=== PATIENT | male | born 1985 | race Caucasian/White ===

== ENCOUNTER 2024-03-30 12:46 | Outpatient (REF) | payer BC, SELFPAY ==
--- OUTSIDE RECORDS SUMMARY | 2024-03-30 12:54 | XMS_ITS | Encounter Summary ---
Author Organization [facility] Address [facility] [place] [address] Care Team Providers Care Home Health Travel Ot Name Role Phone Elizabeth Mistry APRN Primary Care Provider + Reason for Visit * Reason Comments Medication Management Encounter Details Date Type Department Care Team (Late st Contact Info) Description 04/30/2020 Specialty [place] [address] [facility] Social History Tobacco Use Types Packs/Day Years Used Date Smoking Tobacco: Former Cigarettes Q uit: 12/15/2017 Smokeless Tobacco: Never Alcohol Use Standard Drinks/Week Comments Yes 6 (1 standard drink = 0.6 oz pur e alcohol) Sex and Gender Information Value Date Recorded Sex Assigned at Not on file Gender Identity Not on file Sexual Orientation Not on file documented as of this encounter Progress Notes * Marcus Reese RPH - 04/30/2020 11:16 AM EST Clinical Management Plan: Refill Specialty Pharmacy Consultation; Marcus Reese Viridiana Comprehensive Medication Management (CMM) Marco A Georgette Xavier Mr. Marco A Park is a 34 y.o. (1985) male who was contacted in regard to a specialty medication refill reminder. Spoke with patient regarding Praluent. A review of the medication therapy was performed. The medication was Refilled as scheduled, and all medication related questions and concerns were addressed. The specialty pharmacy staff will follow up with the patient 5-7 days prior to next refill. Was a change made to the Care Plan: no If yes, should the medication be held: No Assessment and Recommendations: Title Type of Medication Management: chronic disease management, targeted medication review Referred By: provider Recipient: beneficiary Provider: plan sponsor pharmacist Visit Type: [facility] [place] Method of Contact: by telephone Cognitive Ability: good Cognitive Impairment Status Verified this Year: yes Allergies and Drug intolerance: Allergies Allergen Reactions ??? Lipitor [Atorvastatin] Other (See Comments) Elevated CK Medication Reconciliation Discrepancies (compared to [facility] med list) -none New medications: no New medical conditions: no New allergies: no Adherence: Medication Adherence Patient reported X missed doses in the last month: 0 Any gaps in refill history greater than 2 weeks in the last 3 months: no Demonstrates understanding of importance of adherence: yes Informant: patient Reliability of informant: reliable Provider-estimated medication adherence level: 90-100% Reasons for non-adherence: no problems identified Adherence tools used: directed education Support network for adherence: family member Confirmed plan for next specialty medication refill: delivery by pharmacy Refills needed for supportive medications: not needed Are you experiencing any side effects from your medications? no Pt understands no changes to current drug regimen were made at the appointment and that [facility] is providing recommendations (summary located at top of note) for provider review and follow up. Marcus Reese RPH 04/30/20 11:17 AM documented in this encounter Plan of Treatment Upcoming Encounters Date Type Department Care Team (Late st Contact Info) Description 04/01/2025 3:40 PM EST Office Visit Cardiology at [address] [address] Star Flores MD [facility] [place] [address] documented as of this encounter Goals Goal Patient Goal Type Associated Problems Recent Progress Patient-Stated? Author DH Home Medication Compliance and Understanding Patient Facing Action Plan No Salvatore Potts RP Note: Reduce LDL, measured by lipid panel, revisit every 6 months documented as of this encounter Visit Diagnoses Not on filedocumented in this encounter Care Teams Home Health Travel Ot Relationship Specialty Start Date End Date Elizabeth Mistry APRN [facility] [place] [address] PCP - General General Internal Medicine 08/19/1605/23 documented as of this encounter
--- OUTSIDE RECORDS SUMMARY | 2024-03-30 12:54 | XMS_ITS | Encounter Summary ---
Author Organization [facility] Address [facility] [place] [address] Care Team Providers Care Hydrodynamics Professor Name Role Phone Elizabeth Mistry APRN Primary Care Provider + Reason for Visit * Reason Comments Medication Management Patient Education Encounter Details Date Type Department Care Team (Late st Contact Info) Description 03/26/2020 Specialty Pharmacy Pharmacy at [facility] [place] [id number] Salvatore Potts RPH Social History Tobacco Use Types Packs/Day Years [...] as of this encounter Progress Notes * Salvatore Potts RPH - 03/26/2020 8:38 AM EST Specialty Pharmacy Consultation; Salvatore Potts RPH Comprehensive Medication Management (CMM) Marco A Blantonters Diagnosis: Hyperlipidemia Therapy Start Date: 08/2018 Contact in person or via telephone: telephone Mr. Marco A Park is a 34 y.o. (1985) male who was contacted in regard to specialty medication. Spoke with patient regarding praluent. A review of the medication therapy was performed. The medication was Refilled as scheduled, and all medication related questions and concerns were addressed.The specialty pharmacy staff will follow up with the patient 5-7 days prior to next refill. Is the patient willing to proceed with the Clinical Assessment? Yes Summary and Recommendations: I reviewed the labeling of praluent including the proper storage, handling, and administration. We reviewed the labeled warnings, side effects and discussed general monitoring parameters. I discussed the importance of adherence, and how to proceed with missed doses. I reviewed the summary of our specialty services, operating hours, transmission specialist procedure and when/how to contact the pharmacy. We reconciled Marco A's medication list, allergies and discussed goals of treatment. Marco A is having no issues with his injections and his LDL is at goal. He had no further questions or concerns today. Clinic follow-up needed: yes - routine Allergies and Drug intolerance: Allergies Allergen Reactions ??? Lipitor [Atorvastatin] Other (See Comments) Elevated CK Problem List: Patient Active Problem List Diagnosis Code ??? Unspecified symptoms and signs involving cognitive functions and awareness R41.9 ??? Depression F32.9 ??? 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 History of head injury Z87.828 ??? Familial hypercholesterolemia E78.01 Special Dietary or Hydration Requirements: no There is no height or weight on file to calculate BMI. Medication Reconciliation Discrepancies (compared to [facility] med list) no Medication Adherence Patient reported X missed doses [...] Refills needed for supportive medications: not needed Medication List: Current Outpatient Medications Medication Sig Dispense Refill ??? gabapentin (Neurontin) 300 mg Capsule Take 1 capsule by mouth nightly. 30 capsule 3 ??? clonazePAM (KlonoPIN) 0.5 mg Tablet Take 1 tablet by mouth 2 times daily as needed for Anxiety.30 tablet 0 ??? ezetimibe (Zetia) 10 mg Tablet Take 1 tablet by mouth daily. 90 tablet 3 ??? alirocumab 75 mg/mL Pen Injector Inject 75 mg subcutaneously every 14 days. 6 mL 3 ??? FLUoxetine (PROzac) 20 mg Tablet Take 2 tablets by mouth daily. 60 tablet 3 ??? pantoprazole (PROTONIX) 40 mg Tablet, Delayed Release (E.C.) Take 1 tablet by mouth daily. 30 tablet 11 No current facility-administered medications for this visit. Most Recent Vitals: Ht Readings from Last 1 Encounters: 12/07/19 175.3 cm (5' 9) Wt Readings from Last 3 Encounters: 12/07/19 76.7 kg (169 lb) 09/13/19 72.6 kg (160 lb) 06/08/19 77.2 kg (170 lb 3.2 oz) Temp Readings from Last 3 Encounters: 02/15/19 36.6 ??C (97.8 ??F) (Oral) 08/28/18 36.6 ??C (97.9 ??F) (Oral) 02/21/18 36.7 ??C (98.1 ??F) BP Readings from Last 3 Encounters: 12/07/19 131/81 06/08/19 127/73 02/15/19 135/90 Pulse Readings from Last 3 Encounters: 12/07/19 87 06/08/19 82 02/15/19 97 Pertinent Lab values: Lab Results Component Value Date NA 140 12/07/2019 K 4.2 12/07/2019 CL 101 12/07/2019 CO2 27 12/07/2019 BUN 13 12/07/2019 CREATININE 1.07 12/07/2019 GLUCOSE 98 08/24/2018 GLUCFASTING 91 12/07/2019 CALCIUM 9.5 12/07/2019 Lab Results Component Value Date ALT 19 12/07/2019 AST 19 12/07/2019 ALKPHOS 48 12/07/2019 BILITOT 0.3 12/07/2019 BILIDIR 0.1 09/01/2016 ALBUMIN 4.8 12/07/2019 PROT 7.2 12/07/2019 Lab Results Component Value Date WBC 6.8 08/18/2016 HGB 16.3 08/18/2016 HCT 46.0 08/18/2016 MCV 82.6 (L) 08/18/2016 PLATELET 257 08/18/2016 No results found for: HA1C Immunization History Administered Date(s) Administered ??? Influenza Vaccine PF, Quadrivalent 03/17/2017, 02/14/2018, 02/15/2019 ??? Influenza Vaccine, Whole 03/24/2008 ??? Tdap Vaccine 08/23/2016 Assessment and Recommendations: Title Type of Medication Management: chronic disease management, targeted medication review Referred By: provider Recipient: beneficiary Provider: plan sponsor pharmacist [place] [facility] [place] Method of Contact: by telephone Cognitive Ability: good Cognitive Impairment Status Verified this Year: yes Drug Interactions Provided the patient with educational material regarding drug interactions: yes Patient Counseling Counseled the patient on the following: medication safety precautions education provided, drug interaction education provided to patient, doses and administration discussed, safe handling, storage, and disposal discussed, possible adverse effects and management discussed, possible drug and prescription drug interactions discussed, possible drug and OTC drug and food interactions discussed, lab monitoring and follow-up discussed, therapeutic rationale discussed, cost of medications and cost implications discussed, adherence and missed doses discussed, pharmacy contact information discussed, health goals discussed, monitoring medication discussed, self-monitoring discussed Drug Medication Management Summary Topics discussed: medication safety precautions education provided, drug interaction education provided to patient, doses and administration discussed, safe handling, storage, and disposal discussed, possible adverse effects and management discussed, possible drug and prescription drug interactions discussed, possible drug and OTC drug and food interactions discussed, lab monitoring and follow-up discussed, therapeutic rationale discussed, cost of medications and cost implications discussed, adherence and missed doses discussed, pharmacy contact information discussed, health goals discussed, monitoring medication discussed, self-monitoring discussed Time spent: 16-30 min Treatment Outcomes No data found in the last 10 encounters. Reviewed in detail with patient: Dose appropriateness based on recommended standard dosing Current medication list including OTC medications Medication and disease problems Allergies Comorbid conditions/ Problem List Past adverse events if any Special needs of the patient including physical and cognitive limitations Goals of therapy and management strategies Warnings, precautions, and contraindications Side effects Drug-drug and drug-food interactions Administration instructions including dose, frequency and method Handling, storage, and disposal Verifying expiration dates on products before use Rotating medication inventory to use oldest product first Relevant lab data Patient verbalizes understanding and is able to read-back instructions on self-administration/injection, proper storage, drug stability, importance of adherence and management strategies, side effectavoidance and mitigation strategies, and interruptions in therapy: Yes Physical and Cognitive Assessment: Functional limitations identified: no Cognitive limitations identified: no Concern regarding orientation/memory: no Concern with reasoning/judgement: no Is patient a fall risk: no Other needed information: no Social Assessment: Does the patient have a primary school child care attendant? no Does the patient have an emergency contact on file: Yes Does patient need referral to neonatal social worker: No Does patient need referral to advocacy group: No Home Health Assessment: Is the patient in a safe home environment? Yes Is the patient able to store their medication as directed? Yes Does the patient have a support network at home? Yes Reviewed potential home safety hazards with patient: Yes Economic Assessment: Patient is agreeable to medication copay: yes Copay Amount: $3 Day Supply: 28 Date Needed: 04/05/2020 Copay assistance required: no Therapy Assessment: Current Medication Dosing/Route/Frequency: praluent 75mg inject 75mg subcutaneously every 14 days Appropriate Therapy: Yes Effective: yes - LDL reduced Baseline LDL-C Level: 222 Most Recent LDL-C Level: 49 Patient-Reported Side Effects: no Patient Goals: Patient's specific desired goal: LDL < 70 Measured by: LDL Time-frame to meet goal: ongoing/ currently met Is the patient on track to achieve goals of therapy? yes If no, what are the barriers and action plan to reach the goal: n/a Care Plan and Interventions: Care Plan Reviewed and Approved by both Pharmacist and Patient: Yes Did Care Plan Change? No Interventions (if applicable): No none Patient experienced change in condition that affects treatment: no Additional care/services needed: no Educational information or adherence tools provided: No Additional equipment/supplies required: no Patient Counseling: Issues with Injection: no Rotation of Injection Sites: Yes Room Temperature Medication at Time of Injection: Yes Recent Infections: no Pharmacist follow-up needed: Yes Patient Satisfaction with Care/Services Provided: Yes Informed patient of specialty pharmacy services: Yes -Patient received welcome packet: yes Date Received: 08/2018 Delivery Method: mail -Patient returned signed Rights & Responsibilities: yes - . Date Received: 08/2018 Delivery Method: mail- confirmed 09/2019 -Patient is aware a licensed pharmacist is available 24 hours a day, 7 days a week to discuss medication-related questions or concerns: Yes -Patient verbalizes understanding of education on the common side effect profile of the medication:Yes -The patient is able to call 911 or seek urgent care if signs/symptoms of allergy or harmful adverse reactions occur: Yes Patient understands no changes to current drug regimen were made at the appointment and that [facility] (summary located at top of note) for provider review and follow up. Salvatore Potts RPH 03/26/20 8:41 AM documented in this encounter Plan of Treatment Upcoming Encounters Date Type Department Care Team (Late st Contact Info) Description 04/01/2025 3:40 PM EST Office Visit Cardiology at [address] [facility] [place] [address] Star Flores MD [facility] [place] [address] documented as of this encounter Goals Goal Patient Goal Type Associated Problems Recent Progress Patient-Stated? Author DH Home Medication Compliance and Understanding Patient Facing Action Plan No Salvatore Potts RPH Note: Reduce LDL, measured by lipid panel, revisit every 6 months documented as of this encounter Visit Diagnoses Not on filedocumented in this encounter Care Teams Hydrodynamics Professor Relationship Specialty Start Date End Date Elizabeth Mistry APRN [facility] [place] [place] [address] PCP - General General Internal Medicine 08/19/1605/23 documented as of this encounter
--- OUTSIDE RECORDS SUMMARY | 2024-03-30 12:54 | XMS_ITS | Encounter Summary ---
Author Organization [facility] Address [facility] [place] [address] Care Team Providers Care Associate Creative Director Name Role Phone Elizabeth Mistry APRN Primary Care Provider + Reason for Visit * Reason Comments Medication Refill Encounter Details Date Type Department Care Team (Late st Contact Info) Description 07/04/2020 Specialty Pharmacy Pharmacy at [facility] [place] [phone] Kyleigh Leal RPH Social History Tobacco Use Types Packs/Day [...] as of this encounter Progress Notes * Kyleigh Leal RPH - 07/04/2020 12:33 PM EST Clinical Management Plan: Refill Specialty Pharmacy Consultation; Kyleigh Leal RPH Comprehensive Medication Management (CMM) Marco A Park Mr. Marco A Park is a 34 y.o. (1985) male who was contacted in regard to a specialty medication refill reminder. Contact made with patient regarding Praluent. A review of the medication therapy was performed. The medication was refilled as scheduled, and all medication related questions andconcerns were addressed. The specialty pharmacy staff will follow up with the patient 5-7 days prior to next refill. Was a change made to the Care Plan: No Allergies and Drug intolerance: Allergies Allergen Reactions ??? Lipitor [Atorvastatin] Other (See Comments) Elevated CK Medication Reconciliation Discrepancies (compared to [facility] med list) No Specialty Pharmacy Refill Questionnaire Refill Questionnaire 07/04/2020 Are you taking any new medications? No Any new medical condition? No Any new allergies? No Any new side effects that are bothersome? No Adherence: Any missed doses? No Patient understands no changes to current drug regimen were made.. Kyleigh Leal RPH 07/04/20 12:35 PM documented in this encounter Plan of Treatment Upcoming Encounters Date Type Department Care Team (Late st Contact Info) Description 04/01/2025 3:40 PM EST Office Visit Cardiology at [address] [address] Star Flores MD [facility] [place] [address] documented as of this encounter Goals Goal Patient Goal Type Associated Problems Recent Progress Patient-Stated? Author DH Home Medication Compliance and Understanding Patient Facing Action Plan No Salvatore Potts Viridiana Note: Reduce LDL, measured by lipid panel, revisit every 6 months documented as of this encounter Visit Diagnoses Not on filedocumented in this encounter Care Teams Associate Creative Director Relationship Specialty Start Date End Date Elizabeth Mistry APRN [facility] [place] [address] PCP - General General Internal Medicine 08/19/1605/23 documented as of this encounter
--- OUTSIDE RECORDS SUMMARY | 2024-03-30 12:54 | XMS_ITS | Encounter Summary ---
Author Organization [facility] Address [facility] [place] [address] Care Team Providers Care Pasting Inspector Name Role Phone Unavailable Primary Care Provider Unavailabl e Encounter Details Date Type Department Care Team (Latest Contact Info) Description 03/28/2024 Travel Social History Tobacco Use Types Packs/Day Years Used Date Smoking Tobacco: Former Cigarettes Q uit: 12/15/2017 Smokeless Tobacco: Never Alcohol Use Standard Drinks/Week Comments Yes 6 (1 standard drink = 0.6 oz pur e alcohol) Sex and Gender Information Value Date Recorded Sex Assigned at Not on file Gender Identity Not on file Sexual Orientation Not on file documented as of this encounter Plan of Treatment Upcoming Encounters Date Type Department Care Team (Late st Contact Info) Description 04/01/2025 3:40 PM EST Office Visit Cardiology at [address] [address] Star Flores MD [facility] [address] documented as of this encounter Goals Goal Patient Goal Type Associated Problems Recent Progress Patient-Stated? Author Home Medication Compliance and Understanding Patient Facing Action Plan No Salvatore Potts [facility] Note: Reduce LDL, measured by lipid panel, revisit every 6 months documented as of this encounter Visit Diagnoses Not on filedocumented in this encounter
--- OUTSIDE RECORDS SUMMARY | 2024-03-30 12:54 | XMS_ITS | Encounter Summary ---
Author Organization [facility] Address [facility] [place] [address] Care Team Providers Care Camera Tuning Engineer Name Role Phone Gregor Fenton Primary Care Provider [phone] Encounter Details Date Type Department Care Team (Late st Contact Info) Description 07/02/2021 Telephone Internal Medicine at [address] [address] Luz Maria Burkett Social History Tobacco Use Types Packs/Day Years Used Date Smoking Tobacco: Former Cigarettes Q uit: 12/15/2017 Smokeless Tobacco: Never Alcohol Use Standard Drinks/Week Comments Yes 6 (1 standard drink = 0.6 oz pur e alcohol) Sex and Gender Information Value Date Recorded Sex Assigned at Not on file Gender Identity Not on file Sexual Orientation Not on file documented as of this encounter Miscellaneous Notes * Telephone Encounter - Luz Maria Burkett - 07/02/2021 10:46 AM ESTSummary: Annual appointment Called Marco A, discussed scheduling with new pcp RIYA Poole. At this time he would like [facility] as he has been trying to find a pcp in the [place] area. documented in this encounter Plan of Treatment Upcoming Encounters Date Type Department Care Team (Late st Contact Info) Description 04/01/2025 3:40 PM EST Office Visit Cardiology at [address] [place] [address] Star Flores MD [facility] [place] [address] documented as of this encounter Goals Goal Patient Goal Type Associated Problems Recent Progress Patient-Stated? Author Home Medication Compliance and Understanding Patient Facing Action Plan Salvatore Palma, [facility] Note: Reduce LDL, measured by lipid panel, revisit every 6 months documented as of this encounter Visit Diagnoses Not on filedocumented in this encounter Care Teams Camera Tuning Engineer Relationship Specialty Start Date End Date Gregor Fenton PA [facility] [place] [address] PCP - General 06/03/21 03/30/22 documented as of this encounter
--- OUTSIDE RECORDS SUMMARY | 2024-03-30 12:54 | XMS_ITS | Encounter Summary ---
Author Organization [facility] Address [facility] [place] [address] Care Team Providers Care Senior Sales Administrator Name Role Phone Elizabeth Mistry APRN Primary Care Provider + Reason for Visit * Reason Comments Medication Refill Encounter Details Date Type Department Care Team (Late st Contact Info) Description 01/19/2021 Specialty Pharmacy Pharmacy at [facility] [place] [phone] Kyleigh Leal RPH Social History Tobacco Use [...] Progress Notes * Kyleigh Leal RPH - 01/19/2021 1:31 PM EDT Clinical Management Plan: Refill Specialty Pharmacy Consultation; Kyleigh Leal RPH Comprehensive Medication Management (CMM) Marco A Georgette Xavier Mr. Marco A Park is a 35 y.o. (1985) male who was contacted in regard to a specialty medication refill reminder. Contact made with patient regarding Praluent. A review of the medication therapy was performed. The medication was refilled as scheduled, and all medication related questions andconcerns were addressed. The specialty pharmacy staff will follow up with the patient 5-7 days prior to next refill. His Praluent is requiring prior authorization which we are in the process of completing. Patient aware we will update him if unable to ship by . Was a change made to the Care Plan: No Allergies and Drug intolerance: Allergies Allergen Reactions ??? Lipitor [Atorvastatin] Other (See Comments) Elevated CK Medication Reconciliation Discrepancies (compared to [facility] med list) No Specialty Pharmacy Refill Questionnaire Refill Questionnaire 01/19/2021 What is the name of the specialty medication you are refilling? Praluent Are you taking any new medications? No Any new medical condition? No Please explain - Any new allergies? No Any new side effects that are bothersome? No What date will you need this fill by? 01/26/2021 Adherence: Any missed doses? No Patient understands no changes to current drug regimen were made.. Kyleigh Leal RPH 01/19/21 1:32 PM documented in this encounter Plan of Treatment Upcoming Encounters Date Type Department Care Team (Late st Contact Info) Description 04/01/2025 3:40 PM EST Office Visit Cardiology at [address] [phone] Star Flores MD [facility] [place] [address] documented as of this encounter Goals Goal Patient Goal Type Associated Problems Recent Progress Patient-Stated? Author DH Home Medication Compliance and Understanding Patient Facing Action Plan Salvatore Palma RPH Note: Reduce LDL, measured by lipid panel, revisit every 6 months documented as of this encounter Visit Diagnoses Not on filedocumented in this encounter Care Teams Senior Sales Administrator Relationship Specialty Start Date End Date Elizabeth Mistry APRN [facility] [place] [address] PCP - General General Internal Medicine 08/19/1605/23 documented as of this encounter
--- OUTSIDE RECORDS SUMMARY | 2024-03-30 12:54 | XMS_ITS | Encounter Summary ---
Author Organization [facility] Address [facility] [place] [address] Care Team Providers Care Regrinder Operator Name Role Phone Elizabeth Mistry APRN Primary Care Provider + Encounter Details Date Type Department Care Team (Late st Contact Info) Description 04/08/2020 1:30 PM EST TH Visit (TeleHealth) Internal Medicine at [place] [phone] Porsche Rainey MD [facility] [place] [address] Anxiety Social History Tobacco Use Types Packs/Day Years Used Date Smoking Tobacco: Former Cigarettes Q uit: 12/15/2017 Smokeless Tobacco: Never Alcohol Use Standard Drinks/Week Comments Yes 6 (1 standard drink = 0.6 oz pur e alcohol) Sex and Gender Information Value Date Recorded Sex Assigned at Not on file Gender Identity Not on file Sexual Orientation Not on file documented as of this encounter Patient Instructions * Patient Instructions* Porsche Rainey - 04/08/2020 1:30 PM EST Images from the original note were not included. Tej Strickland, It was good to talk with you today over the phone for a telephone visit. I have written our plan below for helping you with the situational anxiety that you described: Plan: - Begin hydroxyzine 25 mg once per day as needed w/severe anxiety - Provided info on counselors through Psychology Today - please go to [email or web address].com/us/therapists and search by [facility], then click on insurance, and click on Medicaid - this will give you an option for counselors that take Medicaid - [place] Crisis Text Line 24 hour mental health crisis support: text [phone] - [employer] Online Therapy: Online counseling by text, audio or video messaging at an affordable cost: [employer] - I've also attached a handout on anxiety which has some helpful relaxation exercises - I will schedule a 1 week telephone visit with you to see how the anxiety is. If you are not noticing any improvement, please let us know. Thank you, Porsche Rainey MD Patient Education Anxiety Disorder: Care Instructions Your Care Instructions Anxiety is a normal reaction to stress. Difficult situations can cause you to have symptoms such assweaty palms and a nervous feeling. In an anxiety disorder, the symptoms are far more severe. Constant worry, muscle tension, trouble sleeping, nausea and diarrhea, and other symptoms can make normal daily activities difficult or impossible. These symptoms may occur for no reason, and they can affect your work, school, or social life. Medicines, counseling, and self-care can all help. Follow-up care is a trotter part of your treatment and safety. Be sure to make and go to all appointments, and call your doctor if you are having problems. It's also a good idea to know your test resultsand keep a list of the medicines you take. How can you care for yourself at home? ?? Take medicines exactly as directed. Call your doctor if you think you are having a problem with your medicine. ?? Go to your counseling sessions and follow-up appointments. ?? Recognize and accept your anxiety. Then, when you are in a situation that makes you anxious, sayto yourself, This is not an emergency. I feel uncomfortable, but I am not in danger. I can keep going even if I feel anxious. ?? Be kind to your body: ? Relieve tension with exercise or a massage. ? Get enough rest. ? Avoid alcohol, caffeine, nicotine, and illegal drugs. They can increase your anxiety level and cause sleep problems. ? Learn and do relaxation techniques. See below for more about these techniques. ?? Engage your mind. Get out and do something you enjoy. Go to a funny movie, or take a walk or hike. Plan your day. Having too much or too little to do can make you anxious. ?? Keep a record of your symptoms. Discuss your fears with a good friend or family member, or join a support group for people with similar problems. Talking to others sometimes relieves stress. ?? Get involved in social groups, or volunteer to help others. Being alone sometimes makes things seem worse than they are. ?? Get at least 30 minutes of exercise on most days of the week to relieve stress. Walking is a good choice. You also may want to do other activities, such as running, swimming, cycling, or playing tennis or team sports. Relaxation techniques Do relaxation exercises 10 to 20 minutes a day. You can play soothing, relaxing music while you do them, if you wish. ?? Tell others in your house that you are going to do your relaxation exercises. Ask them not to disturb you. ?? Find a comfortable place, away from all distractions and noise. ?? Lie down on your back, or sit with your back straight. ?? Focus on your breathing. Make it slow and steady. ?? Breathe in through your nose. Breathe out through either your nose or mouth. ?? Breathe deeply, filling up the area between your navel and your rib cage. Breathe so that your belly goes up and down. ?? Do not hold your breath. ?? Breathe like this for 5 to 10 minutes. Notice the feeling of calmness throughout your whole body. As you continue to breathe slowly and deeply, relax by doing the following for another 5 to 10 minutes: ?? Tighten and relax each muscle group in your body. You can begin at your toes and work your way up to your head. ?? Imagine your muscle groups relaxing and becoming heavy. ?? Empty your mind of all thoughts. ?? Let yourself relax more and more deeply. ?? Become aware of the state of calmness that surrounds you. ?? When your relaxation time is over, you can bring yourself back to alertness by moving your fingers and toes and then your hands and feet and then stretching and moving your entire body. Sometimes people fall asleep during relaxation, but they usually wake up shortly afterward. ?? Always give yourself time to return to full alertness before you drive a car or do anything thatmight cause an accident if you are not fully alert. Never play a relaxation tape while you drive a car. When should you call for help? Call 911 anytime you think you may need emergency care. For example, call if: ? You feel you cannot stop from hurting yourself or someone else. Keep the numbers for these national suicide hotlines: 9-654-936-TALK ( ) and 0-260-YFFZVPI ( ). If you or someone you know talks about suicide or feeling hopeless, get help right away. Watch closely for changes in your health, and be sure to contact your doctor if: ? You have anxiety or fear that affects your life. ? You have symptoms of anxiety that are new or different from those you had before. Where can you learn more? Visit our [employer] information library at https://[employer] You can also view health information on [employer], your personal patient account. Log in or sign uptoday. Enter P754 in the search box to learn more about Anxiety Disorder: Care Instructions. Current as of: June 22, 2019?Content Version: 12.6 ?? [id number] [employer]. Care instructions adapted under license by [facility]. If you have questions about a medical condition or this instruction, always ask your healthcare professional. [employer] disclaims any warranty or liability for your use of this information. documented in this encounter Progress Notes * Porsche Rainey - 04/08/2020 1:30 PM EST Established Patient Visit Internal Medicine - [facility] TELEPHONE VISIT TELEPHONE VISIT- Given the??ongoing COVID-19 public health emergency, this visit was done as a Telephone visit. The patient gave verbal consent for the visit. The exam findings were based on the telephone conversation with the patient during the visit. Subjective: Marco A Park is a pleasant 34 y.o. male with dyslipidemia and depression (diagnosed 2015 per chart review) who presents for a one-week history of worsening anxiety. He reports that one week ago, his dog became ill and the patient had to make a decision about whether he would proceed with surgery (about $7,000). He decided on surgery and the dog is going through surgery today. He is concerned about the financial burdens especially because he just found out thathe and his partner are having a child due in October. He is thrilled about that but worried about the decisions he is making right now. He says he made this appointment before making the decision about the dog. He describes his mood as not super great, not suicidal or anything like that. He feels worried about his job, endorses decreased concentration because he is worried about finances, endorses worsening sleep due to issues with numbness, and decreased energy as a result. He denies any suicidality or homicidality. He has been taking the Prozac 40 mg daily as well as Clonazepam once per day PRN. Gabapentin has been helpful with sleep. He doesn't want to start any new medications as he wants eventually to taper off of Prozac in the future. PHQ-9 score today, performed over the phone, was 4, indicating minimal depression. Scored for decreased sleep, energy, concentration, and poor appetite. In review of his mental health history: was last evaluated via Telehealth for depression on 09/20/2019 with a moderate episode of MDD that resulted in an ED visit. He took 5 tablets of Ativan at one time because he just wanted to go to sleep. He then vomited them up instantly and his friend called the ED at [facility]. He was seen by his PCP in close follow-up after discharge, and at thattime, his Prozac was increased to 40 mg and Ativan was changed to Clonazepam 0.5 mg BID PRN. Prior to that, he had a history of [facility]ations [facility] In July 2019, he had a panic attack at the beginning of the pandemic, with feelings of increased fear. Medication Trials: - Wellbutrin (2017): Didn't like how it made him feel - Ativan (2019): switched to clonazepam after patient attempted to take multiple tablets for sleep Questionnaires/Data: PHQ-9: 4 Health Risk Assessment (HRA): (all responses reviewed including blank responses) Annual Wellness Visit Responses: myD-H Annual Wellness Visit Responses 02/15/2019 Health in general Good Quality of life Good Physical health Good Mental health Good Satisfaction with social activities Good Ability to carry out social activities Very Good Ability to carry out physical activities Completely Bothered by emotional problems Rarely Rate of fatigue None Rate of pain 2 PROMIS-10 Physical Health Score 54.1 PROMIS-10 Mental Health Score 45.8 Little interest or pleasure Not at all Down, depressed, hopeless Not at all Trouble sleeping Not at all Tired or no energy Not at all Poor appetite or overeating Not at all Feeling like a failure Not at all Trouble concentrating (newspaper) Not at all Moving or speaking slowly Not at all Would be better off Not at all Total PHQ-9 0 (No Depression) Confident filling medical forms Extremely Medication finances No PHQ-9 QUESTIONNAIRE SCORE ONLY (AMB) 02/15/2019 PHQ - 9 Score (Clinic) - PHQ - 9 Score (Patient) 0 (No Depression) Some recent data might be hidden Review of Systems: (Pertinent positives indicated with a +) Psych ROS as above. Past Medical History: No past medical history on file. Medications Reviewed and Updated: Current Outpatient Medications: ??? clonazePAM (KlonoPIN) 0.5 mg Tablet, Take 1 tablet by mouth 2 times daily as needed for Anxiety., Disp: 30 tablet, Rfl: 0 ??? gabapentin (Neurontin) 300 mg Capsule, Take 1 capsule by mouth nightly., Disp: 30 capsule, Rfl:3 ??? ezetimibe (Zetia) 10 mg Tablet, Take 1 tablet by mouth daily., Disp: 90 tablet, Rfl: 3 ??? alirocumab 75 mg/mL Pen Injector, Inject 75 mg subcutaneously every 14 days., Disp: 6 mL, Rfl: 3 ??? FLUoxetine (PROzac) 20 mg Tablet, Take 2 tablets by mouth daily., Disp: 60 tablet, Rfl: 3 ??? pantoprazole (PROTONIX) 40 mg Tablet, Delayed Release (E.C.), Take 1 tablet by mouth daily., Disp: 30 tablet, Rfl: 11 Allergies: Allergies Allergen Reactions ??? Lipitor [Atorvastatin] Other (See Comments) Elevated CK Family History: Family History Problem Relation Age of Onset ??? Myocardial Infarction Father 49 [address] / stents and on PCSK9 inhibitor ??? Hyperlipidemia Father ??? Hyperlipidemia Sister 39 on a statin ??? Myocardial Infarction Maternal Grandfather 81 ??? Hyperlipidemia Paternal Grandmother ??? Alzheimer Disease Paternal Grandmother ??? Hyperlipidemia Paternal Aunt ??? Hyperlipidemia Paternal Uncle Social History: Social History Tobacco Use ??? Smoking status: Former Smoker Packs/day: 0.50 Types: Cigarettes Quit date: 12/15/2017 Years since quittin.3 ??? Smokeless tobacco: Never Used Substance Use Topics ??? Alcohol use: Yes Alcohol/week: 6.0 standard drinks Types: 6 Cans of beer per week ??? Drug use: Yes Types: Marijuana Comment: smokes approx. 4 times per week Social History Social History Narrative ??? Not on file Objective: There were no vitals taken for this visit. Wt Readings from Last 3 Encounters: 12/07/19 76.7 kg (169 lb) 09/13/19 72.6 kg (160 lb) 06/08/19 77.2 kg (170 lb 3.2 oz) Physical Examination MENTAL STATUS EXAM ? Appearance: Telephone visit ? Behavior: Seemed calm and cooperative ? Speech: non-pressured; spontaneous; conversational volume and prosody ? Language: fluent; non-profane ? Mood: Not super great ? Affect: mood congruent, appropriate range, reactive, positive at times when talking about his child ? Thought Process: linear, goal-directed ? Associations: clear; intact; no SHERYL ? Thought Content: denies SI and HI ? Perception: Not assessed ? Orientation: Not assessed ? Attention/Concentration: intact to conversation ? Cognition: appropriate ? Memory: Not assessed ? Fund of Knowledge: age appropriate ? Insight: limited ? Judgment: limited Labs and Other Studies: Lab Results Component Value Date WBC 6.8 08/18/2016 HGB 16.3 08/18/2016 HCT 46.0 08/18/2016 MCV 82.6 (L) 08/18/2016 PLATELET 257 08/18/2016 Lab Results Component Value Date NA 140 12/07/2019 K 4.2 12/07/2019 CL 101 12/07/2019 CO2 27 12/07/2019 BUN 13 12/07/2019 CREATININE 1.07 12/07/2019 GLUCOSE 98 08/24/2018 GLUCFASTING 91 12/07/2019 CALCIUM 9.5 12/07/2019 ESTGFR 89 12/07/2019 No results found for: HA1C Assessment & Plan: Marco A Park is a very pleasant 34 y.o. male who returns to clinic today. We prioritized and discussed the following issues: Marco A reported a one-week history of worsening anxiety, which seems most in line with situational anxiety; differential also consists of acute stress disorder or adjustment disorder. Given that his PHQ-9 score was 4, we talked and decided not to make any changes to the Prozac or clonazepam, but to add hydroxyzine to help him get through the next two weeks or so. If his symptoms continue at the 1-2 week lexis, we will have a telephone visit scheduled and we can make other changes to the Prozac/clonazepam (could consider augmentation with buspirone potentially). I provided information about counselors and a crisis text line in [place], listed below and in the AVS. Plan: - Begin hydroxyzine 25 mg once per day PRN w/severe anxiety - Provided info on counselors through Psychology Today - [place] Crisis Text Line 24 hour mental health crisis support: text [phone] - [employer] Online Therapy: Online counseling by text, audio or video messaging at an affordable cost - Will schedule 1 wk telephone visit with patient Porsche Rainey MD Internal Medicine PGY-2 Pager #[phone] * Broderick Guzman MD - 04/08/2020 1:30 PM EST The case was discussed at the time of the visit or immediately after the visit. The assessment and plan were formulated in discussion with me and I agree with them as documented. I have reviewed the history, physical exam, assessment and plan with the resident. Major issues discussed today: Pt with telephone visit with Dr Rainey. Pt's dog has to undergo a procedure and will cost him a lot ofmoney. Having hard time worrying about dog and finances and some decreased concentration. On prozacand clonazepam currently. PHQ 9 today 4. One week on sxs currently. Has been on wellbutrin in the past but didn't like the way it made him feel. Plan: Situational anxiety -will not change at this time as this is likely due to local changes -consider counselor -given crisis line F/u 1 week documented in this encounter Plan of Treatment Upcoming Encounters Date Type Department Care Team (Late st Contact Info) Description 04/01/2025 3:40 PM EST Office Visit Cardiology at [address] [place] [address] Star Folres MD [facility] [place] [address] documented as of this encounter Goals Goal Patient Goal Type Associated Problems Recent Progress Patient-Stated? Author DH Home Medication Compliance and Understanding Patient Facing Action Plan Salvatore Palma, [facility] Note: Reduce LDL, measured by lipid panel, revisit every 6 months documented as of this encounter Visit Diagnoses Diagnosis Anxiety Anxiety state, unspecified documented in this encounter Care Teams Regrinder Operator Relationship Specialty Start Date End Date Elizabeth Mistry APRN [facility] [place] [address] PCP - General General Internal Medicine 08/19/1605/23 documented as of this encounter
--- OUTSIDE RECORDS SUMMARY | 2024-03-30 12:54 | XMS_ITS | Encounter Summary ---
[place] [address] Care Team Providers Care Wiener Packer Name Role Phone Elizabeth Mistry APRN Primary Care Provider + Reason for Referral * Surgical (Routine) - Closed Specialty Diagnoses / Procedures Referred By Samuel cisneros Referred To Contact Diagnoses Carpal tunnel syndrome, bilateral Elizabeth Mistry APRN [facility] [place] [address] [facility] [address] [place] [address] Referral ID Status Reason Start Date Expiration Date V isits Requested Visits Authorized [id number] Closed Consult, Test & Treat 06/10/2020 12/07/2020 1 1 Reason for Visit * Reason Comments Carpal Tunnel Encounter Details Date Type Department Care Team (Late st Contact Info) Description 06/10/2020 11:30 AM EST TH Visit (TeleHealth) Internal Medicine at [address] [phone] Elizabeth Mistry EMERY WHEEL WORKER [facility] [place] [address] Carpal tunnel syndrome, bilateral Social History Tobacco Use Types Packs/Day Years [...] as of this encounter Progress Notes * Elizabeth Mistry APRN - 06/10/2020 11:30 AM EST PCP: Elizabeth Mistry APRN Chief Complaint Patient presents with ??? Carpal Tunnel SUBJECTIVE: Marco A Park is a 34 y.o. male who presents for follow up on his recent EMG test. I do not have a copy of the EMG study. He reports that they told him that he has had bilateral CTS,and it is worse on the right side. There was no nerve compression from his neck. They did discuss with him having CTS. He reports that he has tried the braces in his wrists. He has also contacted his employer and they may make him get another EMG test. He reports that his symptoms started after working from home. He has had some improvement with an ergonomical desk and keyboard. Social History- He is doing well and his significant other is doing well. She is 20 weeks and they are very excited. THis will be his first child Review of Systems Constitutional: Negative for chills and fever. HENT: Positive for congestion (mild). Respiratory: Negative for cough and shortness of breath. Musculoskeletal: Positive for neck pain (last few days, getting better). Neurological: Positive for numbness (bilateral hands, right worse). Negative for dizziness, weakness, light-headedness and headaches. Allergies Allergen Reactions ??? Lipitor [Atorvastatin] Other (See Comments) Elevated CK Current Outpatient Medications Medication Sig Dispense Refill ??? hydrOXYzine (Atarax) 25 mg Tablet Take 1 tablet by mouth once as needed for Anxiety. 15 tablet 0 ??? clonazePAM (KlonoPIN) 0.5 mg Tablet Take 1 tablet by mouth 2 times daily as needed for Anxiety.30 tablet 0 ??? gabapentin (Neurontin) 300 mg Capsule Take 1 capsule by mouth nightly. 30 capsule 3 ??? ezetimibe (Zetia) 10 mg Tablet Take [...] No current facility-administered medications for this visit. Patient Active Problem List Diagnosis Code ??? Unspecified symptoms and signs involving cognitive functions and awareness R41.9 ??? Depression F32.9 ??? 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 History of head injury Z87.828 ??? Familial hypercholesterolemia E78.01 OBJECTIVE: There were no vitals filed for this visit. PHYSICAL EXAM: Physical Exam ASSESSMENT & PLAN: Marco A was seen today for carpal tunnel. Diagnoses and all orders for this visit: Carpal tunnel syndrome, bilateral - I do recommend that he have carpal tunnel surgery given the ongoing since November of 2019, and he has done conservative treatment with braces, changing his desk, mouse and keyboard. I will place referral to ortho at [facility] for discussion of carpal tunnel surgery. TELEHEALTH VISIT- Given the ongoing COVID-19 public health emergency, this visit was done as a Telehealth visit. The patient gave verbal consent for the visit. The exam findings were limited to the video images. documented in this encounter Plan of Treatment Upcoming Encounters Date Type Department Care Team (Late st Contact Info) Description 04/01/2025 3:40 PM EST Office Visit Cardiology at [address] [place] [address] Star Flores MD [facility] [place] [address] Scheduled Referrals Name Type Priority Associated Diagnoses Order Schedule Referral to Orthopaedics Outpatient Referral Routine Carpal tunnel syndrome, bilateral Ordered: 06/10/2020 documented as of this encounter Goals Goal Patient Goal Type Associated Problems Recent Progress Patient-Stated? Author Home Medication Compliance and Understanding Patient Facing Action Plan Salvatore Palma RPH Note: Reduce LDL, measured by lipid panel, revisit every 6 months documented as of this encounter Visit Diagnoses Diagnosis Carpal tunnel syndrome, bilateral Carpal tunnel syndrome documented in this encounter Care Teams Wiener Packer Relationship Specialty Start Date End Date Elizabeth Mistry, GENNY [facility] [place] [address] PCP - General General Internal Medicine 08/19/1605/23 documented as of this encounter
--- OUTSIDE RECORDS SUMMARY | 2024-03-30 12:54 | XMS_ITS ---
Author Organization Unknown Address [address] [place] [phone] Phone Care Team Providers Care Instrument And Control Service Person Name Role Phone REE OBRIEN Registered Nurse Unavailable IRVING Palomino Attending Unavailable PCP NOT SELECTED Primary Unavailable UNLISTED PROVIDER - REQUESTED Xhandoff Un available Results LIPASE* NEW - Collect Date/T norberto: 07/24/2023 22:15 ID: [id number] [address] [place] [address], [id number] LOINC: 3040-3 Test Value Unit Reference Range Code Code System Flag LIPASE. 44 U/L L=16 H=77 COMPREHENSIVE METABOLIC PANE L (CMP) - Collect Date/Time: 07/24/2023 22:15 ID: [id number] [address] [place] [address], [address] LOINC: 22627-4 Test Value Unit Reference Range Code Code System Flag GLUCOSE 116 mg/dL L=70 H=116 2345-7 LOINC BUN 18 mg/dL L=6 H=25 3094-0 LOINC CREATININE 1.31 mg/dL L=0.67 H=1.17 2160-0 LOINC H SODIUM SERUM 138 mmol/L L=136 H=145 2951-2 LOINC POTASSIUM SERUM 3.8 mmol/L L=3.4 H=5.2 2823-3 LOINC CHLORIDE SERUM 103 mmol/L L=96 H=110 2075-0 LOINC CARBON DIOXIDE (CO2) 26 mmol/L L=22 H=34 2028-9 LOINC ANION GAP 8.8 mmol/L 63394-7 LOINC CALCIUM SERUM 8.3 mg/dL L=8.2 H=10.2 36129-7 LOINC BILIRUBIN TOTAL 0.4 mg/dL L=0.0 H=1.3 1975-2 LOINC ALK. PHOS. 71 U/L L=46 H=116 6768-6 LOINC SGOT (AST) 38 U/L L=15 H=37 1920-8 LOINC H SGPT (ALT) 93 U/L L=12 H=78 1742-6 LOINC H TOTAL PROTEIN 7.4 gm/dL L=6.0 H=8.0 2885-2 LOINC ALBUMIN 4.1 gm/dL L=3.4 H=5.0 1751-7 LOINC AGE 38 years eGFR (non-Afr.Amer.) 61 mL/min 72670-7 LOINC eGFR (Afr-Singaporean) 73 mL/min 63459-8 LOINC CBC W/ DIFFERENTIAL* - Colle ct Date/Time: 07/24/2023 22:15 ID: [id number] [address] [place], [place], [address] LOINC: 19244-6 Test Value Unit Reference Range Code Code System Flag WBC 8.41 th/cmm L=5.00 H=10.00 6690-2 LOINC NEUT % 63.7 % L=40.0 H=80.0 LYMPH % 25.4 % L=10.0 H=50.0 MONO % 8.4 % L=2.0 H=12.0 66891-0 LOINC EOS % 1.9 % L=0.0 H=8.0 BASO % 0.2 % L=0.0 H=3.0 IG % 0.4 % L=0.0 H=1.1 2514-8 LOINC NRBC % 0.0 % L=0.0 H=0.0 76354-5 LOINC NEUT abs count 5.4 th/cmm L=1.6 H=8.4 751-8 LOINC LYMPH abs count 2.1 th/cmm L=1.5 H=4.0 731-0 LOINC MONO abs count 0.7 th/cmm L=0.2 H=1.0 742-7 LOINC EOS abs count 0.2 th/cmm L=0.0 H=0.5 711-2 LOINC BASO abs count 0.0 th/cmm L=0.0 H=0.2 704-7 LOINC IG abs count 0.0 th/cmm L=0.0 H=0.1 19670-8 LOINC NRBC abs count 0.0 mil/cmm L=0.0 H=0.0 88149-6 LOINC RBC 5.27 mil/cmm L=4.30 H=6.20 789-8 LOINC HEMOGLOBIN 15.5 gm/dL L=13.0 H=17.0 718-7 LOINC HEMATOCRIT 44 % L=45 H=52 4544-3 LOINC L MCV 84 fL L=82 H=92 787-2 LOINC MCH 29.4 pg L=27.0 H=31.0 785-6 LOINC MCHC 34.9 % L=32.0 H=36.0 786-4 LOINC RDW-SD 39.5 fL L=39.0 H=49.0 788-0 LOINC PLATELET COUNT 261 th/cmm L=150 H=450 777-3 LOINC URINALYSIS WITH REFLEX CULT IF POSITIVE* - Collect Date/Time: 07/24/2023 21:10 ID: [id number] [address] [place], [place], [address] LOINC: 31140-4 Test Value Unit Reference Range Code Code System Flag COLLECTION MODE: CLEAN CATCH 35319-5 LOINC Color YELLOW yellow 5778-6 LOINC Appearance CLEAR clear 5767-9 LOINC Glucose urine NEGATIVE negative mg/dl 49293-4 LOINC Bilirubin NEGATIVE negative 5770-3 LOINC Ketones NEGATIVE negative mg/dl 2514-8 LOINC Spec gravity 1.020 1.003 - 1.030 5811-5 LOINC pH urine 5.5 5.0 - 7.0 2756-5 LOINC Protein NEGATIVE negative mg/dl 56113-6 LOINC Urobilinogen 0.2 <or= 1 EU/dl 41849-4 LOINC Nitrite. NEGATIVE negative 5802-4 LOINC Blood NEGATIVE negative 5794-3 LOINC Leukocytes. NEGATIVE negative MICROSCOPIC NOT INDICAT [facility] COVID FLU RSV GENEXPE RT - Collect Date/Time: 07/24/2023 20:40 ID: [id number] [address] [place], [place], [id number] LOINC: 37309-3 Test Value Unit Reference Range Code Code System Flag COVID NEGATIVE Normal: Negative 71451-0 LOINC INFLUENZA A DNA NEGATIVE Normal: Negative 74457-0 LOINC INFLUENZA B DNA NEGATIVE Normal: Negative 35697-3 LOINC RSV DNA NEGATIVE Normal: Negative 48840-8 LOINC STREP GROUP A ANTIGEN ASSAY - Collect Date/Time: 07/24/2023 20:40 ID: [id number] [address] [place], [place], [address] LOINC: 89802-6 Test Value Unit Reference Range Code Code System Flag GRP A STREP ANTIGEN NOT DETECTED 6556-[address] ABD PELVIS W IV CONTRAST ONLY - Completed: 07/24/2023 22:56 LOINC: RADIOLOGY [place], [place] [address] [employer] REPORT Patient Name: LARY SULTANA MRN: Sex: : Age: [id number] M 1985 38 Account: Accession: Admit: StayType: [id number] 07/24/2023 E/R Ordered: Order ID: Submitted: Ordering Provider: 07/24/2023 22:02 [id number] ABDIRASHID CHRISTOPHER Completed: Technologist: Resulted: 07/24/2023 22:56 CLB 07/25/2023 09:14 Study Description: CT ABD PELVIS W IV CONTRAST ONLY Reason for Study: Abdominal Pain Technique: Imaging Protocol: Axial computed tomography images with coronal and sagittal reformatted images were created and reviewed. Contrast Material: Intravenous: Omnipaque. Contrast volume: 99 mL Comparison: None. FINDINGS: ABDOMEN: Lung Bases: Mild atelectatic changes are seen in the lung bases. Liver: Normal density. No measurable mass. Portal, Superior Mesenteric, and Splenic Veins: Unremarkable. Gallbladder and Biliary Tract: The gallbladder is contracted. No stones are seen. No biliary ductal dilatation is present. Pancreas: Normal density, no abnormal calcifications or inflammatory process. Spleen: Normal. Adrenals: No masses seen. Kidneys: Normal size, contour and axis. No radiodense stones or obstructive uropathy. No masses seen. There is a retroaortic left renal vein. Abdominal Aorta: Abdominal portion non-dilated. Bowel: No obstruction or bowel wall thickening. Appendix is unremarkable. Peritoneal Cavity: No ascites, collection or mesenteric inflammatory response. No free air. Lymph Nodes: Within normal limits. Bones: Within normal limits for the patient's age. Soft Tissues: There is a small fat-containing left inguinal hernia. PELVIS: Bladder: Symmetric distention, no gross wall thickening. Reproductive Organs: Unremarkable as visualized. Lymph Nodes: Within normal limits. Bones: Within normal limits for the patient's age. IMPRESSION: No acute abdominal or pelvic process. Radiation Optimization: All CT scans at this facility use at least one of these dose optimization techniques: automated exposure control; mA and/or kV adjustment per patient size (includes targeted exams where dose is matched to clinical indication); or iterative reconstruction. Report Digitally Signed by Jorge Padilla on 07/25/2023 09:[address] NECK W IV CONTRAST - C ompleted: 07/24/2023 22:56 LOINC: RADIOLOGY [place], [place] [address] [employer] REPORT Patient Name: LARY SULTANA MRN: Sex: : Age: [id number] M 1985 38 Account: Accession: Admit: StayType: [id number] 07/24/2023 E/R Ordered: Order ID: Submitted: Ordering Provider: 07/24/2023 22:02 [id number] ABDIRASHID CHRISTOPHER Completed: Technologist: Resulted: 07/24/2023 22:56 CLB 07/25/2023 09:05 Study Description: CT ST NECK W IV CONTRAST Reason For Study: Dysphagia Technique: Imaging Protocol: Axial computed tomography images with coronal and sagittal reformatted images were created and reviewed. Contrast Material: Intravenous: Omnipaque. Contrast volume: 100 mL Comparison: None. FINDINGS: Orbits and orbital soft tissues: Within normal limits. Visualized paranasal sinuses: There is mild mucosal thickening seen in the sphenoid sinuses. There is a large mucous retention cyst in the right maxillary sinus. The visualized mastoid air cells are clear. Nasopharynx: Within normal limits. Oropharynx: There is mild fullness on the right side of the pharynx (series 3 images 76-86). It is isodense to the surrounding tissue. No focal fluid collection is seen to suggest an abscess. The area measures approximately 2.3 x 1.2 cm on image 78 series 3. Larynx: Within normal limits. Retropharyngeal space: Within normal limits. Parotids/submandibular glands: Within normal limits. Thyroid glands: Within normal limits. Lymphadenopathy: There is a 1.3 x 1.1 cm right level 2 enlarged lymph node. Trachea: Within normal limits. Lung apices: Mild centrilobular emphysematous changes are seen in the lung apices. Bones: Within normal limits for the patient's age. Carotids/Jugulars: Within normal limits. Soft tissues: Within normal limits. IMPRESSION 1. Question of fullness in the soft tissues on the right side of the pharynx. Cannot exclude a mass in the region. No focal fluid collection is seen to suggest an abscess. ENT consult should be considered. 2. 0.3 x 1.1 cm right level 3 enlarged lymph node. Radiation Optimization: All CT scans at this facility use at least one of these dose optimization techniques: automated exposure control; mA and/or kV adjustment per patient size (includes targeted exams where dose is matched to clinical indication); or iterative reconstruction. Report Digitally Signed by Jorge Padilla on 07/25/2023 09:05 AM EST XR CHEST 2V PA AND LATERAL - Completed: 07/24/2023 22:56 LOINC: RADIOLOGY [place], [place] [address] [employer] REPORT Patient Name: LARY SULTANA MRN: Sex: : Age: [id number] M 1985 38 Account: Accession: Admit: StayType: [id number] 07/24/2023 E/R Ordered: Order ID: Submitted: Ordering Provider: 07/24/2023 22:02 [id number] ABDIRASHID CHRISTOPHER Completed: Technologist: Resulted: 07/24/2023 22:56 CLB 07/25/2023 11:14 Study Description: XR CHEST 2V PA AND LATERAL Study Reason: Dyspnea Technique: 2D digital imaging was performed of the chest. 2 images were obtained. Comparison: None. FINDINGS: MEDIASTINUM: Normal. HEART: Normal. PULMONARY VASCULATURE: Normal. LUNGS: Clear. PLEURAL SPACE: No pleural effusion or pneumothorax. BONE:Within normal limits for the patient's age. OTHER FINDINGS:Normal. IMPRESSION: No acute pulmonary findings. Report Digitally Signed by Jorge Padilla on 07/25/2023 11:14 AM EST Social History Type Status Start Date End Date Code Code Syst em Sex Male Vital Signs Vital Sign Value Unit Bayfield Value Bayfield Unit Date/Time Recent/Initial? Code Code System Body Mass Index 28.35 kg/m2 07/24/2023 20:30 Initial 34001 -5 LOINC Systolic Blood Pressure 110 mm[Hg] 07/25/2023 01:01 Most Recent 8480- 6 LOINC Diastolic Blood Pressure 82 mm[Hg] 07/25/2023 01:01 Most Recent 8462- 4 LOINC Systolic Blood Pressure 162 mm[Hg] 07/24/2023 20:30 Initial 8480- 6 LOINC Diastolic Blood Pressure 105 mm[Hg] 07/24/2023 20:30 Initial 8462- 4 LOINC Body Surface Area 2.06 m2 07/24/2023 20:30 Initial 3140- 1 LOINC Height 175.260 0 cm 69.00 in 07/24/2023 20:30 Initial 8302- 2 LOINC O2 Saturation 99 % 2023 01:01 Most Recent 91362 -5 LOINC O2 Saturation 99 % 2023 20:30 Initial 95425 -5 LOINC Pulse 77.0 /min 07/25/2023 01:01 Most Recent 8867- 4 LOINC Pulse 91.0 /min 07/24/2023 20:30 Initial 8867- 4 LOINC Respiration 16 /min 07/25/19 01:01 Most Recent 9279- 1 LOINC Respiration 20 /min 07/24/19 20:30 Initial 9279- 1 LOINC Temperature 36.2 Tanisha 97.2 F 07/24/19 20:30 Initial 8310- 5 LOINC Weight 87.09 kg 192.00 lbs 07/24/2023 20:30 Initial 45700 -7 LOINC Hospital Discharge Instructions Should you have any questions prior to discharge, please contact a member of your healthcare team. If you have left the hospital and have any questions, please contact your primary care physician. Reason For Referral No Data Found Problems Problem Start Date Resolved Date Status Code Code System HIGH CHOLESTEROL 07/24/2023 resolved 31142272 SN OMED-CT SBO 07/24/2023 resolved 713722408 SNOMED-CT Allergies and Adverse Reactions Allergy Substance Reaction Severity Start Date Concern Status Co de Code System STATINS (HMG-COA REDUCTASE INHIBITORS) Active Plan of Treatment No Data Found Encounters Encounter Diagnosis Start Date Code Code Sys tem Unspecified abdominal pain 07/24/2023 S NOMED-CT Personal Care Team Section Performer Name Performer Role Active Date Inactive Da te
--- OUTSIDE RECORDS SUMMARY | 2024-03-30 12:54 | XMS_ITS | Encounter Summary ---
Author [facility] [place] [address] Care Team Providers Care Chemic Mangler Name Role Phone Elizabeth Mistry APRN Primary Care Provider + Reason for Visit * Reason Comments Prior Authorization Praluent 75mg/mL aut o-injector Encounter Details Date Type Department Care Team (Late st Contact Info) Description 01/30/2021 Specialty [place] [phone] Kareem Anders, EMPLOYEE RELATIONS ASSISTANT Social History Tobacco Use Types Packs/Day Years [...] as of this encounter Progress Notes * Kareem Andres CPHT - 01/30/2021 12:23 PM EDT [facility], Medication Prior Authorization Patient: Marco A Palomino Xavier Patient : 1985 Patient Address: [address] [place] [phone] (home) Medication Name: PRALUENT PEN 75 MG/ML SUBCUTANEOUS PEN INJECTOR Medication ID: [id number] Patient Location: [facility] Patient Location Comment: Subscriber Insurance: [place] Medicaid Subscriber Insurance Comment: Fax: Physician: YA ABRAHAM Physician Comment: Sent Via: Fax Mae: N/A Ref/Case/PA#: Unavailable Medication Strength Frequency Requested: Praluent 75mg/mL auto-injector / 75mg every 14 days Qty/Day Supply: 07/20 New Start: Renewal Diagnosis & ICD-10 Code: Familial hypercholesterolemia, E78.01 Patient Notified: Yes Submission Notes: Sent Sigifredo akins via fax, await response. Kareem Andres 01/30/21 12:27 PM * Kareem Andres CPHT - 01/30/2021 12:23 PM EDT [facility], Prior Authorization Approval Medication Name: PRALUENT PEN 75 MG/ML SUBCUTANEOUS PEN INJECTOR Medication ID: [id number] Approval Dates: 01/30/2021 to 01/30/2022 Insurance requirements/notes: None Other Notes: None Case/Reference #: [id number] Approval notification Received via: Fax Copay: $3 Copay assistance: None Copay Notes: Insurance mandated Pharmacy: [facility] Fillable at [facility]: Yes Pharmacy staff will be reaching out to the patient to inform them of their medication's approval by[employer] health insurance. If applicable, a pharmacist will speak with the patient to offer our specialty pharmacy services and to arrange delivery of their medication. Kareem Andres 01/30/21 3:07 PM documented in this encounter Plan of Treatment Upcoming Encounters Date Type Department Care Team (Late st Contact Info) Description 04/01/2025 3:40 PM EST Office Visit Cardiology at [address] [phone] Star Flores MD [facility] [place] [address] documented as of this encounter Goals Goal Patient Goal Type Associated Problems Recent Progress Patient-Stated? Author DH Home Medication Compliance and Understanding Patient Facing Action Plan Salvatore Palma [facility] Note: Reduce LDL, measured by lipid panel, revisit every 6 months documented as of this encounter Visit Diagnoses Not on filedocumented in this encounter Care Teams Chemic Mangler Relationship Specialty Start Date End Date Elizabeth Mistry APRN [facility] [place] [address] PCP - General General Internal Medicine 08/19/1605/23 documented as of this encounter
--- OUTSIDE RECORDS SUMMARY | 2024-03-30 12:54 | XMS_ITS | Encounter Summary ---
Author Organization [facility] Address [facility] [place] [address] Care Team Providers Care Sterilizer Operator Name Role Phone Unavailable Primary Care Provider Unavailabl e Encounter Details Date Type Department Care Team (Late st Contact Info) Description 03/29/2023 Telephone [place] [address] Ana Cristina Gutierrez Social History Tobacco Use Types Packs/Day Years [...] 3:40 PM EST Office Visit Cardiology at [address] [address] Star Flores MD [facility] [place] [address] documented as of this encounter Goals Goal Patient Goal Type Associated Problems Recent Progress Patient-Stated? Author [facility] Medication Compliance and Understanding Patient Facing Action Plan Salvatore Palma [facility] Note: Reduce LDL, measured by lipid panel, revisit every 6 months documented as of this encounter Visit Diagnoses Not on filedocumented in this encounter
--- OUTSIDE RECORDS SUMMARY | 2024-03-30 12:54 | XMS_ITS | Encounter Summary ---
Author Organization [facility] Address [facility] [place] [address] Care Team Providers Care Telephone Lineman Name Role Phone Elizabeth Mistry APRN Primary Care Provider + Reason for Visit * Reason Comments Medication Refill Encounter Details Date Type Department Care Team (Late st Contact Info) Description 09/05/2020 Specialty Pharmacy Pharmacy at [facility] [place] [phone] Kyleigh Leal RPH Social History Tobacco Use [...] Progress Notes * Kyleigh Leal RPH - 09/05/2020 3:32 PM EDT Clinical Management Plan: Refill Specialty Pharmacy Consultation; Kyleigh Leal RPH Comprehensive Medication Management (CMM) Marco A Palomino Xavier Mr. Marco A Park is a [...] patient 5-7 days prior to next refill. Marco A missed one dose last month. He had carpal tunnel surgery and forgot about his injection. Reviewed 7 day late dosing window in case of missed doses. Was a change made to the Care Plan: no If yes, should the medication be held: No Assessment and Recommendations: Title Type of Medication Management: chronic disease management, targeted medication review Referred By: provider Recipient: beneficiary Provider: plan sponsor pharmacist Visit Type: [facility] Follow-up Method of Contact: by telephone Cognitive Ability: good Cognitive Impairment Status Verified this Year: no Allergies and Drug intolerance: Allergies Allergen Reactions ??? Lipitor [Atorvastatin] Other (See Comments) Elevated CK Medication Reconciliation Discrepancies (compared to [facility] med list) -none Specialty Pharmacy Refill Questionnaire Refill Questionnaire 09/05/2020 What is the name of the specialty medication you are refilling? Praluent Are you taking any new medications? No Any new medical condition? Yes Please explain carpal tunnel surgery Any new allergies? No Any new side effects that are bothersome? No Adherence: Medication Adherence Patient reported X missed doses in the last month: 1 Any gaps in refill history greater than [...] Refills needed for supportive medications: not needed Pt understands no changes to current drug regimen were made at the appointment and that [facility] is providing recommendations (summary located at top of note) for provider review and follow up. Kyleigh Leal RPH 09/05/20 3:33 PM documented in this encounter Plan of Treatment Upcoming Encounters Date Type Department Care Team (Late st Contact Info) Description 04/01/2025 3:40 PM EST Office Visit Cardiology at [address] [place] [address] Star Flores MD [facility] [place] [address] documented as of this encounter Goals Goal Patient Goal Type Associated Problems Recent Progress Patient-Stated? Author DH Home Medication Compliance and Understanding Patient Facing Action Plan No Salvatore Potts [facility] Note: Reduce LDL, measured by lipid panel, revisit every 6 months documented as of this encounter Visit Diagnoses Not on filedocumented in this encounter Care Teams Telephone Lineman Relationship Specialty Start Date End Date Elizabeth Mistry, GENNY [facility] GENERAL [place] [address] PCP - General General Internal Medicine 08/19/1605/23 documented as of this encounter
--- OUTSIDE RECORDS SUMMARY | 2024-03-30 12:54 | XMS_ITS | Encounter Summary ---
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 [...] Elevated CK Medication Reconciliation Discrepancies (compared to [facility] med list) No Specialty Pharmacy Refill Questionnaire Refill Questionnaire 11/19/2020 What is the name of the specialty medication you are refilling? Praluent 75MG.ML SOAJ Are you taking any new medications? No Any new medical condition? No Please explain - Any new allergies? No Any new side effects that are bothersome? No What date will you need this fill by? 11/20/2020 Adherence: Any missed doses? No Patient understands no changes to current drug regimen were made.. Adela Austin 11/19/20 11:49 AM documented in this encounter Plan of Treatment Upcoming Encounters Date Type Department Care Team (Late st Contact Info) Description 04/01/2025 3:40 PM EST Office Visit Cardiology at [address] [place] [phone] Star Flores MD [facility] [place] [address] documented as of this encounter Goals Goal Patient Goal Type Associated Problems Recent Progress Patient-Stated? Author DH Home Medication Compliance and Understanding Patient Facing Action Plan Salvatore Palma [facility] Note: Reduce LDL, measured by lipid panel, revisit every 6 months documented as of this encounter Visit Diagnoses Not on filedocumented in this encounter Care Teams Ventilating Engineer Relationship Specialty Start Date End Date Elizabeth Mistry APRN [facility] [place] [address] PCP - General General Internal Medicine 08/19/1605/23 documented as of this encounter
--- OUTSIDE RECORDS SUMMARY | 2024-03-30 12:54 | XMS_ITS | Encounter Summary ---
[place] [address] Care Team Providers Care Home Teaching Grades 9 Thru 12 Teacher Name Role Phone Elizabeth Mistry APRN Primary Care Provider + Reason for Visit * Reason Onset Date Comments Referral 04/02/2020 Encounter Details Date Type Department Care Team (Late st Contact Info) Description 04/02/2020 Telephone Internal Medicine at [address] [address] Janay Patton Referral Social History Tobacco Use Types Packs/Day Years [...] encounter Miscellaneous Notes * Telephone Encounter - Janay Patton - 04/02/2020 10:02 AM EST Patient is requesting a referral for what kind of services/treatment: Neurology Reason for this referral request: Consultation- Numbness in both hands Specific office or provider: [facility] Address/Phone/ Has the patient been seen for this symptom: n Who: When: Caller and Relationship (if other than patient): patient Best time to call back: any Ok to leave a message: y Ok to send my- message: n documented in this encounter Plan of Treatment Upcoming Encounters Date Type Department Care Team (Late st Contact Info) Description 04/01/2025 3:40 PM EST Office Visit Cardiology at [address] [place] [address] Star Flores MD [facility] [place] [address] documented as of this encounter Goals Goal Patient Goal Type Associated Problems Recent Progress Patient-Stated? Author DH Home Medication Compliance and Understanding Patient Facing Action Plan Salvatore Palma, [facility] Note: Reduce LDL, measured by lipid panel, revisit every 6 months documented as of this encounter Visit Diagnoses Diagnosis Numbness in both hands Disturbance of skin sensation documented in this encounter Care Teams Home Teaching Grades 9 Thru 12 Teacher Relationship Specialty Start Date End Date Elizabeth Mistry APRN [facility] [place] [address] PCP - General General Internal Medicine 08/19/1605/23 documented as of this encounter
--- OUTSIDE RECORDS SUMMARY | 2024-03-30 12:54 | XMS_ITS | Encounter Summary ---
Author Organization [facility] Address [facility] [place] [address] Care Team Providers Care Surgery Scheduler Name Role Phone Unavailable Primary Care Provider Unavailabl e Reason for Referral * Consultation (Routine) - Authorized Specialty Diagnoses / Procedures Referred By Samuel cisneros Referred To Contact Sleep Center Diagnoses Disturbance in sleep behavior Star Flores MD [facility] [place] [address] [facility] Sleep Medicine [address] [place] [address] Referral ID Status Reason Start Date Expiration Date Visits Requested Visits Authorized [id number] Authorized Consult, Test & Treat 03/28/2024 03/28/2025 1 1 Reason for Visit * Reason Comments Hyperlipidemia Encounter Details Date Type Department Care Team (Latest Contact Info) Description 03/28/2024 3:40 PM EST Office Visit Cardiology at [address] [phone] Star Flores MD [facility] [place] [address] Disturbance in sleep behavior; Familial hypercholesterolemia Social History Tobacco Use Types Packs/Day Years Used Date Smoking Tobacco: Former Cigarettes Q uit: 12/15/2017 Smokeless Tobacco: Never Alcohol Use Standard Drinks/Week Comments Yes 6 (1 standard drink = 0.6 oz pur e alcohol) Sex and Gender Information Value Date Recorded Sex Assigned at Not on file Gender Identity Not on file Sexual Orientation Not on file documented as of this encounter Last Filed Vital Signs Vital Sign Reading Time Taken Comments Blood Pressure 130/80 03/28/2024 4:20 PM EST Pulse 78 03/28/2024 4:20 PM EST Temperature - - Respiratory Rate - - Oxygen Saturation - - Inhaled Oxygen Concentration - - Weight 85.3 kg (188 lb) 03/28/2024 4:20 PM EST Height 175.3 cm (5' 9) 03/28/2024 4:20 PM EST Body Mass Index 27.76 03/28/2024 4:20 PM EST documented in this encounter Progress Notes * Star Flores MD - 03/28/2024 3:40 PM EST Images from the original note were not included. Subjective: Patient ID: Marco A Park is a 38 y.o. male who presents on follow-up for: Chief Complaint Patient presents with Hyperlipidemia HPI Last seen by the good Dr. Purdy 11/2019, at which time no changes were made. Since then, he has been doing well; he remains rather active and is without exertional encumbrance. He has a history of familial hypercholesterolemia, and has been on pcsk9i for it with good effect. However, he has not had it in a couple weeks due to supply issues. + snores frequently +increased daytime somnolence, even though he feels he gets a good sleep Current Outpatient Medications Medication Instructions ezetimibe (ZETIA) 10 mg, Oral, DAILY gabapentin (NEURONTIN) 300 mg, Oral, NIGHTLY Repatha Syringe 140 mg, Subcutaneous, EVERY 14 DAYS Patient Active Problem List Diagnosis Familial hypercholesterolemia Depression Disturbance in sleep behavior History of head injury Objective: BP 130/80 (BP Location (NBP): Right arm, Patient Position: Sitting) Pulse 78 Ht 175.3 cm (5' 9) Wt 85.3 kg (188 lb) BMI 27.76 kg/m?? Gen: pleasant male in NAD Cor: rrr, s1/s2 of nl character and amplitude, no pathologic m/r/g. Estimated RAP not elevated. Carotids with normal upstroke without bruit. Pulm: CTAB. Normal diaphragmatic movement without use of accessory muscles EKG: nsr, nl ekg Assessment and Plan: Familial hypercholesterolemia Has been well tolerating the PCSK9I; will re prescribe. Since he has been off of it for several weeks, will defer rechecking lipids until ~ 3 months from now, unless needed for the renewal. I think addition of zetia would be reasonable; however, if LDL << 70, would be reasonable to stop zetia - Repatha 140 mg q 2 weeks - Zetia 10 For concern of sleep apnea, will refer to sleep medicine at [facility] 12 months Star Flores MD documented in this encounter Miscellaneous Notes * Assessment & Plan Note - Star Flores MD - 03/29/2024 4:11 PM EST Associated Problem(s): Familial hypercholesterolemia Has been well tolerating the PCSK9I; will re prescribe. Since he has been off of it for several weeks, will defer rechecking lipids until ~ 3 months from now, unless needed for the renewal. I think addition of zetia would be reasonable; however, if LDL << 70, would be reasonable to stop zetia - Repatha 140 mg q 2 weeks - Zetia 10 documented in this encounter Plan of Treatment Upcoming Encounters Date Type Department Care Team (Late st Contact Info) Description 04/01/2025 3:40 PM EST Office Visit Cardiology at [address] [place] [address] Star Flores MD [facility] [place] [address] Scheduled Referrals Name Type Priority Associated Diagnoses Orde r Schedule Referral to Sleep Disorders Center Outpatient Referral Routine Disturbance in sleep behavior Ordered: 03/28/2024 documented as of this encounter Goals Goal Patient Goal Type Associated Problems Recent Progress Patient-Stated? Author [facility] Medication Compliance and Understanding Patient Facing Action Plan Salvatore Palma [facility] Note: Reduce LDL, measured by lipid panel, revisit every 6 months documented as of this encounter Visit Diagnoses Diagnosis Disturbance in sleep behavior Sleep disturbance, unspecified Familial hypercholesterolemia Pure hypercholesterolemia documented in this encounter
--- OUTSIDE RECORDS SUMMARY | 2024-03-30 12:54 | XMS_ITS | Encounter Summary ---
Author Organization [facility] Address [facility] [place] [address] Care Team Providers Care Propellant Assembler Name Role Phone Elizabeth Mistry APRN Primary Care Provider + Reason for Visit * Reason Comments Medication Management Medication Refill Encounter Details Date Type Department Care Team (Late st Contact Info) Description 10/14/2020 Specialty Pharmacy [place] [phone] Kyleigh Leal RPH Social History Tobacco Use [...] Progress Notes * Kyleigh Leal RPH - 10/14/2020 3:23 PM EDT Specialty Pharmacy Consultation; Kyleigh Leal RPH Comprehensive Medication Management (CMM): Specialty Consult, Opt Out Marco A Park Diagnosis: hyperlipidemia Therapy Start Date: 08/2018 Contact in person or via telephone:telephone Mr. Marco A Park is a 35 y.o. (1985) male who was contacted in regard to specialty medication. Spoke with patient regarding Praluent. A review of the medication therapy was performed. The medication was refilled as scheduled, and all medication related questions and concerns were addressed.The specialty pharmacy staff will follow up with the patient 5-7 days prior to next refill. Is the patient willing to proceed with the Clinical Assessment? No Summary and Recommendations: Marco A says he has been doing great on Praluent. He is happy with his LDL numbers and denies experiencing any side effects. He had no questions about Praluent today. Reminded of Specialty Pharmacy contact information should he have any questions or concerns. Economic Assessment: Patient is agreeable to medication copay: Yes Copay Amount: $3.00 Day Supply: 28 Date Needed: 10/21 Therapy Assessment: Appropriate Therapy: Yes Current Medication Dosing/Route/Frequency: Praluent 75 mg/ml autoinjector - Inject the contents of 1 pen subcutaneously once every 14 days Additional equipment/supplies required: no Care Plan Reviewed and Approved by Pharmacist : Yes Problem List: Patient Active Problem List Diagnosis Code ??? Unspecified symptoms and signs involving cognitive functions and awareness R41.9 ??? Depression F32.9 ??? 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 History of head injury Z87.828 ??? Familial hypercholesterolemia E78.01 Medications Reviewed: Yes Medications reconciled: No Allergies Reviewed:Yes Allergies reconciled: No Pharmacist follow-up needed: Yes Informed patient of specialty pharmacy services: Yes -Patient received welcome packet: yes Date Received: 08/2018 Delivery Method: mail ?? -Patient returned signed Rights & Responsibilities: yes - . Date Received: 08/2018 Delivery Method: mail- confirmed 09/2019 -Patient is aware a licensed pharmacist is available 24 hours a day, 7 days a week to discuss medication-related questions or concerns: Yes -Patient verbalizes understanding of the common side effect profile of their medication. The patient is able to call 911 or seek urgent care if signs/symptoms of allergy or harmful adverse reactions occur: Yes Patient understands no changes to current drug regimen were made at the appointment and that the pharmacist is providing recommendations (summary located at top of note) for provider review and follow up. Kyleigh Leal RPH 10/14/20 3:25 PM documented in this encounter Plan of Treatment Upcoming Encounters Date Type Department Care Team (Late st Contact Info) Description 04/01/2025 3:40 PM EST Office Visit Cardiology at [address] [address] Star Flores MD [facility] [place] [address] documented as of this encounter Goals Goal Patient Goal Type Associated Problems Recent Progress Patient-Stated? Author DH Home Medication Compliance and Understanding Patient Facing Action Plan Salvatore Palma [facility] Note: Reduce LDL, measured by lipid panel, revisit every 6 months documented as of this encounter Visit Diagnoses Not on filedocumented in this encounter Care Teams Propellant Assembler Relationship Specialty Start Date End Date Elizabeth Mistry, PEDIATRIC DERMATOLOGIST [facility] [place] [address] PCP - General General Internal Medicine 08/19/1605/23 documented as of this encounter
--- OUTSIDE RECORDS SUMMARY | 2024-03-30 12:54 | XMS_ITS | Encounter Summary ---
Author Organization [facility] Address [facility] [place] [address] Care Team Providers Care Card Writer Hand Name Role Phone Elizabeth Mistry APRN Primary Care Provider + Encounter Details Date Type Department Care Team (Late st Contact Info) Description 05/29/2020 Telephone Pharmacy at [facility] [place] [address] Adela Austin, DATABASE ARCHITECT Social History Tobacco Use Types Packs/Day Years [...] encounter Miscellaneous Notes * Telephone Encounter - Adela Austin - 05/29/2020 10:46 AM EST Clinical Management Plan: Refill Specialty Pharmacy Consultation; Adela Austin Comprehensive Medication Management (CMM) Marco A Georgette [...] Elevated CK Medication Reconciliation Discrepancies (compared to [facility] med list) No New medications: No New medical conditions: No New allergies: No Adherence: Any missed doses? No Are you experiencing any side effects from your medications? No Patient understands no changes to current drug regimen were made.. Adela Austin 05/29/20 10:46 AM documented in this encounter Plan of Treatment Upcoming Encounters Date Type Department Care Team (Late st Contact Info) Description 04/01/2025 3:40 PM EST Office Visit Cardiology at [address] [address] Star Flores MD [facility] [place] [address] documented as of this encounter Goals Goal Patient Goal Type Associated Problems Recent Progress Patient-Stated? Author DH Home Medication Compliance and Understanding Patient Facing Action Plan No Salvatore Potts, [facility] Note: Reduce LDL, measured by lipid panel, revisit every 6 months documented as of this encounter Visit Diagnoses Not on filedocumented in this encounter Care Teams Card Writer Hand Relationship Specialty Start Date End Date Elizabeth Mistry APRN [facility] [place] [address] PCP - General General Internal Medicine 08/19/1605/23 documented as of this encounter
--- OUTSIDE RECORDS SUMMARY | 2024-03-30 12:54 | XMS_ITS | Encounter Summary ---
Author Organization [facility] Address [facility] [place] [address] Care Team Providers Care Headwaiter/Headwaitress Name Role Phone Elizabeth Mistry APRN Primary Care Provider + Reason for Visit * Reason Comments Medication Refill Encounter Details Date Type Department Care Team (Late st Contact Info) Description 08/05/2020 Specialty Pharmacy Pharmacy at [facility] [place] [phone] Kyleigh Leal RPH Social History Tobacco Use [...] Progress Notes * Kyleigh Leal RPH - 08/05/2020 4:10 PM EDT Clinical Management Plan: Refill Specialty [...] days prior to next refill. Marco A was due to inject on 08/03 and will be a few days late for this injection. Plans to inject when he receives on 08/07. Was a change made to the Care Plan: No Allergies and Drug intolerance: Allergies Allergen Reactions ??? Lipitor [Atorvastatin] Other (See Comments) Elevated CK Medication Reconciliation Discrepancies (compared to [facility] med list) No Specialty Pharmacy Refill Questionnaire Refill Questionnaire 08/05/2020 What is the name of the specialty medication you are refilling? Praluent Are you taking any new medications? No Any new medical condition? No Any new allergies? No Any new side effects that are bothersome? No Adherence: Any missed doses? No Patient understands no changes to current drug regimen were made.. Kyleigh Leal RPH 08/05/20 4:11 PM documented in this encounter Plan of Treatment Upcoming Encounters Date Type Department Care Team (Late st Contact Info) Description 04/01/2025 3:40 PM EST Office Visit Cardiology at [address] [address] Star Flores MD [facility] [address] documented as of this encounter Goals Goal Patient Goal Type Associated Problems Recent Progress Patient-Stated? Author DH Home Medication Compliance and Understanding Patient Facing Action Plan Salvatore Palma [facility] Note: Reduce LDL, measured by lipid panel, revisit every 6 months documented as of this encounter Visit Diagnoses Not on filedocumented in this encounter Care Teams Headwaiter/Headwaitress Relationship Specialty Start Date End Date Elizabeth Mistry, GENNY [facility] [place] [address] PCP - General General Internal Medicine 08/19/1605/23 documented as of this encounter
--- OUTSIDE RECORDS SUMMARY | 2024-03-30 12:54 | XMS_ITS | Encounter Summary ---
Author Organization [facility] Address [facility] [place] [address] Care Team Providers Care Salesperson Burial Needs Name Role Phone Elizabeth Mistry APRN Primary Care Provider + Encounter Details Date Type Department Care Team (Late st Contact Info) Description 03/25/2021 Refill Cardiology at [address] [address] Kimberley Purdy MD Social History Tobacco Use Types Packs/Day Years [...] 3:40 PM EST Office Visit Cardiology at [address] [place] [address] Star Flores MD [facility] [place] [address] documented as of this encounter Goals Goal Patient Goal Type Associated Problems Recent Progress Patient-Stated? Author [facility] Medication Compliance and Understanding Patient Facing Action Plan Salvatore Palma [facility] Note: Reduce LDL, measured by lipid panel, revisit every 6 months documented as of this encounter Visit Diagnoses Diagnosis Familial hypercholesterolemia Pure hypercholesterolemia documented in this encounter Care Teams Salesperson Burial Needs Relationship Specialty Start Date End Date Elizabeth Mistry APRN [facility] [place] [address] PCP - General General Internal Medicine 08/19/1605/23 documented as of this encounter
--- OUTSIDE RECORDS SUMMARY | 2024-03-30 12:54 | XMS_ITS | Encounter Summary ---
Author Organization [facility] Address [facility] [place] [address] Care Team Providers Care Medical Superintendent Name Role Phone Elizabeth Mistry APRN Primary Care Provider + Reason for Visit * Reason Onset Date Comments Medication Refill 12/10/2020 Praluent Encounter Details Date Type Department Care Team (Late st Contact Info) Description 12/10/2020 Refill Cardiology at [address] [phone] Kimberley Purdy MD Medication Refill (Praluent) Social History Tobacco Use Types Packs/Day Years [...] 3:40 PM EST Office Visit Cardiology at [address] [place] [address] Star Flores MD [facility] [place] [address] documented as of this encounter Goals Goal Patient Goal Type Associated Problems Recent Progress Patient-Stated? Author [facility] Medication Compliance and Understanding Patient Facing Action Plan No Salvatore Potts, [facility] Note: Reduce LDL, measured by lipid panel, revisit every 6 months documented as of this encounter Visit Diagnoses Diagnosis Familial hypercholesterolemia Pure hypercholesterolemia documented in this encounter Care Teams Medical Superintendent Relationship Specialty Start Date End Date Elizabeth Mistry, CLARK DRIVER [facility] [place] [address] PCP - General General Internal Medicine 08/19/1605/23 documented as of this encounter
--- OUTSIDE RECORDS SUMMARY | 2024-03-30 12:54 | XMS_ITS | Encounter Summary ---
Author Organization [facility] Address [facility] [place] [address] Care Team Providers Care Digital Sales Planner Name Role Phone Elizabeth Mistry APRN Primary Care Provider + Encounter Details Date Type Department Care Team (Late st Contact Info) Description 02/28/2020 [place] [address] Gerald Wright CPHT Social History Tobacco Use Types Packs/Day Years [...] encounter Miscellaneous Notes * Telephone Encounter - Gerald Wright - 02/28/2020 12:50 PM EDT Clinical Management Plan: Refill Specialty Pharmacy Consultation; Gerald Wright Comprehensive Medication Management (CMM) Marco A Georgette Park is a 34 y.o. (1985) male [...] Elevated CK Medication Reconciliation Discrepancies (compared to [facility] med list) No New medications: No New medical conditions: No New allergies: No Adherence: Any missed doses? No Are you experiencing any side effects from your medications? No Patient understands no changes to current drug regimen were made.. Gerald Wright 02/28/20 12:50 PM documented in this encounter Plan of Treatment Upcoming Encounters Date Type Department Care Team (Late st Contact Info) Description 04/01/2025 3:40 PM EST Office Visit Cardiology at [address] [facility] [place] [address] Star Flores MD [facility] [place] [address] documented as of this encounter Goals Goal Patient Goal Type Associated Problems Recent Progress Patient-Stated? Author DH Home Medication Compliance and Understanding Patient Facing Action Plan No Salvatore Potts, [facility] Note: Reduce LDL, measured by lipid panel, revisit every 6 months documented as of this encounter Visit Diagnoses Not on filedocumented in this encounter Care Teams Digital Sales Planner Relationship Specialty Start Date End Date Elizabeth Mistry APRN [facility] [place] [address] PCP - General General Internal Medicine 08/19/1605/23 documented as of this encounter
--- OUTSIDE RECORDS SUMMARY | 2024-03-30 12:54 | XMS_ITS | Encounter Summary ---
Author Organization [facility] [place] [address] Care Team Providers Care Expanded Duty Dental Assistant Name Role Phone Elizabeth Mistry APRN Primary Care Provider + Reason for Visit * Reason Onset Date Comments Referral 02/13/2020 Encounter Details Date Type Department Care Team (Late st Contact Info) Description 02/13/2020 Telephone Internal Medicine at [address] [address] Stacy Terrazas Referral Social History Tobacco Use Types Packs/Day [...] encounter Miscellaneous Notes * Telephone Encounter - Stacy Terrazas - 02/13/2020 4:10 PM EDT Message: pt is calling he has called [facility] to see about getting scheduled for his referral to neurology and they state that they do not have a referral for him. I do see one in the system from 02/05 butthe status is closed. Please look into and resend a referral to neurology at [facility] so that pt can getscheduled Ask caller their first and last name and relationship to the patient: Marco A Best time to call back: any Ok to leave a message: yes Ok to send my- message: Offered Appointment: no MA/Nurse/[place] contacted via: Message: yes Call: no Pager: no documented in this encounter Plan of Treatment Upcoming Encounters Date Type Department Care Team (Late st Contact Info) Description 04/01/2025 3:40 PM EST Office Visit Cardiology at [address] [place] [address] Star Flores MD [facility] [place] [address] documented as of this encounter Goals Goal Patient Goal Type Associated Problems Recent Progress Patient-Stated? Author DH Home Medication Compliance and Understanding Patient Facing Action Plan No Salvatore Potts, [facility] Note: Reduce LDL, measured by lipid panel, revisit every 6 months documented as of this encounter Visit Diagnoses Not on filedocumented in this encounter Care Teams Expanded Duty Dental Assistant Relationship Specialty Start Date End Date Elizabeth Mistry, [facility] [place] [address] PCP - General General Internal Medicine 08/19/1605/23 documented as of this encounter
--- OUTSIDE RECORDS SUMMARY | 2024-03-30 12:54 | XMS_ITS | Encounter Summary ---
Author Organization [facility] [place] [address] Care Team Providers Care Metal Punch Press Operator Name Role Phone Elizabeth Mistry APRN Primary Care Provider + Reason for Visit * Reason Onset Date Comments Medication Refill 06/11/2020 Encounter Details Date Type Department Care Team (Late st Contact Info) Description 06/11/2020 Refill Internal Medicine at [address] [facility] [place] [address] Current moderate episode of major depressive disorder without prior episode Social History Tobacco Use Types Packs/Day Years [...] 3:40 PM EST Office Visit Cardiology at [address] [phone] Star Flores MD [facility] [place] [address] documented as of this encounter Goals Goal Patient Goal Type Associated Problems Recent Progress Patient-Stated? Author Home Medication Compliance and Understanding Patient Facing Action Plan No Delroy, Salvatore, [facility] Note: Reduce LDL, measured by lipid panel, revisit every 6 months documented as of this encounter Visit Diagnoses Diagnosis Current moderate episode of major depressive disorder without prior episode documented in this encounter Care Teams Metal Punch Press Operator Relationship Specialty Start Date End Date Elizabeth Mistry, GENNY [facility] [place] [address] PCP - General General Internal Medicine 08/19/1605/23 documented as of this encounter
--- OUTSIDE RECORDS SUMMARY | 2024-03-30 12:54 | XMS_ITS | Encounter Summary ---
Author Organization [facility] [place] [address] Care Team Providers Care Bioinformatics Assistant Name Role Phone Elizabeth Mistry APRN Primary Care Provider + Reason for Visit * Reason Onset Date Comments Prior Authorization 01/19/2021 Praluent Encounter Details Date Type Department Care Team (Late st Contact Info) Description 01/19/2021 Telephone Cardiology at [address] [phone] Stefany Eckert superintendent pier (Praluent) Social History Tobacco Use Types Packs/Day [...] encounter Miscellaneous Notes * Telephone Encounter - Stefany Eckert RN - 01/19/2021 4:31 PM EDT Call placed to pt to ask if he can get FLP done MARGE so the pharmacy can process a PA for his Praluent. He would like to get the testing done at [facility] in [place], [place]. It is closer to his home than [facility]. Pt to get this done tomorrow. Will have senior power scheduler contact pt to arrange F/U with Dr Purdy * Telephone Encounter - Stefany Eckert RN - 01/19/2021 4:30 PM EDT ----- Message from Serena Adair sent at 01/19/2021 3:27 PM EDT ----- Regarding: Urgent Praluent PA Good Afternoon, This patient's Praluent PA on 12/25/20 and we have to do a PA re-auth. However, it looks likethere is no new lipid panel on file, which we will need for required documentation. The last lipid panel was from 11/2019 and used to submit the previous PA. Insurance will want to see an updated lipid panel. If appropriate, could you please reach out to patient and schedule these labs to be done assoon as possible? Patient is due for their next injection on 01/26. Thank you, Serena documented in this encounter Plan of Treatment Upcoming Encounters Date Type Department Care Team (Late st Contact Info) Description 04/01/2025 3:40 PM EST Office Visit Cardiology at [address] [phone] Star Flores MD [facility] [place] [address] documented as of this encounter Goals Goal Patient Goal Type Associated Problems Recent Progress Patient-Stated? Author DH Home Medication Compliance and Understanding Patient Facing Action Plan No Salvatore Potts [facility] Note: Reduce LDL, measured by lipid panel, revisit every 6 months documented as of this encounter Visit Diagnoses Not on filedocumented in this encounter Care Teams Bioinformatics Assistant Relationship Specialty Start Date End Date Elizabeth Mistry APRN [facility] [place] [address] PCP - General General Internal Medicine 08/19/1605/23 documented as of this encounter
--- OUTSIDE RECORDS SUMMARY | 2024-03-30 12:54 | XMS_ITS | Encounter Summary ---
Author Organization [facility] Address [facility] [place] [address] Care Team Providers Care Sustainable Design Consultant Name Role Phone Elizabeth Mistry APRN Primary Care Provider + Reason for Visit * Reason Comments Medication Management Medication Refill Encounter Details Date Type Department Care Team (Late st Contact Info) Description 04/13/2021 Specialty Pharmacy Pharmacy at [facility] [place] [phone] Kyleigh Leal RPH Social History Tobacco Use [...] Progress Notes * Kyleigh Leal RPH - 04/13/2021 3:16 PM EST Specialty Pharmacy Consultation; Kyleigh Leal RPH Comprehensive Medication Management (CMM): Specialty Consult, Opt Out Marco A Park Diagnosis: hyperlipidemia Therapy Start Date: 08/2018 Contact in person or via telephone: telephone Mr. Marco A Park is a 35 [...] Assessment? No Summary and Recommendations: Marco A had no questions about his Praluent today. He was informed that this is the last refill that Dr Purdy will provide without a scheduled follow up visit since he has not been seen since November 2019. Confirms no changes to other medications, allergies, or medical conditions. Aware of Specialty Pharmacy contact information should he have any questions. Economic Assessment: Patient is agreeable to medication copay: Yes Copay Amount: $3.00 Day Supply: 28 Date Needed: 04/17 Therapy Assessment: Appropriate Therapy: Yes Current Medication Dosing/Route/Frequency: Praluent 75 mg/ml autoinjector - Inject the contents of 1 pen subctaneously once every 14 days Additional equipment/supplies required: no Care Plan Reviewed and Approved by Pharmacist : Yes Problem List: Patient Active Problem List Diagnosis Code ??? Unspecified symptoms and signs involving cognitive functions and awareness R41.9 ??? Depression F32.A ??? 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 History of head injury Z87.828 ??? Familial hypercholesterolemia E78.01 Medications Reviewed: Yes Medications reconciled: No Allergies Reviewed:Yes Allergies reconciled: No Pharmacist follow-up needed: No Informed patient of specialty pharmacy services: Yes Welcome Packet and Rights and Responsibilities: Patient provided welcome packet/rights and responsibilities: Yes Date Confirmed: 10/01/19 Confirmation: Verbal -Patient is aware a licensed pharmacist is [...] review and follow up. Kyleigh Leal RPH 04/13/21 3:18 PM documented in this encounter Plan of Treatment Upcoming Encounters Date Type Department Care Team (Late st Contact Info) Description 04/01/2025 3:40 PM EST Office Visit Cardiology at [address] [phone] Star Flores MD [facility] [place] [place] [address] documented as of this encounter Goals Goal Patient Goal Type Associated Problems Recent Progress Patient-Stated? Author DH Home Medication Compliance and Understanding Patient Facing Action Plan Salvatore Palma, [facility] Note: Reduce LDL, measured by lipid panel, revisit every 6 months documented as of this encounter Visit Diagnoses Not on filedocumented in this encounter Care Teams Sustainable Design Consultant Relationship Specialty Start Date End Date Elizabeth Mistry, [facility] [address] PCP - General General Internal Medicine 08/19/1605/23 documented as of this encounter
--- OUTSIDE RECORDS SUMMARY | 2024-03-30 12:54 | XMS_ITS | Clinical Summary ---
Author Organization Formerly [facility] Address [facility] [place] [address] Care Team Providers Care Retinal Surgeon Name Role Phone Unavailable Primary Care Provider Unavailabl e Allergies Active Allergy Reactions Criticality Noted Date Comments Atorvastatin Other (See Comments) 02/16/2018 Elevated CK Leisjsf-Nkx-Uhd Reductase Inhibitors Other (See Comments) 12/10/2019 Other Reaction(s): GI upset, fatigue N/V, fatigue Medications Medication Sig Dispensed Refills Start Date End Date Status ezetimibe (Zetia) 10 mg TabletIndications:Famili al hypercholesterolemia Take 1 tablet by mouth daily. 90 tablet 3 12/07/19 20 Active Additional Information Patient not taking.Reported on 03/28/2024 gabapentin (Neurontin) 300 mg Capsule Take 1 capsule by mouth nightly. 90 capsule 3 07/17/19 21 Active Repatha Syringe 140 mg/mL Syringe Inject 1 mL subcutaneously every 14 days. 6 mL 3 03/28/20 24 Active Active Problems Problem Noted Date Diagnosed Date Familial hypercholesterolemia 08/29/2018 Assessment & Plan (03/29/2024 4:11 PM EST): Has been well tolerating the PCSK9I; will re prescribe. Since he has been off of it for several weeks, will defer rechecking lipids until ~ 3 months from now, unless needed for the renewal. I think addition of zetia would be reasonable; however, if LDL << 70, would be reasonable to stop zetia - Repatha 140 mg q 2 weeks - Zetia 10 Depression 02/14/2013 Disturbance in sleep behavior 02/14/2013 History of head injury 02/14/2013 Resolved Problems Problem Noted Date Diagnosed Date Resolved Date Unspecified symptoms and sig ns involving cognitive functions and awareness 02/14/20132023 Encounters Date Type Department Care Team Description 03/28/2024 3:40 PM EST Office Visit Cardiology at [address] [place] [phone] Star Flores MD Disturbance in sleep behavior; Familial hypercholesterolemia 03/28/2024 Travel from Last 3 Months Immunizations Name Administration Dates Next Due Influenza Quadrivalent, Preservative Free 2018,02/14/2018,03/17/2017 Influenza Vaccine, Whole 03/24/2008 Tdap (Adacel, Boostrix) 08/23/2016 Family History Medical History Relation Comments Hyperlipidemia Father Myocardial Infarction Father had a seco nd [place] / stents and on PCSK9 inhibitor Myocardial Infarction Maternal Grandfather Hyperlipidemia Paternal Aunt Alzheimer Disease Paternal Grandmother Hyperlipidemia Paternal Grandmother Hyperlipidemia Paternal Uncle Hyperlipidemia Sister on a statin Relation Status Comments Father Alive Maternal Grandfather Paternal Aunt Alive Paternal Grandmother Paternal Uncle Alive Sister Alive Social History Tobacco Use Types Packs/Day Years Used Date Smoking Tobacco: Former Cigarettes Q uit: 12/15/2017 Smokeless Tobacco: Never Tobacco Cessation:Counseling Given: Yes Alcohol Use Standard Drinks/Week Comments Yes 6 (1 standard drink = 0.6 oz pur e alcohol) Sex and Gender Information Value Date Recorded Sex Assigned at Not on file Gender Identity Not on file Sexual Orientation Not on file Last Filed Vital Signs Vital Sign Reading Time Taken Comments Blood Pressure 130/80 03/28/2024 4:20 PM EST Pulse 78 03/28/2024 4:20 PM EST Temperature 36.6 ??C (97.8 ??F) 02/15/2019 3:12 PM ED T Respiratory Rate 16 08/28/2018 3:04 PM EDT Oxygen Saturation 100% 06/08/2019 2:24 PM EST Inhaled Oxygen Concentration - - Weight 85.3 kg (188 lb) 03/28/2024 4:20 PM EST Height 175.3 cm (5' 9) 03/28/2024 4:20 PM EST Body Mass Index 27.76 03/28/2024 4:20 PM EST Plan of Treatment Upcoming Encounters Date Type Department Care Team (Late st Contact Info) Description 04/01/2025 3:40 PM EST Office Visit Cardiology at [address] [place] [phone] Star Flores MD [facility] CARDIOLOG[facility] [place], [facility] Health Maintenance Due Date Last Done Comments Pneumococcal Vaccine: At-Ris k 5-64yrs (1 of 2 - PCV) 1989 Hepatitis C Screening 2001 Hepatitis B vaccine (0-59 yrs) (1) 2002 Diabetes Screening (HgbA1C o r Glucose) 2023 12/07/2019, 06/08/2019, 12/01/2018, Additional history exists Covid-19 Vaccine ( - 2023-2 5 season) 2024 Influenza (Flu) vaccine (1 o f 1 - Influenza standard series) 01/22/2024 02/15/2019, 02/14/2018, 03/17/2017, Additional history exists Lipid Screening 12/06/2024 12/07/2019, 05/23, 12/01/2018, Additional history exists Tetanus/Diphtheria/Pertussis Vaccines (2 - Td or Tdap) 08/23/2026 08/23/2016 HIV screen Completed 06/28/2018, 07/2015 (Outside per patient (enter details in comments)) Goals Goal Patient Goal Type Associated Problems Recent Progress Patient-Stated? Author [facility] Medication Compliance and Understanding Patient Facing Action Plan Salvatore Palma, [facility] Note: Reduce LDL, measured by lipid panel, revisit every 6 months Procedures Procedure Name Priority Date/Time Associated Diagnosis Comments LIPID PANEL (REFLEX DIRECT LDL) Routine 12/07/2019 2:13 PM EDT Familial hypercholesterolemia HC VENIPUNCTURE Routine 12/07/2019 2:13 PM EDT Familial hypercholesterolemia HIV SCREEN, 4TH GENERATION ([facility]/AP[place]/[facility]) Routine 06/28/2018 11:20 AM EST Routine screening for STI (sexually transmitted infection) from Last 3 Months or Most Recently Relevant to Health Maintenance Results * CMP w/fasting Glucose (12/07/2019 2:13 PM EDT) Glucose Fasting 91 65 - 99 mg/dL [facility] Comment: ?Fasting* Glucose Interpretive Criteria Normal ?65-99 mg/dL Impaired Fasting glucose ?100-125 mg/dL Consistent with Diabetes Mellitus ? >or= 126 mg/dL *Fasting is defined as no caloric intake for at least 8 hours In the absence of unequivocal hyperglycemia a plasma glucose value of >or= 126 mg/dL should be repeated on a subsequent day. Diagnosis and Classification of Diabetes Mellitus, Position Statement from the [place] [employer]. ??Diabetes Care, Volume 33, Supplement 1, May 2009 Blood Urea Nitrogen 13 10 - 20 mg/dL [facility] Creatinine 1.07 0.80 - 1.50 mg/dL [facility] Sodium 140 135 - 145 mmol/L [facility] Potassium 4.2 3.5 - 5.0 mmol/L [facility] Comment: Please note: ??Patients with WBC >100,000 may have falsely elevated Potassium levels. ??For accurate Potassium quantification in these patients send serum separator tube (gold top) for subsequent determinations. ??Contact the Clinical Chemistry Laboratory if there are any questions. Chloride 101 98 - 107 mmol/L [facility] Carbon Dioxide 27 22 - 31 mmol/L [facility] Anion Gap 12 5 - 15 mmol/L [facility] Calcium 9.5 8.5 - 10.5 mg/dL [facility] Protein, Total 7.2 6.1 - 8.0 gm/dL [facility] Albumin 4.8 3.2 - 5.2 gm/dL [facility] Aspartate Aminotransferase 19 0 - 39 unit/L [facility] Alanine Aminotransferase 19 0 - 55 unit/L [facility] Alkaline Phosphatase 48 40 - 130 unit/L [facility] Bilirubin, Total 0.3 0.2 - 1.3 mg/dL [facility] Est Glomerular Filtration Rate 89 >=60 mL/min/1. 73 m?? [facility] Comment: The eGFR was calculated using the CKD-EPI equation. As with all creatinine based estimates of kidney function, eGFR values calculated with the CKD-EPI equation are not accurate in patients with acute kidney failure, extremes of body mass or the acutely ill. http://[employer]/[facility] eGFR 103 >=60 mL/min/1. 73 m?? [facility] Comment: The eGFR was calculated using the CKD-EPI equation. As with all creatinine based estimates of kidney function, eGFR values calculated with the CKD-EPI equation are not accurate in patients with acute kidney failure, extremes of body mass or the acutely ill. http://[employer]/[facility] Blood specimen (specimen) 12/07/2019 2:13 PM EDT 12/07/2019 2:27 PM EDT Narrative Resulting Agency Comment Spec In Lab Elizabeth Mistry APRN CHEMISTRY ORDERA [facility] [place] [address] * Lipid Panel (Reflex Direct LDL) (12/07/2019 2:13 PM EDT) Cholesterol, Total 115 mg/dL [facility] Comment: Lower Risk: <200 mg/dL Average Risk: 200-239 mg/dL Higher Risk: >xw=559 mg/dL Triglyceride 100 mg/dL [facility] Comment: Average Risk/Lower Risk: <150 mg/dL Borderline High Risk: 150-199 mg/dL High Risk: 200-499 mg/dL Very High Risk: >jf=521 mg/dL HDL Cholesterol 46 mg/dL [facility] Comment: Males: ?? Higher Risk: <40 mg/dL Females: ?? HIgher Risk: <50 mg/dL LDL Cholesterol 49 mg/dL [facility] Comment: Lowest Risk: <100 mg/dL Lower Risk: 100-129 mg/dL Borderline High Risk: 130-159 mg/dL High Risk: 160-189 mg/dL Very High Risk: >hk=333 mg/dL Cholesterol/HDL Ratio 2.5 ratio [facility] Lipid Interpretation See Note [facility] Comment: Lipid management should be guided by a patient? s ASCVD risk, goals and preferences. ACC/AHA Guidelines recommend high intensity statin if clinical ASCVD or LDL greater than or equal to 190 mg/dL. http://[employer].com/MER-AKZ-Qwrxeaufc Adults aged 40-75 with LDL 70-189 mg/dL should have their 10 year ASCVD risk estimated with the ACC/AHA ASCVD risk air pollution analyst http://tools.acc.org/RKONL-Iics-Jiunsduiy/ Statin should be discussed if risk greater than or equal to 7.5% in non-diabetics. With diabetes, moderate intensity statin is recommended if risk less than 7.5%, high intensity if risk greater than or equal to 7.5%. Annual lipid monitoring on statins is not necessary. Evaluate secondary causes of Triglycerides greater than 500 mg/dL or LDL greater than 190 mg/dL: See table 6 of ACC/AHA Guideline. Lifestyle modification is a critical component of ASCVD risk reduction. Blood specimen (specimen) 12/07/2019 2:13 PM EDT 12/07/2019 2:27 PM EDT Narrative Resulting Agency Comment Spec In Lab Kimberley Purdy MD CHEMISTRY ORDERABLES [facility] [place] [place] [address] * HIV Screen, 4th Generation (06/28/2018 11:20 AM EST) HIV Ab/Ag Screen Negative Negative [facility] Comment: This 4th Generation HIV test screens for the presence of the HIV-1 p24 antigen as well as antibodies reactive against HIV-1 and HIV-2. A negative screen does not rule out an acute HIV infection. If acute HIV infection is suspected, testing should be repeated in 2 - 3 weeks or HIV nucleic acid testing performed. Blood specimen (specimen) 06/28/2018 11:20 AM EST 06/28/2018 7:27 PM EST Narrative Resulting Agency Comment Spec In Lab Elizabeth Holland Fidelia INTERLOCKING TOWER OPERATOR CHEMISTRY ORDERA SUSYS [facility] [place] [address] from Last 3 Months or Most Recently Relevant to Health Maintenance
--- OUTSIDE RECORDS SUMMARY | 2024-03-30 12:54 | XMS_ITS | Encounter Summary ---
Author Organization [facility] Address [facility] [place] [address] Care Team Providers Care History Professor Name Role Phone Elizabeth Mistry APRN Primary Care Provider + Reason for Visit * Reason Comments Medication Refill Encounter Details Date Type Department Care Team (Late st Contact Info) Description 12/19/2020 Specialty [place] [phone] Kyleigh Leal RPH Social History Tobacco Use [...] Progress Notes * Kyleigh Leal RPH - 12/19/2020 2:39 PM EDT Clinical Management Plan: Refill Specialty Pharmacy Consultation; Kyleigh Leal RPH Comprehensive Medication Management (CMM) Marco A Park Mr. Marco A Park is a 35 [...] Elevated CK Medication Reconciliation Discrepancies (compared to [facility] med list) No Specialty Pharmacy Refill Questionnaire Refill Questionnaire 12/19/2020 What is the name of the specialty medication you are refilling? Praluent Are you taking any new medications? No Any new medical condition? No Please explain - Any new allergies? No Any new side effects that are bothersome? No What date will you need this fill by? 12/23/2020 Adherence: Any missed doses? No Patient understands no changes to current drug regimen were made.. Kyleigh Leal RPH 12/19/20 2:40 PM documented in this encounter Plan of Treatment Upcoming Encounters Date Type Department Care Team (Late st Contact Info) Description 04/01/2025 3:40 PM EST Office Visit Cardiology at [address] [phone] Star Flores MD [facility] [place] [address] documented as of this encounter Goals Goal Patient Goal Type Associated Problems Recent Progress Patient-Stated? Author [facility] Home Medication Compliance and Understanding Patient Facing Action Plan No Salvatore Potts RPH Note: Reduce LDL, measured by lipid panel, revisit every 6 months documented as of this encounter Visit Diagnoses Not on filedocumented in this encounter Care Teams History Professor Relationship Specialty Start Date End Date Elizabeth Mistry APRN [facility] [address] PCP - General General Internal Medicine 08/19/1605/23 documented as of this encounter
--- OUTSIDE RECORDS SUMMARY | 2024-03-30 12:54 | XMS_ITS | Encounter Summary ---
Author Organization [facility] Address [facility] [place] [address] Care Team Providers Care Operations Supervisor 2Nd Shift Name Role Phone Elizabeth Mistry APRN Primary Care Provider + Reason for Visit * Reason Onset Date Comments Medication Refill 07/17/2020 Encounter Details Date Type Department Care Team (Late st Contact Info) Description 07/17/2020 Refill Internal Medicine at [address] [phone] Janay Patton Social History Tobacco Use Types Packs/Day Years [...] * Telephone Encounter - Janay Patton - 07/17/2020 9:07 AM EST Patient is asking for this to be expedited due to being completely out of this medication. Patient states that he has been out for about a week now and is starting to have more pain in his wrist. documented in this encounter Plan of Treatment Upcoming Encounters Date Type Department Care Team (Late st Contact Info) Description 04/01/2025 3:40 PM EST Office Visit Cardiology at [address] [phone] Star Flores MD [facility] [place] [id number] documented as of this encounter Goals Goal Patient Goal Type Associated Problems Recent Progress Patient-Stated? Author Home Medication Compliance and Understanding Patient Facing Action Plan Salvatore Palma, [facility] Note: Reduce LDL, measured by lipid panel, revisit every 6 months documented as of this encounter Visit Diagnoses Not on filedocumented in this encounter Care Teams Operations Supervisor 2Nd Shift Relationship Specialty Start Date End Date Elizabeth Mistry, INDUSTRIAL TRAINER [facility] [place] [address] PCP - General General Internal Medicine 08/19/1605/23 documented as of this encounter
--- OUTSIDE RECORDS SUMMARY | 2024-03-30 12:54 | XMS_ITS | Encounter Summary ---
Author Organization [facility] Address [facility] [place] [address] Care Team Providers Care Engineering Officer Name Role Phone Elizabeth Mistry APRN Primary Care Provider + Reason for Visit * Reason Comments Medication Refill Encounter Details Date Type Department Care Team (Late st Contact Info) Description 03/06/2021 Specialty Pharmacy Pharmacy at [facility] [place] [phone] Kyleigh Leal RPH Social History Tobacco Use [...] Progress Notes * Kyleigh Leal RPH - 03/06/2021 3:34 PM EDT Clinical Management Plan: Refill Specialty [...] Elevated CK Medication Reconciliation Discrepancies (compared to [facility] med list) No Specialty Pharmacy Refill Questionnaire Refill Questionnaire 03/06/2021 What is the name of the specialty medication you are refilling? Praluent Are you taking any new medications? No Any new medical condition? No Please explain - Any new allergies? No Any new side effects that are bothersome? No What date will you need this fill by? 03/10/2021 Adherence: Any missed doses? No Patient understands no changes to current drug regimen were made. Kyleigh Leal RPH 03/06/21 3:36 PM documented in this encounter Plan of Treatment Upcoming Encounters Date Type Department Care Team (Late st Contact Info) Description 04/01/2025 3:40 PM EST Office Visit Cardiology at [address] [place] [phone] Star Flores MD [facility] [place] [address] documented as of this encounter Goals Goal Patient Goal Type Associated Problems Recent Progress Patient-Stated? Author DH Home Medication Compliance and Understanding Patient Facing Action Plan No Salvatore Potts RPH Note: Reduce LDL, measured by lipid panel, revisit every 6 months documented as of this encounter Visit Diagnoses Not on filedocumented in this encounter Care Teams Engineering Officer Relationship Specialty Start Date End Date Elizabeth Mistry APRN [facility] [place] [address] PCP - General General Internal Medicine 08/19/1605/23 documented as of this encounter
--- OUTSIDE RECORDS SUMMARY | 2024-03-30 12:54 | XMS_ITS | Encounter Summary ---
Author Organization [facility] Address [facility] [place] [address] Care Team Providers Care Admin Assistant Name Role Phone Elizabeth Mistry APRN Primary Care Provider + Reason for Visit * Reason Comments Medication Management Encounter Details Date Type Department Care Team (Late st Contact Info) Description 05/08/2021 Specialty [place] [phone] Kyleigh Leal RPH Social History Tobacco Use [...] Progress Notes * Kyleigh Leal RPH - 05/08/2021 12:51 PM EST Clinical Management Plan: Transfer of Care/Discharge Specialty Services Specialty Pharmacy Consultation; Kyleigh Leal RPH Comprehensive Medication Management (CMM) Marco A Park [address] [facility] [address] Telephone Information: Work Phone Not on file. Is the patient transferring services to a different Specialty Pharmacy or discontinuing the medication? Discontinuing Services Medication: Praluent Reason for discontinuation or transfer: Patient never scheduled follow up visit with provider. Aware of need to schedule follow up since November. No further refills to be provided. Patient can either schedule appointment or arrange to get medication through PCP. Approximate date of discontinuation or transfer: 05/08/21 Patient's response to therapy: effective Summary of services provided by [facility] Special[facility]: benefits investigation, prior authorization processing, new start/1month/6month consult, refill reminders, 13/12 access to pharmacist support Summary of on-going needs: hyperlipidemia management Referral for additional services (if applicable): no Is patient aware of referral? no Instructions provided to patient about discharge/transfer: yes - left voicemail informing patient of no further refills and instructions to either schedule follow up or get refills through PCP Provider aware of discontinuation or transfer: yes Patient understands no changes to current drug regimen were made at the appointment and that [facility] is[facility] (summary located at top of note) for provider review and follow up. Kyleigh Leal RPH 05/08/21 12:52 PM documented in this encounter Plan of Treatment Upcoming Encounters Date Type Department Care Team (Late st Contact Info) Description 04/01/2025 3:40 PM EST Office Visit Cardiology at [address] [place] [phone] Star Flores MD [facility] [place] [address] documented as of this encounter Goals Goal Patient Goal Type Associated Problems Recent Progress Patient-Stated? Author DH Home Medication Compliance and Understanding Patient Facing Action Plan No Salvatore Potts RPH Note: Reduce LDL, measured by lipid panel, revisit every 6 months documented as of this encounter Visit Diagnoses Not on filedocumented in this encounter Care Teams Admin Assistant Relationship Specialty Start Date End Date Elizabeth Mistry APRN [facility] [place] [address] PCP - General General Internal Medicine 08/19/1605/23 documented as of this encounter
--- OUTSIDE RECORDS SUMMARY | 2024-03-30 12:54 | XMS_ITS | Encounter Summary ---
Author Organization [facility] Address [facility] [place] [address] Care Team Providers Care Gasoline Plant Operator Name Role Phone Elizabeth Mistry APRN Primary Care Provider + Reason for Visit * Reason Onset Date Comments Medication Refill 04/02/2020 Encounter Details Date Type Department Care Team (Late st Contact Info) Description 04/02/2020 Refill Internal Medicine at [address] [address] Janay Patton Social History Tobacco Use Types [...] 3:40 PM EST Office Visit Cardiology at [address] [phone] Star Flores MD [facility] [address] [place] [address] documented as of this encounter Goals Goal Patient Goal Type Associated Problems Recent Progress Patient-Stated? Author Home Medication Compliance and Understanding Patient Facing Action Plan Salvatore Palma RPH Note: Reduce LDL, measured by lipid panel, revisit every 6 months documented as of this encounter Visit Diagnoses Not on filedocumented in this encounter Care Teams Gasoline Plant Operator Relationship Specialty Start Date End Date Elizabeth Mistry, [facility] [place] [address] PCP - General General Internal Medicine 08/19/1605/23 documented as of this encounter
--- OUTSIDE RECORDS SUMMARY | 2024-03-30 12:55 | XMS_ITS | Encounter Summary ---
Author Organization [facility] [place] [address] Care Team Providers Care Piano Tuner Name Role Phone Elizabeth Mistry APRN Primary Care Provider + Reason for Visit * Reason Comments Annual Exam Other taking nexium, ?? if correct, thinks he is supposed to be on protonix?? Encounter Details Date Type Department Care Team (Latest Contact Info) Description 02/15/2019 3:30 PM EDT Office Visit Internal Medicine at [address] [address] Elizabeth Mistry, [facility] [place] [address] Health care maintenance; Cigarette nicotine dependence without complication; Familial hypercholesterolemia Social History Tobacco Use Types Packs/Day Years Used Date Smoking Tobacco: Former Cigarettes 0.5 6 0 12/16/2011 - 12/15/2017 Smokeless Tobacco: Never Alcohol Use Standard Drinks/Week Comments Yes 6 (1 standard drink = 0.6 oz pur e alcohol) Sex and Gender Information Value Date Recorded Sex Assigned at Not on file Gender Identity Not on file Sexual Orientation Not on file documented as of this encounter Last Filed Vital Signs Vital Sign Reading Time Taken Comments Blood Pressure 135/90 02/15/2019 3:18 PM EDT Pulse 97 02/15/2019 3:18 PM EDT Temperature 36.6 ??C (97.8 ??F) 02/15/2019 3:12 PM ED T Respiratory Rate - - Oxygen Saturation 100% 02/15/2019 3:12 PM EDT Inhaled Oxygen Concentration - - Weight 76 kg (167 lb 9.6 oz) 02/15/2019 3:12 PM EDT Height 172.7 cm (5' 7.99) 02/15/2019 3:12 PM ED T Body Mass Index 25.49 02/15/2019 3:12 PM EDT documented in this encounter Progress Notes * Elizabeth Mistry APRN - 02/15/2019 3:30 PM EDT PCP: Elizabeth Mistry APRN SUBJECTIVE: 33 y.o. male presents for annual exam. Anxiety- he is using the lorazepam 4-5 times per week in the evening to help with sleep. He is wondering about decreasing or stopping the prozac. Rash- seen after had catipillar on him, it is slowly resolving. Patient Active Problem List Diagnosis Code ??? Unspecified symptoms and signs involving cognitive functions and awareness R41.9 ??? Depression F32.9 ??? 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 History of head injury Z87.828 ??? Familial hypercholesterolemia E78.01 DIET- eating well over the summer. EXERCISE- Regular exercise. LIPID SCREENING- Lipid Panel Lab Results Component Value Date CHLPL 110 12/01/2018 HDL 46 12/01/2018 CHOLHDL 2.4 12/01/2018 TRIG 130 12/01/2018 LDLCHOL 38 12/01/2018 LDLDIRECT 222 02/14/2018 COLONOSCOPY- discuss in 2020 for polyp. TDAP-is up to date FLU- recommended SHINGLES- due at age 48 PNEUMOCOCCAL- due at age 63 Allergies Allergen Reactions ??? Lipitor [Atorvastatin] Other (See Comments) Elevated CK Current Outpatient Medications Medication Sig Dispense Refill ??? FLUoxetine (PROZAC) 10 mg Tablet Take 1 tablet by mouth daily. 60 tablet 3 ??? LORazepam (ATIVAN) 0.5 mg Tablet Take 1 tablet by mouth 2 times daily as needed for Anxiety. 60tablet 0 ??? esomeprazole (NEXIUM) 40 mg Capsule, Delayed Release(E.C.) Take 1 capsule by mouth every morning. 30 capsule 11 ??? ezetimibe (ZETIA) 10 mg Tablet Take 1 tablet by mouth daily. 90 tablet 3 ??? alirocumab 75 mg/mL Pen Injector Inject 75 mg subcutaneously every 14 days. 6 mL 3 ??? pantoprazole (PROTONIX) 40 mg Tablet, Delayed Release (E.C.) Take 1 tablet by mouth daily. (Patient not taking: Reported on 02/15/2019) 30 tablet 0 No current facility-administered medications for this visit. Social History Tobacco Use Smoking Status Former Smoker ??? Packs/day: 0.50 ??? Years: 6.00 ??? Pack years: 3.00 ??? Types: Cigarettes ??? Last attempt to quit: 12/15/2017 ??? Years since quittin.1 Smokeless Tobacco Never Used myD-H Primary Care 02/15/2019 PROMIS 10-Health in general Good PROMIS 10-Quality of life Good PROMIS 10-Physical health Good PROMIS 10-Mental health Good PROMIS 10-Satisfaction with social activities Good PROMIS 10-Ability to carry out social activities Very Good PROMIS 10-Ability to carry out physical activities Completely PROMIS 10-Bothered by emotional problems Rarely PROMIS 10-Rate of fatigue None PROMIS 10-Rate of pain 2 PROMIS 10- Physical Health Score 54.1 PROMIS 10- Mental Health Score 45.8 REVIEW OF SYSTEMS 02/15/2019 Constitutional None of the above Ear / nose / throat / mouth None of the above Eyes None of the above Respiratory None of the above Cardiovascular None of the above Gastrointestinal Heartburn, indigestion Skin, hair None of the above Musculoskeletal None of the above Neurological None of the above Hematologic / Lymphatic None of the above Genitourinary None of the above PHQ-9 QUESTIONNAIRE (AMB) 02/15/2019 PHQ - 9 Score (Clinic) - PHQ - 9 Score (Patient) 0 (No Depression) Little interest or pleasure (Clinic) - Little interest or pleasure (Patient) Not at all Down, depressed, hopeless (Clinic) - Down, depressed, hopeless (Patient) Not at all Trouble sleeping (Clinic) - Trouble sleeping (Patient) Not at all Tired or no energy (Clinic) - Tired or no energy (Patient) Not at all Poor appetite or overeating (Clinic) - Poor appetite or overeating (Patient) Not at all Feeling like a failure (Clinic) - Feeling like a failure (Patient) Not at all Trouble concentrating (Clinic) - Trouble concentrating (Patient) Not at all Moving or speaking slowly (Clinic) - Moving or speaking slowly (Patient) Not at all Would be better off (Clinic) - Would be better off (Patient) Not at all How difficult are the problems (Clinic) - Physical Exam: Vitals: 02/15/19 1512 02/15/19 1518 BP: (!) 139/96 135/90 BP Location (NBP): Left arm Left arm Patient Position: Sitting Sitting BP Cuff Sizes: Adult (25-34 cm) Adult (25-34 cm) Pulse: 99 97 Temp: 36.6 ??C (97.8 ??F) TempSrc: Oral SpO2: 100% Weight: 76 kg (167 lb 9.6 oz) Height: 172.7 cm (5' 7.99) Physical Exam Constitutional: He is oriented to person, place, and time. He appears well- developed and well-nourished. HENT: Head: Normocephalic and atraumatic. Right Ear: Tympanic membrane, external ear and ear canal normal. Left Ear: External ear and ear canal normal. Mouth/Throat: Oropharynx is clear and moist. No oropharyngeal exudate. Eyes: Pupils are equal, round, and reactive to light. Conjunctivae are normal. Right eye exhibits no discharge. Left eye exhibits no discharge. Neck: No thyromegaly present. Cardiovascular: Normal rate, regular rhythm and normal heart sounds. No murmur heard. Pulmonary/Chest: Effort normal and breath sounds normal. No respiratory distress. He has no wheezes. He has no rales. He exhibits no tenderness. Abdominal: Soft. Bowel sounds are normal. He exhibits no distension and no mass. There is no tenderness. There is no rebound and no guarding. Neurological: He is alert and oriented to person, place, and time. He has normal reflexes. Skin: Skin is warm and dry. No rash noted. Psychiatric: He has a normal mood and affect. His behavior is normal. Judgment and thought content normal. Vitals reviewed. Body mass index is 25.49 kg/m??. Assessment/Plan: Marco A was seen today for annual exam and other. Diagnoses and all orders for this visit: Health care maintenance - flu vaccine today Cigarette nicotine dependence without complication - is cutting down on his own, not interested in patches, medications Familial hypercholesterolemia - follow up cardiology Other orders - FluLaval Quadrivalent vaccine, Preservative Free 3YRS+ - pantoprazole (PROTONIX) 40 mg Tablet, Delayed Release (E.C.); Take 1 tablet by mouth daily. Health Maintenance Due Topic Date Due ??? Influenza (Flu) vaccine (1 of - Influenza standard series) 01/21/2019 * Annemarie Stevens - 02/15/2019 3:30 PM EDT PCP: Elizabeth Mistry APRN SUBJECTIVE: 33 y.o. male presents for annual exam. Concerns for this visit: Medications: He is wondering if he should be taking Nexium or Protonix. Currently taking Nexium, and he is feeling indigestion and reflux, and occasional burping. He had no symptoms when on the Protonix and wouldlike to be back on that. He is also wondering about going off the Prozac, because his mood has been good. Anxiety has been well controlled. He would like to be on fewer medications. He has needed Lorazepam to help with sleeping because he gets anxious and restless at night and needs to use it 3-4 times a week. Rash: He had a caterpillar crawl on him and had a large raised red maculopapular rash for two weeks afterward. It was very itchy. He put anti-itch cream on it and it eventually went away. The rash is gone,but he does seems to get occasional itching in that same area. Nothing like this has happened before. Wart: He has had a wart on his left middle finger for the past several weeks. He has tried over the counter wart pads without effect and would like it removed. Patient Active Problem List Diagnosis Code ??? Unspecified symptoms and signs involving cognitive functions and awareness R41.9 ??? Depression F32.9 ??? 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 History of head injury Z87.828 ??? Familial hypercholesterolemia E78.01 DIET- His diet has worsened since being back home (was away over the summer), he is working on eating more vegetables and fruits. He has plans to eat healthier when he moves out of his parents house in the next few weeks. 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 EXERCISE- Hiking and disc golf regularly. LIPID SCREENING- Up to date. Lipid Panel Lab Results Component Value Date CHLPL 110 12/01/2018 HDL 46 12/01/2018 CHOLHDL 2.4 12/01/2018 TRIG 130 12/01/2018 LDLCHOL 38 12/01/2018 LDLDIRECT 222 02/14/2018 COLONOSCOPY- 01/04/18 for symptoms, will be due for surveillance in 12/2020. TETANUS: Due in 2026. FLU: Will receive today. Allergies Allergen Reactions ??? Lipitor [Atorvastatin] Other (See Comments) Elevated CK Current Outpatient Medications Medication Sig Dispense Refill ??? FLUoxetine (PROZAC) 10 mg Tablet Take 1 tablet by mouth daily. 60 tablet 3 ??? LORazepam (ATIVAN) 0.5 mg Tablet Take 1 tablet by mouth 2 times daily as needed for Anxiety. 60tablet 0 ??? ezetimibe (ZETIA) 10 mg Tablet Take 1 tablet by mouth daily. 90 tablet 3 ??? alirocumab 75 mg/mL Pen Injector Inject 75 mg subcutaneously every 14 days. 6 mL 3 ??? pantoprazole (PROTONIX) 40 mg Tablet, Delayed Release (E.C.) Take 1 tablet by mouth daily. 30 tablet 11 No current facility-administered medications for this visit. Social History Tobacco Use Smoking Status Former Smoker ??? Packs/day: 0.50 ??? Years: 6.00 ??? Pack years: 3.00 ??? Types: Cigarettes ??? Last attempt to quit: 12/15/2017 ??? Years since quittin.1 Smokeless Tobacco Never Used Occasional Cigar or single cigarette use, 3-4 times a week. He had tried Vaping, but had stopped about a year ago and not interested given the recent news about it. He is working on getting rid of those last few cigarettes. Alcohol: 3-4 beers a week Sexual Activity: Currently sexually active and uses condoms consistently. Has no concerns about StI's at this time and is not interested in testing. myD-H Primary Care 02/15/2019 PROMIS 10-Health in general Good PROMIS 10-Quality of life Good PROMIS 10-Physical health Good PROMIS 10-Mental health Good PROMIS 10-Satisfaction with social activities Good PROMIS 10-Ability to carry out social activities Very Good PROMIS 10-Ability to carry out physical activities Completely PROMIS 10-Bothered by emotional problems Rarely PROMIS 10-Rate of fatigue None PROMIS 10-Rate of pain 2 PROMIS 10- Physical Health Score 54.1 PROMIS 10- Mental Health Score 45.8 REVIEW OF SYSTEMS 02/15/2019 Constitutional None of the above Ear / nose / throat / mouth None of the above Eyes None of the above Respiratory None of the above Cardiovascular None of the above Gastrointestinal Heartburn, indigestion Skin, hair None of the above Musculoskeletal None of the above Neurological None of the above Hematologic / Lymphatic None of the above Genitourinary None of the above No flowsheet data found. No flowsheet data found. PHQ-9 QUESTIONNAIRE (AMB) 02/15/2019 PHQ - 9 Score (Clinic) - PHQ - 9 Score (Patient) 0 (No Depression) Little interest or pleasure (Clinic) - Little interest or pleasure (Patient) Not at all Down, depressed, hopeless (Clinic) - Down, depressed, hopeless (Patient) Not at all Trouble sleeping (Clinic) - Trouble sleeping (Patient) Not at all Tired or no energy (Clinic) - Tired or no energy (Patient) Not at all Poor appetite or overeating (Clinic) - Poor appetite or overeating (Patient) Not at all Feeling like a failure (Clinic) - Feeling like a failure (Patient) Not at all Trouble concentrating (Clinic) - Trouble concentrating (Patient) Not at all Moving or speaking slowly (Clinic) - Moving or speaking slowly (Patient) Not at all Would be better off (Clinic) - Would be better off (Patient) Not at all How difficult are the problems (Clinic) - Physical Exam: Vitals: 02/15/19 1512 02/15/19 1518 BP: (!) 139/96 135/90 BP Location (NBP): Left arm Left arm Patient Position: Sitting Sitting BP Cuff Sizes: Adult (25-34 cm) Adult (25-34 cm) Pulse: 99 97 Temp: 36.6 ??C (97.8 ??F) TempSrc: Oral SpO2: 100% Weight: 76 kg (167 lb 9.6 oz) Height: 172.7 cm (5' 7.99) Blood Pressure on Re-check: 100/70 Physical Exam Body mass index is 25.49 kg/m??. Gen: Appropriate and cooperative in no acute distress HEENT: PERRLA, Anicteric sclera, MMM, OP clear Neck: Supple with normal ROM, No cervical LAD appreciated, JVP flat CV: RRR, S1 and S2 noted, no m/g/r appreciated Resp: CTAB with good air movement throughout, normal effort Abd: +normoactive BS, soft NTND, no HSM or masses appreciated EXT: No cyanosis or edema, DP pulses 2+ and symmetric bilaterally. Small verrucous growth in lateral side of right middle finger. Skin: No rashes, sores or ulcers noted Neuro: CN: II-XII intact, Motor: 5/5 BUE and BLE, Sensation intact to light touch, Cerebellar function intact, Gait: normal Assessment/Plan: Marco A was seen today for annual exam and other. Overall he is doing well. Health care maintenance: Marco A is up to date on routine maintenance, and received his annual flu shot at this visit. Cigarette nicotine dependence without complication: Discussed the benefits of continuing to decreased his nicotine use. Resources were offered, but he is confident that he can continue to decrease his use and quit on his own at this time. If unable todo so, he will reach out. Familial hypercholesterolemia Followed by cardiology. Will continue on Ezetimibe and alirocumab. GERD: Will send in a prescription for Protonix, as this has worked better for him in the past, and he candiscontinue the Nexium at this time. Will continue to monitor as needed. Anxiety: Discussed that with all the upcoming changes in his life (moving and new jobs) as well as with his continued need for lorazepam 3-4 nights a week, that stopping the Prozac at this time is not recommended. Marco A agreed with this plan and will re-visit this topic in 6 months after he has had a chanceto settle in with his new job and hopefully no longer needing the lorazepam. Wart: The lesion on Anthonys finger appears consistent with a benign wart. A treatment with liquid nitrogen was performed today, and he was advised that over the next week to expect redness and irritation to the area before it then gets better. He will contact the office as needed if the problem persists. Rash: Marco A's symptoms have resolved, suggesting that this was likely a transient allergic reaction related to the exposure to the caterpillar. If this happens again, can consider trying an anti-histamine. Other orders - FluLaval Quadrivalent vaccine, Preservative Free 3YRS+ - Discontinue: pantoprazole (PROTONIX) 40 mg Tablet, Delayed Release (E.C.); Take 1 tablet by mouthdaily. - pantoprazole (PROTONIX) 40 mg Tablet, Delayed Release (E.C.); Take 1 tablet by mouth daily. Health Maintenance Due Topic Date Due ??? Influenza (Flu) vaccine (1 of - Influenza standard series) 01/21/2019 documented in this encounter Plan of Treatment Upcoming Encounters Date Type Department Care Team (Late st Contact Info) Description 04/01/2025 3:40 PM EST Office Visit Cardiology at [address] [phone] Star Flores MD [facility] [place] [address] documented as of this encounter Goals Goal Patient Goal Type Associated Problems Recent Progress Patient-Stated? Author DH Home Medication Compliance and Understanding Patient Facing Action Plan Salvatore Palma [facility] Note: Reduce LDL, measured by lipid panel, revisit every 6 months documented as of this encounter Visit Diagnoses Diagnosis Health care maintenance Unspecified general medical examination Cigarette nicotine dependence without complication Tobacco use disorder Familial hypercholesterolemia Pure hypercholesterolemia documented in this encounter Care Teams Piano Tuner Relationship Specialty Start Date End Date Elizabeth Mistry APRN [facility] [place] [address] PCP - General General Internal Medicine 08/19/1605/23 documented as of this encounter
--- OUTSIDE RECORDS SUMMARY | 2024-03-30 12:55 | XMS_ITS | Encounter Summary ---
Author Organization [place] [address] Care Team Providers Care Mannequin Molder Name Role Phone Elizabeth Mistry APRN Primary Care Provider + Encounter Details Date Type Department Care Team (Latest Contact Info) Description 12/07/2019 4:40 PM EDT Office Visit Cardiology at [address] [phone] Ya Abraham MD Familial hypercholesterolemia Social History Tobacco Use Types [...] Sign Reading Time Taken Comments Blood Pressure 131/81 12/07/2019 4:22 PM EDT Pulse 87 12/07/2019 4:22 PM EDT Temperature - - Respiratory Rate - - Oxygen Saturation - - Inhaled Oxygen Concentration - - Weight 76.7 kg (169 lb) 12/07/2019 4:22 PM EDT Height 175.3 cm (5' 9) 12/07/2019 4:22 PM EDT p atient stated Body Mass Index 24.96 12/07/2019 4:22 PM EDT documented in this encounter Progress Notes * Ya Abraham MD - 12/07/2019 4:40 PM EDT [facility]-Follow Up Visit ID/PMH Marco A is a 34 y.o. followed by Elizabeth Mistry APRN with the following problems: Patient Active Problem List Diagnosis Code ??? Unspecified symptoms and signs involving cognitive functions and awareness R41.9 ??? Depression F32.9 ??? 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 History of head injury Z87.828 ??? Familial hypercholesterolemia E78.01 Social history:??Marco A??is a 34-year-old man who lives??home with his girlfriend. ??He has no??children. ??He??is working in [employer]. 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 Present Illness Marco A Park??is seen at the request of Elizabeth Mistry APRN??for evaluation and management of dyslipidemia, specifically??markedly elevated LDL in the setting of statin intolerance and a strong family history of cardiovascular disease in his father??and??familial hypercholesterolemia in his father, sister, paternal aunt, paternal uncle, and paternal grandmother.? Marco A first learned of his hyperlipidemia when he was in his 20s.?? Off all lipid-lowering medication Marco A's LDL was 222 mg/dL. Marco A has been completely intolerant of all statins which caused not only severe proximal muscle pain and weakness, but CPK levels 3 times the upper limit of normal.?He is currently on ezetimibe in conjunction with alirocumab.??At his last visit in May of 2019 his LDL-C was 122 mg/dL (he had previously had an LDL on this same combination of 38 mg/dL).?? At his last visit he acknowledged occasionally missing ezetimibe and his diet was quite poor. ??He returns now for follow-up evaluation of his lipids. ?? No smoking!!!? Diet: B: chex and 2% milk tea L: salad with nuts and veggies olive oil and vinegar D: chicken, beyond burgers veggies, Snacks occ chips watermelon ?? Exercise Walks the dog - 1/4 mile twice a day yard work swimming and kayaking Medications Current Outpatient Medications Medication Sig Dispense Refill ??? ezetimibe (Zetia) 10 mg Tablet Take 1 tablet by mouth daily. 90 tablet 3 ??? alirocumab 75 mg/mL Pen Injector Inject 75 mg subcutaneously every 14 days. 6 mL 3 ??? clonazePAM (KlonoPIN) 0.5 mg Tablet Take 1 tablet by mouth 2 times daily as needed for Anxiety.30 tablet 0 ??? FLUoxetine (PROzac) 20 mg Tablet Take 2 tablets by mouth daily. 60 tablet 3 ??? pantoprazole (PROTONIX) 40 mg Tablet, Delayed Release (E.C.) Take 1 tablet by mouth daily. 30 tablet 11 ??? nicotine polacrilex (COMMIT) [address] 1 lozenge inside cheek every 2 hours as needed for Smoking cessation. Max 20 Lozenges per day (Patient not taking: Reported on 12/07/2019) 108 tablet 2 No current facility-administered medications for this visit. Allergies Lipitor [atorvastatin] Physical Exam General: Well appearing 34 year old man with a sunburn on his arms VS: BP 131/81 (BP Location (NBP): Left arm, Patient Position: Sitting) Pulse 87 Ht 175.3 cm (5'9) Comment: patient stated Wt 76.7 kg (169 lb) BMI 24.96 kg/m?? Lungs: Clear Heart: S1S2, No MGR, RRR Psych: Appropriate affect. Labs Lab Results Component Value Date CHLPL 115 12/07/2019 HDL 46 12/07/2019 LDLCHOL 49 12/07/2019 TRIG 100 12/07/2019 Assessment Marco A is a 34 year old man with familial hypercholesterolemia. His lipids have improved substantially since his last visit. He has quit smoking and has been taking his lipid medications fairly religiously. He notes that his new girlfriend is a cardiac nurse and a vegan. As a result he is eating better and exercising more. I have strongly encouraged him to continue his current lipid lowering meds and lifestyle. I did mention that [employer]ers despite being vegetarian, have a fair amount of saturated fat. He was encouraged to try the celina brand of vegetarian burgers. Of note, Marco A's blood sugar has improved. Plan ?? Medication changes: none ?? Investigations: labs and a visit in one year ?? Counseling: I explained my impression and answered all Marco A's questions. Follow up 12 months YA ABRAHAM MD 12/08/2019 This visit was 25 minutes with 20 minutes spent in counseling CC: Elizabeth Mistry APRN documented in this encounter Plan of Treatment Upcoming Encounters Date Type Department Care Team (Late st Contact Info) Description 04/01/2025 3:40 PM EST Office Visit Cardiology at [address] [place] [address] Star Flores MD [facility] [place] [address] documented as of this encounter Goals Goal Patient Goal Type Associated Problems Recent Progress Patient-Stated? Author DH Home Medication Compliance and Understanding Patient Facing Action Plan Salvatore Palma, [facility] Note: Reduce LDL, measured by lipid panel, revisit every 6 months documented as of this encounter Visit Diagnoses Diagnosis Familial hypercholesterolemia Pure hypercholesterolemia documented in this encounter Care Teams Mannequin Molder Relationship Specialty Start Date End Date Elizabeth Mistry APRN [facility] [place] [address] PCP - General General Internal Medicine 08/19/1605/23 documented as of this encounter
--- OUTSIDE RECORDS SUMMARY | 2024-03-30 12:55 | XMS_ITS | Encounter Summary ---
[place] [address] Care Team Providers Care Profiling Machine Set Up Operator Tool Name Role Phone Elizabeth Mistry APRN Primary Care Provider + Encounter Details Date Type Department Care Team (Late st Contact Info) Description 08/09/2019 10:00 AM EDT TH Visit (TeleHealth) Internal Medicine at [address] [address] Elizabeth Mistry APRN [facility] [place] [address] Anxiety (Primary Dx); Current moderate episode of major depressive disorder without prior episode; Tobacco use; Nicotine dependence, cigarettes, uncomplicated Social History Tobacco Use Types Packs/Day Years [...] this encounter Patient Instructions * Patient Instructions* Elizabeth Mistry APRN - 08/09/2019 10:00 AM EDT Tobacco Treatment: Nicotine Replacement Instructions Nicotine patch instructions: Place the patch on your skin in an area that has a minimal amount of hair, typically between the neck and waist or upper arms. Avoid placing it over scars or tattoos. Change the place where you put it on your skin daily. Remove the patch each morning and replace with a new patch. Fold the patch in half, with the sticky sides in and dispose of it safely, keeping it out of reach of children or pets. Some patients experience nightmares or bad dreams on the patch. If this happens you should remove the patch at bedtime and just replace it each morning. The nicotine patch releases a constant amount of nicotine in the body. The nicotine dissolves rightthrough the skin and enters the body. Less nicotine is obtained through the patch than in cigarettes. The patch does NOT contain all the tars and poisonous gases that are found in cigarettes. Side effects from wearing the patch can include: headaches, dizziness, upset stomach, weakness, blurred vision, vivid dreams, mild itching and burning on the skin, and diarrhea. Wearing the nicotine patch decreases the chances of suffering from several of the major smoking withdrawal symptoms such as tenseness, irritability, drowsiness and lack of concentration. The nicotine patch can be combined with other Nicotine Replacement Therapy products such as Nicotine gum or lozenges. Ask your healthcare provider about combination therapy to increase your chances of successfully quitting tobacco for good! The US Food and Drug Administration has recently released a statement that there are no significantrisks associated with the use of Nicotine Replacement Therapy products for longer than the labeled number of weeks of use. If you are still having strong cravings to smoke or are struggling to quit completely while using the Nicotine patch talk with your healthcare provider for additional help. Nicotine gum instructions: Nicotine gum must be used properly in order to be effective. Nicotine from Nicotine gum is absorbedthrough the mucous membranes in your mouth at a certain acidity or pH level. Therefore do not eat or drink anything but water for 15 minutes prior to or during use. It should be chewed until a peppery sensation is felt in the mouth and then parked between the cheek and gum until that sensation is gone, then begin chewing again until the peppery feeling comes back again, parking and chewing as described until all of the peppery sensation has gone from the gum. This may take 20-30 minutes. Try tonot swallow the saliva or it may cause an upset stomach. The gum is to be disposed of carefully in the trash where no pets or young children could get ahold of it, as there is always a small amount of nicotine left in the remains of the gum and could sicken a child or pet. The nicotine gum comes in two strengths, 2 mg and 4 mg. You should use the 2 mg gum if you smoke your first cigarette more than 30 minutes after waking. You should use the 4 mg gum if you smoke your first cigarette less than 30 minutes after waking. Chew enough Nicotine gum to reduce withdrawal symptoms, usually starting by chewing a piece of gum every 1-2 hours for the first few days after quitting. Common side effects from Nicotine gum include mouth soreness, hiccups, upset stomach, jaw ache. These usually do not last long and can be reduced or eliminated by correct use of the gum. Nicotine gum can be combined with Nicotine patches for increased chances of successfully quitting tobacco for good! The US Food and Drug Administration has recently released a statement that there are no significantrisks associated with the use of Nicotine Replacement Therapy products for longer than the labeled number of weeks of use. Maximum dosage is 24 pieces of Nicotine gum/24 hours. Nicotine lozenge instructions: Nicotine lozenges must be used properly in order to be effective. Nicotine from the lozenge is absorbed through the mucous membranes in your mouth at a certain acidity or pH level. Therefore do not eat or drink anything but water for 15 minutes prior to or during use. Place the nicotine lozenge on the tongue or between the cheek and the jaw. Allow the lozenge to dissolve. Do not bite, chew or swallow whole or in pieces. Do not work the lozenge like a hard candy or you may create too much saliva and swallow this extra liquid which may upset your stomach. The most common side effects from Nicotine lozenges are nausea, hiccups and heartburn. This can be reduced by following the instructions for proper use. Nicotine lozenges come in two strengths, 2 mg and 4 mg. You should use the 2 mg lozenge if you smoke your first cigarette more than 30 minutes after waking. You should use the 4 mg lozenge if you smoke your first cigarette less than 30 minutes after waking. Nicotine lozenges can be combined with Nicotine patches for increased chances of successfully quitting tobacco for good! The US Food and Drug Administration has recently released a statement that there are no significantrisks associated with the use of Nicotine Replacement Therapy products for longer than the labeled number of weeks of use. Maximum dose is 20 lozenges/24 hours. Nicotine inhaler instructions: One dose of nicotine from the inhaler consists of a puff or inhalation. Each cartridge delivers a total of 4 mg of nicotine over 80 inhalations. The recommended dosage is 6-16 cartridges a day. The nicotine is delivered in the form of an inhaler. Nicotine from the inhaler is absorbed through the mucous membranes in your mouth at a certain acidity or pH level. Therefore do not eat or drink anything but water for 15 minutes prior to or during use. Delivery of nicotine from the inhaler declines significantly at temperatures below 40 degrees F. Incold weather, the inhaler and cartridges should be kept in an inside pocket or other warm area. Common side effects include local irritation in the mouth and throat. Coughing and runny nose can also occur. These are generally mild and decline with continued use. The US Food and Drug Administration has recently released a statement that there are no significantrisks associated with the use of Nicotine Replacement Therapy products for longer than the labeled number of weeks of use. References: Treating Tobacco Use and Dependence, Clinical Practice Guideline 2008 Update, U.S. Department of Health and Human Services, September 2007 U.S. Food and Drug Administration Recommendations, revised directions for use of Nicotine Replacement Therapy , August 22, 2012: https://www.federalregister.gov/articles//2013-64176/modifications-to- jnjdxtsr-en-ckhzhoqh-nunuohwxlah-ssudrpj-cvvwzmna-ykj-xwca-rkq-spsrrmq-qlbim-ewd documented in this encounter Progress Notes * Elizabeth Mistry APRN - 08/09/2019 10:00 AM EDT TELEPHONE VISIT- he gave verbal permission for visit. - Start time: 10:09 End time: 10:21 PCP: Elizabeth Mistry APRN No chief complaint on file. SUBJECTIVE: Marco A Park is a 34 y.o. male who presents for follow up on his anxiety. He reports that his company has closed down until early August. He will be working from home and is worried about his focus with the COVID-19. He is having anxiety about exposure and has been staying in his home. He is out of his ativan. He uses the ativan at times to help him to fall asleep. He hada script in September for 60 pills and just ran out. Social History He is living in [place] in a one bedroom apartment. - he has started smoking recently and is interested in restarting the patch Review of Systems Constitutional: Negative for chills and fever. HENT: Negative for congestion and sinus pain. Respiratory: Positive for cough (thinks from smoking). Cardiovascular: Negative for chest pain and palpitations. Gastrointestinal: Negative for nausea. Psychiatric/Behavioral: Positive for decreased concentration and sleep disturbance. The patient is nervous/anxious. Allergies Allergen Reactions ??? Lipitor [Atorvastatin] Other (See Comments) Elevated CK Current Outpatient Medications Medication Sig Dispense Refill ??? ezetimibe (ZETIA) 10 mg Tablet Take 1 tablet by mouth daily. 90 tablet 3 ??? alirocumab 75 mg/mL Pen Injector Inject 75 mg subcutaneously every 14 days. 6 mL 3 ??? pantoprazole (PROTONIX) 40 mg Tablet, Delayed Release (E.C.) Take 1 tablet by mouth daily. 30 tablet 11 ??? FLUoxetine (PROZAC) 10 mg Tablet Take 1 tablet by mouth daily. 60 tablet 3 ??? LORazepam (ATIVAN) 0.5 mg Tablet Take 1 tablet by mouth 2 times daily as needed for Anxiety. 60tablet 0 No current facility-administered medications for this visit. Patient Active Problem List Diagnosis Code ??? Unspecified symptoms and signs involving cognitive functions and awareness R41.9 ??? Depression F32.9 ??? 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 History of head injury Z87.828 ??? Familial hypercholesterolemia E78.01 OBJECTIVE: There were no vitals filed for this visit. PHYSICAL EXAM: Physical Exam Neurological: Mental Status: He is alert. Psychiatric: Mood and Affect: Mood is anxious. Thought Content: Thought content normal. Judgment: Judgment normal. - exam based on phone conversation ASSESSMENT & PLAN: Diagnoses and all orders for this visit: Anxiety - worse with recent COVID-19 crisis and he is very concerned about the social distancing since he lives alone. He is worried about feeling isolated in his apartment. - will do refill of ativan for anixety and sleep - Recommended - that he has a specific area of his apartment for doing work. We discussed scheduling breaks during the day and taking a lunch break. Turning off reminders from texts. - he feels that the hardest part is that he is doing well at home. I recommended taking walks or a long drive. We discussed that he could skype or video chat with friends to help with the sensation of feeling isolated. Nicotine dependence, cigarettes, uncomplicated - nicotine (NICODERM CQ) 14 mg/24 hr Patch 24 hr; Change 1 patch on the skin daily. See Package instructions - nicotine polacrilex (COMMIT) 2 mg Lozenge; Place 1 lozenge inside cheek every 2 hours as needed for Smoking cessation. Max 20 Lozenges per day documented in this encounter Plan of Treatment Upcoming Encounters Date Type Department Care Team (Late st Contact Info) Description 04/01/2025 3:40 PM EST Office Visit Cardiology at [address] [phone] Star Flores MD [facility] [place] [address] documented as of this encounter Goals Goal Patient Goal Type Associated Problems Recent Progress Patient-Stated? Author DH Home Medication Compliance and Understanding Patient Facing Action Plan No Salvatore Potts RPH Note: Reduce LDL, measured by lipid panel, revisit every 6 months documented as of this encounter Visit Diagnoses Diagnosis Anxiety- Primary Anxiety state, unspecified Current moderate episode of major depressive disorder without prior episode Tobacco use Tobacco use disorder Nicotine dependence, cigarettes, uncomplicated documented in this encounter Care Teams Profiling Machine Set Up Operator Tool Relationship Specialty Start Date End Date Elizabeth Mistry APRN [facility] [place] [address] PCP - General General Internal Medicine 08/19/1605/23 documented as of this encounter
--- OUTSIDE RECORDS SUMMARY | 2024-03-30 12:55 | XMS_ITS | Encounter Summary ---
Author Organization [facility] Address [facility] [place] [address] Care Team Providers Care Storehouse Clerk Name Role Phone Elizabeth Mistry APRN Primary Care Provider + Reason for Visit * Reason Onset Date Comments Medication Refill 01/30/2020 Encounter Details Date Type Department Care Team (Late st Contact Info) Description 01/30/2020 Refill Internal Medicine at [address] [address] Murtaza Mccarty Social History Tobacco Use Types Packs/Day Years [...] encounter Miscellaneous Notes * Telephone Encounter - Murtaza Mccarty - 01/30/2020 11:13 AM EDT Pt states that he is out of this medication and would like it rushed if possible documented in this encounter Plan of Treatment Upcoming Encounters Date Type Department Care Team (Late st Contact Info) Description 04/01/2025 3:40 PM EST Office Visit Cardiology at [address] [phone] Star Flores MD [facility] [place] [address] documented as of this encounter Goals Goal Patient Goal Type Associated Problems Recent Progress Patient-Stated? Author DH Home Medication Compliance and Understanding Patient Facing Action Plan No Salvatore Potts, [facility] Note: Reduce LDL, measured by lipid panel, revisit every 6 months documented as of this encounter Visit Diagnoses Not on filedocumented in this encounter Care Teams Storehouse Clerk Relationship Specialty Start Date End Date Eliazbeth Mistry, MEDICAID BILLING CLERK [facility] [place] [address] PCP - General General Internal Medicine 08/19/1605/23 documented as of this encounter
--- OUTSIDE RECORDS SUMMARY | 2024-03-30 12:55 | XMS_ITS | Encounter Summary ---
Author Organization [facility] Address [facility] [place] [address] Care Team Providers Care Ophthalmic Technician Apprentice Name Role Phone Elizabeth Mistry APRN Primary Care Provider + Reason for Visit * Reason Onset Date Comments Prior Authorization 10/01/2019 Praluent 75m g/mL SOAJ Encounter Details Date Type Department Care Team (Late st Contact Info) Description 10/01/2019 [place] [id number] Noelle Hartley Prior Authorization (Praluent 75mg/mL SOAJ) Social History Tobacco Use Types Packs/Day Years [...] encounter Miscellaneous Notes * Telephone Encounter - Kareem Andres CPHT - 10/01/2019 4:03 PM EDT This PA was sent in error, as there is already one on file through 12/30/2019. * Telephone Encounter - Noelle Hartley - 10/01/2019 1:02 PM EDT [facility], Medication Prior Authorization Patient: Marco A Park Patient : 1985 Patient Address: [address] [place] [address] [address] [facility] [address] (home) Medication: Praluent Subscriber Insurance: [place] Medicaid Fax: N/A Physician: Kimberley Purdy Sent Via: [facility] Mae: [id number] Ref/Case/PA#: N/A Medication Strength Frequency Requested: Praluent 75mg/mL SOAJ Inject 75mg subcutaneously every 14 days. Qty/Day Supply: New Start: No Diagnosis & ICD-10 Code: Familial Hypercholesterolemia E78.01 documented in this encounter Plan of Treatment Upcoming Encounters Date Type Department Care Team (Late st Contact Info) Description 04/01/2025 3:40 PM EST Office Visit Cardiology at [address] [phone] Star Flores MD [facility] [place] [address] documented as of this encounter Goals Goal Patient Goal Type Associated Problems Recent Progress Patient-Stated? Author Home Medication Compliance and Understanding Patient Facing Action Plan Salvatore Palma [facility] Note: Reduce LDL, measured by lipid panel, revisit every 6 months documented as of this encounter Visit Diagnoses Not on filedocumented in this encounter Care Teams Ophthalmic Technician Apprentice Relationship Specialty Start Date End Date Elizabeth Mistry APRN [facility] [address] PCP - General General Internal Medicine 08/19/1605/23 documented as of this encounter
--- OUTSIDE RECORDS SUMMARY | 2024-03-30 12:55 | XMS_ITS | Encounter Summary ---
Author Organization [facility] Address [facility] [place] [address] Care Team Providers Care Corner Cutter Name Role Phone Elizabeth Mistry APRN Primary Care Provider + Reason for Visit * Reason Comments Medication Management Encounter Details Date Type Department Care Team (Late st Contact Info) Description 06/28/2019 Specialty [place] [address] Agnes Chavez RPH Social History Tobacco Use Types Packs/Day [...] as of this encounter Progress Notes * Agnes Chavez RPH - 06/28/2019 1:59 PM EST Clinical Management Plan: Refill Specialty Pharmacy Consultation; Agnes Chavez Viridiana Comprehensive Medication Management (CMM) Marco A Palomino Xavier Mr. Marco A Park is a 33 y.o. (1985) male who was contacted in [...] change made to the Care Plan: no Assessment and Recommendations: Title Type of Medication Management: chronic disease management, targeted medication review Referred By: provider Recipient: beneficiary Provider: plan sponsor pharmacist Visit Type: [facility] [place] Method of Contact: by telephone Cognitive Ability: good Cognitive Impairment Status Verified this Year: no Allergies and Drug intolerance: Allergies Allergen Reactions ??? Lipitor [Atorvastatin] Other (See Comments) Elevated CK Medication Reconciliation Discrepancies (compared to [facility] med list) -no New medications: no New medical conditions: no [...] experiencing any side effects from your medications? Yes-patient experiencing bruising at the injection site Pt understands no changes to current drug regimen were made at the appointment and that [facility] is providing recommendations (summary located at top of note) for provider review and follow up. Agnes Chavez RPH 06/28/19 1:59 PM documented in this encounter Plan of Treatment Upcoming Encounters Date Type Department Care Team (Late st Contact Info) Description 04/01/2025 3:40 PM EST Office Visit Cardiology at [address] [address] Star Flores MD [facility] [place] [address] documented as of this encounter Goals Goal Patient Goal Type Associated Problems Recent Progress Patient-Stated? Author DH Home Medication Compliance and Understanding Patient Facing Action Plan Salvatore Palma [facility] Note: Reduce LDL, measured by lipid panel, revisit every 6 months documented as of this encounter Visit Diagnoses Not on filedocumented in this encounter Care Teams Corner Cutter Relationship Specialty Start Date End Date Elizabeth Mistry APRN [facility] [place] [address] PCP - General General Internal Medicine 08/19/1605/23 documented as of this encounter
--- OUTSIDE RECORDS SUMMARY | 2024-03-30 12:55 | XMS_ITS | Encounter Summary ---
Author Organization [facility] Address [facility] [place] [address] Care Team Providers Care Central Office Frame Wirer Name Role Phone Elizabeth Mistry APRN Primary Care Provider + Reason for Visit * Reason Comments Medication Management Encounter Details Date Type Department Care Team (Late st Contact Info) Description 01/02/2020 Specialty [place] [address] Dany Arroyo RPH Social History Tobacco Use Types Packs/Day [...] as of this encounter Progress Notes * Dany Joyner RPH - 01/02/2020 1:26 PM EDT Clinical Management Plan: Refill Specialty Pharmacy Consultation; Dany Joyner RPH Comprehensive Medication Management (CMM) Marco A [...] beneficiary Provider: plan sponsor pharmacist Visit Type: [facility] Follow-up Method of Contact: by telephone Cognitive Ability: good Cognitive Impairment Status Verified this Year: yes Allergies and Drug intolerance: Allergies Allergen Reactions ??? Lipitor [Atorvastatin] Other (See Comments) Elevated CK Medication Reconciliation Discrepancies (compared to [facility] med list) -None New medications: no New medical conditions: no [...] were made at the appointment and that [facility] is providing recommendations (summary located at top of note) for provider review and follow up. Dany Joyner RPH 01/02/20 1:26 PM documented in this encounter Plan of Treatment Upcoming Encounters Date Type Department Care Team (Late st Contact Info) Description 04/01/2025 3:40 PM EST Office Visit Cardiology at [address] [phone] Star Flores MD [facility] [place] [address] documented as of this encounter Goals Goal Patient Goal Type Associated Problems Recent Progress Patient-Stated? Author DH Home Medication Compliance and Understanding Patient Facing Action Plan Salvatore Palma [facility] Note: Reduce LDL, measured by lipid panel, revisit every 6 months documented as of this encounter Visit Diagnoses Not on filedocumented in this encounter Care Teams Central Office Frame Wirer Relationship Specialty Start Date End Date Elizabeth Mistry, EMPLOYMENT EVALUATOR/CASE MANAGER [facility] [place] [place] [address] PCP - General General Internal Medicine 08/19/1605/23 documented as of this encounter
--- OUTSIDE RECORDS SUMMARY | 2024-03-30 12:55 | XMS_ITS | Encounter Summary ---
Author Organization [facility] [place] [address] Care Team Providers Care Poultry Field Service Technician Name Role Phone Elizabeth Mistry APRN Primary Care Provider + Encounter Details Date Type Department Care Team (Latest Contact Info) Description 06/08/2019 3:00 PM EST Office Visit Cardiology at [address] [phone] Ya Abraham MD Familial hypercholesterolemia Social History [...] Sign Reading Time Taken Comments Blood Pressure 127/73 06/08/2019 2:24 PM EST Pulse 82 06/08/2019 2:24 PM EST Temperature - - Respiratory Rate - - Oxygen Saturation 100% 06/08/2019 2:24 PM EST Inhaled Oxygen Concentration - - Weight 77.2 kg (170 lb 3.2 oz) 06/08/2019 2:24 P M EST Height 174.6 cm (5' 8.75) 06/08/2019 2:24 PM ES T Body Mass Index 25.32 06/08/2019 2:24 PM EST documented in this encounter Progress Notes * Ya Abraham MD - 06/08/2019 3:00 PM EST [facility] [place] [facility]id [facility]-Follow Up Visit ID/PM Marco A is a 33 y.o. followed by Elizabeth Mistry APRN with the following problems: Patient Active Problem List Diagnosis Code ??? Unspecified symptoms and signs involving cognitive functions and awareness R41.9 ??? Depression F32.9 ??? 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 History of head injury Z87.828 ??? Familial hypercholesterolemia E78.01 Social history:??Marco A??is a 33-year-old man who lives home with his parents. ??He has no??children. 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 ?? Present Illness Marco A Park??is seen at the request of Elizabeth Mistry APRN??for evaluation and management of dyslipidemia, specifically??markedly elevated LDL in the setting of statin intolerance and a strong family history of cardiovascular disease in his father??and??familial hypercholesterolemia in his father, sister, paternal aunt, paternal uncle, and paternal grandmother.? Marco A first learned of his hyperlipidemia when he was in his 20s. Off all lipid- lowering medicationSjoe's LDL was 222 mg/dL. Marco A has been completely intolerant of all statins which caused not only severe proximal muscle pain and weakness but CPK levels 3 times the upper limit of normal. He is currently ezetimibe in conjunction with alirocumab. At his last visit in November of 2018 his LDL-C was 38 mg/dL. He returns now for follow-up evaluation of his lipids. ?? No smoking!!! He has not smoked since his the new year - he is motivated to stick with this.?? Diet: B: Kannan Jacky Breakfast [place] tea small amt of sugar D: chicken, frozen pizza occ beer, milk 2%, Snacks Exercise Walks the dog - 1/4 mile twice a day ROS General: Cardiac: MSK: Medications Current Outpatient Medications Medication Sig Dispense Refill ??? alirocumab 75 mg/mL Pen Injector Inject 75 mg subcutaneously every 14 days. 6 mL 1 ??? pantoprazole (PROTONIX) 40 mg Tablet, Delayed [...] tablet by mouth daily. 90 tablet 3 No current facility-administered medications for this visit. Allergies Lipitor [atorvastatin] Physical Exam General: 33-year-old man with a BMI of 25.32 VS: BP 127/73 Pulse 82 Ht 174.6 cm (5' 8.75) Wt 77.2 kg (170 lb 3.2 oz) SpO2 100% BMI 25.32 kg/m?? Lungs: Clear Heart: S1-S2 no murmurs gallops rubs, regular rate and rhythm Abd: Soft and nontender. Psych: Appropriate affect. Labs Lab Results Component Value Date CHLPL 187 06/08/2019 HDL 39 06/08/2019 LDLCHOL 123 06/08/2019 TRIG 125 06/08/2019 Assessment While Marco A's lipids are certainly better controlled than his baseline when his LDL was 222 mg/dL, his current lipid profile is not nearly as well controlled as it was in November of this past year. In November Marco A had just returned from an 8- week hiking adventure in the [place]. He was hiking several hoursa day and eating quite well. At that point on the combination of alirocumab and ezetimibe his LDL was 38 mg/dL. His current LDL is obviously much higher than this. Marco A states that he is taking bothhis alirocumab by injection every 2 weeks and his ezetimibe on a daily basis (although he does admit that he occasionally misses the ezetimibe). I have explained to Marco A that the combination of ezetimibe and alirocumab works far better than either alone. We also talked about the importance of diet, his current diet is quite poor and rich in saturated fat. I discussed alternatives to his current breakfast and dinner. I also emphasized the importance of getting regular exercise. 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 He is working long hours and getting very little exercise other than walking his dog. I asked him to aim to get at least 30 to 60 minutes of exercise per day. I have applauded his efforts at smoking cessation. I will plan to see Marco A in follow-up in 6 months hopefully his lipids will be better at that time. Plan ?? Medication changes: Continue the alirocumab and ezetimibe ?? investigations: Labs and a visit in 6 months ?? Counseling: I explained my impression and answered all Marco A's questions. Follow up 12-07-19 YA ABRAHAM MD 06/08/2019 This visit was 60 minutes in length of which 40 minutes were spent in counseling CC: Elizabeth Mistry APRN documented in this encounter Plan of Treatment Upcoming Encounters Date Type Department Care Team (Late st Contact Info) Description 04/01/2025 3:40 PM EST Office Visit Cardiology at [address] [phone] Star Flores MD [facility] [place] [address] documented as of this encounter Goals Goal Patient Goal Type Associated Problems Recent Progress Patient-Stated? Author DH Home Medication Compliance and Understanding Patient Facing Action Plan Salvatore Palma [facility] Note: Reduce LDL, measured by lipid panel, revisit every 6 months documented as of this encounter Results * Lipid Panel (Reflex Direct LDL) (12/07/2019 2:13 PM EDT) [facility] Cholesterol, Total 115 mg/dL [facility] Comment: Lower Risk: <200 mg/dL Average Risk: 200-239 mg/dL Higher Risk: >wy=122 mg/dL Triglyceride 100 mg/dL [facility] Comment: Average Risk/Lower Risk: <150 mg/dL Borderline High Risk: 150-199 mg/dL High Risk: 200-499 mg/dL Very High Risk: >rv=979 mg/dL HDL Cholesterol 46 mg/dL [facility] Comment: Males: ?? Higher Risk: <40 mg/dL Females: ?? HIgher Risk: <50 mg/dL LDL Cholesterol 49 mg/dL [facility] Comment: Lowest Risk: <100 mg/dL Lower Risk: 100-129 mg/dL Borderline High Risk: 130-159 mg/dL High Risk: 160-189 mg/dL Very High Risk: >xw=764 mg/dL Cholesterol/HDL Ratio 2.5 ratio [facility] Lipid Interpretation See Note [facility] Comment: Lipid management should be guided by a patient? s ASCVD risk, goals and preferences. ACC/AHA Guidelines recommend high intensity statin if clinical ASCVD or LDL greater than or equal to 190 mg/dL. http://[employer]com/CGD-ITH-Ziglsabvj Adults aged 40-75 with LDL 70-189 mg/dL should have their 10 year ASCVD risk estimated with the ACC/AHA ASCVD risk auto body repair estimator http://tools.acc.org/RHIKA-Nsnb-Zyjrmldyk/ Statin should be discussed if risk greater [...] Narrative Resulting Agency Comment Spec In Lab Ya Abraham MD CHEMISTRY ORDERABLES [facility] [place] [address] documented in this encounter Visit Diagnoses Diagnosis Familial hypercholesterolemia Pure hypercholesterolemia documented in this encounter Care Teams Poultry Field Service Technician Relationship Specialty Start Date End Date Elizabeth Mistry APRN [facility] [place] [address] PCP - General General Internal Medicine 08/19/1605/23 documented as of this encounter
--- OUTSIDE RECORDS SUMMARY | 2024-03-30 12:55 | XMS_ITS | Encounter Summary ---
Author Organization [facility] Address [facility] [place] [address] Care Team Providers Care Pickling Solution Maker Name Role Phone Elizabeth Mistry APRN Primary Care Provider + Reason for Visit * Reason Onset Date Comments Medication Refill 09/07/2018 Encounter Details Date Type Department Care Team (Late st Contact Info) Description 09/07/2018 Refill Internal Medicine at [address] [phone] Evelyn Stewart Social History Tobacco Use Types Packs/Day Years Used Date Smoking Tobacco: Former Cigarettes 0.5 6 0 12/16/2011 - 12/15/2017 Smokeless Tobacco: Never Comments:doing e-cigs Alcohol Use Standard Drinks/Week Comments Yes 6 (1 standard drink = 0.6 oz pur e alcohol) Sex and Gender Information Value Date Recorded Sex Assigned at Not on file Gender Identity Not on file Sexual Orientation Not on file documented as of this encounter Miscellaneous Notes * Telephone Encounter - Evelyn Stewart - 09/07/2018 1:00 PM EDT Pt would like to get a call from pcp to discuss his Lorazepam prescription. Please call pt to discuss. documented in this encounter Plan of Treatment Upcoming Encounters Date Type Department Care Team (Late st Contact Info) Description 04/01/2025 3:40 PM EST Office Visit Cardiology at [address] [phone] Star Flores MD [facility] [place] [address] documented as of this encounter Goals Goal Patient Goal Type Associated Problems Recent Progress Patient-Stated? Author DH Home Medication Compliance and Understanding Patient Facing Action Plan Salvatore Palma, [facility] Note: Reduce LDL, measured by lipid panel, revisit every 6 months documented as of this encounter Visit Diagnoses Not on filedocumented in this encounter Care Teams Pickling Solution Maker Relationship Specialty Start Date End Date Elizabeth Mistry, [facility] [place] [address] PCP - General General Internal Medicine 08/19/1605/23 documented as of this encounter
--- OUTSIDE RECORDS SUMMARY | 2024-03-30 12:55 | XMS_ITS | Encounter Summary ---
Author Organization [facility] Address [facility] [place] [address] Care Team Providers Care Gas Flow Regulator Name Role Phone Elizabeth Mistry APRN Primary Care Provider + Reason for Referral * Consultation (Routine) - Closed Specialty Diagnoses / Procedures Referred By Samuel cisneros Referred To Contact Diagnoses Numbness in both hands Elizabeth Mistry APRN [facility] [place] [address] Neurology, [facility] [address] [place] [id number] Referral ID Status Reason Start Date Expiration Date V isits Requested Visits Authorized [id number] Closed Consult, Test & Treat 02/06/2020 08/04/2020 1 1 Reason for Visit * Reason Comments Neuropathy Encounter Details Date Type Department Care Team (Late st Contact Info) Description 02/05/2020 1:30 PM EDT TH Visit (TeleHealth) Internal Medicine at [address] [phone] Elizabeth Mistry APRN [facility] [place] [address] Numbness in both hands Social History Tobacco Use Types Packs/Day Years [...] encounter Patient Instructions * Patient Instructions* Elizabeth Mistry, SURVEILLANCE CAMERA TECHNICIAN - 02/05/2020 1:30 PM EDT Images from the original note were not included. Patient Education Neck: Exercises Introduction Here are some examples of exercises for you to try. The exercises may be suggested for a condition or for rehabilitation. Start each exercise slowly. Ease off the exercises if you start to have pain. You will be told when to start these exercises and which ones will work best for you. How to do the exercises Neck stretch 1. This stretch works best if you keep your shoulder down as you lean away from it. To help you remember to do this, start by relaxing your shoulders and lightly holding on to your thighs or your chair. 2. Tilt your head toward your shoulder and hold for 15 to 30 seconds. Let the weight of your head stretch your muscles. 3. If you would like a little added stretch, use your hand to gently and steadily pull your head toward your shoulder. For example, keeping your right shoulder down, lean your head to the left. 4. Repeat 2 to 4 times toward each shoulder. Diagonal neck stretch 1. Turn your head slightly toward the direction you will be stretching, and tilt your head diagonally toward your chest and hold for 15 to 30 seconds. 2. If you would like a little added stretch, use your hand to gently and steadily pull your head forward on the diagonal. 3. Repeat 2 to 4 times toward each side. Dorsal glide stretch The dorsal glide stretches the back of the neck. If you feel pain, do not glide so far back. Some people find this exercise easier to do while lying on their backs with an ice pack on the neck. 1. Sit or stand tall and look straight ahead. 2. Slowly tuck your chin as you glide your head backward over your body 3. Hold for a count of 6, and then relax for up to 10 seconds. 4. Repeat 8 to 12 times. Chest and shoulder stretch 1. Sit or stand tall and glide your head backward as in the dorsal glide stretch. 2. Raise both arms so that your hands are next to your ears. 3. Take a deep breath, and as you breathe out, lower your elbows down and behind your back. You will feel your shoulder blades slide down and together, and at the same time you will feel a stretch across your chest and the front of your shoulders. 4. Hold for about 6 seconds, and then relax for up to 10 seconds. 5. Repeat 8 to 12 times. Strengthening: Hands on head 1. Move your head backward, forward, and side to side against gentle pressure from your hands, holding each position for about 6 seconds. 2. Repeat 8 to 12 times. Follow-up care is a trotter part of your treatment and safety. Be sure to make and go to all appointments, and call your doctor if you are having problems. It's also a good idea to know your test resultsand keep a list of the medicines you take. Where can you learn more? Visit our OnApp information library at https://[employer]/3 Four 5 Groupo You can also view health information on [employer], your personal patient account. Log in or sign uptoday. Enter P975 in the search box to learn more about Neck: Exercises. Current as of: July 23, 2019?Content Version: 12.6 ?? [employer]. Care instructions adapted under license by [facility]. If you have questions about a medical condition or this instruction, always ask your healthcare professional. [employer] disclaims any warranty or liability for your use of this information. Patient Education Pinched Nerve in the Neck: Care Instructions Your Care Instructions A pinched nerve in the neck happens when a vertebra or disc in the upper part of your spine is damaged. This damage can happen because of an injury. Or it can just happen with age. The changes caused by the damage may put pressure on a nearby nerve root, pinching it. This causes symptoms such as sharp pain in your neck, shoulder, arm, hand, or back. You may also have tingling or numbness. Sometimes it makes your arm weaker. The symptoms are usually worse when you turn your head or strain your neck. For many people, the symptoms get better over time and finally go away. Early treatment usually includes medicines for pain and swelling. Sometimes physical therapy and special exercises may help. Follow-up care is a trotter part of your treatment and safety. Be sure to make and go to all appointments, and call your doctor if you are having problems. It's also a good idea to know your test resultsand keep a list of the medicines you take. How can you care for yourself at home? ?? Be safe with medicines. Read and follow all instructions on the label. ? If the doctor gave you a prescription medicine for pain, take it as prescribed. ? If you are not taking a prescription pain medicine, ask your doctor if you can take an gwih-kak-ubultpg medicine. ?? Try using a heating pad on a low or medium setting for 15 to 20 minutes every 2 or 3 hours. Try a warm shower in place of one session with the heating pad. You can also buy single-use heat wraps that last up to 8 hours. ?? You can also try an ice pack for 10 to 15 minutes every 2 to 3 hours. There isn't strong evidence that either heat or ice will help. But you can try them to see if they help you. ?? Don't spend too long in one position. Take short breaks to move around and change positions. ?? Wear a seat belt and shoulder harness when you are in a car. ?? Sleep with a pillow under your head and neck that keeps your neck straight. ?? If you were given a neck brace (cervical collar) to limit neck motion, wear it as instructed foras many days as your doctor tells you to. Do not wear it longer than you were told to. Wearing a brace for too long can lead to neck stiffness and can weaken the neck muscles. ?? Follow your doctor's instructions for gentle neck-stretching exercises. ?? Do not smoke. Smoking can slow healing of your discs. If you need help quitting, talk to your doctor about stop-smoking programs and medicines. These can increase your chances of quitting for good. ?? Avoid strenuous work or exercise until your doctor says it is okay. When should you call for help? Call 911 anytime you think you may need emergency care. For example, call if: ? You are unable to move an arm or a leg at all. Call your doctor now or seek immediate medical care if: ? You have new or worse symptoms in your arms, legs, chest, belly, or buttocks. Symptoms may include: ? Numbness or tingling. ? Weakness. ? Pain. ? You lose bladder or bowel control. Watch closely for changes in your health, and be sure to contact your doctor if: ? You are not getting better as expected. Where can you learn more? Visit our health information library at https://[employer]/3 Four 5 [employer]o You can also view health information on [employer], your personal patient account. Log in or sign uptoday. Enter K983 in the search box to learn more about Pinched Nerve in the Neck: Care Instructions. Current as of: July 23, 2019?Content Version: 12.6 ?? [id number] [employer]. Care instructions adapted under license by [facility]. If you have questions about a medical condition or this instruction, always ask your healthcare professional. [employer] disclaims any warranty or liability for your use of this information. documented in this encounter Progress Notes * Elizabeth Mistry APRN - 02/05/2020 1:30 PM EDT TELEPHONE VISIT- Given the ongoing COVID-19 public [facility] emergency, this visit was done as a Telephone visit. The patient gave verbal consent for the visit. The exam findings were based on the telephone conversation with the patient during the visit. PCP: Elizabeth Mistry APRN Chief Complaint Patient presents with ??? Neuropathy SUBJECTIVE: Marco A Park is a 34 y.o. male who presents for follow up on his hand pain. He has had pain and numbness and tingling. He reports that it is waking him up at night. He has been wearing the splints. He has an ergonomic keyboard and a standing desk. He did noticed that it got better for a couple of days. He was treated with gabapentin. He did find that it helped the symptoms. He reports that it was better for about a week after that. He reports that it started to notice the pain coming back. He cannot type with the braces. He reports that Review of Systems Constitutional: Negative for chills and fever. Musculoskeletal: Positive for neck pain. Neurological: Positive for weakness and numbness. Allergies Allergen Reactions ??? Lipitor [Atorvastatin] Other [...] for this visit. PHYSICAL EXAM: Physical Exam Vitals signs reviewed. Constitutional: Appearance: He is well-developed. HENT: Head: Normocephalic and atraumatic. Eyes: General: No scleral icterus. Conjunctiva/sclera: Conjunctivae normal. Skin: General: Skin is warm and dry. Neurological: Mental Status: He is alert and oriented to person, place, and time. Psychiatric: Behavior: Behavior normal. Thought Content: Thought content normal. Judgment: Judgment normal. ASSESSMENT & PLAN: Marco A was seen today for neuropathy. Diagnoses and all orders for this visit: Numbness in both hands - Referral to Neurology - given that he has numbness in both hands, and some neck pain this may be cervical radiculopathy, but cannot r/o CTS. We will treat the discomfort with gabapentin, and have him do neck exercises. EMG ordered for further evaluation to help determine where the nerve is being affected. - gabapentin (Neurontin) 300 mg Capsule; Take 1 capsule by mouth nightly. documented in this encounter Plan of Treatment Upcoming Encounters Date Type Department Care Team (Late st Contact Info) Description 04/01/2025 3:40 PM EST Office Visit Cardiology at [address] [place] [phone] Star Flores MD [facility] [place] [address] Scheduled Referrals Name Type Priority Associated Diagnoses Orde r Schedule Referral to Neurology Outpatient Referral Routine Numbness in both hands Ordered: 02/06/2020 documented as of this encounter Goals Goal Patient Goal Type Associated Problems Recent Progress Patient-Stated? Author DH Home Medication Compliance and Understanding Patient Facing Action Plan No Salvatore Potts, [facility] Note: Reduce LDL, measured by lipid panel, revisit every 6 months documented as of this encounter Visit Diagnoses Diagnosis Numbness in both hands Disturbance of skin sensation documented in this encounter Care Teams Gas Flow Regulator Relationship Specialty Start Date End Date Elizabeth Mistry APRN [facility] [place] [place] [address] PCP - General General Internal Medicine 08/19/1605/23 documented as of this encounter
--- OUTSIDE RECORDS SUMMARY | 2024-03-30 12:55 | XMS_ITS | Encounter Summary ---
[place] [address] Care Team Providers Care Production Counter Name Role Phone Elizabeth Mistry APRN Primary Care Provider + Encounter Details Date Type Department Care Team (Late st Contact Info) Description 09/13/2019 3:30 PM EDT TH Visit (TeleHealth) Internal Medicine at [address] [address] Elizabeth Mistry APRN [facility] [place] [address] Anxiety; Depression, unspecified depression type Social History Tobacco Use Types Packs/Day Years [...] Sign Reading Time Taken Comments Blood Pressure - - Pulse - - Temperature - - Respiratory Rate - - Oxygen Saturation - - Inhaled Oxygen Concentration - - Weight 72.6 kg (160 lb) 09/13/2019 3:24 PM EDT approx - patient reported Height 175.3 cm (5' 9) 09/13/2019 3:24 PM EDT approx - patient reported Body Mass Index 23.63 09/13/2019 3:24 PM EDT documented in this encounter Progress Notes * Elizabeth Mistry APRN - 09/13/2019 3:30 PM EDT - started telehealth visit with patient, but he was at hospital at [facility] after his friend called police because they were concerned about him. He was going to be evaluated in the ED by the crisis center at [facility]. I will follow up with him after his ER and/or hospital stay. documented in this encounter Plan of Treatment Upcoming Encounters Date Type Department Care Team (Late st Contact Info) Description 04/01/2025 3:40 PM EST Office Visit Cardiology at [address] [address] Star Flores MD [facility] [place] [address] documented as of this encounter Goals Goal Patient Goal Type Associated Problems Recent Progress Patient-Stated? Author DH Home Medication Compliance and Understanding Patient Facing Action Plan Salvatore Palma [facility] Note: Reduce LDL, measured by lipid panel, revisit every 6 months documented as of this encounter Visit Diagnoses Diagnosis Anxiety Anxiety state, unspecified Depression, unspecified depression type documented in this encounter Care Teams Production Counter Relationship Specialty Start Date End Date Elizabeth Mistry APRN [facility] [place] [address] PCP - General General Internal Medicine 08/19/1605/23 documented as of this encounter
--- OUTSIDE RECORDS SUMMARY | 2024-03-30 12:55 | XMS_ITS | Encounter Summary ---
Author Organization [facility] Address [facility] [place] [address] Care Team Providers Care Docket Clerk Name Role Phone Elizabeth Mistry APRN Primary Care Provider + Reason for Visit * Reason Onset Date Comments Medication Refill 09/19/2018 Encounter Details Date Type Department Care Team (Late st Contact Info) Description 09/19/2018 Refill Internal Medicine at [address] [address] Cami Shaw Social History Tobacco Use Types Packs/Day Years [...] encounter Miscellaneous Notes * Telephone Encounter - Cami Shaw - 09/19/2018 12:32 PM EDT Pt is traveling starting September 27 thru around November 23. He would like to have enough medication withhim for trip. documented in this encounter Plan of Treatment Upcoming Encounters Date Type Department Care Team (Late st Contact Info) Description 04/01/2025 3:40 PM EST Office Visit Cardiology at [address] [phone] Star Flores MD [facility] [place] [address] documented as of this encounter Goals Goal Patient Goal Type Associated Problems Recent Progress Patient-Stated? Author DH Home Medication Compliance and Understanding Patient Facing Action Plan Salvatore Palma [facility] Note: Reduce LDL, measured by lipid panel, revisit every 6 months documented as of this encounter Visit Diagnoses Not on filedocumented in this encounter Care Teams Docket Clerk Relationship Specialty Start Date End Date Elizabeth Mistry, ST[employer] GLA[employer] [facility] [place] [address] PCP - General General Internal Medicine 08/19/1605/23 documented as of this encounter
--- OUTSIDE RECORDS SUMMARY | 2024-03-30 12:55 | XMS_ITS | Encounter Summary ---
Author Organization [facility] [place] [address] Care Team Providers Care Music Theory Teacher Name Role Phone Elizabeth Mistry APRN Primary Care Provider + Reason for Visit * Reason Onset Date Comments Prior Authorization 09/25/2018 Praluent, re newal with new insurance Encounter Details Date Type Department Care Team (Late st Contact Info) Description 09/25/2018 Telephone Cardiology at [address] [phone] Stefany Eckert trust vault custodian (Praluent, renewal with new insurance) Social History Tobacco Use Types Packs/Day Years [...] Telephone Encounter - Stefany Eckert RN - 09/25/2018 4:32 PM EDT Call placed to Sharmaine at the [facility], [place] medicaid, in response to the written denial for coverage of Praluent. Supporting documentation faxed to [phone], 07/21/18 clinic note with the following documentation: Pt's LLD-c was 222 in Jan 2018 at his PCP's office. He has thickening of his achilles tendons, bilaterally. His father had an [place] in his 40's. Awaiting decision, may take 24 - 48 hours. documented in this encounter Plan of Treatment Upcoming Encounters Date Type Department Care Team (Late st Contact Info) Description 04/01/2025 3:40 PM EST Office Visit Cardiology at [address] [facility] [address] Star Flores MD [facility] [place] [address] documented as of this encounter Goals Goal Patient Goal Type Associated Problems Recent Progress Patient-Stated? Author DH Home Medication Compliance and Understanding Patient Facing Action Plan No Salvatore Potts [facility] Note: Reduce LDL, measured by lipid panel, revisit every 6 months documented as of this encounter Visit Diagnoses Not on filedocumented in this encounter Care Teams Music Theory Teacher Relationship Specialty Start Date End Date Elizabeth Mistry APRN [facility] [place] [address] PCP - General General Internal Medicine 08/19/1605/23 documented as of this encounter
--- OUTSIDE RECORDS SUMMARY | 2024-03-30 12:55 | XMS_ITS | Encounter Summary ---
Author Organization [facility] [place] [address] Care Team Providers Care Prescription Clerk Name Role Phone Elizabeth Mistry APRN Primary Care Provider + Reason for Visit * Reason Onset Date Comments Prior Authorization 09/21/2018 Kim, new i nsurance Encounter Details Date Type Department Care Team (Late st Contact Info) Description 09/21/2018 Telephone Cardiology at [address] [phone] Stefany Eckert, nuclear weapons specialist (Zetia, new insurance) Social History Tobacco Use Types [...] Miscellaneous Notes * Telephone Encounter - Stefany Eckert, RN - 09/22/2018 9:32 AM EDT Notification received from [place] medicaid stating that the pt does not require a PA for the Zetia. Call placed to Jonah Ureña. Pharmacist notified of the decision. She thinks it may be too soon or that [place] Medicaid is still seeing that he has an alternate insurance (pt reported yesterday that he only has the [place] Medicaid). She will see if she can get a vacation over ride, with the pt leaving next week for 2 months. Message left for the pt on his mobile phone voice mail. * Telephone Encounter - Stefany Eckert RN - 09/21/2018 5:20 PM EDT PA request for Zetia sent to [facility] via cover my meds. Request sent. Awaiting decision. documented in this encounter Plan of Treatment Upcoming Encounters Date Type Department Care Team (Late st Contact Info) Description 04/01/2025 3:40 PM EST Office Visit Cardiology at [address] [phone] Star Flores MD [facility] [place] [address] documented as of this encounter Goals Goal Patient Goal Type Associated Problems Recent Progress Patient-Stated? Author DH Home Medication Compliance and Understanding Patient Facing Action Plan Salvatore Palma [facility] Note: Reduce LDL, measured by lipid panel, revisit every 6 months documented as of this encounter Visit Diagnoses Not on filedocumented in this encounter Care Teams Prescription Clerk Relationship Specialty Start Date End Date Elizabeth Mistry APRN [facility] [place] [place] [address] PCP - General General Internal Medicine 08/19/1605/23 documented as of this encounter
--- OUTSIDE RECORDS SUMMARY | 2024-03-30 12:55 | XMS_ITS | Encounter Summary ---
Author Organization [facility] Address [facility] [place] [address] Care Team Providers Care Director Pharmacology Name Role Phone Elizabeth Mistry APRN Primary Care Provider + Reason for Visit * Reason Comments Medication Management Encounter Details Date Type Department Care Team (Late st Contact Info) Description 12/04/2019 Specialty [place] [address] Marcus Reese [facility] Social History Tobacco Use Types Packs/Day Years [...] Progress Notes * Marcus Reese RPH - 12/04/2019 1:03 PM EDT Clinical Management Plan: Refill Specialty [...] beneficiary Provider: plan sponsor pharmacist Visit Type: [facility] [place] Method of Contact: by telephone Cognitive Ability: good Cognitive Impairment Status Verified this Year: yes Allergies and Drug intolerance: Allergies Allergen Reactions ??? Lipitor [Atorvastatin] Other (See Comments) Elevated CK Medication Reconciliation Discrepancies (compared to [facility] med list) -none New medications: no New [...] were made at the appointment and that [facility] is providing recommendations (summary located at top of note) for provider review and follow up. Marcus Reese RPH 12/04/19 1:04 PM documented in this encounter Plan of Treatment Upcoming Encounters Date Type Department Care Team (Late st Contact Info) Description 04/01/2025 3:40 PM EST Office Visit Cardiology at [address] [phone] Star Flores MD [facility] [place] [address] documented as of this encounter Goals Goal Patient Goal Type Associated Problems Recent Progress Patient-Stated? Author DH Home Medication Compliance and Understanding Patient Facing Action Plan Salvatore Palma [facility] Note: Reduce LDL, measured by lipid panel, revisit every 6 months documented as of this encounter Visit Diagnoses Not on filedocumented in this encounter Care Teams Director Pharmacology Relationship Specialty Start Date End Date Elizabeth Mistry APRN [facility] [place] [address] PCP - General General Internal Medicine 08/19/1605/23 documented as of this encounter
--- OUTSIDE RECORDS SUMMARY | 2024-03-30 12:55 | XMS_ITS | Encounter Summary ---
Author Organization [facility] Address [facility] [place] [address] Care Team Providers Care Plush Weaver Name Role Phone Elizabeth Mistry APRN Primary Care Provider + Reason for Visit * Reason Comments Medication Management Encounter Details Date Type Department Care Team (Late st Contact Info) Description 11/27/2018 Specialty [place] [address] Cornelio Wong [place] Social History Tobacco Use Types Packs/Day Years [...] as of this encounter Progress Notes * Cornelio Wong RPH - 11/27/2018 10:06 AM EDT Clinical Management Plan: Refill Specialty Pharmacy Consultation; Cornelio Wong RPH Comprehensive Medication Management (CMM) Marco A Blantonters Mr. Marco A Park is a 33 [...] patient 5-7 days prior to next refill. This patient noted severe pain at the injection site the morning following his most recent dose. Hewas hiking in the [place], [place] at the time of the ADR and was unable to ambulate up the stairs to an observation deck during the worst of his pain. After three days he was back to normal, with the severe pain (8-9 on pain scale) persisting for 12-24 hours. He noted no bruising, swelling, or erythema at the injection site during this time. His pain is completely resolved at this point and patient has no concern taking future doses as he has never had an issue prior to this. We will check on progress he has made with our next refill call regarding this matter. Was a change made to the Care Plan: no Assessment and Recommendations: Title Cognitive Ability: good Allergies and Drug intolerance: Allergies Allergen Reactions ??? Lipitor [Atorvastatin] Other (See Comments) Elevated CK Medication Reconciliation Discrepancies (compared to [facility] med list) - none New medications: no New medical conditions: no [...] experiencing any side effects from your medications? Potentially - had severe pain at injection site for three days following most recent injection Pt understands no changes to current drug regimen were made at the appointment and that [facility] is providing recommendations (summary located at top of note) for provider review and follow up. Conrelio Wong RPH 11/27/18 10:07 AM documented in this encounter Plan of Treatment Upcoming Encounters Date Type Department Care Team (Late st Contact Info) Description 04/01/2025 3:40 PM EST Office Visit Cardiology at [address] [place] [address] Star Flores MD [facility] [place] [address] documented as of this encounter Goals Goal Patient Goal Type Associated Problems Recent Progress Patient-Stated? Author DH Home Medication Compliance and Understanding Patient Facing Action Plan No Salvatore Potts [facility] Note: Reduce LDL, measured by lipid panel, revisit every 6 months documented as of this encounter Visit Diagnoses Not on filedocumented in this encounter Care Teams Plush Weaver Relationship Specialty Start Date End Date Elizabeth Mistry, DISTILLERY LABORER [facility] [place] [address] PCP - General General Internal Medicine 08/19/1605/23 documented as of this encounter
--- OUTSIDE RECORDS SUMMARY | 2024-03-30 12:55 | XMS_ITS | Encounter Summary ---
Author Organization [facility] Address [facility] [address] Care Team Providers Care Adolescent Counselor Name Role Phone Elizabeth Mistry APRN Primary Care Provider + Reason for Visit * Reason Onset Date Comments Other 09/13/2019 Encounter Details Date Type Department Care Team (Late st Contact Info) Description 09/13/2019 Telephone Internal Medicine at [address] [address] Stacy Terrazas Other Social History Tobacco Use Types Packs/Day Years [...] encounter Miscellaneous Notes * Telephone Encounter - Karie Richter RN - 09/14/2019 10:23 AM EDT Phoned patient back, he is currently home States it started with an argument with a friend over text, told her he was sick if this BS with her Took ativan, but then made himself vomit it up, was laying in bed when police arrived- friend had called out of concern- patient was then brought to hospital Pt has no current thoughts of SI/HI, contracted verbally for safety, plans to spend the day cuddling with dog States he has been having difficulty sleeping for past 2.5 weeks, only getting 3-4 hours of sleep and it is broken up, feels this has been a major contributor to his depression and anxiety * Telephone Encounter - Rebecca Chisholm - 09/14/2019 10:03 AM EDT Pt calling for f/u after [facility] ED visit yesterday. Please see notes. Please call pt back as soon as you can. * Telephone Encounter - Stacy Terrazas - 09/13/2019 4:36 PM EDT Message: Andressa is calling this pt is at the E/D at [facility] for an overdose of atavan in an attempt at suicide or just to feel better. Pt states that he has spoken with Elizabeth Mistry today about this. There plan is to discharge and recommend therapy, and provide number of first call. Andressa would like to have a call back from Elizabeth Mistry if she feels it is neccessary Ask caller their first and last name and relationship to the patient: Andressa if Today or : [phone] if after today Best time to call back: any Ok to leave a message: yes Ok to send [facility] message: Offered Appointment: no MA/Nurse/Lottery Office Manager contacted via: Message: yes Call: no Pager: no documented in this encounter Plan of Treatment Upcoming Encounters Date Type Department Care Team (Late st Contact Info) Description 04/01/2025 3:40 PM EST Office Visit Cardiology at [address] [place] [address] Star Flores MD [facility] [place] [address] documented as of this encounter Goals Goal Patient Goal Type Associated Problems Recent Progress Patient-Stated? Author Home Medication Compliance and Understanding Patient Facing Action Plan Salvatore Palma, [facility] Note: Reduce LDL, measured by lipid panel, revisit every 6 months documented as of this encounter Visit Diagnoses Not on filedocumented in this encounter Care Teams Adolescent Counselor Relationship Specialty Start Date End Date Elizabeth Mistry APRN [facility] [place] [address] PCP - General General Internal Medicine 08/19/1605/23 documented as of this encounter
--- OUTSIDE RECORDS SUMMARY | 2024-03-30 12:55 | XMS_ITS | Encounter Summary ---
[place] [address] Care Team Providers Care Forest Scientist Name Role Phone Elizabeth Mistry APRN Primary Care Provider + Reason for Visit * Reason Comments Arm Pain Numbness Encounter Details Date Type Department Care Team (Latest Contact Info) Description 12/06/2019 2:00 PM EDT TH Visit (TeleHealth) Internal Medicine at [address] [address] Elizabeth Mistry APRN [facility] [place] [address] Right arm pain; Familial hypercholesterolemia Social History Tobacco Use Types [...] Progress Notes * Elizabeth Mistry APRN - 12/06/2019 2:00 PM EDT TELEHEALTH VISIT- Given the ongoing COVID-19 public health emergency, this visit was done as a Telehealth visit. The patient gave verbal consent for the visit. The exam findings were limited to the video images. PCP: Elizabeth Mistry APRN Chief Complaint Patient presents with ??? Arm Pain ??? Numbness SUBJECTIVE: Marco A Park is a 34 y.o. male who presents for right hand pain and numbness. He reports that the symptoms started about 5 days ago. She is getting pain that is radiating from bicep and tricep area. It hurts to spread apart the fingers. She is doing well. No neck pain or stiffness. He did some work with his Dad on decking things this weekend. He has pain with sleeping on that shoulder he has pain. He has been taking acetaminophen 1000 mg this morning. Review of Systems Constitutional: Negative for chills, fatigue and fever. Respiratory: Negative for cough and shortness of breath. Cardiovascular: Negative for chest pain and palpitations. Neurological: Positive for numbness. Negative for dizziness, weakness, light- headedness and headaches. Allergies Allergen Reactions ??? Lipitor [Atorvastatin] Other (See Comments) Elevated CK Current Outpatient Medications Medication Sig Dispense Refill ??? clonazePAM (KlonoPIN) 0.5 mg Tablet Take 1 tablet by mouth 2 times daily as needed for Anxiety.30 tablet 0 ??? FLUoxetine (PROzac) 20 mg Tablet Take 2 tablets by mouth daily. 60 tablet 3 ??? nicotine (NICODERM CQ) 14 mg/24 hr Patch 24 hr Change 1 patch on the skin daily. See Package instructions 28 patch 1 ??? nicotine polacrilex (COMMIT) [address] 1 lozenge inside cheek every 2 hours as needed for Smoking cessation. Max 20 Lozenges per day 108 tablet 2 ??? ezetimibe (ZETIA) 10 mg Tablet Take [...] General: No scleral icterus. Conjunctiva/sclera: Conjunctivae normal. Musculoskeletal: Right elbow: He exhibits normal range of motion and no swelling. No tenderness found. No radial head, no medial epicondyle, no lateral epicondyle and no olecranon process tenderness noted. Right wrist: He exhibits normal range of motion. Comments: Negative suni test Skin: General: Skin is warm and dry. Neurological: Mental Status: He is alert and oriented to person, place, and time. Psychiatric: Behavior: Behavior normal. Thought Content: Thought content normal. Judgment: Judgment normal. ASSESSMENT & PLAN: Marco A was seen today for arm pain and numbness. Diagnoses and all orders for this visit: Right arm pain - suspect cervical radiculopathy as he had negative provacative tests for CTS and he feels that thenumbness involves his entire hand. I recommend that he try to use ibuprofen 600 mg every 6 hours for pain and inflammation for up to the next 7 days to see if it helps and the symptoms improve on their own. He will call for f/u appt via telehealth in about a week. Familial hypercholesterolemia - CMP w/fasting Glucose; Future - patient to have labs done for cardiology, will add cmp documented in this encounter Plan of Treatment Upcoming Encounters Date Type Department Care Team (Late st Contact Info) Description 04/01/2025 3:40 PM EST Office Visit Cardiology at [address] [phone] Star Flores MD [facility] [place] [address] documented as of this encounter Goals Goal Patient Goal Type Associated Problems Recent Progress Patient-Stated? Author DH Home Medication Compliance and Understanding Patient Facing Action Plan Salvatore Palma [facility] Note: Reduce LDL, measured by lipid panel, revisit every 6 months documented as of this encounter Results * CMP w/fasting Glucose (12/07/2019 2:13 PM EDT) Glucose Fasting 91 65 - 99 mg/dL [facility] Comment: ?Fasting* Glucose Interpretive Criteria Normal [...] of Diabetes Mellitus, Position Statement from the [place] Diabetes Association. ??Diabetes Care, Volume 33, Supplement 1, May 2009 Blood Urea Nitrogen 13 10 - 20 mg/dL [facility] Creatinine 1.07 0.80 - 1.50 mg/dL [facility] Sodium 140 135 - 145 mmol/L [facility] Potassium 4.2 3.5 - 5.0 mmol/L [facility] Comment: Please note: ??Patients with WBC >100,000 may have falsely elevated Potassium levels. ??For accurate Potassium quantification in these patients send serum separator tube (gold top) for subsequent determinations. ??Contact the Clinical Chemistry Laboratory if there are any questions. Chloride 101 98 - 107 mmol/L [facility] Carbon Dioxide 27 22 - 31 mmol/L [facility] Anion Gap 12 5 - 15 mmol/L [facility] Calcium 9.5 8.5 - 10.5 mg/dL [facility] Protein, Total 7.2 6.1 - 8.0 gm/dL [facility] Albumin 4.8 3.2 - 5.2 gm/dL [facility] Aspartate Aminotransferase 19 0 - 39 unit/L [facility] Alanine Aminotransferase 19 0 - 55 unit/L [facility] Alkaline Phosphatase 48 40 - 130 unit/L [facility] Bilirubin, Total 0.3 0.2 - 1.3 mg/dL [facility] Est Glomerular Filtration Rate 89 >=60 mL/min/1. 73 m?? [facility] Comment: The eGFR was calculated using the CKD-EPI equation. As with all creatinine based estimates of kidney function, eGFR values calculated with the CKD-EPI equation are not accurate in patients with acute kidney failure, extremes of body mass or the acutely ill. [email or web address] eGFR 103 >=60 mL/min/1. 73 m?? [facility] Comment: The eGFR was calculated using the CKD-EPI equation. As with all creatinine based estimates of kidney function, eGFR values calculated with the CKD-EPI equation are not accurate in patients with acute kidney failure, extremes of body mass or the acutely ill. [email or web address] Blood specimen (specimen) 12/07/2019 2:13 PM EDT 12/07/2019 2:27 PM EDT Narrative Resulting Agency Comment Spec In Lab Elizabeth Mistry APRN CHEMISTRY ORDERA BLES [facility] [place] [address] documented in this encounter Visit Diagnoses Diagnosis Right arm pain Pain in limb Familial hypercholesterolemia Pure hypercholesterolemia documented in this encounter Care Teams Forest Scientist Relationship Specialty Start Date End Date Elizabeth Mistry APRN [facility] [address] [place] [address] PCP - General General Internal Medicine 08/19/1605/23 documented as of this encounter
--- OUTSIDE RECORDS SUMMARY | 2024-03-30 12:55 | XMS_ITS | Encounter Summary ---
Author Organization [facility] Address [facility] [place] [address] Care Team Providers Care Computerized Machine Fabric Cutter Name Role Phone Elizabeth Mistry APRN Primary Care Provider + Encounter Details Date Type Department Care Team (Latest Contact Info) Description 12/07/2019 2:05 PM EDT Laboratory Appointment Lab [address] [place] [phone] Familial hypercholesterolemia Social History Tobacco Use Types [...] 3:40 PM EST Office Visit Cardiology at [address] [phone] Star Flores MD [facility] [place] [address] documented as of this encounter Goals Goal Patient Goal Type Associated Problems Recent Progress Patient-Stated? Author Home Medication Compliance and Understanding Patient Facing Action Plan Salvatore Palma [facility] Note: Reduce LDL, measured by lipid panel, revisit every 6 months documented as of this encounter Procedures Procedure Name Priority Date/Time Associated Diagnosis Comments HC VENIPUNCTURE Routine 12/07/2019 2:13 PM EDT Familial hypercholesterolemia LIPID PANEL (REFLEX DIRECT LDL) Routine 12/07/2019 2:13 PM EDT Familial hypercholesterolemia documented in this encounter Results * Lipid Panel (Reflex Direct LDL) (12/07/2019 2:13 PM EDT) Cholesterol, Total 115 mg/dL [facility] Comment: Lower Risk: <200 mg/dL Average Risk: 200-239 mg/dL Higher Risk: >hn=768 mg/dL Triglyceride 100 mg/dL [facility] Comment: Average Risk/Lower Risk: <150 mg/dL Borderline High Risk: 150-199 mg/dL High Risk: 200-499 mg/dL Very High Risk: >qd=040 mg/dL HDL Cholesterol 46 mg/dL [facility] Comment: Males: ?? Higher Risk: <40 mg/dL Females: ?? HIgher Risk: <50 mg/dL LDL Cholesterol 49 mg/dL [facility] Comment: Lowest Risk: <100 mg/dL Lower Risk: 100-129 mg/dL Borderline High Risk: 130-159 mg/dL High Risk: 160-189 mg/dL Very High Risk: >ny=566 mg/dL Cholesterol/HDL Ratio 2.[address] [facility] Lipid Interpretation See Note [facility] Comment: Lipid management should be guided by a patient? s ASCVD risk, goals and preferences. ACC/AHA Guidelines recommend high intensity statin if clinical ASCVD or LDL greater than or equal to 190 mg/dL. [email or web address]-CAI-Xzpihbrvp Adults aged 40-75 with LDL 70-189 mg/dL should have their 10 year ASCVD risk estimated with the ACC/AHA ASCVD risk jewel cupping machine operator http://tools.acc.org/VTMUV-Sngo-Wfpptuzrx/ Statin should be discussed if risk greater [...] In Lab Kimberley Purdy MD CHEMISTRY ORDERABLES Performing Organization Address City/State/[facility] Co de Phone Number [facility] [place] [address] * CMP w/fasting Glucose (12/07/2019 2:13 PM EDT) Glucose Fasting 91 65 - 99 mg/dL [facility] Comment: ?Fasting* Glucose Interpretive Criteria [...] of Diabetes Mellitus, Position Statement from the [place] Diabetes Association. ??Diabetes Care, Volume 33, Supplement 1, May 2009 Blood Urea Nitrogen 13 10 - 20 mg/dL [facility] Creatinine 1.07 0.80 - 1.50 mg/dL [facility] Sodium 140 135 - 145 mmol/L [facility] Potassium 4.2 3.5 - 5.0 mmol/L [facility] Comment: Please note: ??Patients with WBC >100,000 may have falsely elevated Potassium levels. ??For accurate Potassium quantification in these patients send serum separator tube (gold top) for subsequent determinations. ??Contact the Clinical Chemistry Laboratory if there are any questions. Chloride 101 98 - 107 mmol/L [facility] Carbon Dioxide 27 22 - 31 mmol/L [facility] Anion Gap 12 5 - 15 mmol/L [facility] Calcium 9.5 8.5 - 10.5 mg/dL [facility] Protein, Total 7.2 6.1 - 8.0 gm/dL [facility] Albumin 4.8 3.2 - 5.2 gm/dL [facility] Aspartate Aminotransferase 19 0 - 39 unit/L [facility] Alanine Aminotransferase 19 0 - 55 unit/L [facility] Alkaline Phosphatase 48 40 - 130 unit/L [facility] Bilirubin, Total 0.3 0.2 - 1.3 mg/dL [facility] Est Glomerular Filtration Rate 89 >=60 mL/min/1. 73 m?? [facility] Comment: The eGFR was calculated using the CKD-EPI equation. As with all creatinine based estimates of kidney function, eGFR values calculated with the CKD-EPI equation are not accurate in patients with acute kidney failure, extremes of body mass or the acutely ill. [email or web address]nkf eGFR 103 >=60 mL/min/1. 73 m?? [facility] Comment: The eGFR was calculated using the CKD-EPI equation. As with all creatinine based estimates of kidney function, eGFR values calculated with the CKD-EPI equation are not accurate in patients with acute kidney failure, extremes of body mass or the acutely ill. [email or web address]f Blood specimen (specimen) 12/07/2019 2:13 PM EDT 12/07/2019 2:27 PM EDT Narrative Resulting Agency Comment Spec In Lab Elizabeth Mistry APRN CHEMISTRY ORDERA BLES [facility] [place] [address] documented in this encounter Visit Diagnoses Diagnosis Familial hypercholesterolemia Pure hypercholesterolemia documented in this encounter Care Teams Computerized Machine Fabric Cutter Relationship Specialty Start Date End Date Elizabeth Mistry APRN [facility] [place] [address] PCP - General General Internal Medicine 08/19/1605/23 documented as of this encounter
--- OUTSIDE RECORDS SUMMARY | 2024-03-30 12:55 | XMS_ITS | Encounter Summary ---
Author Organization Replaced By [facility] Address [facility] [place] [address] Care Team Providers Care Instrument Checker Name Role Phone Elizabeth Mistry APRN Primary Care Provider + Reason for Visit * Reason Comments Medication Management Encounter Details Date Type Department Care Team (Late st Contact Info) Description 09/04/2018 Specialty [place] [address] Salvatore Potts RPH Social History Tobacco Use [...] Progress Notes * Salvatore Potts RPH - 09/04/2018 3:23 PM EDT Specialty Pharmacy Consultation; Salvatore Potts RPH Comprehensive Medication Management (CMM) Marco A Park Diagnosis: Familial hypercholesterolemia Therapy Start Date: TBD- expected 09/08 Contact in person or via telephone: telephone Mr. Marco A Park is a 33 y.o. (1985) male who was contacted in regard to specialty medication. Spoke with patient regarding Praluent. A review of the medication therapy was performed. The medication was Filled as scheduled, and all medication related questions and concerns were addressed. The specialty pharmacy staff will follow up with the patient 5-7 days prior to next refill. Is the patient willing to proceed with the Clinical Assessment? Yes Summary and Recommendations: Reviewed the labeling of praluent in depth with Marco A. He states that his father uses praluent and he is comfortable with the drug and injection. I reviewed the injection technique, proper storage, handling, administration, and disposal. We reviewed the side effect profile and the efficacy data. I reviewed Marco A's medication list and allergies. He had some questions about travelling with the medication. I let him know that praluent is stable at room temperature for 30 days, we are planning to try for a vacation override to fill 2 months at a time for his next fill to avoid any interruption in therapy. He had no substantive questions or concerns at this time. We will follow up with him in 3 weeks. Clinic follow-up needed: no Allergies and Drug intolerance: Allergies Allergen Reactions ??? Lipitor [Atorvastatin] Other (See Comments) Elevated CK Special Dietary or Hydration Requirements: no There is no height or weight on file to calculate BMI. Medication Reconciliation Discrepancies (compared to [facility] med list) - added esomeprazole Medication Adherence Patient reported X missed doses in the last month: 0 Any gaps in refill history greater than 2 weeks in the last 3 months: no Demonstrates understanding of importance of adherence: yes Informant: patient Reliability of informant: reliable Provider-estimated medication adherence level: good Reasons for non-adherence: no problems identified Adherence tools used: directed education Support network for adherence: family member Confirmed plan for next specialty medication refill: delivery by pharmacy Refills needed for supportive medications: not needed Medication List: Current Outpatient Medications Medication Sig Dispense Refill ??? esomeprazole (NEXIUM) 40 mg Capsule, Delayed Release(E.C.) Take 40 mg by mouth every morning (before breakfast). ??? ezetimibe (ZETIA) 10 mg Tablet Take 1 tablet by mouth daily. 90 tablet 3 ??? alirocumab 75 mg/mL Pen Injector Inject 75 mg subcutaneously every 14 days. 6 mL 3 ??? LORazepam (ATIVAN) 0.5 mg Tablet Take 1 tablet by mouth 2 times daily as needed for Anxiety. 30tablet 0 ??? FLUoxetine (PROZAC) 10 mg Tablet Take 1 tablet by mouth daily. 30 tablet 3 No current facility-administered medications for this visit. Most Recent Vitals: Ht Readings from Last 1 Encounters: 09/01/18 175.3 cm (5' 9) Wt Readings from Last 3 Encounters: 09/01/18 73 kg (161 lb) 08/28/18 73.1 kg (161 lb 3.2 oz) 08/24/18 71.5 kg (157 lb 9.6 oz) Temp Readings from Last 3 Encounters: 08/28/18 36.6 ??C (97.9 ??F) (Oral) 02/21/18 36.7 ??C (98.1 ??F) 02/14/18 36.7 ??C (98.1 ??F) (Oral) BP Readings from Last 3 Encounters: 09/01/18 120/57 08/28/18 122/69 08/24/18 138/86 Pulse Readings from Last 3 Encounters: 09/01/18 81 08/28/18 73 08/24/18 95 Pertinent Lab values: Lab Results Component Value Date NA 142 08/24/2018 K 4.7 08/24/2018 CL 97 (L) 08/24/2018 CO2 25 08/24/2018 BUN 18 08/24/2018 CREATININE 1.14 08/24/2018 GLUCOSE 98 08/24/2018 GLUCFASTING 104 (H) 09/01/2018 CALCIUM 10.1 08/24/2018 Lab Results Component Value Date ALT 25 08/24/2018 AST 29 08/24/2018 ALKPHOS 60 08/24/2018 BILITOT 0.8 08/24/2018 BILIDIR 0.1 09/01/2016 ALBUMIN 5.1 08/24/2018 PROT 8.3 (H) 08/24/2018 Lab Results Component Value Date WBC 6.8 08/18/2016 HGB 16.3 08/18/2016 HCT 46.0 08/18/2016 MCV 82.6 (L) 08/18/2016 PLATELET 257 08/18/2016 No results found for: HA1C Immunization History Administered Date(s) Administered ??? Influenza Vaccine PF, Quadrivalent 03/17/2017, 02/14/2018 ??? Influenza Vaccine, Whole 03/24/2008 ??? Tdap Vaccine 08/23/2016 Assessment and Recommendations: Title Type of Medication Management: chronic disease management Referred By: provider Recipient: beneficiary Provider: plan sponsor pharmacist [place] [facility] [place] Method of Contact: by telephone Cognitive Ability: good Drug Interactions Provided the patient with educational material regarding drug interactions: yes Patient Counseling Counseled the patient on the following: drug interaction education provided to patient, doses [...] pharmacy contact information discussed, health goals discussed, self-monitoring discussed Drug Medication Management Summary Topics discussed: drug interaction education provided to patient, doses [...] pharmacy contact information discussed, health goals discussed, self-monitoring discussed Time spent: 16-30 min Treatment Outcomes No data found. Reviewed in detail with patient: Dose appropriateness based on recommended standard dosing Current medication list including OTC medications Medication and disease problems Allergies Comorbid conditions Past adverse events if any Special needs of the patient including physical and cognitive limitations Goals of therapy and management strategies Warnings, precautions, and contraindications Side effects Drug-drug and drug-food interactions Administration instructions Handling, storage, and disposal of the medication Relevant lab data Patient verbalizes understanding and is able to read-back instructions on self-administration/injection, proper storage, drug stability, importance of adherence and management strategies, side effectavoidance and mitigation strategies, and interruptions in therapy: Yes Physical Assessment: Functional limitations identified: no Cognitive limitations identified: no Concern regarding orientation/memory: no Concern with reasoning/judgement: no Is patient a fall risk: no Other needed information: no Social Assessment: Does the patient have a primary career and transition teacher? no Patient has emergency contact on file: Yes Does patient need referral to social work msw: No Does patient need referral to advocacy group: No Physical and Home Health Assessment: Is the patient able to store their medication as directed? Yes Is the patient in a safe home environment? Yes Do you have a support network? Yes Reviewed potential home safety hazards: Yes Economic Assessment: Patient is agreeable to medication copay: Yes Copay Amount: $0 Day Supply: 28 Date Needed: TBD new to treatment Copay assistance required: no Therapy Assessment: Current Medication Dosing/Route/Frequency: praluent 75mg inject 75mg every 14 days Appropriate Therapy: Yes Expected Outcome: reduce LDL Patient's goals: Goals ??? Home Medication Compliance and Understanding Reduce LDL, measured by lipid panel, revisit every 6 months Care Plan Reviewed and Approved by both Pharmacist and Patient: Yes Patient's Problems/Needs: none Monitoring requirements for prescribed medication: injection technique, adherence, lipid panel Interventions (if applicable): No none Educational information or adherence tools provided: No Additional equipment/supplies required: yes - sharif Baseline LDL-C Level: 222 Issues with Injection: no Rotation of Injection Sites: Yes-advised Room Temperature Medication at Time of Injection: Yes -advised Barriers to Adherence: no Adherence Tools Used by Patient: no Recent Changes to Supplemental Medications: no Recent Infections: no Pharmacist follow-up needed: Yes Informed patient of specialty pharmacy services: Yes -Patient will be provided with welcome packet: Yes Date to be provided: 09/06/17 Delivery Method: mail -Patient will be provided with Rights & Responsibilities: Yes Date to be provided: 09/06 Delivery Method: mail -Patient is aware a licensed pharmacist is [...] made at the appointment and that [facility] (summary located at top of note) for provider review and follow up. Salvatore Potts RPH 09/04/18 3:50 PM documented in this encounter Plan of Treatment Upcoming Encounters Date Type Department Care Team (Late st Contact Info) Description 04/01/2025 3:40 PM EST Office Visit Cardiology at [address] [phone] Star Flores MD [facility] [place] [address] documented as of this encounter Goals Goal Patient Goal Type Associated Problems Recent Progress Patient-Stated? Author Home Medication Compliance and Understanding Patient Facing Action Plan Salvatore Palma, [facility] Note: Reduce LDL, measured by lipid panel, revisit every 6 months documented as of this encounter Visit Diagnoses Not on filedocumented in this encounter Care Teams Instrument Checker Relationship Specialty Start Date End Date Elizabeth Mistry APRN [facility] [place] [address] PCP - General General Internal Medicine 08/19/1605/23 documented as of this encounter
--- OUTSIDE RECORDS SUMMARY | 2024-03-30 12:55 | XMS_ITS | Encounter Summary ---
Author Organization [facility] Address [facility] [place] [address] Care Team Providers Care Lending Consultant Name Role Phone Elizabeth Mistry APRN Primary Care Provider + Reason for Visit * Reason Comments Medication Management Encounter Details Date Type Department Care Team (Late st Contact Info) Description 04/16/2019 Specialty [place] [address] Cornelio Wong Viridiana Social History Tobacco Use [...] Progress Notes * Cornelio Wong RPH - 04/16/2019 1:42 PM EST Specialty Pharmacy Consultation; Cornelio Wong RPH Comprehensive Medication Management (CMM) Marco A Blantonters Diagnosis: Hyperlipidemia Therapy Start Date: August 2018 Contact in person or via telephone: Phone Mr. Marco A Park is a 33 [...] the Clinical Assessment? Yes Summary and Recommendations: This patient was contacted for a routine six-month follow-up regarding specialty medication, Praluent. Medications and allergies were confirmed with no changes noted. Patient continues to perform well on Praluent. No recent side effects or injection reactions noted. No major adherence issues other than later injection last month due to being busy and forgetting to respond to refill reminders sent by the pharmacy. Most recent lipid panel from November 2018 shows LDL of 38 mg/dL. Overall he remains highly satisfied with current medication regimen. He had no questions or concerns at the end of our encounter. Clinic follow-up needed: yes - next OV with Dr. Purdy on 06/08/2019 Allergies and Drug intolerance: Allergies Allergen Reactions ??? Lipitor [Atorvastatin] Other (See Comments) Elevated CK Special Dietary or Hydration Requirements: no There is no height or weight on file to calculate BMI. Medication Reconciliation Discrepancies (compared to [facility] med list) no Medication Adherence Patient reported [...] Outpatient Medications Medication Sig Dispense Refill ??? pantoprazole (PROTONIX) 40 mg Tablet, Delayed [...] subcutaneously every 14 days. 6 mL 3 No current facility-administered medications for this visit. Most Recent Vitals: Ht Readings from Last 1 Encounters: 02/15/19 172.7 cm (5' 7.99) Wt Readings from Last 3 Encounters: 02/15/19 76 kg (167 lb 9.6 oz) 12/01/18 75.3 kg (166 lb) 09/01/18 73 kg (161 lb) Temp Readings from Last 3 Encounters: 02/15/19 36.6 ??C (97.8 ??F) (Oral) 08/28/18 36.6 ??C (97.9 ??F) (Oral) 02/21/18 36.7 ??C (98.1 ??F) BP Readings from Last 3 Encounters: 02/15/19 135/90 12/01/18 115/71 09/01/18 120/57 Pulse Readings from Last 3 Encounters: 02/15/19 97 12/01/18 95 09/01/18 81 Pertinent Lab values: Lab Results Component Value Date NA 142 08/24/2018 K 4.7 08/24/2018 CL 97 (L) 08/24/2018 CO2 25 08/24/2018 BUN 18 08/24/2018 CREATININE 1.14 08/24/2018 GLUCOSE 98 08/24/2018 GLUCFASTING 101 (H) 12/01/2018 CALCIUM 10.1 08/24/2018 Lab Results Component Value [...] Tdap Vaccine 08/23/2016 Assessment and Recommendations: Title Drug Treatment Outcomes 12/29/2018 1131 Disease progression: Stable Patient Overall Status: Stable Reviewed in detail with patient: Dose appropriateness [...] frequency and method Handling, storage, and disposal of the medication Relevant lab data Patient verbalizes understanding and is able to read-back instructions on self-administration/injection, proper storage, drug stability, importance of adherence and management strategies, side effectavoidance and mitigation strategies, and interruptions in therapy: Yes Economic Assessment: Patient is agreeable to medication copay: yes Copay Amount: $3.00 Day Supply: 28 Date Needed: 04/22/19 Copay assistance required: no Physical Assessment: Functional limitations identified: no Is patient a fall risk: no Cognitive limitations identified such as orientation, memory, reasoning or judgement: no Other: no Social Assessment: Does the patient have a primary critical care cns? No Patient has emergency contact on file: Yes Does patient need referral to neonatal social worker: No Does patient need referral to advocacy group: No Physical and Home Health Assessment: Is the patient able to store their medication as directed? Yes Is the patient in a safe home environment? Yes Do you have a support network? Yes Reviewed potential home safety hazards: none noted Therapy Assessment: Appropriate Therapy: Yes Current Medication Dosing/Route/Frequency: Praluent 75 mg SQ q14 days Effective: yes - recent LDL of 38 mg/dL Patient experienced change in condition that affects treatment: no Are you experiencing any side effects from your medication? no Patient Goals: Goals ??? Home Medication Compliance and Understanding Reduce LDL, measured by lipid panel, revisit every 6 months Is the patient on track to achieve goals of therapy? Yes Additional care/services needed: no Educational information or adherence tools provided: Yes Additional equipment/supplies required: no Care Plan Reviewed and Approved by both Pharmacist and Patient: Yes Did Care Plan Change? No Informed patient of specialty pharmacy services: Yes -Patient received welcome packet: Yes Date Received: August 2018 Delivery Method: Mail -Patient returned signed Rights & Responsibilities: Yes Date Received: August 2018 Delivery Method: Mail -Patient is aware a licensed pharmacist is available 24 hours a day, 7 days a week to discuss medication-related questions or concerns: Yes -Patient verbalizes understanding of education on the common side effect profile of the medication:Yes -The patient is able to call 911 or seek urgent care if signs/symptoms of allergy or harmful adverse reactions occur: Yes Patient Satisfaction with Therapy: Yes Patient understands no changes to current drug regimen were made at the appointment and that [facility] isproviding recommendations (summary located at top of note) for provider review and follow up. Cornelio Wong RPH 04/16/19 1:42 PM documented in this encounter Plan of Treatment Upcoming Encounters Date Type Department Care Team (Late st Contact Info) Description 04/01/2025 3:40 PM EST Office Visit Cardiology at [address] [phone] Star Flores MD [facility] [place] [address] documented as of this encounter Goals Goal Patient Goal Type Associated Problems Recent Progress Patient-Stated? Author DH Home Medication Compliance and Understanding Patient Facing Action Plan No Salvatore Potts RPH Note: Reduce LDL, measured by lipid panel, revisit every 6 months documented as of this encounter Visit Diagnoses Not on filedocumented in this encounter Care Teams Lending Consultant Relationship Specialty Start Date End Date Elizabeth Mistry APRN [facility] [address] PCP - General General Internal Medicine 08/19/1605/23 documented as of this encounter
--- OUTSIDE RECORDS SUMMARY | 2024-03-30 12:55 | XMS_ITS | Encounter Summary ---
Author Organization [facility] Address [facility] [place] [address] Care Team Providers Care Network Admin Name Role Phone Elizabeth Mistry APRN Primary Care Provider + Reason for Visit * Reason Comments Medication Management Encounter Details Date Type Department Care Team (Late st Contact Info) Description 03/13/2019 Specialty [place] [address] Salvatore Potts RPH Social History Tobacco Use [...] Progress Notes * Salvatore Potts RPH - 03/13/2019 10:12 AM EDT Clinical Management Plan: Refill Specialty Pharmacy Consultation; Salvatore Potts RPH Comprehensive Medication Management (CMM) Marco A Blantonters Mr. Marco A Park is a 33 y.o. (1985) male who was contacted in regard to a specialty medication refill reminder. Spoke with patient regarding praluent. A review of the medication therapy was performed. The medication was Refilled as scheduled, and all medication related questions and concerns were addressed. The specialty pharmacy staff will follow up with the patient 5-7 days prior to next refill. Marco A will be about 1 week late on this dose- He has been busy with moving so did not return our outreach for refill reminders. I advised on how to proceed with missed doses. Was a change made to the Care Plan: no If yes, should the medication be held: No Assessment and Recommendations: Title Type of Medication Management: chronic disease management Referred By: provider Recipient: beneficiary Provider: plan sponsor [facility]ist [facility] Method of Contact: by telephone Allergies and Drug intolerance: Allergies Allergen Reactions ??? Lipitor [Atorvastatin] Other (See Comments) Elevated CK Medication Reconciliation Discrepancies (compared to [facility] med list) -none New medications: no New medical conditions: no New allergies: no Adherence: Medication Adherence Patient reported X missed doses in the last month: 1 Any gaps in refill history greater than 2 weeks in the last 3 months: no Demonstrates understanding of importance of adherence: yes Informant: patient Reliability of informant: reliable Provider-estimated medication adherence level: 76-89% Reasons for non-adherence: patient forgets Adherence tools used: directed education Support network for adherence: family member Confirmed plan for next specialty medication refill: delivery by pharmacy Refills needed for supportive medications: not needed Are you experiencing any side effects from your medications? no Pt understands no changes to current drug regimen were made at the appointment and that [facility] is providing recommendations (summary located at top of note) for provider review and follow up. Salvatore Potts RPH 03/13/19 10:13 AM documented in this encounter Plan of Treatment Upcoming Encounters Date Type Department Care Team (Late st Contact Info) Description 04/01/2025 3:40 PM EST Office Visit Cardiology at [address] [phone] Star Flores MD [facility] [place] [address] documented as of this encounter Goals Goal Patient Goal Type Associated Problems Recent Progress Patient-Stated? Author DH Home Medication Compliance and Understanding Patient Facing Action Plan No Salvatore Potts RPH Note: Reduce LDL, measured by lipid panel, revisit every 6 months documented as of this encounter Visit Diagnoses Not on filedocumented in this encounter Care Teams Network Admin Relationship Specialty Start Date End Date Elizabeth Mistry, GASTROENTEROLOGY MANAGER [facility] [place] [place] [address] PCP - General General Internal Medicine 08/19/1605/23 documented as of this encounter
--- OUTSIDE RECORDS SUMMARY | 2024-03-30 12:55 | XMS_ITS | Encounter Summary ---
Author Organization [place] [address] Care Team Providers Care Punching Machine Operator Name Role Phone Elizabeth Mistry APRN Primary Care Provider + Reason for Visit * Reason Comments Prior Authorization Praluent 75mg/mL Pen (Reauth) Encounter Details Date Type Department Care Team (Late st Contact Info) Description 12/26/2019 Specialty [place] [id number] Kareem Andres, OUT OF TOWN COLLECTION CLERK Social History Tobacco Use Types Packs/Day Years [...] Progress Notes * Kareem Andres CPHT - 12/26/2019 10:53 AM EDT [facility], Medication Prior Authorization Patient: Marco A Georgette Park Patient : 1985 Patient Address: [address] [place] [id number] (home) Medication Name: PRALUENT PEN 75 MG/ML SUBCUTANEOUS PEN INJECTOR Medication ID: [id number] Patient Location: [facility] 4A Patient Location Comment: Subscriber Insurance: [place] Medicaid Subscriber Insurance Comment: Fax: Physician: YA ABRAHAM Physician Comment: Sent Via: [facility] Mae: [id number] Ref/Case/PA#: Unavailable Medication Strength Frequency Requested: Praluent 75mg/mL auto-injector - 75mg every 14 days Qty/Day Supply: New Start: Renewal Diagnosis & ICD-10 Code: Familial hypercholesterolemia, E78.01 Patient Notified: No Submission Notes: None * Kareem Andres CPHT - 12/26/2019 10:53 AM EDT [facility], Prior Authorization Approval Medication Name: PRALUENT PEN 75 MG/ML SUBCUTANEOUS PEN INJECTOR Medication ID: [id number] Fillable at [facility]: Yes Approval Dates: 12/26/2019 to 12/25/2020 Insurance requirements/notes: Max 34 day supply per [place] Medicaid. Must bill 2 pens per 28 day supply. Other Notes: None Case/Reference #: [id number] Approval notification Received via: Fax Copay: $3 Copay assistance: None Copay Notes: Insurance mandated Pharmacy: [facility] Pharmacy staff will be reaching out to the patient to inform them of their [facility]. If applicable, a pharmacist will speak with the patient to offer our specialty pharmacy services and to arrange delivery of their medication. documented in this encounter Plan of Treatment Upcoming Encounters Date Type Department Care Team (Late st Contact Info) Description 04/01/2025 3:40 PM EST Office Visit Cardiology at [address] [phone] Star Flores MD [facility] [place] [address] documented as of this encounter Goals Goal Patient Goal Type Associated Problems Recent Progress Patient-Stated? Author DH Home Medication Compliance and Understanding Patient Facing Action Plan Salvatore Palma, [facility] Note: Reduce LDL, measured by lipid panel, revisit every 6 months documented as of this encounter Visit Diagnoses Not on filedocumented in this encounter Care Teams Punching Machine Operator Relationship Specialty Start Date End Date Elizabeth Mistry, GENNY [facility] [place] [address] PCP - General General Internal Medicine 08/19/1605/23 documented as of this encounter
--- OUTSIDE RECORDS SUMMARY | 2024-03-30 12:55 | XMS_ITS | Encounter Summary ---
Author [facility] Address [facility] [place] [address] Care Team Providers Care Butcher All Round Name Role Phone Elizabeth Mistry APRN Primary Care Provider + Reason for Visit * Reason Comments Medication Management Encounter Details Date Type Department Care Team (Late st Contact Info) Description 06/04/2019 Specialty [place] [address] Arina Torre [facility] Social History Tobacco Use Types Packs/Day [...] as of this encounter Progress Notes * Arina Torre RPH - 06/04/2019 1:15 PM EST Clinical Management Plan: Refill Specialty Pharmacy Consultation; Arina Torre Viridiana Comprehensive Medication Management (CMM) Marco A Blantonters [...] patient 5-7 days prior to next refill. Adherence was addressed at this fill, patient's last injection was around 05/09, skipped one altogether after that and now refilling just in time for following injection. Reviewed importance of adherence as well as ways that the pharmacy can support that (text message reminders, phone calls). Patient reports that he will be more cognizant of the issue moving forward. Was a change made to the Care Plan: no If yes, should the medication be held: No Assessment and Recommendations: Title Type of Medication Management: chronic disease management, targeted medication review Referred By: provider Recipient: beneficiary Provider: plan sponsor pharmacist Visit Type: [facility] Follow-up Method of Contact: by telephone Cognitive Ability: good Cognitive Impairment Status Verified this Year: no Allergies and Drug intolerance: Allergies Allergen Reactions ??? Lipitor [Atorvastatin] Other (See Comments) Elevated CK Medication Reconciliation Discrepancies (compared to [facility] med list) -none New medications: no New medical conditions: no New allergies: no Adherence: Medication Adherence What concerns does the patient have in regards to their medications: Adherence counseling reviewed Patient reported X missed doses in the last month: 1 Any gaps in refill history greater than 2 weeks in the last 3 months: yes Demonstrates understanding of importance of adherence: yes Informant: patient Reliability of informant: reliable Provider-estimated medication adherence level: 26-50% Reasons for non-adherence: patient forgets Adherence tools used: directed education Support network for adherence: family member Confirmed plan for next specialty medication refill: delivery by pharmacy Refills needed for supportive medications: not needed Are you experiencing any side effects from your medications? no Pt understands no changes to current drug regimen were made at the appointment and that [facility] is providing recommendations (summary located at top of note) for provider review and follow up. Arina Torre RPH 06/04/19 1:20 PM documented in this encounter Plan of Treatment Upcoming Encounters Date Type Department Care Team (Late st Contact Info) Description 04/01/2025 3:40 PM EST Office Visit Cardiology at [address] [phone] Star Flores MD [facility] [place] [address] documented as of this encounter Goals Goal Patient Goal Type Associated Problems Recent Progress Patient-Stated? Author LUCY Home Medication Compliance and Understanding Patient Facing Action Plan No Salvatore Potts, [facility] Note: Reduce LDL, measured by lipid panel, revisit every 6 months documented as of this encounter Visit Diagnoses Not on filedocumented in this encounter Care Teams Butcher All Round Relationship Specialty Start Date End Date Elizabeth Mistry, JUNIOR HIGH MATH TEACHER [facility] [place] [address] PCP - General General Internal Medicine 08/19/1605/23 documented as of this encounter
--- OUTSIDE RECORDS SUMMARY | 2024-03-30 12:55 | XMS_ITS | Encounter Summary ---
Author Organization [facility] Address [facility] [place] [address] Care Team Providers Care Stacking Machine Operator Name Role Phone Elizabeth Mistry APRN Primary Care Provider + Encounter Details Date Type Department Care Team (Latest Contact Info) Description 12/01/2018 9:25 AM EDT Laboratory Appointment Lab 3L [facility] [place] [phone] Familial hypercholesterolemi a; Hyperglycemia Social History Tobacco Use Types Packs/Day Years [...] 3:40 PM EST Office Visit Cardiology at [address] [place] [address] [facility] [place] [address] documented as of this encounter Goals Goal Patient Goal Type Associated Problems Recent Progress Patient-Stated? Author [facility] Medication Compliance and Understanding Patient Facing Action Plan No Salvatore Potts [facility] Note: Reduce LDL, measured by lipid panel, revisit every 6 months documented as of this encounter Procedures Procedure Name Priority Date/Time Associated Diagnosis Comments GLUCOSE, FASTING Routine 12/01/2018 9:49 AM EDT Hyperglycemia LIPID PANEL (REFLEX DIRECT LDL) Routine 12/01/2018 9:49 AM EDT Familial hypercholesterolemia documented in this encounter Results * (ABNORMAL) Glucose, fasting (12/01/2018 9:49 AM EDT) Glucose Fasting 101(H) 65 - 99 mg/dL [facility] Comment: ?Fasting* Glucose Interpretive Criteria [...] of Diabetes Mellitus, Position Statement from the [place] [employer]. ??Diabetes Care, Volume 33, Supplement 1, May 2009 Blood specimen (specimen) 12/01/2018 9:49 AM EDT 12/01/2018 10:05 AM EDT Narrative Resulting Agency Comment Spec In Lab Kimberley Purdy MD CHEMISTRY ORDERABLES [facility] [place] [address] * Lipid Panel (12/01/2018 9:49 AM EDT) Cholesterol, Total 110 mg/dL [facility] Comment: Lower Risk: <200 mg/dL Average Risk: 200-239 mg/dL Higher Risk: >wg=831 mg/dL Triglyceride 130 mg/dL [facility] Comment: Average Risk/Lower Risk: <150 mg/dL Borderline High Risk: 150-199 mg/dL High Risk: 200-499 mg/dL Very High Risk: >cd=935 mg/dL HDL Cholesterol 46 mg/dL [facility] Comment: Males: ?? Higher Risk: <40 mg/dL Females: ?? HIgher Risk: <50 mg/dL LDL Cholesterol 38 mg/dL [facility] Comment: Lowest Risk: <100 mg/dL Lower Risk: 100-129 mg/dL Borderline High Risk: 130-159 mg/dL High Risk: 160-189 mg/dL Very High Risk: >fe=448 mg/dL Cholesterol/HDL Ratio 2.4 ratio [facility] Lipid Interpretation See Note [facility] Comment: Lipid management should be guided by a patient? s ASCVD risk, goals and preferences. ACC/AHA Guidelines recommend high intensity statin if clinical ASCVD or LDL greater than or equal to 190 mg/dL. [email or web address]-[email or web address] Adults aged 40-75 with LDL 70-189 mg/dL should have their 10 year ASCVD risk estimated with the ACC/AHA ASCVD risk assistant professor http://tools.acc.org/GEHZQ-Jaym-Hsksvvaey/ Statin should be discussed if risk greater [...] of ASCVD risk reduction. Blood specimen (specimen) 12/01/2018 9:49 AM EDT 12/01/2018 10:05 AM EDT Narrative Resulting Agency Comment Spec In Lab Kimberley Purdy MD CHEMISTRY ORDERABLES [facility] [place] [address] documented in this encounter Visit Diagnoses Diagnosis Familial hypercholesterolemia Pure hypercholesterolemia Hyperglycemia Other abnormal glucose documented in this encounter Care Teams Stacking Machine Operator Relationship Specialty Start Date End Date Elizabeth Mistry APRN [facility] [place] [address] PCP - General General Internal Medicine 08/19/1605/23 documented as of this encounter
--- OUTSIDE RECORDS SUMMARY | 2024-03-30 12:55 | XMS_ITS | Encounter Summary ---
Author Organization [facility] Address [facility] [place] [address] Care Team Providers Care Yard Jockey Name Role Phone Elizabeth Mistry APRN Primary Care Provider + Reason for Visit * Reason Comments Medication Management Encounter Details Date Type Department Care Team (Late st Contact Info) Description 01/29/2020 Specialty [place] [address] Marcus Reese [facility] Social History Tobacco Use Types Packs/Day Years [...] Progress Notes * Marcus Reese RPH - 01/29/2020 10:06 AM EDT Clinical Management Plan: Refill [...] Provider: plan sponsor pharmacist Visit Type: [facility] [place] Method of Contact: by telephone Cognitive Ability: good Cognitive Impairment Status Verified this Year: yes Allergies and Drug intolerance: Allergies Allergen Reactions ??? Lipitor [Atorvastatin] Other (See Comments) Elevated CK Medication Reconciliation Discrepancies (compared to [facility] med list) -none New medications: no [...] made at the appointment and that [facility] is providing recommendations (summary located at top of note) for provider review and follow up. Marcus Reese RPH 01/29/20 10:06 AM documented in this encounter Plan of Treatment Upcoming Encounters Date Type Department Care Team (Late st Contact Info) Description 04/01/2025 3:40 PM EST Office Visit Cardiology at [address] [phone] Star Flroes MD [facility] [place] [address] documented as of this encounter Goals Goal Patient Goal Type Associated Problems Recent Progress Patient-Stated? Author DH Home Medication Compliance and Understanding Patient Facing Action Plan Salvatore Palma RPH Note: Reduce LDL, measured by lipid panel, revisit every 6 months documented as of this encounter Visit Diagnoses Not on filedocumented in this encounter Care Teams Yard Jockey Relationship Specialty Start Date End Date Elizabeth Mistry APRN [facility] [place] [address] PCP - General General Internal Medicine 08/19/1605/23 documented as of this encounter
--- OUTSIDE RECORDS SUMMARY | 2024-03-30 12:55 | XMS_ITS | Encounter Summary ---
Author Organization [facility] [place] [address] Care Team Providers Care Needle Felt Making Machine Operator Name Role Phone Elizabeth Mistry APRN Primary Care Provider + Reason for Visit * Reason Onset Date Comments Prior Authorization 09/21/2018 Praluent Encounter Details Date Type Department Care Team (Late st Contact Info) Description 09/21/2018 [place] [address] Aaliyah Cortez CPHT Prior Authorization (Praluent) Social History Tobacco Use Types Packs/Day [...] Telephone Encounter - Kareem Andres CPHT - 09/26/2018 8:58 AM EDT [facility], Prior Authorization Approval Medication Name: Praluent FILLABLE AT [facility]? yes APPROVAL DATES: 09/25/2018 - 12/26/2018 SPECIFIC INS REQUIREMENT: N/A CASE/REFERENCE # [id number] APPROVAL NOTIFICATION RECEIVED VIA: Fax COPAY: $3 COPAY ASSISTANCE NEEDED?: No NOTES: Praluent PA now approved * Telephone Encounter - Aaliyah Cortez - 09/21/2018 10:27 AM EDT [facility], Medication Prior Authorization Patient: Marco A Park Patient : 1985 Patient Address: [address] [address] (home) Medication: Praluent Subscriber Insurance: [place] Medicaid Fax: n/a Physician: Kimberley Purdy Sent Via: [facility] Mae: [id number] Ref/Case/PA#: n/a Medication Strength Frequency Requested: Praluent 75 mg/mL auto injector pen - inject one pen every14 days Qty/Day Supply: 07/20 New Start: No Diagnosis & ICD-10 Code: E78.01, familial hypercholesterolemia documented in this encounter Plan of Treatment Upcoming Encounters Date Type Department Care Team (Late st Contact Info) Description 04/01/2025 3:40 PM EST Office Visit Cardiology at [address] [phone] Star Flores MD [facility] [place] [address] documented as of this encounter Goals Goal Patient Goal Type Associated Problems Recent Progress Patient-Stated? Author Home Medication Compliance and Understanding Patient Facing Action Plan Salvatore Palma [facility] Note: Reduce LDL, measured by lipid panel, revisit every 6 months documented as of this encounter Visit Diagnoses Not on filedocumented in this encounter Care Teams Needle Felt Making Machine Operator Relationship Specialty Start Date End Date Elizabeth Mistry, MANAGER PAID [facility] [place] [address] PCP - General General Internal Medicine 08/19/1605/23 documented as of this encounter
--- OUTSIDE RECORDS SUMMARY | 2024-03-30 12:55 | XMS_ITS | Encounter Summary ---
Author Organization [facility] [place] [address] Care Team Providers Care Supervisor Labor Gang Name Role Phone Elizabeth Mistry APRN Primary Care Provider + Encounter Details Date Type Department Care Team (Latest Contact Info) Description 06/08/2019 12:15 PM EST Laboratory Appointment Lab [address] [place] [phone] Hyperglycemia; Familial hypercholesterolemia Social History Tobacco Use Types [...] 3:40 PM EST Office Visit Cardiology at [address] [phone] Star Flores MD [facility] [place] [address] documented as of this encounter Goals Goal Patient Goal Type Associated Problems Recent Progress Patient-Stated? Author Home Medication Compliance and Understanding Patient Facing Action Plan Salvatore Palma RPH Note: Reduce LDL, measured by lipid panel, revisit every 6 months documented as of this encounter Procedures Procedure Name Priority Date/Time Associated Diagnosis Comments HC GLUCOSE FASTING Routine 06/08/2019 12:19 PM EST Hyperglycemia LIPID PANEL (REFLEX DIRECT LDL) Routine 06/08/2019 12:19 PM EST Familial hypercholesterolemia documented in this encounter Results * Lipid Panel (Reflex Direct LDL) (06/08/2019 12:19 PM EST) Cholesterol, Total 187 mg/dL [facility] Comment: Lower Risk: <200 mg/dL Average Risk: 200-239 mg/dL Higher Risk: >ew=924 mg/dL Triglyceride 125 mg/dL [facility] Comment: Average Risk/Lower Risk: <150 mg/dL Borderline High Risk: 150-199 mg/dL High Risk: 200-499 mg/dL Very High Risk: >pc=157 mg/dL HDL Cholesterol 39 mg/dL [facility] Comment: Males: ?? Higher Risk: <40 mg/dL Females: ?? HIgher Risk: <50 mg/dL LDL Cholesterol 123 mg/dL [facility] Comment: Lowest Risk: <100 mg/dL Lower Risk: 100-129 mg/dL Borderline High Risk: 130-159 mg/dL High Risk: 160-189 mg/dL Very High Risk: >ea=283 mg/dL Cholesterol/HDL Ratio 4.8 ratio [facility] Lipid Interpretation See Note [facility] Comment: Lipid management should be guided by a patient? s ASCVD risk, goals and preferences. ACC/AHA Guidelines recommend high intensity statin if clinical ASCVD or LDL greater than or equal to 190 mg/dL. http://hipages Groupurl.com/BDO-MON-Rqembaxrp Adults aged 40-75 with LDL 70-189 mg/dL should have their 10 year ASCVD risk estimated with the ACC/AHA ASCVD risk senior mechanical estimator http://tools.acc.org/SSCBQ-Twic-Gublugfiz/ Statin should be discussed if risk greater [...] of ASCVD risk reduction. Blood specimen (specimen) 06/08/2019 12:19 PM EST 06/08/2019 12:36 PM EST Narrative Resulting Agency Comment Spec In Lab Kimberley Purdy MD CHEMISTRY ORDERABLES Performing Organization Address [facility] Co de Phone Number [facility] [place] [address] * Glucose, fasting (06/08/2019 12:19 PM EST) Glucose Fasting 95 65 - 99 mg/dL [facility] Comment: ?Fasting* Glucose Interpretive Criteria [...] of Diabetes Mellitus, Position Statement from the [place] Diabetes Association. ??Diabetes Care, Volume 33, Supplement 1, May 2009 Blood specimen (specimen) 06/08/2019 12:19 PM EST 06/08/2019 12:36 PM EST Narrative Resulting Agency Comment Spec In Lab Kimberley Purdy MD CHEMISTRY ORDERABLES Performing Organization Address [facility] Co de Phone Number [facility] [place] [address] documented in this encounter Visit Diagnoses Diagnosis Hyperglycemia Other abnormal glucose Familial hypercholesterolemia Pure hypercholesterolemia documented in this encounter Care Teams Supervisor Labor Gang Relationship Specialty Start Date End Date Elizabeth Mistry APRN [facility] [place] [address] PCP - General General Internal Medicine 08/19/1605/23 documented as of this encounter
--- OUTSIDE RECORDS SUMMARY | 2024-03-30 12:55 | XMS_ITS | Encounter Summary ---
Author Organization [facility] Address [facility] [place] [address] Care Team Providers Care Rubber Liner Name Role Phone Elizabeth Mistry GENNY Primary Care Provider + Encounter Details Date Type Department Care Team (Late st Contact Info) Description 04/16/2019 Refill Cardiology at [address] [phone] Kimberley Purdy MD Social History Tobacco Use [...] PM EST Office Visit Cardiology at [address] [phone] Star Flores MD [facility] [address] documented as of this encounter Goals Goal Patient Goal Type Associated Problems Recent Progress Patient-Stated? Author Home Medication Compliance and Understanding Patient Facing Action Plan Salvatore Palma [facility] Note: Reduce LDL, measured by lipid panel, revisit every 6 months documented as of this encounter Visit Diagnoses Diagnosis Familial hypercholesterolemia Pure hypercholesterolemia documented in this encounter Care Teams Rubber Liner Relationship Specialty Start Date End Date Elizabeth Mistry, GENNY [facility] [place] [address] PCP - General General Internal Medicine 08/19/1605/23 documented as of this encounter
--- OUTSIDE RECORDS SUMMARY | 2024-03-30 12:55 | XMS_ITS | Encounter Summary ---
Author Organization [facility] [place] [address] Care Team Providers Care Bucket Wash Operator Name Role Phone Elizabeth Mistry APRN Primary Care Provider + Encounter Details Date Type Department Care Team (Latest Contact Info) Description 12/01/2018 10:40 AM EDT Office Visit Cardiology at [address] [phone] Ya Abraham MD Hyperglycemia; Familial hypercholesterolemia Social History Tobacco Use [...] Sign Reading Time Taken Comments Blood Pressure 115/71 12/01/2018 10:29 AM EDT Pulse 95 12/01/2018 10:29 AM EDT Temperature - - Respiratory Rate - - Oxygen Saturation 99% 12/01/2018 10:29 AM EDT Inhaled Oxygen Concentration - - Weight 75.3 kg (166 lb) 12/01/2018 10:29 AM EDT Height 175.3 cm (5' 9) 12/01/2018 10:29 AM EDT Body Mass Index 24.51 12/01/2018 10:29 AM EDT documented in this encounter Progress Notes * Ya Abraham MD - 12/01/2018 10:40 AM EDT [facility]-Follow Up Visit ID/PMH Marco A is a 33 y.o. followed [...] home with his parents. ??He has no??children. 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 He has recently returned from a 6 week trip out [place]. Present Illness Marco A Park??is seen at the request of Elizabeth Mistry APRN??for evaluation and management of dyslipidemia, specifically??markedly elevated LDL in the setting of statin intolerance and a strong family history of cardiovascular disease in his father??and??familial hypercholesterolemia in his father, sister, paternal aunt, paternal uncle, and paternal grandmother.? Marco A first learned of his hyperlipidemia when he was in his 20s. Marco A has been completely intolerant of all statins which caused not only severe proximal muscle pain and weakness but CPK levels 3 times the upper limit of normal. At his last visit I prescribed ezetimibe in conjunction with alirocumab. He has been taking these medications for several months now and returns to assess his response.It is notable that while traveling in [place] recently he experienced about 12 hours of thigh pain following his alirocumab injection at the injection site. He has never had this with the 5 prior injections and would like to continue with the alirocumab. No smoking!!! He has not smoked since his last visit.?? ROS General: feeling well hiked 350 miles over 2 months Cardiac: no chest pressure - even at 14,000 feet MSK: 12 hours of right thigh pain - and pain persisted low grade 2 days - no problem after this Medications Current Outpatient Medications Medication Sig Dispense Refill ??? pantoprazole (PROTONIX) 40 mg Tablet, Delayed Release (E.C.) Take 1 tablet by mouth daily. 30 tablet 0 ??? FLUoxetine (PROZAC) 10 mg Tablet [...] every 14 days. 6 mL 3 ??? esomeprazole (NEXIUM) 40 mg Capsule, Delayed Release(E.C.) Take 1 capsule by mouth every morning. (Patient not taking: Reported on 12/01/2018) 30 capsule 11 No current facility-administered medications for this visit. Allergies Lipitor [atorvastatin] Physical Exam General: 33-year-old with a BMI of 24.5 VS: BP 115/71 Pulse 95 Ht 175.3 cm (5' 9) Wt 75.3 kg (166 lb) SpO2 99% BMI 24.51 kg/m?? Lungs: Clear Heart: S1, S2, no murmurs gallops or rubs, regular rate and rhythm Abd: Soft and nontender. Psych: Appropriate affect. Labs Lab Results Component Value Date CHLPL 110 12/01/2018 HDL 46 12/01/2018 LDLCHOL 38 12/01/2018 TRIG 130 12/01/2018 fasting blood sugar 101 mg/dL Assessment Marco A has had an excellent response to the combination of ezetimibe and alirocumab. His fasting blood sugar has likewise improved but is still just in the prediabetes range. I have encouraged him to increase his intake of fruits and vegetables and to get regular physical activity. I have applauded the fact that he is not smoking. He feels that he is on the right track. With regard to his leg pain with the last alirocumab injection he notes that the alirocumab had been in a cooler for 2 months and he wonders if this might have played a role. I have asked him to giveme a call if this should happen again. I will plan to see Marco A back in follow-up in 6 months at which time I will reassess his lipids andhis fasting blood sugar. I have made no changes in his lipid-lowering medicines. Plan ?? Medication changes: none ?? Investigations: labs and a visit in 6 months ?? Counseling: I explained my impression and answered all Marco A's questions. Follow up 06-08-19 This visit was 60 minutes in length of which 40 minutes were spent in counseling YA ABRAHAM MD 12/01/2018 CC: Elizabeth Mistry APRN documented in this encounter Plan of Treatment Upcoming Encounters Date Type Department Care Team (Late st Contact Info) Description 04/01/2025 3:40 PM EST Office Visit Cardiology at [address] [address] Star Flores MD [facility] [place] [address] documented as of this encounter Goals Goal Patient Goal Type Associated Problems Recent Progress Patient-Stated? Author DH Home Medication Compliance and Understanding Patient Facing Action Plan No Salvatore Potts, [facility] Note: Reduce LDL, measured by lipid panel, revisit every 6 months documented as of this encounter Results * Glucose, fasting (06/08/2019 12:19 PM EST) [facility] [address] Glucose Fasting 95 65 - 99 mg/dL [facility] [...] of Diabetes Mellitus, Position Statement from the [place] Diabetes Association. ??Diabetes Care, Volume 33, Supplement 1, May 2009 Blood specimen (specimen) 06/08/2019 12:19 PM EST 06/08/2019 12:36 PM EST Narrative Resulting Agency Comment Spec In Lab Ya Abraham MD CHEMISTRY ORDERABLES [facility] [place] [address] * Lipid Panel (Reflex Direct LDL) (06/08/2019 12:19 PM EST) Cholesterol, Total 187 mg/dL [facility] Comment: Lower Risk: <200 mg/dL Average Risk: 200-239 mg/dL Higher Risk: >wl=762 mg/dL Triglyceride 125 mg/dL [facility] Comment: Average Risk/Lower Risk: <150 mg/dL Borderline High Risk: 150-199 mg/dL High Risk: 200-499 mg/dL Very High Risk: >cx=327 mg/dL HDL Cholesterol 39 mg/dL [facility] Comment: Males: ?? Higher Risk: <40 mg/dL Females: ?? HIgher Risk: <50 mg/dL LDL Cholesterol 123 mg/dL [facility] Comment: Lowest Risk: <100 mg/dL Lower Risk: 100-129 mg/dL Borderline High Risk: 130-159 mg/dL High Risk: 160-189 mg/dL Very High Risk: >xg=741 mg/dL Cholesterol/HDL Ratio 4.8 ratio [facility] Lipid Interpretation See Note [facility] Comment: Lipid management should be guided by a patient? s ASCVD risk, goals and preferences. ACC/AHA Guidelines recommend high intensity statin if clinical ASCVD or LDL greater than or equal to 190 mg/dL. http://C7 Data Centersurl.com/JXS-TDS-Qhikfvdrd Adults aged 40-75 with LDL 70-189 mg/dL should have their 10 year ASCVD risk estimated with the ACC/AHA ASCVD risk enroute controller http://tools.acc.org/GJGPY-Cedf-Uwvwgndpk/ Statin should be discussed if risk greater [...] In Lab Ya Abraham MD CHEMISTRY ORDERABLES [facility] [place] [address] documented in this encounter Visit Diagnoses Diagnosis Hyperglycemia Other abnormal glucose Familial hypercholesterolemia Pure hypercholesterolemia documented in this encounter Care Teams Bucket Wash Operator Relationship Specialty Start Date End Date Elizabeth Mistry, GENNY [facility] [place] [address] PCP - General General Internal Medicine 08/19/1605/23 documented as of this encounter
--- OUTSIDE RECORDS SUMMARY | 2024-03-30 12:55 | XMS_ITS | Encounter Summary ---
Author Organization [facility] Address [facility] [place] [address] Care Team Providers Care Freight Loading Supervisor Name Role Phone Elizabeth Mistry APRN Primary Care Provider + Reason for Visit * Reason Onset Date Comments Prior Authorization 09/04/2018 Praluent Encounter Details Date Type Department Care Team (Late st Contact Info) Description 09/04/2018 [place] [address] Aaliyah Cortez, [facility] Prior Authorization (Praluent) Social History Tobacco Use [...] encounter Miscellaneous Notes * Telephone Encounter - Aaliyah Cortez - 09/04/2018 2:48 PM EDT [facility], Prior Authorization Approval Medication Name: Praluent 75 mg/mL pen FILLABLE AT [facility]? yes APPROVAL DATES: 09/04/18-03/03/19 SPECIFIC INS REQUIREMENT: Can fill with pharmacy. Max quantity limit of 2 pens per 28 days CASE/REFERENCE # [id number] APPROVAL NOTIFICATION RECEIVED VIA: [facility] COPAY: $0 copay COPAY ASSISTANCE NEEDED?: No NOTES: specialty will reach out to patient to complete initial consult and set up delivery, etc. [facility], Medication Prior Authorization Patient: Marco A Park Patient : 1985 Patient Address: [address] [address] (home) Medication: Praluent Subscriber Insurance: LUPIS Fax: n/a Physician: Kimberley Purdy Sent Via: [facility] Mae: [id number] Ref/Case/PA#: [id number] Medication Strength Frequency Requested: Praluent 75 mg/mL pen - inject one pen every 14 days Qty/Day Supply: 07/20 New Start: Yes Diagnosis & ICD-10 Code: Familial hypercholesterolemia, E78.01 documented in this encounter Plan of Treatment Upcoming Encounters Date Type Department Care Team (Late st Contact Info) Description 04/01/2025 3:40 PM EST Office Visit Cardiology at [address] [phone] Star Flores MD [facility] [place] [address] documented as of this encounter Goals Goal Patient Goal Type Associated Problems Recent Progress Patient-Stated? Author DH Home Medication Compliance and Understanding Patient Facing Action Plan No Salvatore Potts [facility] Note: Reduce LDL, measured by lipid panel, revisit every 6 months documented as of this encounter Visit Diagnoses Not on filedocumented in this encounter Care Teams Freight Loading Supervisor Relationship Specialty Start Date End Date Elizabeth Mistry APRN [facility] [place] [address] PCP - General General Internal Medicine 08/19/1605/23 documented as of this encounter
--- OUTSIDE RECORDS SUMMARY | 2024-03-30 12:55 | XMS_ITS | Encounter Summary ---
Author Organization [facility] Address [facility] [address] Care Team Providers Care Temporary Staff Accountant Name Role Phone Elizabeth Mistry APRN Primary Care Provider + Reason for Visit * Reason Comments Medication Refill Encounter Details Date Type Department Care Team (Late st Contact Info) Description 01/30/2019 Specialty [place] [address] Janay Paulson [facility] Social History Tobacco Use Types [...] as of this encounter Progress Notes * Janay Paulson RPH - 01/30/2019 3:05 PM EDT Clinical Management Plan: Refill Specialty Pharmacy Consultation; Janay Paulson RPH Comprehensive Medication Management (CMM) Marco A Palomino Xavier Mr. Marco A Park is a 33 y.o. (1985) male who was contacted in regard to a specialty medication refill reminder. Spoke with patient regarding Praluent. A review of the medication therapy was performed. The medication was refilled as scheduled, and all medication related questions and concerns were addressed. Patient was a day late injecting the praluent due to a rash that he had from a moth caterpillar. The specialty pharmacy staff will follow up with the patient 5-7 days prior to next refill. Was a change made to the Care Plan: no Assessment and Recommendations: Title Type of Medication Management: chronic disease management Referred By: provider Recipient: beneficiary Provider: plan sponsor pharmacist Visit Type: [facility] Follow-up Method of Contact: by telephone Allergies and Drug intolerance: Allergies Allergen Reactions ??? Lipitor [Atorvastatin] Other (See Comments) Elevated CK Medication Reconciliation Discrepancies (compared to [facility] med list) -none identified New medications: no New medical conditions: no New allergies: Patient reports an allergy to a moth caterpillar that caused a big rash and this caused him to take his injection a day and a half late. Adherence: Medication Adherence Patient reported X missed doses in the last month: 0 Any gaps in refill history greater than 2 weeks in the last 3 months: no Informant: patient Reliability of informant: reliable Provider-estimated medication adherence level: good Reasons for non-adherence: no problems identified Adherence tools used: directed education Support network for adherence: family member Confirmed plan for next specialty medication refill: delivery by pharmacy Are you experiencing any side effects from your medications? no Pt understands no changes to current drug regimen were made at the appointment and that [facility] is providing recommendations (summary located at top of note) for provider review and follow up. Janay Paulson RPH 01/30/19 3:07 PM documented in this encounter Plan of Treatment Upcoming Encounters Date Type Department Care Team (Late st Contact Info) Description 04/01/2025 3:40 PM EST Office Visit Cardiology at [address] [place] [phone] Star Flores MD [facility] [place] [address] documented as of this encounter Goals Goal Patient Goal Type Associated Problems Recent Progress Patient-Stated? Author DH Home Medication Compliance and Understanding Patient Facing Action Plan Salvatore Palma [facility] Note: Reduce LDL, measured by lipid panel, revisit every 6 months documented as of this encounter Visit Diagnoses Not on filedocumented in this encounter Care Teams Temporary Staff Accountant Relationship Specialty Start Date End Date Elizabeth Mistry, DEOILING MACHINE OPERATOR [facility] [place] [address] PCP - General General Internal Medicine 08/19/1605/23 documented as of this encounter
--- OUTSIDE RECORDS SUMMARY | 2024-03-30 12:55 | XMS_ITS | Encounter Summary ---
Author Organization [facility] Address [facility] [place] [address] Care Team Providers Care Resident Buyer Name Role Phone Elizabeth Mistry APRN Primary Care Provider + Encounter Details Date Type Department Care Team (Late st Contact Info) Description 11/05/2019 Telephone Pharmacy at [facility] [place] [address] Adela Austin, CARTON LETTERING MACHINE OPERATOR Social History Tobacco Use Types Packs/Day Years [...] * Telephone Encounter - Adela Austin - 11/05/2019 1:24 PM EDT Clinical Management Plan: Refill Specialty [...] Elevated CK Medication Reconciliation Discrepancies (compared to [facility] med list) No New medications: No New medical conditions: No New allergies: No Adherence: Any missed doses? No Are you experiencing any side effects from your medications? No Patient understands no changes to current drug regimen were made.. Adela Austin 11/05/19 1:24 PM documented in this encounter Plan of Treatment Upcoming Encounters Date Type Department Care Team (Late st Contact Info) Description 04/01/2025 3:40 PM EST Office Visit Cardiology at [address] [place] [address] Star Flores MD [facility] [address] documented as of this encounter Goals Goal Patient Goal Type Associated Problems Recent Progress Patient-Stated? Author DH Home Medication Compliance and Understanding Patient Facing Action Plan No Salvatore Potts, [facility] Note: Reduce LDL, measured by lipid panel, revisit every 6 months documented as of this encounter Visit Diagnoses Not on filedocumented in this encounter Care Teams Resident Buyer Relationship Specialty Start Date End Date Elizabeth Mistry APRN [facility] [place] [address] PCP - General General Internal Medicine 08/19/1605/23 documented as of this encounter
--- OUTSIDE RECORDS SUMMARY | 2024-03-30 12:55 | XMS_ITS | Encounter Summary ---
Author Organization [facility] Address [facility] [place] [address] Care Team Providers Care Civil Rights Investigator Name Role Phone Elizabeth Mistry APRN Primary Care Provider + Reason for Visit * Reason Comments Medication Management Encounter Details Date Type Department Care Team (Late st Contact Info) Description 09/26/2018 Specialty [place] [address] Cornelio Wong RPH Social History Tobacco Use Types Packs/Day [...] Progress Notes * Cornelio Wong RPH - 09/26/2018 11:03 AM EDT Specialty Pharmacy Consultation; Cornelio Wong RPH Comprehensive Medication Management (CMM) Marco A Park Diagnosis: Familial hyperlipidemia Therapy Start Date: 09/06/18 Contact in person or via telephone: Phone [...] This patient was contacted for a routine one-month follow-up regarding specialty medication, Praluent. Medications and allergies were confirmed with no changes noted. Patient is now two injections into his new medication with no side effects noted. His start date was confirmed as 09/06/18. No issuesnoted with injection, although did state he had a small bruise following his first injection but nothing noted with second. No itching, swelling, or erythema at injection site. No missed doses since 09/06 start. He is about to embark on a two month long vacation where it seems there will be a lot ofdriving. Stability of Praluent was re-emphasized and the need to keep doses due outside of a 30-day window refrigerated. Patient expressed understanding of stability/storage requirements and stated he had a cooler packed and ready. Patient currently has standing lab orders for lipid panel with nextfollow-up scheudled for 12/01/[address] Purdy. Efficacy of medication to be determined then. He has no questions or concerns at the end of our encounter. Clinic follow-up needed: next OV on 12/01/18 Allergies and Drug intolerance: Allergies Allergen Reactions ??? Lipitor [Atorvastatin] Other (See Comments) Elevated CK Special Dietary or Hydration Requirements: no There is no height or weight on file to calculate BMI. Medication Reconciliation Discrepancies (compared to [facility] med list) no Medication Adherence Patient reported [...] Confirmed plan for next specialty medication refill: pick-up at pharmacy Refills needed for supportive medications: not needed Medication List: Current Outpatient Medications Medication Sig Dispense Refill ??? FLUoxetine (PROZAC) 10 mg Tablet Take 1 tablet by mouth daily. 60 tablet 3 ??? LORazepam (ATIVAN) 0.5 mg Tablet Take 1 tablet by mouth 2 times daily as needed for Anxiety. 60tablet 0 ??? pantoprazole (PROTONIX) 40 mg Tablet, Delayed Release (E.C.) Take 1 tablet by mouth daily. 30 tablet 3 ??? esomeprazole (NEXIUM) 40 mg Capsule, [...] Tdap Vaccine 08/23/2016 Assessment and Recommendations: Title Cognitive Ability: good Drug Treatment Outcomes No data found. Reviewed in [...] copay: yes Copay Amount: $3.00 Day Supply: 56 Date Needed: 09/27/18 Copay assistance required: no Physical Assessment: Functional limitations identified: no Is patient a fall risk: no Cognitive limitations identified such as orientation, memory, reasoning or judgement: no Other: no Social Assessment: Does the patient have a primary medical care manager? No Patient has emergency contact on file: Yes Does patient need referral to social media analyst: No Does patient need referral to advocacy group: No Physical and Home Health Assessment: Is the patient able to store their medication as directed? Yes Is the patient in a safe home environment? Yes Do you have a support network? Yes Reviewed potential home safety hazards: none noted Therapy Assessment: Appropriate Therapy: Yes Current Medication Dosing/Route/Frequency: Praluent 75 mg SQ q14 days Effective: TBD Patient experienced change in condition that affects treatment: no Are you experiencing any side effects from your medication? no Patient Goals: Goals ??? DH Home Medication Compliance and Understanding Reduce LDL, measured by lipid panel, revisit every 6 months Is the patient on track to achieve goals of therapy? Yes - needs lab to curator of education efficacy Additional care/services needed: no Educational information or adherence tools provided: Yes Additional equipment/supplies required: no Care Plan Reviewed and Approved by both Pharmacist and Patient: Yes Did Care Plan Change? No Informed patient of specialty pharmacy services: Yes -Patient received welcome packet: Yes Date Received: 09/05/18 Delivery Method: Mail -Patient returned signed Rights & Responsibilities: Yes Date Received: 09/05/18 Delivery Method: Mail -Patient is aware a [...] made at the appointment and that [facility] isproviding recommendations (summary located at top of note) for provider review and follow up. Cornelio Wong RPH 09/26/18 11:03 AM documented in this encounter Plan of Treatment Upcoming Encounters Date Type Department Care Team (Late st Contact Info) Description 04/01/2025 3:40 PM EST Office Visit Cardiology at [address] [phone] Star Flores MD [facility] [address] documented as of this encounter Goals Goal Patient Goal Type Associated Problems Recent Progress Patient-Stated? Author [facility] Medication Compliance and Understanding Patient Facing Action Plan No Salvatore Potts [facility] Note: Reduce LDL, measured by lipid panel, revisit every 6 months documented as of this encounter Visit Diagnoses Not on filedocumented in this encounter Care Teams Civil Rights Investigator Relationship Specialty Start Date End Date Elizabeth Mistry APRN [facility] [place] [address] PCP - General General Internal Medicine 08/19/1605/23 documented as of this encounter
--- OUTSIDE RECORDS SUMMARY | 2024-03-30 12:55 | XMS_ITS | Encounter Summary ---
Author Organization [facility] Address [facility] [place] [address] Care Team Providers Care Crossing Supervisor Name Role Phone Elizabeth Mistry GENNY Primary Care Provider + Encounter Details Date Type Department Care Team (Late st Contact Info) Description 08/14/2019 Telephone Internal Medicine at [address] [address] Karie Richter, RN Social History Tobacco Use Types Packs/Day Years [...] Telephone Encounter - Karie Richter RN - 08/14/2019 10:32 AM EDT Caller: patient Learning Needs Assessment Reviewed: No Subjective Anxiety/depression Objective/Assessment Symptom onset: has been building up Location: n/a Duration: n/a Characteristics: pt has been having an escalation in anxiety and depression since start of covid 19crisis, pt has been isolated in his one bedroom apartment, last night he felt paralyzed with anxiety on the floor for an hour and a half before he was able to get up and take an ativan Aggravating factors: covid 19 anxiety Relieving factors: ativan Pertinent Past Medical History: No past medical history on file. Plan Intervention/Plan/ Follow Up: Offered to schedule appt today with provider to discuss options pt declined, only wanted to speak with PCP, scheduled for telehealth appt tomorrow morning with PCP, discussed contact insurance to seewhat therapists are in network so he can reach out and find someone who is doing telehealth, also advised pt to check out [employer] to vet therapists documented in this encounter Plan of Treatment Upcoming Encounters Date Type Department Care Team (Late st Contact Info) Description 04/01/2025 3:40 PM EST Office Visit Cardiology at [address] [facility] [place] [address] Star Flores MD [facility] [place] [address] documented as of this encounter Goals Goal Patient Goal Type Associated Problems Recent Progress Patient-Stated? Author DH Home Medication Compliance and Understanding Patient Facing Action Plan No Salvatore Potts, [facility] Note: Reduce LDL, measured by lipid panel, revisit every 6 months documented as of this encounter Visit Diagnoses Not on filedocumented in this encounter Care Teams Crossing Supervisor Relationship Specialty Start Date End Date Elizabeth Mistry APRN [facility] [place] [address] PCP - General General Internal Medicine 08/19/1605/23 documented as of this encounter
--- OUTSIDE RECORDS SUMMARY | 2024-03-30 12:55 | XMS_ITS | Encounter Summary ---
Author Organization [facility] Address [facility] [place] [address] Care Team Providers Care Android Developer Name Role Phone Elizabeth Mistry SURVEILLANCE MANAGER Primary Care Provider + Reason for Visit * Reason Onset Date Comments Triage 11/20/2018 Encounter Details Date Type Department Care Team (Late st Contact Info) Description 11/20/2018 Telephone Internal Medicine at [address] [address] Bg Parish Triage Social History Tobacco Use Types Packs/Day Years [...] encounter Miscellaneous Notes * Telephone Encounter - Cindy Montesinos LPN - 11/20/2018 1:11 PM EDT Returned patient's phone call and he stated he gave himself his injection in the R leg and now it is tender and feels swollen, although he admits he has muscular legs and cannot tell for sure. He is currently driving and is in [place]. Took a short walk and his leg was very painful, stated he almost couldn't make it back to his car. It is around the injection site but covers his entire thigh that is tender. Denies spasms or pain. Encouraged him to seek an urgent care center. He stated he would do this. Cindy Montesinos LPN * Telephone Encounter - Bg Parish - 11/20/2018 12:56 PM EDT Message: Patient is driving from [place] and states that his leg is bothering him - can barelywalk - can't tell if it's swollen due to his muscular legs - says it started after he gave himself his injection medication Ask caller their first and last name and relationship to the patient: patient Best time to call back: today Ok to leave a message: y Ok to send my- message: n Offered Appointment: n NAGA/Nurse/Gas Appliance Servicer contacted via: Message: y Call: n Pager: n documented in this encounter Plan of Treatment Upcoming Encounters Date Type Department Care Team (Late st Contact Info) Description 04/01/2025 3:40 PM EST Office Visit Cardiology at [address] [phone] Star Flores MD [facility] [place] [address] documented as of this encounter Goals Goal Patient Goal Type Associated Problems Recent Progress Patient-Stated? Author DH Home Medication Compliance and Understanding Patient Facing Action Plan No Salvatore Potts, [facility] Note: Reduce LDL, measured by lipid panel, revisit every 6 months documented as of this encounter Visit Diagnoses Not on filedocumented in this encounter Care Teams Android Developer Relationship Specialty Start Date End Date Elizabeth Mistry APRN [facility] [place] [address] PCP - General General Internal Medicine 08/19/1605/23 documented as of this encounter
--- OUTSIDE RECORDS SUMMARY | 2024-03-30 12:55 | XMS_ITS | Encounter Summary ---
[place] [address] Care Team Providers Care Knitted Cloth Examiner Name Role Phone Elizabeth Mistry APRN Primary Care Provider + Reason for Visit * Reason Onset Date Comments Prior Authorization 09/12/2018 esomeprazole (NEXIUM) 40 mg Capsule, Delayed Release Encounter Details Date Type Department Care Team (Late st Contact Info) Description 09/12/2018 Telephone Internal Medicine at [address] [address] Mone Irving CMA Prior Authorization (esomeprazole (NEXIUM) 40 mg Capsule, Delayed Release) Social History Tobacco Use Types Packs/Day Years [...] encounter Miscellaneous Notes * Telephone Encounter - Marco A Richter RN - 09/13/2018 12:50 PM EDT Phoned patient, no answer, left detailed message on identified machine * Telephone Encounter - Mone Irving CMA - 09/13/2018 8:51 AM EDT Images from the original note were not included. Medication Prior Authorization for Primary [place] [address] Denied: esomeprazole (NEXIUM) 40 mg Capsule, Delayed Release(E.C.) Case/Reference #: [id number] Additional Information from Insurance carrier: See entire Denial Letter in scanned documents. * Telephone Encounter - Mone Irving CMA - 09/12/2018 8:20 AM EDT Medication Prior Authorization for Primary Care Primary Care at [place] [id number] Request received via: Guguchu Patient: Marco A Park Patient : 1985 Subscriber Insurance: [place] Medicaid Insurance Phone #: Sent via: [employer]uch[employer] Mae/Fax#: [id number] Physician: Elizabeth Mistry APRN Medication Requested: esomeprazole (NEXIUM) 40 mg Capsule, Delayed Release Frequency/Si daily Disp.: 30 Refills: 11 Currently taking: yes If yes, how long: since 02/14/2018 Diagnosis for this medication: Gastroesophageal reflux disease, esophagitis presence not specified (K21.9) Prior medications trialed in this patient: Medication: omeprazole 40mg capsule -- 1 daily Approx Dates: 12/29/2017 - 02/14/2018 Outcome/Adverse Reactions: Inadequate response Medication: omeprazole 20mg capsule -- 1 daily Approx Dates: 08/13/2016 - 12/23/2016 Outcome/Adverse Reactions: Inadequate response documented in this encounter Plan of Treatment Upcoming Encounters Date Type Department Care Team (Late st Contact Info) Description 04/01/2025 3:40 PM EST Office Visit Cardiology at [address] [place] [address] Star Flores MD [facility] [place] [address] documented as of this encounter Goals Goal Patient Goal Type Associated Problems Recent Progress Patient-Stated? Author DH Home Medication Compliance and Understanding Patient Facing Action Plan No Salvatore Potts, [facility] Note: Reduce LDL, measured by lipid panel, revisit every 6 months documented as of this encounter Visit Diagnoses Not on filedocumented in this encounter Care Teams Knitted Cloth Examiner Relationship Specialty Start Date End Date Elizabeth Mistry, REGISTRAR COLLEGE [employer] UNIV[employer]ITY [facility] GENER[facility] INTERNAL [facility] [place] [address] PCP - General General Internal Medicine 08/19/1605/23 documented as of this encounter
--- OUTSIDE RECORDS SUMMARY | 2024-03-30 12:55 | XMS_ITS | Encounter Summary ---
Author Organization [facility] Address [facility] [place] [address] Care Team Providers Care Packer Inspector Name Role Phone Elizabeth Mistry APRN Primary Care Provider + Reason for Visit * Reason Comments Medication Management Encounter Details Date Type Department Care Team (Late st Contact Info) Description 08/23/2019 Specialty [place] [address] Agnes Chavez RPH Social History Tobacco Use [...] Progress Notes * Agnes Chavez RPH - 08/23/2019 4:16 PM EDT Clinical Management Plan: Refill Specialty Pharmacy Consultation; Agnes Chavez [place] Comprehensive Medication Management (CMM) Marco A Blantonters Mr. Marco A Park is a 34 [...] beneficiary Provider: plan sponsor pharmacist Visit Type: [facility] Follow-up Method of Contact: by telephone Cognitive Ability: good Cognitive Impairment Status Verified this Year: yes Allergies and Drug intolerance: Allergies Allergen Reactions ??? Lipitor [Atorvastatin] Other (See Comments) Elevated CK Medication Reconciliation Discrepancies (compared to [facility] med list) -no New medications: no New [...] made at the appointment and that [facility] is providing recommendations (summary located at top of note) for provider review and follow up. Agnes Chavez RPH 08/23/19 4:17 PM documented in this encounter Plan of Treatment Upcoming Encounters Date Type Department Care Team (Late st Contact Info) Description 04/01/2025 3:40 PM EST Office Visit Cardiology at [address] [phone] Star Flores MD [facility] [place] [address] documented as of this encounter Goals Goal Patient Goal Type Associated Problems Recent Progress Patient-Stated? Author DH Home Medication Compliance and Understanding Patient Facing Action Plan No Salvatore Potts [facility] Note: Reduce LDL, measured by lipid panel, revisit every 6 months documented as of this encounter Visit Diagnoses Not on filedocumented in this encounter Care Teams Packer Inspector Relationship Specialty Start Date End Date Elizabeth Mistry APRN [facility] [place] [address] PCP - General General Internal Medicine 08/19/1605/23 documented as of this encounter
--- OUTSIDE RECORDS SUMMARY | 2024-03-30 12:55 | XMS_ITS | Encounter Summary ---
[facility] [place] [address] Care Team Providers Care Television Repairman Name Role Phone Elizabeth Mistry APRN Primary Care Provider + Reason for Visit * Reason Onset Date Comments Prior Authorization 12/29/2018 Praluent Encounter Details Date Type Department Care Team (Late st Contact Info) Description 12/29/2018 [place] [address] Kareem Andres CPHT Prior Authorization (Praluent) Social History Tobacco [...] encounter Miscellaneous Notes * Telephone Encounter - Myke Tong - 12/29/2018 1:46 PM EDT [facility], Prior Authorization Approval Medication Name: Praulent 75mg/mL SOPN FILLABLE AT [facility]? yes APPROVAL DATES: 12/29/2018 - 12/30/2019 SPECIFIC INS REQUIREMENT: Can fill with Pharmacy CASE/REFERENCE # [id number] APPROVAL NOTIFICATION RECEIVED VIA: Fax COPAY: $3.00 COPAY ASSISTANCE NEEDED?: NOTES: * Telephone Encounter - Kareem Andres CPHT - 12/29/2018 1:00 PM EDT [facility], Medication Prior Authorization Patient: Marco A Park Patient : 1985 Patient Address: [address] [address] (home) Medication: Praluent Subscriber Insurance: [place] Medicaid Physician: Kimberley Purdy Sent Via: Fax Mae: N/A Ref/Case/PA#: Medication Strength Frequency Requested: 75mg/mL auto-injector - 75mg every 14 days Qty/Day Supply: 07/20 New Start: No Diagnosis & ICD-10 Code: Familial hypercholesterolemia E78.01 documented in this encounter Plan of Treatment Upcoming Encounters Date Type Department Care Team (Late st Contact Info) Description 04/01/2025 3:40 PM EST Office Visit Cardiology at [address] [place] [address] Star Flores MD [facility] [place] [address] documented as of this encounter Goals Goal Patient Goal Type Associated Problems Recent Progress Patient-Stated? Author Home Medication Compliance and Understanding Patient Facing Action Plan Salvatore Palma, [facility] Note: Reduce LDL, measured by lipid panel, revisit every 6 months documented as of this encounter Visit Diagnoses Not on filedocumented in this encounter Care Teams Television Repairman Relationship Specialty Start Date End Date Elizabeth Mistry, CORE MOUNTER [facility] GENER[facility] [place] [address] PCP - General General Internal Medicine 08/19/1605/23 documented as of this encounter
--- OUTSIDE RECORDS SUMMARY | 2024-03-30 12:55 | XMS_ITS | Encounter Summary ---
Author Organization [facility] Address [facility] [place] [address] Care Team Providers Care No Experience Name Role Phone Elizabeth Mistry APRN Primary Care Provider + Reason for Visit * Reason Comments Medication Management Medication Refill Encounter Details Date Type Department Care Team (Late st Contact Info) Description 08/01/2019 Specialty Pharmacy Pharmacy at [facility] [place] [address] Julius Rodriguez [facility] Social History Tobacco Use Types Packs/Day Years [...] as of this encounter Progress Notes * Julius Rodriguez [facility] - 08/01/2019 10:25 AM EDT Clinical Management Plan: Refill Specialty Pharmacy Consultation; Julius Rodriguez [facility] Comprehensive Medication Management (CMM) Marco A Blantonters Mr. Marco A Park is a 34 y.o. (1985) male who was contacted in regard to a specialty medication refill reminder. Spoke with patient regarding Praluent 75 mg. A review of the medication therapy was performed. The medication was Refilled as scheduled, and all medication related questions and concerns were addressed. The specialty pharmacy staff will follow up with the patient 5-7 days priorto next refill. Of note, we had to contact [facility] for a new PA, due to use of newer, less expensive,NDC for this med. Was a change made to the Care Plan: no Assessment and Recommendations: Title Type of Medication Management: chronic disease management, targeted medication review Referred By: provider Recipient: beneficiary Provider: plan sponsor pharmacist Visit Type: [facility] Follow-up Method of Contact: by telephone Cognitive Ability: good Cognitive Impairment Status Verified this Year: yes Allergies and Drug intolerance: Allergies Allergen Reactions ??? Lipitor [Atorvastatin] Other (See Comments) Elevated CK Medication Reconciliation Discrepancies (compared to [facility] med list) -none New medications: no [...] were made at the appointment and that [facility] is providing recommendations (summary located at top of note) for provider review and follow up. Julius Rodriguez RPH 08/01/19 10:28 AM documented in this encounter Plan of Treatment Upcoming Encounters Date Type Department Care Team (Late st Contact Info) Description 04/01/2025 3:40 PM EST Office Visit Cardiology at [address] [place] [address] [facility] [place] [address] documented as of this encounter Goals Goal Patient Goal Type Associated Problems Recent Progress Patient-Stated? Author DH Home Medication Compliance and Understanding Patient Facing Action Plan Salvatore Palma [facility] Note: Reduce LDL, measured by lipid panel, revisit every 6 months documented as of this encounter Visit Diagnoses Not on filedocumented in this encounter Care Teams No Experience Relationship Specialty Start Date End Date Elizabeth Mistry, GLASS CUTTING MACHINE FEEDER [facility] GENER[place] [address] PCP - General General Internal Medicine 08/19/1605/23 documented as of this encounter
--- OUTSIDE RECORDS SUMMARY | 2024-03-30 12:55 | XMS_ITS | Encounter Summary ---
Author Organization [facility] Address [facility] Mona [place] [address] Care Team Providers Care Manager Document Name Role Phone Elizabeth Mistry APRN Primary Care Provider + Reason for Visit * Reason Onset Date Comments Medication Refill 11/15/2019 Encounter Details Date Type Department Care Team (Late st Contact Info) Description 11/15/2019 Refill Internal Medicine at [address] [id number] Gin Jeter Social History Tobacco Use Types Packs/Day Years [...] PM EST Office Visit Cardiology at [address] [address] Star Flores MD [facility] [address] [place] [address] documented as of this encounter Goals Goal Patient Goal Type Associated Problems Recent Progress Patient-Stated? Author Home Medication Compliance and Understanding Patient Facing Action Plan Salvatore Palma RPH Note: Reduce LDL, measured by lipid panel, revisit every 6 months documented as of this encounter Visit Diagnoses Not on filedocumented in this encounter Care Teams Manager Document Relationship Specialty Start Date End Date Elizabeth Mistry, GENNY [facility] GENERAL [place] [address] PCP - General General Internal Medicine 08/19/1605/23 documented as of this encounter
--- OUTSIDE RECORDS SUMMARY | 2024-03-30 12:55 | XMS_ITS | Encounter Summary ---
Author Organization [facility] [place] [address] Care Team Providers Care Warehouse Shipping Supervisor Name Role Phone Elizabeth Mistry APRN Primary Care Provider + Reason for Visit * Reason Onset Date Comments Medication Refill 10/25/2018 Medication Refill 10/26/2018 Encounter Details Date Type Department Care Team (Late st Contact Info) Description 10/25/2018 Refill Internal Medicine at [address] [address] Stacy Terrazas Social History Tobacco Use Types Packs/Day Years [...] encounter Miscellaneous Notes * Telephone Encounter - Bg Parish - 10/26/2018 1:59 PM EDT Patient calling to check status - says it was supposed to go to [facility] in [place] not [place] Please re-send to correct pharmacy - needs done within 3 hours - please call patient to notify * Telephone Encounter - Philly Vences - 10/25/2018 3:57 PM EDT Patient is calling stating he would like this called in to [facility] pharmacy in [place], [place] Phone # - [phone] * Telephone Encounter - TerrazasStacy pierre - 10/25/2018 2:59 PM EDT Pt is travelling through [place] and is only at this drug store for a couple of hours he is wondering if this can be filled within the next couple of hours. Please call him at [phone] documented in this encounter Plan of Treatment Upcoming Encounters Date Type Department Care Team (Late st Contact Info) Description 04/01/2025 3:40 PM EST Office Visit Cardiology at [address] [phone] Star Flores MD [facility] [place] [address] documented as of this encounter Goals Goal Patient Goal Type Associated Problems Recent Progress Patient-Stated? Author DH Home Medication Compliance and Understanding Patient Facing Action Plan No Salvatore Potts [facility] Note: Reduce LDL, measured by lipid panel, revisit every 6 months documented as of this encounter Visit Diagnoses Not on filedocumented in this encounter Care Teams Warehouse Shipping Supervisor Relationship Specialty Start Date End Date Elizabeth Mistry APRN [facility] [place] [address] PCP - General General Internal Medicine 08/19/1605/23 documented as of this encounter
--- OUTSIDE RECORDS SUMMARY | 2024-03-30 12:55 | XMS_ITS | Encounter Summary ---
[place] [address] Care Team Providers Care Executive Talent Acquisition Consultant Name Role Phone Elizabeth Mistry APRN Primary Care Provider + Reason for Visit * Reason Comments Depression per Elizabeth Encounter Details Date Type Department Care Team (Late st Contact Info) Description 09/20/2019 11:00 AM EDT TH Visit (TeleHealth) Internal Medicine at [address] [facility] [place] [address] Current moderate episode of major depressive disorder [...] Progress Notes * Elizabeth Mistry APRN - 09/20/2019 11:00 AM EDT PCP: Elizabeth Mistry APRN Chief Complaint Patient presents with ??? Depression per Elizabeth TELEHEALTH VISIT- Given the ongoing COVID-19 public health emergency, this visit was done as a Telehealth visit. The patient gave verbal consent for the visit. The exam findings were limited to the video images. SUBJECTIVE: Marco A Park is a 34 y.o. male who has an appointment for follow up after ER visit for concern for his safety. His friend had made a call to the police about his safety. He reports that he did have one episode of taking more of his ativan. He reports that he took 5 of ativan at one time. He saidthat he wanted to just to go to sleep. He said that he vomited them up instantly. He denies any thoughts of harming himself. Insomnia- he reports that he is not sleeping well. He is getting 3-5 hours per night of broken up sleep. He has a hard time staying asleep. Review of Systems Constitutional: Negative for chills and fever. Psychiatric/Behavioral: Positive for decreased concentration, dysphoric mood and sleep disturbance.The patient is nervous/anxious. Allergies Allergen Reactions ??? Lipitor [Atorvastatin] Other (See Comments) Elevated CK Current Outpatient Medications Medication Sig Dispense Refill ??? FLUoxetine (PROzac) 10 mg Tablet Take 2 tablets by mouth daily. 60 tablet 3 ??? nicotine (NICODERM CQ) 14 mg/24 hr Patch 24 hr Change 1 patch on the skin daily. See Package instructions 28 patch 1 ??? nicotine polacrilex (COMMIT) [address] 1 lozenge inside cheek every 2 hours as needed for Smoking cessation. Max 20 Lozenges per day 108 tablet 2 ??? LORazepam (Ativan) 0.5 mg Tablet Take 1 tablet by [...] PLAN: Marco A was seen today for depression. Diagnoses and all orders for this visit: Current moderate episode of major depressive disorder without prior episode - FLUoxetine (PROzac) 20 mg Tablet; Take 2 tablets by mouth daily - will increase prozac to 20 mg and change ativan to clonazepam. F/u telehealth visit in 2 weeks. - clonazePAM (KlonoPIN) 0.5 mg Tablet; Take 1 tablet by mouth 2 times daily as needed for Anxiety. - we discussed that instead of taking more medication that he could take a walk. documented in this encounter Plan of Treatment Upcoming Encounters Date Type Department Care Team (Late st Contact Info) Description 04/01/2025 3:40 PM EST Office Visit Cardiology at [address] [address] [facility] [place] [address] documented as of this encounter Goals Goal Patient Goal Type Associated Problems Recent Progress Patient-Stated? Author DH Home Medication Compliance and Understanding Patient Facing Action Plan Salvatore Palma, [facility] Note: Reduce LDL, measured by lipid panel, revisit every 6 months documented as of this encounter Visit Diagnoses Diagnosis Current moderate episode of major depressive disorder without prior episode documented in this encounter Care Teams Executive Talent Acquisition Consultant Relationship Specialty Start Date End Date Elizabeth Mistry APRN [facility] [place] [address] PCP - General General Internal Medicine 08/19/1605/23 documented as of this encounter
--- OUTSIDE RECORDS SUMMARY | 2024-03-30 12:55 | XMS_ITS | Encounter Summary ---
Author Organization [facility] [place] [address] Care Team Providers Care Face Painter Name Role Phone Elizabeth Mistry APRN Primary Care Provider + Reason for Visit * Reason Onset Date Comments Medication Problem 09/20/2018 Encounter Details Date Type Department Care Team (Late st Contact Info) Description 09/20/2018 Refill Internal Medicine at [address] [address] Emely Ruiz Current moderate episode of major depressive disorder [...] encounter Miscellaneous Notes * Telephone Encounter - Emely Ruiz - 09/20/2018 11:34 AM EDT Pharmacy or caller: Pt Medication: FLUoxetine (PROZAC) 10 mg Tablet AND LORazepam (ATIVAN) 0.5 mg Tablet Message: Pt calling stating he is leaving for 2 months on 09/27/18 and will need a two month supply of these medication - not just one month. Please send to the pharmacy as soon as possible and call the pt with any questions. documented in this encounter Plan of Treatment Upcoming Encounters Date Type Department Care Team (Late st Contact Info) Description 04/01/2025 3:40 PM EST Office Visit Cardiology at [address] [place] [address] Star Flores MD [facility] [place] [address] documented as of this encounter Goals Goal Patient Goal Type Associated Problems Recent Progress Patient-Stated? Author DH Home Medication Compliance and Understanding Patient Facing Action Plan No Salvatore Potts [facility] Note: Reduce LDL, measured by lipid panel, revisit every 6 months documented as of this encounter Visit Diagnoses Diagnosis Current moderate episode of major depressive disorder without prior episode documented in this encounter Care Teams Face Painter Relationship Specialty Start Date End Date Elizabeth Mistry APRN [facility] [place] [address] PCP - General General Internal Medicine 08/19/1605/23 documented as of this encounter
--- OUTSIDE RECORDS SUMMARY | 2024-03-30 12:55 | XMS_ITS | Encounter Summary ---
Author Organization [facility] Address [facility] [place] [address] Care Team Providers Care Training Representative Name Role Phone Elizabeth Mistry APRN Primary Care Provider + Reason for Visit * Reason Onset Date Comments Triage 08/08/2019 Encounter Details Date Type Department Care Team (Late st Contact Info) Description 08/08/2019 Telephone Internal Medicine at [address] [phone] Cami Shaw Triage Social History Tobacco Use Types Packs/Day [...] * Telephone Encounter - Cami Shaw - 08/08/2019 11:24 AM EDT Message: The pt states he is currently working from home until at least the end of August. He is having issues with anxiety due to this and with the public and the current COVID-19 issue. He is askingto speak with Elizabeth Mistry APRN and for a refill on his ativan. Ask caller their first and last name and relationship to the patient: self Best time to call back: any Ok to leave a message: y Ok to send my- message: n Offered Appointment: n MA/Nurse/Racine contacted via: Message: y Call: n Pager: n documented in this encounter Plan of Treatment Upcoming Encounters Date Type Department Care Team (Late st Contact Info) Description 04/01/2025 3:40 PM EST Office Visit Cardiology at [address] [facility] [place] [address] Star Flores MD [facility] [place] [address] documented as of this encounter Goals Goal Patient Goal Type Associated Problems Recent Progress Patient-Stated? Author DH Home Medication Compliance and Understanding Patient Facing Action Plan No Salvatore Potts, [facility] Note: Reduce LDL, measured by lipid panel, revisit every 6 months documented as of this encounter Visit Diagnoses Diagnosis Current moderate episode of major depressive disorder without prior episode documented in this encounter Care Teams Training Representative Relationship Specialty Start Date End Date Elizabeth Mistry APRN [facility] [place] [address] [place] [address] PCP - General General Internal Medicine 08/19/1605/23 documented as of this encounter
--- OUTSIDE RECORDS SUMMARY | 2024-03-30 12:55 | XMS_ITS | Encounter Summary ---
[place] [address] Care Team Providers Care Sensor Specialist Name Role Phone Elizabeth Mistry APRN Primary Care Provider + Encounter Details Date Type Department Care Team (Late st Contact Info) Description 08/21/2019 9:30 AM EDT TH Visit (TeleHealth) Internal Medicine at [address] [address] Elizabeth Mistry APRN [facility] [place] [address] Anxiety Social History Tobacco Use Types Packs/Day [...] Progress Notes * Elizabeth Mistry APRN - 08/21/2019 9:30 AM EDT PCP: Elizabeth Mistry APRN No chief complaint on file. TELEPHONE VISIT- Given the ongoing COVID-19 public health emergency, this visit was done as a Telephone visit. The patient gave verbal consent for the visit. The exam findings were based on the telephone conversation with the patient during the visit. Total Time: 15 minutes SUBJECTIVE: Marco A Park is a 34 y.o. male who is following up on his anxiety. He reports that in the last week he has been taking the ativan every morning and increased the dose of the prozac. He seems to bedoing better on the combiniation. He reports that it is concerning that the [id number] ordered isbeing extended. He is concerned that he is using the ativan more frequently. He has found that he is not stressed as much about starting right at 830 am. He feels that it has been manageable. Review of Systems Constitutional: Negative for chills and fever. Neurological: Negative for dizziness and light-headedness. Psychiatric/Behavioral: Positive for decreased concentration and sleep [...] Physical Exam Neurological: Mental Status: He is alert and oriented to person, place, and time. Psychiatric: Mood and Affect: Mood normal. Thought Content: Thought content normal. Judgment: Judgment normal. ASSESSMENT & PLAN: Diagnoses and all orders for this visit: Anxiety - he is feeling better. But still feels that his tool box was taken away from him. - we will continue on the prozac for now. documented in this encounter Plan of Treatment Upcoming Encounters Date Type Department Care Team (Late st Contact Info) Description 04/01/2025 3:40 PM EST Office Visit Cardiology at [address] [place] [phone] Star lFores MD [facility] [place] [address] documented as of this encounter Goals Goal Patient Goal Type Associated Problems Recent Progress Patient-Stated? Author DH Home Medication Compliance and Understanding Patient Facing Action Plan No Salvatore Potts, [facility] Note: Reduce LDL, measured by lipid panel, revisit every 6 months documented as of this encounter Visit Diagnoses Diagnosis Anxiety Anxiety state, unspecified documented in this encounter Care Teams Sensor Specialist Relationship Specialty Start Date End Date Elizabeth Mistry APRN [facility] [place] [address] PCP - General General Internal Medicine 08/19/1605/23 documented as of this encounter
--- OUTSIDE RECORDS SUMMARY | 2024-03-30 12:55 | XMS_ITS | Encounter Summary ---
[place] [address] Care Team Providers Care Outside Laborer Name Role Phone Elizabeth Mistry APRN Primary Care Provider + Reason for Visit * Reason Comments Depression Anxiety Encounter Details Date Type Department Care Team (Late st Contact Info) Description 08/15/2019 8:00 AM EDT TH Visit (TeleHealth) Internal Medicine at [address] [address] Elizabeth Mistry APRN [facility] [place] [address] Current moderate episode of major depressive disorder [...] Progress Notes * Elizabeth Mistry APRN - 08/15/2019 8:00 AM EDT PCP: Elizabeth Mistry APRN Chief Complaint Patient presents with ??? Depression ??? Anxiety TELEPHONE VISIT: Given the current COVID-19 pandemic, this visit was done as a telephone visit. Verbal consent was obtained from the patient. He was still downloading the dylan and so instead of a telehealth visit we did a telephone visit. Total Time- 23 minutes SUBJECTIVE: Marco A Park is a 34 y.o. male who presents for anxiety. He reports that he had full panic attack and it took a couple of hours for him to calm down. He feels very anxious and isolated. He feels that his usual coping skills are taken away, such as hiking and traveling. He is struggling to stay focused at home. He feels that when he starts to do work he feels overwhelmed, and then starts to think about being alone, and what is going on in the world. He reports that he is feeling very depressed. He feels concerned because it is only the beginning of the lock down. He does have a history of suicidal ideations and was in [facility], but he has not had anythoughts of harming himself. He is scared of the isolation. Review of Systems Psychiatric/Behavioral: Positive for decreased concentration, dysphoric mood and sleep disturbance.Negative for suicidal ideas. The patient is nervous/anxious. Allergies Allergen Reactions [...] PLAN: Marco A was seen today for depression and anxiety. Diagnoses and all orders for this visit: Current moderate episode of major depressive disorder without prior episode - FLUoxetine (PROzac) 10 mg Tablet; Take 2 tablets by mouth daily. - will have him f/u with me next week for telehealth visit - increase prozac to 20 mg and had a long discussion with him about ways to try to stay focused, focusing on getting through one day at a time and trying to make plans for things to do in a month or so when the [id number]-fh-[id number] order related to the coronavirus is lifted. He is really struggling with the idea of being alone for 14 days or more. documented in this encounter Plan of Treatment Upcoming Encounters Date Type Department Care Team (Late st Contact Info) Description 04/01/2025 3:40 PM EST Office Visit Cardiology at [address] [address] Star Flores MD [facility] [address] documented as of this encounter Goals Goal Patient Goal Type Associated Problems Recent Progress Patient-Stated? Author DH Home Medication Compliance and Understanding Patient Facing Action Plan No Salvatore Potts, [facility] Note: Reduce LDL, measured by lipid panel, revisit every 6 months documented as of this encounter Visit Diagnoses Diagnosis Current moderate episode of major depressive disorder without prior episode documented in this encounter Care Teams Outside Laborer Relationship Specialty Start Date End Date Elizabeth Mistry APRN [facility] [place] [address] PCP - General General Internal Medicine 08/19/1605/23 documented as of this encounter
--- OUTSIDE RECORDS SUMMARY | 2024-03-30 12:55 | XMS_ITS | Encounter Summary ---
Author Organization [facility] Address [facility] [place] [address] Care Team Providers Care Group Rooms Coordinator Name Role Phone Elizabeth Mistry APRN Primary Care Provider + Reason for Visit * Reason Comments Medication Management Patient Education Encounter Details Date Type Department Care Team (Late st Contact Info) Description 10/01/2019 Specialty Pharmacy Pharmacy at [facility] [place] [id number] Salvatore Potts RPH Social History Tobacco Use [...] Progress Notes * Salvatore Potts RPH - 10/01/2019 11:32 AM EDT Specialty Pharmacy Consultation; Salvatore Potts RPH [...] of praluent including the proper storage, handling, administration and disposal. We reviewed the labeled warnings, side effects and discussed general monitoring parameters. I discussed the importance of adherence, and how to proceed with missed doses. I reviewed the summary of our specialty services, operating hours, television program director procedure and when/how to contact the pharmacy. We reconciled Marco A's medication list, allergies and discussed goals of treatment. Marco A says his diet has been so-so, likely not at goal, but attributes this to social milieu. He had one painful injection when he was camping but feels it was due to temperature fluctuation. No further questions or concerns. He is due on 10/04 and we need to work on the prior authorization before mailing. Clinic follow-up needed: no Allergies and Drug intolerance: Allergies Allergen Reactions ??? Lipitor [Atorvastatin] Other (See Comments) Elevated CK Special Dietary or Hydration Requirements: no There is no height or weight on file to calculate BMI. Medication Reconciliation Discrepancies (compared to [facility] med list) yes - marked lorazepam as not taking Medication Adherence Patient reported X missed doses [...] Medication Sig Dispense Refill ??? FLUoxetine (PROzac) 20 mg Tablet Take 2 tablets by mouth daily. 60 tablet 3 ??? clonazePAM (KlonoPIN) 0.5 mg Tablet Take 1 tablet by mouth 2 times daily as needed for Anxiety.30 tablet 0 ??? nicotine (NICODERM CQ) 14 mg/24 hr [...] Vitals: Ht Readings from Last 1 Encounters: 09/13/19 175.3 cm (5' 9) Wt Readings from Last 3 Encounters: 09/13/19 72.6 kg (160 lb) 06/08/19 77.2 kg (170 lb 3.2 oz) 02/15/19 76 kg (167 lb 9.6 oz) Temp Readings from Last 3 Encounters: 02/15/19 36.6 ??C (97.8 ??F) (Oral) 08/28/18 36.6 ??C (97.9 ??F) (Oral) 02/21/18 36.7 ??C (98.1 ??F) BP Readings from Last 3 Encounters: 06/08/19 127/73 02/15/19 135/90 12/01/18 115/71 Pulse Readings from Last 3 Encounters: 06/08/19 82 02/15/19 97 12/01/18 95 Pertinent Lab values: Lab Results Component Value Date NA 142 08/24/2018 K 4.7 08/24/2018 CL 97 (L) 08/24/2018 CO2 25 08/24/2018 BUN 18 08/24/2018 CREATININE 1.14 08/24/2018 GLUCOSE 98 08/24/2018 GLUCFASTING 95 06/08/2019 CALCIUM 10.1 08/24/2018 Lab Results Component Value [...] [place] Follow-up Method of Contact: by telephone Cognitive [...] pharmacy contact information discussed, health goals discussed, preventative care discussed, timing of medications discussed Drug Medication Management Summary Topics discussed: [...] pharmacy contact information discussed, health goals discussed, preventative care discussed, timing of medications discussed Time spent: 16-30 min Treatment Outcomes [...] Assessment: Does the patient have a primary janitor caretaker? no Does the patient have an emergency contact on file: Yes Does patient need referral to clinical social work therapist: No Does patient need referral to advocacy [...] Amount: $3 Day Supply: 28 Date Needed: 10/04 Copay assistance required: no Therapy Assessment: Current Medication Dosing/Route/Frequency: Praluent 75mg inject the contents of 1 pen (75mg) subcutaneously every 14 days Appropriate Therapy: Yes Effective: yes - LDL reduction- was once at goal, but drifted back up Baseline LDL-C Level: 222 Most Recent LDL-C Level: 123 Patient-Reported Side Effects: no Patient Goals: Patient's specific desired goal: LDL < 100 Measured by: lipid panel Time-frame to meet goal: 2 months to ongoing Is the patient on track to achieve goals of therapy? no If no, what are the barriers and action plan to reach the goal: continue treatment, dietary Care Plan and Interventions: Care Plan Reviewed and Approved by both Pharmacist and Patient: Yes Did Care Plan Change? No If yes: Interventions (if applicable): No none Patient experienced [...] services: Yes -Patient received welcome packet: yes - Mailed with first fill, acknowledged today Date Received: 10/01/2019 Delivery Method: mail +verbal acknowledge -Patient returned signed Rights & Responsibilities: yes - Mailed with first fill Date Received: 10/01/2019 Delivery Method: mail + verbal acknowledge -Patient is aware a licensed pharmacist is [...] at the appointment and that [facility] isproviding recommendations (summary located at top of note) for provider review and follow up. Salvatore Potts RPH 10/01/19 11:39 AM documented in this encounter Plan of Treatment Upcoming Encounters Date Type Department Care Team (Late st Contact Info) Description 04/01/2025 3:40 PM EST Office Visit Cardiology at [address] [phone] Star Flores MD [facility] [address] documented as of this encounter Goals Goal Patient Goal Type Associated Problems Recent Progress Patient-Stated? Author DH Home Medication Compliance and Understanding Patient Facing Action Plan No Salvatore Potts RPH Note: Reduce LDL, measured by lipid panel, revisit every 6 months documented as of this encounter Visit Diagnoses Not on filedocumented in this encounter Care Teams Group Rooms Coordinator Relationship Specialty Start Date End Date Elizabeth Mistry APRN [facility] [place] [address] PCP - General General Internal Medicine 08/19/1605/23 documented as of this encounter
--- OUTSIDE RECORDS SUMMARY | 2024-03-30 12:55 | XMS_ITS | Encounter Summary ---
Author Organization [facility] Address [facility] [place] [address] Care Team Providers Care Petrography Teacher Name Role Phone Elizabeth Mistry APRN Primary Care Provider + Reason for Visit * Reason Comments Medication Management Encounter Details Date Type Department Care Team (Late st Contact Info) Description 12/29/2018 Specialty [place] [address] Eric Smith, [facility] Social History Tobacco Use Types Packs/Day Years [...] as of this encounter Progress Notes * Eric Smith [facility] - 12/29/2018 11:28 AM EDT Clinical Management Plan: Refill Specialty Pharmacy Consultation; Eric Smith [facility] Comprehensive Medication Management (CMM) Marco A Palomino Xavier Mr. Marco A Park is a 33 y.o. (1985) male who was contacted in regard to a specialty medication refill reminder. Spoke with patient regarding praluent. A review of the medication therapy was performed. The medication was refilled approval of prior authorization as scheduled, and all medication related questions and concerns were addressed. The specialty pharmacy staff will follow up with the patient 5-7 days prior to next refill. Was a change made to the Care Plan: no Assessment and Recommendations: Title Type of Medication Management: chronic disease management, targeted medication review Referred By: provider Recipient: beneficiary Provider: plan sponsor pharmacist Method of Contact: by telephone Cognitive Ability: good Allergies and Drug intolerance: Allergies Allergen Reactions ??? Lipitor [Atorvastatin] Other (See Comments) Elevated CK Medication Reconciliation Discrepancies (compared to [facility] med list) -none New medications: no New medical conditions: no New allergies: no Adherence: Medication Adherence Patient reported X missed doses in the last month: 0 Any gaps in refill history greater than 2 weeks in the last 3 months: no Demonstrates understanding of importance of adherence: yes Informant: patient Reliability of informant: reliable Provider-estimated medication adherence level: good Adherence tools used: directed education Support network for adherence: family member Confirmed plan for next specialty medication refill: delivery by pharmacy Are you experiencing any side effects from your medications? no Pt understands no changes to current drug regimen were made at the appointment and that [facility] is providing recommendations (summary located at top of note) for provider review and follow up. Eric Smith RPH 12/29/18 11:32 AM documented in this encounter Plan of Treatment Upcoming Encounters Date Type Department Care Team (Late st Contact Info) Description 04/01/2025 3:40 PM EST Office Visit Cardiology at [address] [address] Star Flores MD [facility] [place] [address] documented as of this encounter Goals Goal Patient Goal Type Associated Problems Recent Progress Patient-Stated? Author DH Home Medication Compliance and Understanding Patient Facing Action Plan No Salvatore Potts [facility] Note: Reduce LDL, measured by lipid panel, revisit every 6 months documented as of this encounter Visit Diagnoses Not on filedocumented in this encounter Care Teams Petrography Teacher Relationship Specialty Start Date End Date Elizabeth Mistry APRN [facility] [place] [address] PCP - General General Internal Medicine 08/19/1605/23 documented as of this encounter
--- OUTSIDE RECORDS SUMMARY | 2024-03-30 12:56 | XMS_ITS | Encounter Summary ---
Author Organization [facility] [place] [address] Care Team Providers Care Pooling Operator Name Role Phone Elizabeth Mistry APRN Primary Care Provider + Reason for Visit * Reason Comments Other hamstring strain Encounter Details Date Type Department Care Team (Late st Contact Info) Description 03/17/2017 8:00 AM EDT Office Visit Internal Medicine at [address] [address] Elizabeth Mistry APRN [facility] [place] [address] Hyperlipidemia, unspecified hyperlipidemia type (Primary Dx); Need for prophylactic vaccination and inoculation against influenza; Right hamstring injury, subsequent encounter Social History Tobacco Use Types Packs/Day Years Used Date Smoking Tobacco: Every Day Cigarettes 0.5 6 Started: 07/30/2010; Last attempted to quit: 07/30/2016 Smokeless Tobacco: Never Comments:trying to quit, not smoking much Alcohol Use Standard Drinks/Week Comments Yes 0 (1 standard drink = 0.6 oz pure alcohol) socially (1x in few months) occasional beer with dinner Sex and Gender Information Value Date Recorded Sex Assigned at Not on file Gender Identity Not on file Sexual Orientation Not on file documented as of this encounter Last Filed Vital Signs Vital Sign Reading Time Taken Comments Blood Pressure 113/73 03/17/2017 7:50 AM EDT Pulse 69 03/17/2017 7:50 AM EDT Temperature - - Respiratory Rate - - Oxygen Saturation 100% 03/17/2017 7:50 AM EDT Inhaled Oxygen Concentration - - Weight 74.4 kg (164 lb) 03/17/2017 7:50 AM EDT Height 175.8 cm (5' 9.2) 03/17/2017 7:50 AM EDT Body Mass Index 24.08 03/17/2017 7:50 AM EDT documented in this encounter Progress Notes * Elizabeth Mistry APRN - 03/17/2017 8:00 AM EDT PCP: Elizabeth Mistry APRN Chief Complaint Patient presents with ??? Other hamstring strain SUBJECTIVE: Marco A Park is a 31 y.o. male who presents for hamstring strain. Right hamstring is doing better. He has been pretty active and that has helped some. Social History- living in apartment in [place]. He is back at his old job. Mood is good. He did not like how Wellbutrin made him feel. Tobacco use- still smoking. Wellbutrin did not help. Trying to quit. He has patches. He is smoking about 3-4 per day. Review of Systems Constitutional: Negative for chills and fever. Respiratory: Negative for cough and shortness of breath. Cardiovascular: Negative for chest pain and palpitations. Musculoskeletal: Negative for myalgias. Psychiatric/Behavioral: Negative for dysphoric mood. The patient is not nervous/anxious. No Known Allergies Current Outpatient Prescriptions Medication Sig Dispense Refill ??? buPROPion (WELLBUTRIN SR OR ZYBAN) 150 mg Tablet Sustained Release 12 hr Once daily for 3 days then twice/day. Indications: Smoking Cessation 90 tablet 1 ??? atorvastatin (LIPITOR) 10 mg Tablet Take 1 tablet by mouth daily. 90 tablet 3 No current facility-administered medications for this visit. Patient Active Problem List Diagnosis Code ??? Unspecified symptoms and signs involving cognitive functions and awareness R41.9 ??? Depression F32.9 ??? 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 History of head injury Z87.828 OBJECTIVE: Vitals: 03/17/17 0750 BP: 113/73 Pulse: 69 SpO2: 100% Weight: 74.4 kg (164 lb) Height: 175.8 cm (5' 9.2) PHYSICAL EXAM: Physical Exam Constitutional: He is oriented to person, place, and time. He appears well- developed and well-nourished. HENT: Head: Normocephalic and atraumatic. Eyes: Conjunctivae are normal. No scleral icterus. Pulmonary/Chest: Effort normal. Neurological: He is alert and oriented to person, place, and time. Skin: Skin is warm and dry. Psychiatric: He has a normal mood and affect. His behavior is normal. Judgment and thought content normal. Vitals reviewed. ASSESSMENT & PLAN: Marco A was seen today for other. Diagnoses and all orders for this visit: Hyperlipidemia, unspecified hyperlipidemia type - CMP w/fasting Glucose; Future - Lipid Panel; Future Need for prophylactic vaccination and inoculation against influenza - Flu vaccine greater than or equal to 3yo preservative free Right hamstring injury, subsequent encounter - doing better, continue with exercise and stretching. documented in this encounter Plan of Treatment Upcoming Encounters Date Type Department Care Team (Late st Contact Info) Description 04/01/2025 3:40 PM EST Office Visit Cardiology at [address] [place] [address] Star Flores MD [facility] [place] [address] documented as of this encounter Procedures Procedure Name Priority Date/Time Associated Diagnosis Comments CMP W/FASTING GLUCOSE Routine 03/17/2017 8:26 AM EDT Hyperlipidemia, unspecified hyperlipidemia type LIPID PANEL (REFLEX DIRECT LDL) Routine 03/17/2017 8:26 AM EDT Hyperlipidemia, unspecified hyperlipidemia type documented in this encounter Results * (ABNORMAL) Lipid Panel (03/17/2017 8:26 AM EDT) Cholesterol, Total 231 <=239 mg/dL [facility] Triglyceride 215(H) <=199 mg/dL [facility] HDL Cholesterol 38(L) >=40 mg/dL [facility] LDL Cholesterol 150 <=190 mg/dL [facility] Cholesterol/HDL Ratio 6.1 ratio [facility] Lipid Interpretation See Note [facility] Comment: Lipid management should be guided by a patient? s ASCVD risk, goals and preferences. ACC/AHA Guidelines recommend high intensity statin if clinical ASCVD or LDL greater than or equal to 190 mg/dL. http://MediaRoost.com/DHA-JJQ-Hdwvshcfu Adults aged 40-75 with LDL 70-189 mg/dL should have their 10 year ASCVD risk estimated with the ACC/AHA ASCVD risk drapery and upholstery estimator http://tools.acc.org/IFXIB-Njbu-Ajzwbudnu/ Statin should be discussed if risk greater [...] of ASCVD risk reduction. Blood specimen (specimen) 03/17/2017 8:26 AM EDT 03/17/2017 12:25 PM EDT Narrative Resulting Agency Comment Spec In Lab Elizabeth Mistry APRN CHEMISTRY ORDERA KANDY [facility] [place] [address] * (ABNORMAL) CMP w/fasting Glucose (03/17/2017 8:26 AM EDT) Glucose Fasting 115(H) 65 - 99 mg/dL [facility] Comment: ?Fasting* Glucose Interpretive Criteria [...] of Diabetes Mellitus, Position Statement from the [place] [employer]. ??Diabetes Care, Volume 33, Supplement 1, May 2009 Blood Urea Nitrogen 14 10 - 20 mg/dL [facility] Creatinine 1.20 0.80 - 1.50 mg/dL [facility] Sodium 139 135 - 145 mmol/L [facility] Potassium 4.7 3.5 - 5.0 mmol/L [facility] Comment: Please note: ??Patients with WBC >100,000 may have falsely elevated Potassium levels. ??For accurate Potassium quantification in these patients send serum separator tube (gold top) for subsequent determinations. ??Contact the Clinical Chemistry Laboratory if there are any questions. Chloride 100 98 - 107 mmol/L [facility] Carbon Dioxide 28 22 - 31 mmol/L [facility] Anion Gap 11 5 - 15 mmol/L [facility] Calcium 9.3 8.5 - 10.5 mg/dL [facility] Protein, Total 7.2 6.1 - 8.0 gm/dL [facility] Albumin 4.3 3.2 - 5.2 gm/dL [facility] Aspartate Aminotransferase 22 0 - 39 unit/L [facility] Alanine Aminotransferase 30 0 - 55 unit/L [facility] Alkaline Phosphatase 61 40 - 120 unit/L [facility] Bilirubin, Total 0.4 0.2 - 1.3 mg/dL [facility] Est Glomerular Filtration Rate >60 >=60 [facility] Comment: The reported eGFR should be multiplied by 1.2 for patients. The MDRD is not an appropriate measure of renal function for patients with body mass extremes or in patients with acute kidney failure. http://MediaRoost.Cátedras Libres/DHnkdep http://MediaRoost.[employer]ras [employer]res/DHMCnkf Blood specimen (specimen) 03/17/2017 8:26 AM EDT 03/17/2017 12:25 PM EDT Narrative Resulting Agency Comment Spec In Lab Elizabeth Mistry APRN CHEMISTRY ORDERA KANDY [facility] [place] [address] documented in this encounter Visit Diagnoses Diagnosis Hyperlipidemia, unspecified hyperlipidemia type- Primary Need for prophylactic vaccination and inoculation against influenza Right hamstring injury, subsequent encounter documented in this encounter Care Teams Pooling Operator Relationship Specialty Start Date End Date Elizabeth Mistry, [facility] [place] [place] [address] PCP - General General Internal Medicine 08/19/1605/23 documented as of this encounter
--- OUTSIDE RECORDS SUMMARY | 2024-03-30 12:56 | XMS_ITS | Encounter Summary ---
Author Organization Formerly [facility] Address [facility] [place] [address] Care Team Providers Care Generation Technologist Name Role Phone Elizabeth Mistry APRN Primary Care Provider + Encounter Details Date Type Department Care Team (Latest Contact Info) Description 02/21/2018 9:06 AM EDT - 02/21/2018 12:06 PM EDT Hospital En[place] [address] Lester Ramos MD [facility] [place] [address] Discharge Disposition: Home Social History Tobacco Use Types Packs/Day Years [...] Sign Reading Time Taken Comments Blood Pressure 106/67 02/21/2018 11:17 AM EDT Pulse 64 02/21/2018 10:45 AM EDT Temperature 36.7 ??C (98.1 ??F) 02/21/2018 9:37 AM ED T Respiratory Rate 16 02/21/2018 10:55 AM EDT Oxygen Saturation 98% 02/21/2018 11:17 AM EDT Inhaled Oxygen Concentration - - Weight 70.3 kg (155 lb) 02/21/2018 9:37 AM EDT Height 175.3 cm (5' 9) 02/21/2018 9:37 AM EDT Body Mass Index 22.89 02/21/2018 9:37 AM EDT documented in this encounter Discharge Instructions * Discharge Instructions* Otto Dotson RN - 02/21/2018 10:56 AM EDT UPPER GI ENDOSCOPY WHAT TO EXPECT AFTER THE PROCEDURE After the test you may feel a little more gassy or bloated than usual, this is normal. ACTIVITY Because of the sedation that you received Your judgement and reaction time are affected ?? Go home and rest quietly for the remainder of the day. You may resume your normal activities tomorrow. ?? Change from one position to the next slowly. You may lose your balance unexpectedly Be careful on stairs, as you may be unsteady on your feet. FOR THE NEXT 24 HRS ?? DO NOT DRIVE OR OPERATE ANY MACHINERY ?? DO NOT DRINK ALCOHOLIC BEVERAGES ?? DO NOT SIGN LEGAL DOCUMENTS ?? If you are a smoker: DO NOT SMOKE WHILE YOU ARE ALONE Diet ?? Start by eating small portions of foods that ordinarily will not upset your stomach. Be gentle with what you choose to start with. ?? Drink plenty of fluids ( unless otherwise told not to) Medications You may have a mild sore throat. Ice chips, popsicles, over the counter throat lozenges or spray may help numb your throat. This procedure should not cause a fever. IV SITE-- slight redness or tenderness is normal, you can use warm compresses if you get concerned.If the tenderness +/or redness increases or foul drainage and a red streak occurs, please contact your PCP immediately. WHEN SHOULD YOU CALL FOR HELP? Call 911 anytime you think that you need emergency care. For example, call if: You passed out (lost consciousness). You cough up blood. You vomit blood or what looks like coffee grounds. You pass maroon or very bloody stools. Call your healthcare provider or seek immediate medical attention if: You have trouble swallowing. You have belly pain. Your stools are black or tarlike or have streaks of blood. You are sick to your stomach or cannot keep fluids down. Watch closely for changes in your health, and be sure to contact your doctor IF Your throat still hurts after a day or two You do not get better as expected. Tuesday-Tuesday Same Day Endo [phone] 7a-8p Otherwise contact [phone] and ask to speak to the public welfare director concrete bucket loader Follow-up care is a trotter part of your treatment and safety. Be sure to make and go to all appointments, and call your doctor if you are having problems. Instructions have been reviewed and patient expresses understanding documented in this encounter Medications at Time of Discharge Medication Sig Dispensed Refills Start Date End Date esomeprazole (NEXIUM) 40 mg Capsule, Delayed Release(E.C.) Take 1 capsule by mouth daily. 30 capsule 12 02/14/2018 07/21/2018 documented as of this encounter H&P Notes * Lester Ramos MD - 02/21/2018 9:27 AM EDT Gastroenterology and Hepatology Pre-Procedure History and Physical Exam Procedure: EGD: Indication: GERD Patient Active Problem List Diagnosis Code ??? Unspecified symptoms and signs involving cognitive functions and awareness R41.9 ??? Depression F32.9 ??? 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 History of head injury Z87.828 EXAM: HEENT: Airway examined, oropharynx clear Mallampati Score: II (soft palate, uvula, fauces visible) LUNGS: Clear to auscultation HEART: Regular rate and rhythm, normal S1, S2 ABDOMEN: Normal bowel sounds, soft, non tender, non distended, A/P Proceed with the planned endoscopic procedure. ASA 1 - Normal health patient Sedation Plan: moderate (conscious sedation) Risks and benefits of the procedure explained to the patient. Consent signed. documented in this encounter Procedure Notes * Rocio Albarran RN - 02/21/2018 12:06 PM EDT Addendum to discharge - pt waited for MD to see pt. Though stated he was ready for discharge - pt denied complaints - discharge teaching done with pt and family member - denied complaints - MACI Rodriguez documented in this encounter Plan of Treatment Upcoming Encounters Date Type Department Care Team (Late st Contact Info) Description 04/01/2025 3:40 PM EST Office Visit Cardiology at [address] [place] [address] Star Flores MD [facility] [place] [address] documented as of this encounter Procedures Procedure Name Priority Date/Time Associated Diagnosis Comments SURGICAL PATHOLOGY REPORT Routine 02/21/2018 10:48 AM EDT SPECIMEN TO PATHOLOGY Routine 02/21/2018 10:48 AM EDT SPECIMEN TO PATHOLOGY Routine 02/21/2018 10:48 AM EDT SPECIMEN TO PATHOLOGY Routine 02/21/2018 10:48 AM EDT EGD WITH BIOPSY (WRVU 2.39) 02/21/2018 10:21 AM EDT reflux UPPER GI ENDOSCOPY Routine 02/21/2018 10 :01 AM EDT documented in this encounter Results * Surgical Pathology Report (02/21/2018 10:48 AM EDT) Final Diagnosis [id number] ? Location: ; [facility]; A The signing pathologist has (i) examined the relevant preparation(s) for the specimen(s) and (ii) rendered or confirmed the diagnosis(es). . ?Surgical Pathology DIAGNOSIS A - Duodenum, ??biopsy: - ??Duodenal mucosa, negative for diagnostic abnormality ??. B - Stomach, ??biopsy: - Antrum-type mucosa with mild reactive gastropathy. - Body/fundic-type mucosa, negative for diagnostic abnormality. - ??No microorganisms consistent with Helicobacter species are identified on the H ?? & E stain. C - Esophagus, ??biopsy: - Squamous mucosa negative for diagnostic abnormality. Electronically signed by: ??Oli Butler MD Verified: ??02/23/2018 ?Pathologist Performed at: ??-[facility] [place] [facility] [place], [place], [place] CLINICAL INFORMATION Specimen Submitted: A - Duodenal bx 's. r/o celiac, h-pylori B - Gastric bx C - Esoph bx 's R/O EoE Clinical History and Diagnosis: 32-year-old with history of N/V, GERD; R/O celiac, H. pylori SPECIMEN PROCESSING A - Labeled/Fixative: Duodenal BX, formalin. Quantity/Size: Multiple, ranging from 0.2-0.4 cm. TissueDescription : Soft, parra tissues. Sections/Processi ng: Submitted en toto ??in 2 cassettes labeled A1-A2. B - Labeled/Fixative: Gastric BX, formalin. Quantity/Size: Six, ranging from 0.2-0.4 cm. TissueDescription : Soft, parra tissues. Sections/Processi ng: Submitted en toto ??in 2 cassettes labeled B1-B2. C - Labeled/Fixative: Esophagus BX R/O EoE, formalin. Quantity/Size: Four, ranging from 0.2-0.5 cm. TissueDescription : Soft, white tissues. Sections/Processi ng: Submitted en toto ??in 1 cassette labeled C1. ??jason 02/23/2018 3:59 PM EDT [facility] GI Biopsy 02/21/2018 10:4 8 AM EDT 02/21/2018 10:48 AM EDT GI Biopsy 02/21/2018 10:4 8 AM EDT 02/21/2018 10:48 AM EDT GI Biopsy 02/21/2018 10:4 8 AM EDT 02/21/2018 10:48 AM EDT Lester Ramos MD PATHOLOGY/CYTOLOGY O RDERABLES [facility] [place] [address] * Specimen to Pathology (02/21/2018 10:48 AM EDT) AP Specimen 02/21/2018 10:4 8 AM EDT 02/21/2018 2:12 PM EDT Narrative [facility] - 02/21/2018 2:13 PM EDT Specimen requisition ordered. ??Separate Pathology report to follow Resulting Agency Comment Spec In Lab Lester Ramos MD PATHOLOGY/[place] [address] * Specimen to Pathology (02/21/2018 10:48 AM EDT) AP Specimen 02/21/2018 10:4 8 AM EDT 02/21/2018 2:12 PM EDT Narrative [facility] - 02/21/2018 2:13 PM EDT Specimen requisition ordered. ??Separate Pathology report to follow Resulting Agency Comment Spec In Lab Lester Ramos MD PATHOLOGY/CYTOLOGY O [place] Performing Organization Address City/[facility]/[place] [address] * Specimen to Pathology (02/21/2018 10:48 AM EDT) AP Specimen 02/21/2018 10:4 8 AM EDT 02/21/2018 2:12 PM EDT Narrative [facility] - 02/21/2018 2:13 PM EDT Specimen requisition ordered. ??Separate Pathology report to follow Resulting Agency Comment Spec In Lab Lester Ramos MD PATHOLOGY/CYTOLOGY O [place] Performing Organization Address City/[facility]/[place] [address] * UPPER GI ENDOSCOPY (02/21/2018 10:01 AM EDT) UPPER GI ENDOSCOPY [facility] Endoscopy Procedure Date: 02/21/2018 10:01 AM ? Patient Name: Marco A Park ? Date of : 1985 ? Age: 32 ? Order #: [id number] ? Instrument Name: [id number] ? Procedure: ? Upper GI endoscopy Indications: ? Epigastric abdominal pain, Dyspepsia, ? Heartburn Providers: ? Lester Ramos MD, Julius Cyr ? Michele, RN, Karyn Castro, Bottle And Glass Inspector Referring : ?Elizabeth Mistry Medicines: ? Midazolam 5.5 mg IV, Fentanyl 225 ? micrograms IV Complications: ? No immediate complications. Procedure: ? The procedure, indications, benefits, ? risks and alternatives were explained ? to the patient. Specifically ? discussed were potential ? complications including, but not ? limited to, bleeding, perforation, ? infection, missing a cancer, and ? adverse medication reactions. The ? Endoscope was introduced through the ? mouth, and advanced to the third part ? of duodenum. The patient tolerated ? the procedure well. The upper GI ? endoscopy was accomplished without ? difficulty. The patient tolerated the ? procedure well. ? Findings: ? The examined esophagus was normal. ? The Z-line was regular and was found 40 cm from the ? incisors. ? The examined esophagus was normal. Biopsies were ? taken with a cold forceps for histology. ? Localized mildly erythematous mucosa without bleeding ? was found in the gastric antrum. Biopsies were taken ? with a cold forceps for Helicobacter pylori testing. ? The examined duodenum was normal. Biopsies were taken ? with a cold forceps for histology. ? Moderate Sedation: ? I was present during the intraservice time as ? documented by the sedation RN. Impression: ?- Normal esophagus. ? - Z-line regular, 40 cm from the ? incisors. ? - Normal esophagus. Biopsied. ? - Erythematous mucosa in the antrum. ? Biopsied. ? - Normal examined duodenum. Biopsied. Recommendation: ?- Await pathology results. ? Attending Participation: ? I personally performed the entire procedure. ? __ Lester Ramos MD 02/21/2018 10:53:19 AM This report has been signed electronically. Number of Addenda: 0 Note Initiated On: 02/21/2018 10:01 AM PROVATION 02/21/2018 10:0 1 AM EDT Elizabeth Mistry APRN GENERAL SURGICAL ORDERABLES [employer]ATION documented in this encounter Visit Diagnoses Not on filedocumented in this encounter Administered Medications Inactive Administered Medications - up to 3 most recent administrations Medication Order MAR Action Action Date Dose Rate Site lactated Ringers infusion 100 mL/hr, Intravenous, CONTINUOUS, Starting on Tu02/21/18 at 1000, Until Tu02/21/18 at 1127, Endoscopy (Day of Procedure) New Bag 02/21/2018 9:52 AM EDT 100 mL/hr 100 mL/hr documented in this encounter Active and Recently Administered Medications Times are shown in EDT. Continuous Medication Order 02/19/2018 02/20/2018 02/21/2018 lactated Ringers infusion (CANCELED) 100 mL/hr, Intravenous, CONTINUOUS, Starting on 02/21/18 at 1000, Until 02/21/18 at 1127, Endoscopy (Day of Procedure) 0952 (New Bag - Prov ider: Molly Bennett RN) PRN Medication Order 02/19/2018 02/20/2018 02/21/2018 fentaNYL 50 mcg/mL multi-dose injection (CANCELED) ONCE PRN, Starting on Tue02/21/18 at 1028, Until Tue02/21/18 at 1210, Intra-Operative (Intra-Procedure), Routine 1028 (Given - Provid er: Julius Bautista RN)1032 (Given - Provider: Julius Bautista RN)1036 (Given - Provider: Julius Bautista RN)1041 (Given - Provider: Julius Bautista RN)1043 (Given - Provider: Julius Bautista RN) midazolam (PF) (VERSED) 1 mg/mL multi-dose injection (CANCELED) ONCE PRN, Starting on Tue02/21/18 at 1028, Until Tue02/21/18 at 1210, Intra-Operative (Intra-Procedure), Routine 1028 (Given - Provid er: Julius Bautista RN)1029 (Given - Provider: Julius Bautista RN)1032 (Given - Provider: Julius Bautista RN)1036 (Given - Provider: Julius Bautista RN)1041 (Given - Provider: Julius Bautista RN)1043 (Given - Provider: Julius Bautista RN)1046 (Given - Provider: Julius Bautista RN) documented in this encounter Care Teams Generation Technologist Relationship Specialty Start Date End Date Elizabeth Mistry APRN [facility] [place] [address] PCP - General General Internal Medicine 08/19/1605/23 documented as of this encounter
--- OUTSIDE RECORDS SUMMARY | 2024-03-30 12:56 | XMS_ITS | Encounter Summary ---
Author Organization [facility] [place] [address] Care Team Providers Care Finance And Administration Manager Name Role Phone Elizabeth Mistry APRN Primary Care Provider + Encounter Details Date Type Department Care Team (Latest Contact Info) Description 07/21/2018 1:40 PM EST Office Visit Cardiology at [address] [phone] Ya Abraham MD Hypercholesterolemia; Familial hypercholesterolemia Social History Tobacco Use Types [...] Sign Reading Time Taken Comments Blood Pressure 143/89 07/21/2018 1:43 PM EST Pulse 86 07/21/2018 1:43 PM EST Temperature - - Respiratory Rate - - Oxygen Saturation 100% 07/21/2018 1:43 PM EST Inhaled Oxygen Concentration - - Weight 74.4 kg (164 lb) 07/21/2018 1:43 PM EST Height 175.3 cm (5' 9) 07/21/2018 1:43 PM EST Body Mass Index 24.22 07/21/2018 1:43 PM EST documented in this encounter Progress Notes * Ya Abraham MD - 07/21/2018 1:40 PM EST [facility]--Initial Consultation ID/PM Marco A is a 33 y.o. followed by Elizabeth Mistry APRN with the following problems: Patient Active Problem List Diagnosis Code ??? Unspecified symptoms and signs involving cognitive functions and awareness R41.9 ??? Depression F32.9 ??? 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 History of head injury Z87.828 Social history: Marco A is a 33-year-old man who lives alone. He has no children. He works as runs the [employer]. He enjoys snow boarding and skiing, hiking. 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 Present Illness Marco A Park is seen at the request of Elizabeth Mistry APRN for evaluation and management of dyslipidemia, specifically markedly elevated LDL in the setting of statin intolerance and a strong family history of cardiovascular disease in his father and familial hypercholesterolemia in his father,sister, paternal aunt, paternal uncle, and paternal grandmother. Marco A first learned of his hyperlipidemia when he was in his 20s. Marco A was treated with atorvastatin - this caused severe fatigue, had severe proximal muscle pain. Pain resolved when he came off atorvastatin and recurred when he was re-challenged. He presents today to discuss alternative treatment for his hyperlipidemia. It is notable that Marco A's father had statin intolerance and is currently tolerating a PCSK 9 inhibitor. His sister is tolerating a statin. Labs obtained in January 2018: Total cholesterol 284 mg/dL LDL cholesterol 222 mg/dL HDL cholesterol 52 mg/dL Evaluation for secondary causes Labs studies have included normal liver and thyroid studies. His blood sugar was found to be 113 mg/dL in January he believes this was fasting. He takes no drugs associated with secondary dyslipidemia. Dietary habits Breakfast: oat meal - milk maple syrup 2 cups coffee sugar and cream Lunch: chicken fingers and fries / left overs Dinner: Ross's pie, chicken, salmon canned veggies, Frozen pizza Snacks: occ chips, almonds - unsalted, occ apples Alcohol intake: 1 time a week 4-5 drinks Frequency of dining out: once every 2 weeks Quit for 2 months then has smoked for the past 3 days. Began smoking at 23 and smoked on and off for 10 years Exercise habits 5 days - 60 minutes ROS General: feels pretty healthy Cardiac: has chest discomfort that is relieved with Nexium. He is able to exercise up to an hour without chest pain or SOB MSK: tingling in wrist after shoveling snow Medications Current Outpatient Medications Medication Sig Dispense Refill ??? rosuvastatin (CRESTOR) 5 mg Tablet One table twice a week 40 tablet 3 ??? ezetimibe (ZETIA) 10 mg Tablet Take 1 tablet by mouth daily. 90 tablet 3 No current facility-administered medications for this visit. Allergies Lipitor [atorvastatin] Physical Exam General: 33-year-old man with a BMI of 24 VS: BP 143/89 Pulse 86 Ht 175.3 cm (5' 9) Wt 74.4 kg (164 lb) SpO2 100% BMI 24.22 kg/m?? Skin: Warm and dry. No eruptive xanthomas. HEENT: Anicteric sclera. No xanthelasma. Lungs: Clear Heart: S1-S2, no murmurs gallops or rubs, regular rate and rhythm Abd: Soft and nontender. Ext: His Achilles is are thickened bilaterally. Neuro: No focal motor deficits. Psych: Appropriate affect. Assessment Marco A is a 33-year-old man who has familial hypercholesterolemia. Using the [facility] criteria he has a a score of 10 giving him the diagnosis of familial hypercholesterolemia (his father had an VA in his 40s -1 point, he has bilateral Achilles xanthomata -6 points, he has an untreated LDL of 222 mg/dL - 3 points). Marco A could clearly improve his diet and we discussed some very specific recommendations that he can make to improve his intake of fruits and vegetables as well as decreasing his intake of saturated fat. His exercise is excellent and he was encouraged to continue this. He was asked to initiate ezetimibe 10 mg daily and rosuvastatin 5 mg twice a week. If he experie nces muscle discomfort with the low-dose rosuvastatin he will discontinue it and will continue the ezetimibe 10 mg daily. We also discussed that in the future should his LDL remain elevated, he couldbe considered for a PCSK 9 inhibitor given his definite diagnosis of familial hypercholesterolemia.I discussed the genetics of familial hypercholesterolemia with Marco A. We discussed that FH is an autosomal dominant disorder characterized by a markedly diminished number of LDL receptors and hypercholesterolemia. I explained that individuals with familial hypercholesterolemia are at risk for premature cardiovascular disease and that untreated 50% of men with FH will of had an VA by the time the 50. Began smoking at the age of 23 and has smoked on and off for the last 10 years. He quit in then had a very stressful event 3 days ago and purchased a pack of cigarettes. He is determinedto become a non-smoker again. We discussed the importance of not smoking given his familial hypercholesterolemia. Marco A's blood pressure was elevated today. Looking through his chart, his blood pressure has been much lower in the past. I will continue to monitor this. Finally Marco A had a fasting blood sugar of 113 mg/dL noted in January 2018. I will recheck this at his follow-up visit. He will return in 8 weeks for follow-up visit. Action ?? Explained my impression and answered all questions ?? Follow up 8 weeks - 09-29-18 YA ABRAHAM MD 07/21/2018 This visit was 60 minutes in length of which 40 minutes were spent in counseling CC: Elizabeth Mistry APRN documented in this encounter Plan of Treatment Upcoming Encounters Date Type Department Care Team (Late st Contact Info) Description 04/01/2025 3:40 PM EST Office Visit Cardiology at [address] [phone] Star Flores MD [facility] [place] [address] documented as of this encounter Results * Lipid Panel (12/01/2018 9:49 AM EDT) [facility] Signature Cholesterol, Total 110 mg/dL [facility] Comment: Lower Risk: <200 mg/dL Average Risk: 200-239 mg/dL Higher Risk: >wk=282 mg/dL Triglyceride 130 mg/dL [facility] Comment: Average Risk/Lower Risk: <150 mg/dL Borderline High Risk: 150-199 mg/dL High Risk: 200-499 mg/dL Very High Risk: >dv=589 mg/dL HDL Cholesterol 46 mg/dL [facility] Comment: Males: ?? Higher Risk: <40 mg/dL Females: ?? HIgher Risk: <50 mg/dL LDL Cholesterol 38 mg/dL [facility] Comment: Lowest Risk: <100 mg/dL Lower Risk: 100-129 mg/dL Borderline High Risk: 130-159 mg/dL High Risk: 160-189 mg/dL Very High Risk: >xe=791 mg/dL Cholesterol/HDL Ratio 2.4 ratio [facility] Lipid Interpretation See Note [facility] Comment: Lipid management should be guided by a patient? s ASCVD risk, goals and preferences. ACC/AHA Guidelines recommend high intensity statin if clinical ASCVD or LDL greater than or equal to 190 mg/dL. http://Sociercise.com/RFD-ZMQ-Jsmsirhok Adults aged 40-75 with LDL 70-189 mg/dL should have their 10 year ASCVD risk estimated with the ACC/AHA ASCVD risk ad copy writer http://tools.acc.org/SQTNY-Ugii-Btvrgosyc/ Statin should be discussed if risk greater [...] In Lab Ya Abraham MD CHEMISTRY ORDERABLES [facility] [place] [address] * Lipoprotein A (09/01/2018 8:51 AM EDT) Lipoprotein (a) <6 <=30 mg/dL [facility] Comment: Test Performed by: [address] [address] Blood specimen (specimen) 09/01/2018 8:51 AM EDT 09/01/2018 2:38 PM EDT Narrative Resulting Agency Comment Spec In Lab Ya Abraham MD LAB SEND OUT ORDERAB LES Performing Organization Address [facility] de Phone Number [facility] [place] [address] * (ABNORMAL) Glucose, fasting (09/01/2018 8:51 AM EDT) Glucose Fasting 104(H) 65 - 99 mg/dL [facility] [...] of Diabetes Mellitus, Position Statement from the [place] Diabetes Association. ??Diabetes Care, Volume 33, Supplement 1, May 2009 Blood specimen (specimen) 09/01/2018 8:51 AM EDT 09/01/2018 9:07 AM EDT Narrative Resulting Agency Comment Spec In Lab Ya Abraham MD CHEMISTRY ORDERABLES Performing Organization Address [facility] de Phone Number [facility] [place] [address] * Lipid Panel (09/01/2018 8:51 AM EDT) Pathologist [facility] Cholesterol, Total 223 mg/dL [facility] Comment: Lower Risk: <200 mg/dL Average Risk: 200-239 mg/dL Higher Risk: >hy=828 mg/dL Triglyceride 149 mg/dL [facility] Comment: Average Risk/Lower Risk: <150 mg/dL Borderline High Risk: 150-199 mg/dL High Risk: 200-499 mg/dL Very High Risk: >ph=774 mg/dL HDL Cholesterol 46 mg/dL [facility] Comment: Males: ?? Higher Risk: <40 mg/dL Females: ?? HIgher Risk: <50 mg/dL LDL Cholesterol 147 mg/dL [facility] Comment: Lowest Risk: <100 mg/dL Lower Risk: 100-129 mg/dL Borderline High Risk: 130-159 mg/dL High Risk: 160-189 mg/dL Very High Risk: >zk=456 mg/dL Cholesterol/HDL Ratio 4.8 ratio [facility] Lipid Interpretation See Note [facility] Comment: Lipid management should be guided by a patient? s ASCVD risk, goals and preferences. ACC/AHA Guidelines recommend high intensity statin if clinical ASCVD or LDL greater than or equal to 190 mg/dL. http://[employer]/QYS-AXV-Znfqzvxmq Adults aged 40-75 with LDL 70-189 mg/dL should have their 10 year ASCVD risk estimated with the ACC/AHA ASCVD risk ad copy writer http://tools.acc.org/NPGLJ-Dtbk-Ebgylthtd/ Statin should be discussed if risk greater [...] of ASCVD risk reduction. Blood specimen (specimen) 09/01/2018 8:51 AM EDT 09/01/2018 9:07 AM EDT Narrative Resulting Agency Comment Spec In Lab Ya Abraham MD CHEMISTRY ORDERABLES [facility] [place] [address] documented in this encounter Visit Diagnoses Diagnosis Hypercholesterolemia Pure hypercholesterolemia Familial hypercholesterolemia Pure hypercholesterolemia documented in this encounter Care Teams Finance And Administration Manager Relationship Specialty Start Date End Date Elizabeth Mistry APRN [facility] [place] [address] PCP - General General Internal Medicine 08/19/1605/23 documented as of this encounter
--- OUTSIDE RECORDS SUMMARY | 2024-03-30 12:56 | XMS_ITS | Encounter Summary ---
Author Organization [facility] [place] [address] Care Team Providers Care Peoplesoft Consultant Name Role Phone Elizabeth Mistry APRN Primary Care Provider + Reason for Visit * Reason Comments Other followup ED visit Establish Care Encounter Details Date Type Department Care Team (Late st Contact Info) Description 08/23/2016 1:20 PM EDT Office Visit Internal Medicine at [address] [address] Elizabeth Mistry APRN [facility] [place] [address] Health care maintenance (Primary Dx); Need for prophylactic vaccination with combined umgksdhgsq-ldejlaj-pg rtussis (DTP) vaccine; Abdominal pain, unspecified location Social History Tobacco Use Types Packs/Day Years Used Date Smoking Tobacco: Every Day Cigarettes 0.5 6 Started: 07/30/2010; Last attempted to quit: 07/30/2016 Comments:trying to quit, not smoking much Alcohol [...] Sign Reading Time Taken Comments Blood Pressure 136/80 08/23/2016 1:17 PM EDT Pulse 84 08/23/2016 1:17 PM EDT Temperature 36.3 ??C (97.3 ??F) 08/23/2016 1:17 PM ED T Respiratory Rate - - Oxygen Saturation 100% 08/23/2016 1:17 PM EDT Inhaled Oxygen Concentration - - Weight 77 kg (169 lb 12.8 oz) 08/23/2016 1:17 PM EDT Height 176 cm (5' 9.29) 08/23/2016 1:17 PM EDT Body Mass Index 24.86 08/23/2016 1:17 PM EDT documented in this encounter Patient Instructions * Patient Instructions* Elizabeth Mistry APRN - 08/23/2016 1:20 PM EDT Abdominal Pain- - stop the mag citrate and continue the Miralax. Take the Miralax once a day, may increase to two twice as needed to try to have one formed stool per day. If with using the miralax you are still having a lot of loose stool, you can decrease to every other day. - I encourage you to eat a lot of fruits and vegetables and foods high in fiber. documented in this encounter Progress Notes * Elizabeth Mistry APRN - 08/23/2016 1:20 PM EDT PCP: Elizabeth Mistry APRN Chief Complaint Patient presents with ??? Other followup ED visit 08/18 ??? Establish Care SUBJECTIVE: Marco A Park is a 31 y.o. male who presents to establish care and follow up after ER visit for abdominal pain. In ER he was found to be very constipated without evidence of complete blockage. He reports that the pain is definitely better, but he has not had any large formed bowel movement. He reports that he has had a lot of liquid stools. - he reports that he has had the abdominal pain for months and was initially seen at [facility]. He reports that he has had - no burping episodes since he has been taking the laxatives he has not had the burping problems. - he never found benefit from the pepcid. He had tried pepto bismol as well and that never gave anyrelief either. 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 He is currently looking for new job and he is living with his parents for right now. - he reports that sometimes he has to wake in the night to go to the bathroom. - he has more desire to eat now and is eating a little bit more. PMH- History of Depression- he has tried many medications in the past. He was diagnosed as bipolar, but does not think that is accurate. He was on lithium and Remeron. He has not been on anything for years. He reports that he has been doing ok without medication, but does report that it has been hard inthe last couple of months. He reports that he has seen therapist in the past, but could not afford it about a year ago when his insurance changed and he could not afford it. - He has history of concussions in his 20s. - smoking- he has been smoking since about ag 23. He smokes about half ppd - occasional marijuana Review of Systems Constitutional: Negative for chills and fever. Respiratory: Negative for cough and shortness of breath. Cardiovascular: Negative for chest pain and palpitations. Gastrointestinal: Positive for diarrhea (from stool softners and laxatives. ). Negative for blood in stool, nausea and vomiting. Genitourinary: Negative for genital sores, hematuria, penile pain, penile swelling, testicular pain(had some prior to last appointment. None since ER visit and that the abdomen is uncomfortable. ) and urgency. Neurological: Negative for dizziness and light-headedness. - couple beers per week. Screening: Lipids- family history of father with hyperlipidemia and stroke, will order fasting labs to be doneat next visit Tdap- due today Pneumococcal- is working on quitting would like to hold off at this time HIV- gives blood No Known Allergies Current Outpatient Prescriptions Medication Sig Dispense Refill ??? magnesium citrate Solution Take 150 mLs by mouth every 12 hours. 295 mL 0 ??? polyethylene glycol (MIRALAX) 17 gram Powder in Packet Take 17 g by mouth 2 times daily for 7 days. 14 each 0 ??? omeprazole (PRILOSEC) 20 mg Capsule, Delayed Release(E.C.) Take 1 capsule by mouth daily. 30 capsule 11 No current facility-administered medications for this visit. Patient Active Problem List Diagnosis Code ??? Unspecified symptoms and signs involving cognitive functions and awareness R41.9 ??? Depression F32.9 ??? 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 History of head injury Z87.828 OBJECTIVE: Vitals: 08/23/16 1317 BP: 136/80 BP Location (NBP): Right arm Patient Position: Sitting BP Cuff Sizes: Adult (25-34 cm) Pulse: 84 Temp: 36.3 ??C (97.3 ??F) TempSrc: Oral SpO2: 100% Weight: 77 kg (169 lb 12.8 oz) Height: 176 cm (5' 9.29) PHYSICAL EXAM: Physical Exam Constitutional: He is oriented to person, place, and time. He appears well- developed and well-nourished. HENT: Head: Normocephalic and atraumatic. Right Ear: Tympanic membrane, external ear and ear canal normal. Left Ear: External ear and ear canal normal. Mouth/Throat: Oropharynx is clear and moist. No oropharyngeal exudate. Eyes: Conjunctivae are normal. Pupils are equal, round, and reactive to light. Right eye exhibits no discharge. Left eye exhibits no discharge. Neck: No thyromegaly present. Cardiovascular: Normal rate, regular rhythm and normal heart sounds. No murmur heard. Pulmonary/Chest: Effort normal and breath sounds normal. No respiratory distress. He has no wheezes. He has no rales. He exhibits no tenderness. Abdominal: Soft. He exhibits no distension and no mass. Bowel sounds are increased. There is tenderness (mild, generalized). There is no rebound and no guarding. Neurological: He is alert and oriented to person, place, and time. Skin: Skin is warm and dry. No rash noted. Psychiatric: He has a normal mood and affect. His behavior is normal. Judgment and thought content normal. ASSESSMENT & PLAN: Marco A was seen today for other and establish care. Diagnoses and all orders for this visit: Health care maintenance - healthy 31 year old male. He reports some depressed mood without thoughts of harming himself. - due for Tdap and fasting labs, will do Tdap today and have him f/u for fasting labs and next appt. - tobacco user- he will start using patches again. He has some at home and will try to use those, if they are , then can get him refill or he can contact the [place] Quit [place]. Need for prophylactic vaccination with combined xxkaogpnsg-xcuqmwr-psgzxoykd (DTP) vaccine - Tdap vaccine greater than or equal to 7yo IM Abdominal pain, unspecified location - burping and pain have improved. Will have him wean off of laxatives and titrate to having BM about daily. His diet has changed a lot since moving in with parents and he is eating more. Discussed increasing fiber in diet and increasing activity. documented in this encounter Plan of Treatment Upcoming Encounters Date Type Department Care Team (Late st Contact Info) Description 04/01/2025 3:40 PM EST Office Visit Cardiology at [address] [place] [address] Star Flores MD [facility] [place] [address] documented as of this encounter Visit Diagnoses Diagnosis Health care maintenance- Primary Unspecified general medical examination Need for prophylactic vaccination with combined ksbsjhsxxa-yakkgny-vkghupudn (DTP) vaccine Abdominal pain, unspecified location documented in this encounter Care Teams Peoplesoft Consultant Relationship Specialty Start Date End Date Elizabeth Mistry APRN [facility] [place] [place] [address] PCP - General General Internal Medicine 08/19/1605/23 documented as of this encounter
--- OUTSIDE RECORDS SUMMARY | 2024-03-30 12:56 | XMS_ITS | Encounter Summary ---
[place] [address] Care Team Providers Care Steel Rod Buster Name Role Phone Elizabeth Mistry APRN Primary Care Provider + Reason for Referral * Consultation (Routine) - Closed Specialty Diagnoses / Procedures Referred By Samuel t Referred To Contact Gastroenterology Diagnoses Gastroesophageal reflux disease, esophagitis presence not specified Elizabeth Mistry APRN [facility] [place] [address] [facility] [address] [place] [address] Referral ID Status Reason Start Date Expiration Date V isits Requested Visits Authorized [id number] Closed Test Only 02/14/2018 02/14/2019 1 1 Reason for Visit * Reason Comments Annual Exam Fatique/ stomach iss ues/ joint pain/ crappy/sob/ sinus pressure would like to know side affects of Lisinopril Encounter Details Date Type Department Care Team (Latest Contact Info) Description 02/14/2018 8:20 AM EDT Office Visit Internal Medicine at [address] [address] Elizabeth Mistry APRN [facility] [place] [address] Hyperlipidemia, unspecified hyperlipidemia type; Gastroesophageal reflux disease, esophagitis presence not specified; Familial hypercholesterolemia Social History Tobacco Use Types Packs/Day Years Used Date Smoking Tobacco: Former Cigarettes 0.5 6 0 12/16/2011 - 12/15/2017 Smokeless Tobacco: Never Comments:doing e-cigs Alcohol Use Standard Drinks/Week Comments Yes 0 (1 standard drink = 0.6 oz pur e alcohol) 5-8 beers per week Sex and Gender Information Value Date Recorded Sex Assigned at Not on file Gender Identity Not on file Sexual Orientation Not on file documented as of this encounter Last Filed Vital Signs Vital Sign Reading Time Taken Comments Blood Pressure 138/84 02/14/2018 8:14 AM EDT Pulse 88 02/14/2018 8:14 AM EDT Temperature 36.7 ??C (98.1 ??F) 02/14/2018 8:14 AM ED T Respiratory Rate - - Oxygen Saturation 100% 02/14/2018 8:14 AM EDT Inhaled Oxygen Concentration - - Weight 71.2 kg (157 lb) 02/14/2018 8:14 AM EDT Height 175 cm (5' 8.9) 02/14/2018 8:14 AM EDT Body Mass Index 23.25 02/14/2018 8:14 AM EDT documented in this encounter Progress Notes * Elizabeth Mistry APRN - 02/14/2018 8:20 AM EDT PCP: Elizabeth Mistry APRN SUBJECTIVE: 32 y.o. male presents for annual exam. He reports that he has not been feeling well in the last month. Hyperlipidemia- on lipitor since December 2016, will recheck labs today and liver function tests. He reports that he has had muscle fatigue and weakness as well. GERD- on omeprazole. He did not find it to be helpful. He has had a lot of heart burn and nausea. He is still able to eat ok. He reports that his weight has stabilized. He reports that he feels the worst when he is driving. He has a lot of burping at that time. Depression- he reports that it is doing ok. He reports that he has been physically feeling worse and overall thinks that mood is doing ok considering symptoms. Stool changes- he had colonoscopy with removal of one benign polyp. He will follow up for colonoscopy in 3 years. Patient Active Problem List Diagnosis Code ??? Unspecified symptoms and signs involving cognitive functions and awareness R41.9 ??? Depression F32.9 ??? 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 History of head injury Z87.828 Lipid Panel Lab Results Component Value Date CHLPL 284 02/14/2018 HDL 52 02/14/2018 CHOLHDL 5.5 02/14/2018 TRIG 215 (H) 03/17/2017 LDLCHOL 150 03/17/2017 LDLDIRECT 222 02/14/2018 COLONOSCOPY- discuss at age 48 TDAP-is up to date FLU- recommended SHINGLES- due at age 48 No Known Allergies Current Outpatient Prescriptions Medication Sig Dispense Refill ??? esomeprazole (NEXIUM) 40 mg Capsule, Delayed Release(E.C.) Take 1 capsule by mouth daily. 30 capsule 12 No current facility-administered medications for this visit. History Smoking Status ??? Former Smoker ??? Packs/day: 0.50 ??? Years: 6.00 ??? Types: Cigarettes ??? Quit date: 12/15/2017 Smokeless Tobacco ??? Never Used Comment: doing e-cigs myD-H Primary Care 02/14/2018 PROMIS 10-Health in general Fair PROMIS 10-Quality of life Fair PROMIS 10-Physical health Fair PROMIS 10-Mental health Very Good PROMIS 10-Satisfaction with social activities Fair PROMIS 10-Ability to carry out social activities Good PROMIS 10-Ability to carry out physical activities Mostly PROMIS 10-Bothered by emotional problems Rarely PROMIS 10-Rate of fatigue Very Severe PROMIS 10-Rate of pain 5 PROMIS 10- Physical Health Score 34.9 PROMIS 10- Mental Health Score 43.5 REVIEW OF SYSTEMS 02/14/2018 Constitutional Weakness, Fatigue, lack of energy Ear / nose / throat / mouth Difficulty swallowing, Other symptoms with ears, nose, throat, mouth Eyes None of the above Respiratory Thick mucous or spit (Sputum or Phlegm), Shortness of breath Gastrointestinal Trouble swallowing, Heartburn, indigestion, Abdominal pain, Other stomach, intestine, or bowel symptoms Skin, hair None of the above Musculoskeletal None of the above Neurological Muscular weakness Hematologic / Lymphatic Sore or swollen lymph nodes, glands No flowsheet data found. No flowsheet data found. PHQ-9 QUESTIONNAIRE (AMB) 02/14/2018 PHQ - 9 Score (Clinic) - PHQ - 9 Score (Patient) 8 (Mild Depression) Little interest or pleasure (Clinic) - Little interest or pleasure (Patient) More than half the days Down, depressed, hopeless (Clinic) - Down, depressed, hopeless (Patient) Not at all Trouble sleeping (Clinic) - Trouble sleeping (Patient) More than half the days Tired or no energy (Clinic) - Tired or no energy (Patient) Nearly every day Poor appetite or overeating (Clinic) - Poor appetite or overeating (Patient) Several days Feeling like a failure (Clinic) - Feeling like a failure (Patient) Not at all Trouble concentrating (Clinic) - Trouble concentrating (Patient) Not at all Moving or speaking slowly (Clinic) - Moving or speaking slowly (Patient) Not at all Would be better off (Clinic) - Would be better off (Patient) Not at all How difficult are the problems (Clinic) - Physical Exam: Vitals: 02/14/18 0814 BP: 138/84 Pulse: 88 Temp: 36.7 ??C (98.1 ??F) TempSrc: Oral SpO2: 100% Weight: 71.2 kg (157 lb) Height: 175 cm (5' 8.9) Physical Exam Constitutional: He is oriented to [...] no distension and no mass. There is tenderness. There is no rebound and no guarding. Neurological: He is alert and oriented to person, place, and time. He has normal reflexes. Skin: Skin is warm and dry. No rash noted. Psychiatric: He has a normal mood and affect. His behavior is normal. Judgment and thought content normal. Body mass index is 23.25 kg/(m^2). Assessment/Plan: Marco A was seen today for annual exam. Diagnoses and all orders for this visit: Hyperlipidemia, unspecified hyperlipidemia type - CK; Future - HDL/Cholesterol Profile; Future - LDL Cholesterol, Direct; Future - Comprehensive metabolic panel (non-fasting); Future - CK - HDL/Cholesterol Profile - LDL Cholesterol, Direct - Cancel: Comprehensive metabolic panel (non-fasting) - will check labs today, plan to have him hold lipitor for one month and the check symptoms if theyimprovw, then will do trial of crestor 5 mg daily Gastroesophageal reflux disease, esophagitis presence not specified - Referral to Gastroenterology Familial hypercholesterolemia - CMP w/fasting Glucose Other orders - esomeprazole (NEXIUM) 40 mg Capsule, Delayed Release(E.C.); Take 1 capsule by mouth daily. - FluLaval Quadrivalent vaccine, Preservative Free 3YRS+ Health Maintenance Due Topic Date Due ??? Pneumo Increased Risk (1 of - PPSV23) 2002 documented in this encounter Plan of Treatment Upcoming Encounters Date Type Department Care Team (Late st Contact Info) Description 04/01/2025 3:40 PM EST Office Visit Cardiology at [address] [phone] Star Flores MD [facility] [place] [address] Scheduled Referrals Name Type Priority Associated Diagnoses Order Schedule Referral to Gastroenterology Outpatient Referral Routine Gastroesophageal reflux disease, esophagitis presence not specified Ordered: 02/14/2018 documented as of this encounter Procedures Procedure Name Priority Date/Time Associated Diagnosis Comments CMP W/FASTING GLUCOSE Routine 02/14/2018 9:14 AM EDT Familial hypercholesterolemia LDL CHOLESTEROL, DIRECT Routine 02/14/2018 9:14 AM EDT Hyperlipidemia, unspecified hyperlipidemia type HDL/CHOL PROFILE Routine 02/14/2018 9:14 AM EDT Hyperlipidemia, unspecified hyperlipidemia type CK Routine 02/14/2018 9:14 AM EDT Hyperlipidemia, unspecified hyperlipidemia type documented in this encounter Results * (ABNORMAL) CMP w/fasting Glucose (02/14/2018 9:14 AM EDT) Glucose Fasting 113(H) 65 - 99 mg/dL [facility] Comment: ?Fasting* Glucose Interpretive Criteria [...] of Diabetes Mellitus, Position Statement from the [place] [employer]. ??Diabetes Care, Volume 33, Supplement 1, May 2009 Blood Urea Nitrogen 14 10 - 20 mg/dL [facility] Creatinine 1.19 0.80 - 1.50 mg/dL [facility] Sodium 141 135 - 145 mmol/L [facility] Potassium 4.4 3.5 - 5.0 mmol/L [facility] Comment: Please note: ??Patients with WBC >100,000 may have falsely elevated Potassium levels. ??For accurate Potassium quantification in these patients send serum separator tube (gold top) for subsequent determinations. ??Contact the Clinical Chemistry Laboratory if there are any questions. Chloride 100 98 - 107 mmol/L [facility] Carbon Dioxide 27 22 - 31 mmol/L [facility] Anion Gap 14 5 - 15 mmol/L [facility] Calcium 9.6 8.5 - 10.5 mg/dL [facility] Protein, Total 7.9 6.1 - 8.0 gm/dL [facility] Albumin 4.9 3.2 - 5.2 gm/dL [facility] Aspartate Aminotransferase 32 0 - 39 unit/L [facility] Alanine Aminotransferase 41 0 - 55 unit/L [facility] Alkaline Phosphatase 55 40 - 120 unit/L [facility] Bilirubin, Total 0.5 0.2 - 1.3 mg/dL [facility] Est Glomerular Filtration Rate 79 >=60 mL/min/1. 73 m?? [facility] Comment: The eGFR was calculated using the CKD-EPI equation. As with all creatinine based estimates of kidney function, eGFR values calculated with the CKD-EPI equation are not accurate in patients with acute kidney failure, extremes of body mass or the acutely ill. http://Mobile365 (fka Inph[employer]Match)/[facility] CITYnkf eGFR 92 >=60 mL/min/1. 73 m?? [facility] Comment: The eGFR was calculated using the CKD-EPI equation. As with all creatinine based estimates of kidney function, eGFR values calculated with the CKD-EPI equation are not accurate in patients with acute kidney failure, extremes of body mass or the acutely ill. http://Mobile365 (fka InphoMatch)/[facility]nkf Blood specimen (specimen) 02/14/2018 9:14 AM EDT 02/14/2018 12:06 PM EDT Narrative Resulting Agency Comment Spec In Lab Elizabeth Browne LEAD FORMER CHEMISTRY ORDERA BLES [facility] [place] [place] [address] * LDL Cholesterol, Direct (02/14/2018 9:14 AM EDT) LDL Cholesterol, Direct 222 mg/dL [facility] Comment: Lowest Risk: <100 mg/dL Lower Risk: 100-129 mg/dL Borderline High Risk: 130-159 mg/dL High Risk: 160-189 mg/dL Very High Risk: >np=692 mg/dL Blood specimen (specimen) 02/14/2018 9:14 AM EDT 02/14/2018 12:06 PM EDT Narrative Resulting Agency Comment Spec In Lab Elizabeth Mistry LEAD FORMER CHEMISTRY ORDERA BLES Performing Organization Address City/[facility]/ZIP Co de Phone Number [facility] [place] [address] * HDL/Cholesterol Profile (02/14/2018 9:14 AM EDT) Cholesterol, Total 284 mg/dL [facility] Comment: Lower Risk: <200 mg/dL Average Risk: 200-239 mg/dL Higher Risk: >pb=933 mg/dL HDL Cholesterol 52 mg/dL [facility] Comment: Males: ?? Higher Risk: <40 mg/dL Females: ?? HIgher Risk: <50 mg/dL Cholesterol/HDL Ratio 5.5 ratio [facility] Chol/HDL Interpretation See Note [facility] Comment: Lipid management should be guided by a patient? s ASCVD risk, goals and preferences. ACC/AHA Guidelines recommend high intensity statin if clinical ASCVD or LDL greater than or equal to 190 mg/dL. http://Exacter.com/CPT-RJE-Iscwbdykx Measure LDL if Total Cholesterol minus HDL Cholesterol is greater than 220 mg/dL. Adults aged 40-75 with LDL 70-189 mg/dL should have their 10 year ASCVD risk estimated with the ACC/AHA ASCVD risk oak tanner http://tools.acc.org/RTJFK-Uiev-Igxtlxglf/ Statin should be discussed if risk greater than or equal to 7.5% in non-diabetics. With diabetes, moderate intensity statin is recommended if risk less than 7.5%, high intensity if risk greater than or equal to 7.5%. Annual lipid monitoring on statins is not necessary. Lifestyle modification is a critical component of ASCVD risk reduction. Blood specimen (specimen) 02/14/2018 9:14 AM EDT 02/14/2018 12:06 PM EDT Narrative Resulting Agency Comment Spec In Lab Elizabeth Mistry APRN CHEMISTRY ORDERA BLES Performing Organization Address City/[facility]/ZIP Co de Phone Number [facility] [place] [address] * (ABNORMAL) CK (02/14/2018 9:14 AM EDT) Creatine Kinase 247(H) 0 - 200 unit/L [facility] Blood specimen (specimen) 02/14/2018 9:14 AM EDT 02/14/2018 12:06 PM EDT Narrative Resulting Agency Comment Spec In Lab Elizabeth Mistry APRN CHEMISTRY ORDERA BLES [facility] [place] [address] documented in this encounter Visit Diagnoses Diagnosis Hyperlipidemia, unspecified hyperlipidemia type Gastroesophageal reflux disease, esophagitis presence not specified Familial hypercholesterolemia Pure hypercholesterolemia documented in this encounter Care Teams Steel Rod Buster Relationship Specialty Start Date End Date Elizabeth Mistry APRN [facility] [place] [address] PCP - General General Internal Medicine 08/19/1605/23 documented as of this encounter
--- OUTSIDE RECORDS SUMMARY | 2024-03-30 12:56 | XMS_ITS | Encounter Summary ---
Author Organization [facility] [place] [address] Care Team Providers Care Va Underwriter Name Role Phone Elizabeth Mistry APRN Primary Care Provider + Reason for Visit * Reason Comments Follow-up Encounter Details Date Type Department Care Team (Late st Contact Info) Description 08/28/2018 3:00 PM EDT Office Visit Internal Medicine at [address] [address] Elizabeth Mistry APRN [facility] [place] [address] Adjustment disorder with anxious mood; Hyperlipidemia, unspecified hyperlipidemia type Social History Tobacco Use Types Packs/Day [...] Sign Reading Time Taken Comments Blood Pressure 122/69 08/28/2018 3:04 PM EDT Pulse 73 08/28/2018 3:04 PM EDT Temperature 36.6 ??C (97.9 ??F) 08/28/2018 3:04 PM ED T Respiratory Rate 16 08/28/2018 3:04 PM EDT Oxygen Saturation 100% 08/28/2018 3:04 PM EDT Inhaled Oxygen Concentration - - Weight 73.1 kg (161 lb 3.2 oz) 08/28/2018 3:04 P M EDT Height - - Body Mass Index 23.81 08/24/2018 11:10 AM EDT documented in this encounter Progress Notes * Elizabeth Mistry APRN - 08/28/2018 3:00 PM EDT PCP: Elizabeth Mistry APRN Chief Complaint Patient presents with ??? Follow-up SUBJECTIVE: Marco A Park is a 33 y.o. male who presents for adjustment disorder with anxiety and depression and for family meeting with his parents. This was a major source of anxiety for him at our last visit. Review of Systems Constitutional: Negative for chills and fever. Psychiatric/Behavioral: Positive for dysphoric mood and sleep disturbance (improved). Negative for suicidal ideas. The patient is nervous/anxious. Allergies Allergen Reactions ??? Lipitor [Atorvastatin] Other (See Comments) Elevated CK Current Outpatient Medications Medication Sig Dispense Refill ??? LORazepam (ATIVAN) 0.5 mg Tablet Take 1 tablet by mouth 2 times daily as needed for Anxiety. 30tablet 0 ??? FLUoxetine (PROZAC) 10 mg Tablet Take 1 tablet by mouth daily. 30 tablet 3 ??? ezetimibe (ZETIA) 10 mg Tablet Take 1 tablet by mouth daily. 90 tablet 3 No current facility-administered medications for this visit. Patient Active Problem List Diagnosis Code ??? Unspecified symptoms and signs involving cognitive functions and awareness R41.9 ??? Depression F32.9 ??? 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 History of head injury Z87.828 OBJECTIVE: Vitals: 08/28/18 1504 BP: 122/69 BP Location (NBP): Left arm Patient Position: Sitting BP Cuff Sizes: Adult (25-34 cm) Pulse: 73 Resp: 16 Temp: 36.6 ??C (97.9 ??F) TempSrc: Oral SpO2: 100% Weight: 73.1 kg (161 lb 3.2 oz) PHYSICAL EXAM: Physical Exam Constitutional: He is oriented to person, place, and time. He appears well- developed and well-nourished. HENT: Head: Normocephalic and atraumatic. Eyes: Conjunctivae are normal. No scleral icterus. Neurological: He is alert and oriented to person, place, and time. Skin: Skin is warm and dry. Psychiatric: He has a normal mood and affect. His behavior is normal. Judgment and thought content normal. Vitals reviewed. ASSESSMENT & PLAN: Marco A was seen today for follow-up . Diagnoses and all orders for this visit: Adjustment disorder with anxious mood - family meeting with his parents today. Discussed his goals and apprehensions today. Patient does seem better. He is more future oriented and has plans for the next few months. 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 He was able to go to the conference at the end of last week. - will have him continue on current medications with lorazepam prn for sleep. Hyperlipidemia, unspecified hyperlipidemia type - patient told to stop his statin as his CK is elevated. He stopped it a few days ago and is already feeling better. He will follow up with his medical logistics specialist about treating his hyperlipidemia. Greater than 25 minutes of this 30 minute was spent counseling/coordination of care, review of treatment, plan of care and follow up of the above diagnoses. documented in this encounter Plan of Treatment Upcoming Encounters Date Type Department Care Team (Late st Contact Info) Description 04/01/2025 3:40 PM EST Office Visit Cardiology at [address] [phone] Star Flores MD [facility] [address] documented as of this encounter Visit Diagnoses Diagnosis Adjustment disorder with anxious mood Adjustment disorder with anxiety Hyperlipidemia, unspecified hyperlipidemia type documented in this encounter Care Teams Va Underwriter Relationship Specialty Start Date End Date Elizabeth Mistry APRN [facility] [address] PCP - General General Internal Medicine 08/19/1605/23 documented as of this encounter
--- OUTSIDE RECORDS SUMMARY | 2024-03-30 12:56 | XMS_ITS | Encounter Summary ---
Author Organization [facility] [place] [address] Care Team Providers Care Horticultural Services Supervisor Name Role Phone Elizabeth Mistry APRN Primary Care Provider + Reason for Visit * Reason Comments Abdominal Pain 2 week followup, say s he is still having stomach issues Encounter Details Date Type Department Care Team (Late st Contact Info) Description 09/01/2016 1:20 PM EDT Office Visit Internal Medicine at [address] [address] Elizabeth Mistry APRN [facility] [place] [address] Abdominal pain, unspecified location (Primary Dx); Change in stool habits; Screening cholesterol level; Weight gain Social History Tobacco Use Types Packs/Day Years [...] Sign Reading Time Taken Comments Blood Pressure 117/71 09/01/2016 1:08 PM EDT Pulse 80 09/01/2016 1:08 PM EDT Temperature 36.6 ??C (97.8 ??F) 09/01/2016 1:08 PM ED T Respiratory Rate - - Oxygen Saturation 100% 09/01/2016 1:08 PM EDT Inhaled Oxygen Concentration - - Weight 79.6 kg (175 lb 6.4 oz) 09/01/2016 1:08 P M EDT Height 176 cm (5' 9.29) 09/01/2016 1:08 PM EDT reported Body Mass Index 25.68 09/01/2016 1:08 PM EDT documented in this encounter Progress Notes * Elizabeth Mistry APRN - 09/01/2016 1:20 PM EDT PCP: Elizabeth Mistry APRN Chief Complaint Patient presents with ??? Abdominal Pain 2 week followup, says he is still having stomach issues SUBJECTIVE: Marco A Park is a 31 y.o. male who presents for follow up for his abdominal pain. He has been using his Miralax and still continues to have abdominal pain and discomfort. He has not been taking the mag citrate. He has had some episodes of burping, but continues to have generalized - he is having stools a couple of times per day. He reports that they are somewhat formed. He is going at least daily and the diarrhea has stopped. He is taking the Miralax daily. Sleep - having a hard time sleeping; he will lay in bed for a couple of hours before falling asleep. He goes to bed at about midnight and stays up until around 2:30 am. He has been sleeping in until 11:30 am. He will wake up 2-3 times per night. Sometimes he can go right back to sleep. - He has noticed some weight gain in the last 2-3 weeks. He is not sure that he is eating anymore than usually. He has been trying to be more active. He has found that his pants are tighter on him. He has been trying to eat healthier foods and more fiber. - no new sexual partners. He did try going without diary for week and there was not a change. No recent travel or drinking untreated water. Review of Systems Constitutional: Positive for diaphoresis (in bed he was hot and sweating. ). Negative for chills, fatigue and fever. Psychiatric/Behavioral: Positive for sleep disturbance. No Known Allergies Current Outpatient Prescriptions Medication Sig Dispense Refill ??? UNABLE TO FIND Miralax ??? omeprazole (PRILOSEC) 20 mg Capsule, Delayed Release(E.C.) Take 1 capsule by mouth daily. 30 capsule 11 No current facility-administered medications for this visit. Patient Active Problem List Diagnosis Code ??? Unspecified symptoms and signs involving cognitive functions and awareness R41.9 ??? Depression F32.9 ??? 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 History of head injury Z87.828 OBJECTIVE: Vitals: 09/01/16 1308 BP: 117/71 BP Location (NBP): Left arm Patient Position: Sitting BP Cuff Sizes: Large Adult (32-43 cm) Pulse: 80 Temp: 36.6 ??C (97.8 ??F) TempSrc: Oral SpO2: 100% Weight: 79.6 kg (175 lb 6.4 oz) Height: 176 cm (5' 9.29) PHYSICAL EXAM: Physical Exam Constitutional: He is oriented to person, place, and time. He appears well- developed and well-nourished. HENT: Head: Normocephalic and atraumatic. Eyes: Conjunctivae are normal. No scleral icterus. Abdominal: Soft. Normal appearance and bowel sounds are normal. There is tenderness in the epigastric area and left upper quadrant. There is guarding (when palpating epigastric area). Neurological: He is alert and oriented to person, place, and time. Skin: Skin is warm and dry. Psychiatric: His behavior is normal. Judgment and thought content normal. His mood appears anxious. Vitals reviewed. ASSESSMENT & PLAN: Marco A was seen today for abdominal pain. Diagnoses and all orders for this visit: Abdominal pain, unspecified location - Fecal Lactoferrin; Future - Fecal Fat Qualitative; Future - Stool Culture Screen; Future - Giardia antigen; Future - Helicobacter pylori Antigen Stool; Future - Tissue transglutaminase, IgA; Future - IgA; Future - CMP w/fasting Glucose; Future - Lipase; Future - Tissue transglutaminase, IgA - IgA - CMP w/fasting Glucose - Lipase - will do labs and stool studies for further evaluation - also evaluate TSH given weight gain - given handout on FODMAP diet and reviewed it with him. He will try doing the diet and f/u in 2 weeks as previously scheduled. Change in stool habits - Fecal Lactoferrin; Future - Fecal Fat Qualitative; Future - Stool Culture Screen; Future - Giardia antigen; Future - Helicobacter pylori Antigen Stool; Future Screening cholesterol level - Lipid Panel; Future - Lipid Panel Weight gain - TSH; Future - TSH documented in this encounter Plan of Treatment Upcoming Encounters Date Type Department Care Team (Late st Contact Info) Description 04/01/2025 3:40 PM EST Office Visit Cardiology at [address] [place] [address] Star Flores MD [facility] [place] [address] documented as of this encounter Procedures Procedure Name Priority Date/Time Associated Diagnosis Comments CMP W/FASTING GLUCOSE Routine 09/01/2016 2:57 PM EDT Abdominal pain, unspecified location TISSUE TRANSGLUTAMINASE, IGA Routine 09/01/2016 2:57 PM EDT Abdominal pain, unspecified location TSH Routine 09/01/2016 2:57 PM EDT Weight gain LIPASE Routine 09/01/2016 2:57 PM EDT Abdominal pain, unspecified location IGA Routine 09/01/2016 2:57 PM EDT Abdominal pain, unspecified location LIPID PANEL (REFLEX DIRECT LDL) Routine 09/01/2016 2:57 PM EDT Screening cholesterol level documented in this encounter Results * Helicobacter pylori Antigen Stool (09/09/2016 10:15 AM EDT) H pylori Ag Negative Negative [facility] Comment:Test performed by adriana oliveira. H pylori Ag Comment See Comment [facility] Comment: Antimicrobials, proton pump inhibitors and bismuth preparations are known to suppress H pylori, and ingestion of these prior to H. pylori testing may cause false negative results. Stool specimen (specimen) 09/09/2016 10:15 AM EDT 09/09/2016 1:11 PM EDT Narrative Resulting Agency Comment Spec In Lab Rosaura Garza MD MICROBIOLOGY - GENER AL ORDERABLES Performing Organization Address [facility] de Phone Number [facility] [place] [address] * Giardia antigen (09/09/2016 10:15 AM EDT) Giardia Antigen Negative Negative [facility] Comment:Examination for othe r intestinal parasites requires foreign travel history. Stool specimen (specimen) 09/09/2016 10:15 AM EDT 09/09/2016 1:03 PM EDT Narrative Resulting Agency Comment Spec In Lab Rosaura Garza MD MICROBIOLOGY - GENER AL ORDERABLES Performing Organization Address [facility] de Phone Number [facility] [place] [address] * Fecal Fat Qualitative (09/09/2016 10:15 AM EDT) Fecal Fat Qualitative <100 globules <100 globules /HPF [facility] Comment: With this procedure, the presence of <100 globules per HPF is considered normal. Stool specimen (specimen) 09/09/2016 10:15 AM EDT 09/09/2016 12:50 PM EDT Narrative Resulting Agency Comment Spec In Lab Rosaura Garza MD BODY FLUIDS AND STOO LS ORDERABLES Performing Organization Address [facility] de Phone Number [facility] [place] [address] * Fecal Lactoferrin (09/09/2016 10:15 AM EDT) Fecal Lactoferrin Negative Negative [facility] Stool specimen (specimen) 09/09/2016 10:15 AM EDT 09/09/2016 1:11 PM EDT Narrative Resulting Agency Comment Spec In Lab Rosaura Garza MD MICROBIOLOGY - GENER AL ORDERABLES Performing Organization Address [facility] Co de Phone Number [facility] [place] [address] * TSH (09/01/2016 2:57 PM EDT) Thyroid Stimulating Hormone 1.68 0.27 - 4.20 mcIU/mL [facility] Blood specimen (specimen) 09/01/2016 2:57 PM EDT 09/01/2016 6:34 PM EDT Narrative Resulting Agency Comment Spec In Lab Rosaura Garza MD CHEMISTRY ORDERABLES Performing Organization Address [facility] Co de Phone Number [facility] [place] [address] * Lipase (09/01/2016 2:57 PM EDT) Lipase 26 0 - 60 unit/L [facility] Blood specimen (specimen) 09/01/2016 2:57 PM EDT 09/01/2016 6:34 PM EDT Narrative Resulting Agency Comment Spec In Lab Rosaura Garza MD CHEMISTRY ORDERABLES Performing Organization Address [facility] de Phone Number [facility] [place] [address] * (ABNORMAL) CMP w/fasting Glucose (09/01/2016 2:57 PM EDT) Glucose Fasting 89 65 - 99 mg/dL [facility] Comment: ?Fasting* Glucose Interpretive [...] Supplement 1, May 2009 Blood Urea Nitrogen 12 10 - 20 mg/dL [facility] Creatinine 0.99 0.80 - 1.50 mg/dL [facility] Comment: Please note that the pediatric reference intervals supplied above were not validated at [facility]. Results from pediatric patients should be interpreted in conjunction to the patient's age, height and muscle mass. Sodium 142 135 - 145 mmol/L [facility] Potassium 4.1 3.5 - 5.0 mmol/L [facility] Comment: Please note: ??Patients with WBC >100,000 may have falsely elevated Potassium levels. ??For accurate Potassium quantification in these patients send serum separator tube (gold top) for subsequent determinations. ??Contact the Clinical Chemistry Laboratory if there are any questions. Chloride 102 98 - 107 mmol/L [facility] Carbon Dioxide 26 22 - 31 mmol/L [facility] Anion Gap 14 5 - 15 mmol/L [facility] Calcium 9.3 8.5 - 10.5 mg/dL [facility] Protein, Total 7.5 6.1 - 8.0 gm/dL [facility] Albumin 4.5 3.2 - 5.2 gm/dL [facility] Aspartate Aminotransferase 24 0 - 39 unit/L [facility] Alanine Aminotransferase 69(H) 0 - 55 unit/L [facility] Alkaline Phosphatase 50 40 - 120 unit/L [facility] Bilirubin, Total 0.3 0.2 - 1.3 mg/dL [facility] Bilirubin, Direct 0.1 0.0 - 0.3 mg/dL [facility] Est Glomerular Filtration Rate >60 >=60 [facility] Comment: This estimated GFR (eGFR) value was calculated using the MDRD equation which has been validated on patients between the ages of 18 and 70. The MDRD should not be used to assess kidney function in patients < 18 years of age or in patients with extremes of body mass, or in patients with acute kidney failure. This value should be multiplied by 1.2 for patients. For further information please copy and paste the following links into your internet browser. [email or web address] Blood specimen (specimen) 09/01/2016 2:57 PM EDT 09/01/2016 6:34 PM EDT Narrative Resulting Agency Comment Spec In Lab Rosaura Garza MD CHEMISTRY ORDERABLES [facility] [place] [address] * (ABNORMAL) Lipid Panel (09/01/2016 2:57 PM EDT) Cholesterol, Total 306(H) <=239 mg/dL [facility] Triglyceride 154 <=199 mg/dL [facility] HDL Cholesterol 39(L) >=40 mg/dL [facility] LDL Cholesterol 236(H) <=190 mg/dL [facility] Cholesterol/HDL Ratio 7.8 ratio [facility] Lipid Interpretation See Note [facility] Comment: Lipid management should be guided by a patient? s ASCVD risk, goals and preferences. ACC/AHA Guidelines recommend high intensity statin if clinical ASCVD or LDL greater than or equal to 190 mg/dL. http://circ.ahajournals.org/content/early/.cir.2404180546.17757.7a Adults aged 40-75 with LDL 70-189 mg/dL should have their 10 year ASCVD risk estimated with the ACC/AHA ASCVD risk substance abuse counselor http://tools.acc.org/JSVYI-Qhgf-Ggcmwuhch/ Statin should be discussed if risk greater [...] of ASCVD risk reduction. Blood specimen (specimen) 09/01/2016 2:57 PM EDT 09/01/2016 6:34 PM EDT Narrative Resulting Agency Comment Spec In Lab Rosaura Garza MD CHEMISTRY ORDERABLES Performing Organization Address [facility] Co de Phone Number [facility] [place] [address] * IgA (09/01/2016 2:57 PM EDT) IgA 110 70 - 400 mg/dL [facility] Blood specimen (specimen) 09/01/2016 2:57 PM EDT 09/01/2016 6:33 PM EDT Narrative Resulting Agency Comment Spec In Lab Rosaura Garza MD CHEMISTRY ORDERABLES Performing Organization Address [facility] de Phone Number [facility] [place] [address] * Tissue transglutaminase, IgA (09/01/2016 2:57 PM EDT) TTG IgA Ab 0.1 0.1 - 10.0 u/ml [facility] Comment: Negative = <7 U/mL Equivocal = 7-10 U/mL Positive = >10 U/mL Blood specimen (specimen) 09/01/2016 2:57 PM EDT 09/02/2016 7:51 AM EDT Narrative Resulting Agency Comment Spec In Lab Rosaura Garza MD IMMUNOLOGY ORDERABLE S Performing Organization Address [facility] Co de Phone Number [facility] [place] [address] documented in this encounter Visit Diagnoses Diagnosis Abdominal pain, unspecified location- Primary Change in stool habits Other symptoms involving digestive system Screening cholesterol level Screening for lipoid disorders Weight gain Abnormal weight gain documented in this encounter Care Teams Horticultural Services Supervisor Relationship Specialty Start Date End Date Elizabeth Mistry, [facility] [place] [address] [place] [address] PCP - General General Internal Medicine 08/19/1605/23 documented as of this encounter
--- OUTSIDE RECORDS SUMMARY | 2024-03-30 12:56 | XMS_ITS | Encounter Summary ---
Author Organization [facility] Address [facility] [place] [address] Care Team Providers Care Incinerator Plant General Supervisor Name Role Phone Elizabeth Mistry APRN Primary Care Provider + Encounter Details Date Type Department Care Team (Latest Contact Info) Description 12/20/2016 8:30 AM EDT Laboratory Appointment Internal Medicine at [address] [address] Hyperlipidemia, unspecified hyperlipidemia type (Primary Dx) Social History Tobacco Use Types Packs/Day Years [...] 3:40 PM EST Office Visit Cardiology at [address] [id number] Star Flores MD [facility] [place] [address] documented as of this encounter Procedures Procedure Name Priority Date/Time Associated Diagnosis Comments CMP W/FASTING GLUCOSE Routine 12/20/2016 8:35 AM EDT Hyperlipidemia, unspecified hyperlipidemia type LIPID PANEL (REFLEX DIRECT LDL) Routine 12/20/2016 8:35 AM EDT Hyperlipidemia, unspecified hyperlipidemia type documented in this encounter Results * (ABNORMAL) Lipid Panel (12/20/2016 8:35 AM EDT) Cholesterol, Total 340(H) <=239 mg/dL [facility] Triglyceride 110 <=199 mg/dL [facility] HDL Cholesterol 47 >=40 mg/dL [facility] LDL Cholesterol 271(H) <=190 mg/dL [facility] Cholesterol/HDL Ratio 7.2 ratio [facility] Lipid Interpretation See Note [facility] Comment: Lipid management should be guided by a patient? s ASCVD risk, goals and preferences. ACC/AHA Guidelines recommend high intensity statin if clinical ASCVD or LDL greater than or equal to 190 mg/dL. http://[employer].com/MOS-PYL-Vocnhjqvf Adults aged 40-75 with LDL 70-189 mg/dL should have their 10 year ASCVD risk estimated with the ACC/AHA ASCVD risk tailer off http://tools.acc.org/UVTVV-Ommu-Dwzzznjcy/ Statin should be discussed if risk greater [...] of ASCVD risk reduction. Blood specimen (specimen) 12/20/2016 8:35 AM EDT 12/20/2016 12:52 PM EDT Narrative Resulting Agency Comment Spec In Lab Elizabeth Mistry [employer] CHEMISTRY ORDERA BLES [facility] [place] [address] * (ABNORMAL) CMP w/fasting Glucose (12/20/2016 8:35 AM EDT) Glucose Fasting 90 65 - 99 mg/dL [facility] Comment: ?Fasting* Glucose Interpretive [...] of Diabetes Mellitus, Position Statement from the [place] [employer]. ??Diabetes Care, Volume 33, Supplement 1, May 2009 Blood Urea Nitrogen 16 10 - 20 mg/dL [facility] Creatinine 1.22 0.80 - 1.50 mg/dL [facility] Comment: Please note that the pediatric reference intervals supplied above were not validated at [facility]. Results from pediatric patients should be interpreted in conjunction to the patient's age, height and muscle mass. Sodium 142 135 - 145 mmol/L [facility] Potassium 4.2 3.5 - 5.0 mmol/L [facility] Comment: Please note: ??Patients with WBC >100,000 may have falsely elevated Potassium levels. ??For accurate Potassium quantification in these patients send serum separator tube (gold top) for subsequent determinations. ??Contact the Clinical Chemistry Laboratory if there are any questions. Chloride 102 98 - 107 mmol/L [facility] Carbon Dioxide 24 22 - 31 mmol/L [facility] Anion Gap 16(H) 5 - 15 mmol/L [facility] Calcium 9.7 8.5 - 10.5 mg/dL [facility] Protein, Total 7.6 6.1 - 8.0 gm/dL [facility] Albumin 4.8 3.2 - 5.2 gm/dL [facility] Aspartate Aminotransferase 27 0 - 39 unit/L [facility] Alanine Aminotransferase 40 0 - 55 unit/L [facility] Alkaline Phosphatase 65 40 - 120 unit/L [facility] Bilirubin, Total 0.8 0.2 - 1.3 mg/dL [facility] Est Glomerular Filtration Rate >60 >=60 [facility] Comment: This estimated [...] the following links into your internet browser. [email or web address] Blood specimen (specimen) 12/20/2016 8:35 AM EDT 12/20/2016 12:52 PM EDT Narrative Resulting Agency Comment Spec In Lab Elizabeth Mistry APRN CHEMISTRY ORDERA BLES [facility] [place] [address] documented in this encounter Visit Diagnoses Diagnosis Hyperlipidemia, unspecified hyperlipidemia type- Primary documented in this encounter Care Teams [employer]ator [employer] General Supervisor Relationship Specialty Start Date End Date Elizabeth Mistry APRN [facility] [place] [address] PCP - General General Internal Medicine 08/19/1605/23 documented as of this encounter
--- OUTSIDE RECORDS SUMMARY | 2024-03-30 12:56 | XMS_ITS | Encounter Summary ---
Author Organization [facility] [place] [address] Care Team Providers Care Field Superintendent Name Role Phone Elizabeth Mistry APRN Primary Care Provider + Encounter Details Date Type Department Care Team (Late st Contact Info) Description 09/01/2018 10:00 AM EDT Office Visit Cardiology at [address] [phone] Ya Abraham MD Familial hypercholesterolemia; Hyperglycemia Social History Tobacco Use Types Packs/Day [...] Sign Reading Time Taken Comments Blood Pressure 120/57 09/01/2018 9:36 AM EDT Pulse 81 09/01/2018 9:36 AM EDT Temperature - - Respiratory Rate - - Oxygen Saturation 100% 09/01/2018 9:36 AM EDT Inhaled Oxygen Concentration - - Weight 73 kg (161 lb) 09/01/2018 9:36 AM EDT Height 175.3 cm (5' 9) 09/01/2018 9:36 AM EDT Body Mass Index 23.78 09/01/2018 9:36 AM EDT documented in this encounter Progress Notes * Ya Abraham MD - 09/01/2018 10:00 AM EDT [facility]-Follow Up Visit ID/PMH Marco A is a 33 y.o. followed by Elizabeth Mistry APRN with the following problems: Patient Active Problem List Diagnosis Code ??? Unspecified symptoms and signs involving cognitive functions and awareness R41.9 ??? Depression F32.9 ??? 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 History of head injury Z87.828 ??? Familial hypercholesterolemia E78.01 Social history: Marco A is a 33-year-old man who has just moved home with his parents. He has no children. 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 He enjoys snow boarding and skiing, hiking. 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 He is planning a trip out [place] for [place] weeks beginning in September ?? Present Illness Marco A Park is seen at the request of Elizabeth Mistry APRN for evaluation and management of dyslipidemia, specifically markedly elevated LDL in the setting of statin intolerance and a strong family history of cardiovascular disease in his father and familial hypercholesterolemia in his father,sister, paternal aunt, paternal uncle, and paternal grandmother. ?? Marco A first learned of his hyperlipidemia when he was in his 20s. ?? Marco A was treated with atorvastatin - this caused severe fatigue, had severe proximal muscle pain. Pain resolved when he came off atorvastatin and recurred when he was re-challenged. He presents today to discuss alternative treatment for his hyperlipidemia. ?? It is notable that Marco A's father had statin intolerance and is currently tolerating a PCSK 9 inhibitor. His sister is tolerating a statin. At his initial visit in July of this year he was noted to have an LDL of 222 mg/dL. At that time Iprescribed ezetimibe 10 mg daily in conjunction with rosuvastatin 5 mg twice a week. He did not tolerate the rosuvastatin and was noted to have a CK of 692 U/L (normal 0-200 U/L) while on this very low-dose . He was extremely symptomatic from a musculoskeletal point of view, and felt better after several days off the statin. He returns now for follow-up evaluation. His labs today reflect some residual effect of both the rosuvastatin and ezetimibe. He unfortunately discontinued the ezetimibe when he discontinued the rosuvastatin. He has smoked only a few times since moving back home with his parents. ROS General: As above Cardiac: S1-S2, no murmurs gallops or rubs, regular rate and rhythm MSK: Proximal muscle and joint aches while on very low-dose rosuvastatin which has improved substantially off rosuvastatin. Medications Current Outpatient Medications Medication Sig Dispense [...] General: 33-year-old man with a BMI of 23.78 VS: BP 120/57 Pulse 81 Ht 175.3 cm (5' 9) Wt 73 kg (161 lb) SpO2 100% BMI 23.78 kg/m?? Lungs: Clear Heart: S1S2, no murmurs gallops or rubs, regular rate and rhythm Abd: Soft and nontender. Psych: Appropriate affect. Labs Total cholesterol 223 mg/dL Triglycerides 149 mg/dL HDL cholesterol 46 mg/dL LDL cholesterol 47 mg/dL Assessment Is a 33-year-old man who has familial hypercholesterolemia and unfortunately, just like his father,he has statin intolerance with significant CK elevation even on very low-dose statin. His father very early cardiovascular disease. Off all lipid-lowering agents his LDL was noted to be 222 mg/dL. He has discontinued both rosuvastatin and ezetimibe but his current labs likely reflect both of these agents as he is only been off them for less than a week. Today I have recommended resumption of ezetimibe and initiation of a PCSK9 inhibitor (Praluent/alirocumab). I have reviewed the mechanism of action, how alirocumab is taken (Subcutaneous injection every 14 days), and it is stored stored (in the refrigerator to be taken out 30 minutes prior to injection). Marco A's blood sugar remains in the prediabetes range. I have discussed the implications of this andrecommended dietary changes and increased exercise. We will recheck it at his follow-up visit. Plan ?? Medication changes: Resume ezetimibe begin alirocumab ?? Investigations: Labs and a visit in 3 months ?? Counseling: I explained my impression and answered all the patient's questions. Follow up 3 months YA ABRAHAM MD 09/01/2018 This visit was 25 minutes in length of which 20 minutes were spent in counseling CC: Elizabeth Mistry APRN documented in this encounter Plan of Treatment Upcoming Encounters Date Type Department Care Team (Late st Contact Info) Description 04/01/2025 3:40 PM EST Office Visit Cardiology at [address] [place] [address] Star Flores MD [facility] [place] [address] Scheduled Orders Name Type Priority Associated Diagnoses Orde r Schedule Lipid Panel Lab Routine Familial hypercholesterolemia Expected: 11/27/2018 (Approximate), Expires: 09/02/2019 documented as of this encounter Results * (ABNORMAL) Glucose, fasting (12/01/2018 9:49 AM EDT) Pathologist [facility] Glucose Fasting 101(H) 65 - 99 mg/dL [facility] Comment: ?Fasting* Glucose Interpretive Criteria [...] of Diabetes Mellitus, Position Statement from the [place] [employer]. ??Diabetes Care, Volume 33, Supplement 1, May 2009 Blood specimen (specimen) 12/01/2018 9:49 AM EDT 12/01/2018 10:05 AM EDT Narrative Resulting Agency Comment Spec In Lab Ya Abraham MD CHEMISTRY ORDERABLES [facility] [address] documented in this encounter Visit Diagnoses Diagnosis Familial hypercholesterolemia Pure hypercholesterolemia Hyperglycemia Other abnormal glucose documented in this encounter Care Teams Field Superintendent Relationship Specialty Start Date End Date Elizabeth Mistry, GENNY [facility] [place] [address] PCP - General General Internal Medicine 08/19/1605/23 documented as of this encounter
--- OUTSIDE RECORDS SUMMARY | 2024-03-30 12:56 | XMS_ITS | Encounter Summary ---
Author Organization [facility] Address [facility] [place] [address] Care Team Providers Care Senior Back End Java Developer Name Role Phone FideliaElizabeth chu GENNY Primary Care Provider + Encounter Details Date Type Department Care Team (Late st Contact Info) Description 01/19/2017 2:30 PM EDT Office Visit Physical Therapy at [facility] [address] [place] [phone] Marcus Reese, PT Hamstring strain, right, initial encounter Social History Tobacco Use Types Packs/Day [...] of this encounter Progress Notes * Marcus Reese, PT - 01/19/2017 2:30 PM EDT Physical Therapy Progress Note Total treatment time: 35 minutes Total timed code treatment: 30 minutes Follow up visit for patient with 1. Hamstring strain, right, initial encounter S: Patient reports that his hamstring is getting a little better but continues with pain at times. Pt rates today's pain symptoms as 0-4/10. Doing ok with his HEP. O: Bike x 3 mins Therex: Strength/Endurance/ROM ([id number]) 30 min ?? Supine active knee extension stretch 2 x 20 ?? Hamstring stretch with strap 3 x 30s - HEP addition ?? Bridges on [place] ball x10 ?? Progressed to partial curls x10 ?? Standing hip extensions RTB x20 ?? Hamstring stretch off step 3 x 30s ?? Standing SL lift to stool 2 x 15 A: showing improvement in hamstring length in 90-90 position with continued tightness with SLR. Continues with 4/10 ache with prone hamstring strength testing. Will continue with above program focused on restoring length and strength on hamstring. P: Frequency and duration: 1 x per week x 6 weeks Treatment: Manual Techniques, Stretching, Therapeutic Exercise, Patient/Family Education, Body Mechanics and Home Exercise Program Pt understands and agrees with physical therapy plan of care. Marcus Reese PT, DPT, CSCS Therapy Short Term Goals (3 weeks): 1. Pt will demonstrate indep with home exercise program to improve outcome and increase pts abilityto self treat exacerbations. 2. Pt will decrease VAS pain rating to 3/10 to show MCID and to progress function Therapy Care Home Goals (6 weeks): 1. Pt will increase LEFS score to 80% demo an increase in functional mobility and to meet a clinically meaningful difference from initial evaluation score (MCID=8-9 points). 2. Pt will decrease VAS pain rating to 0/10 to show MCID and to progress function. 3. Pt will return to regular hiking without limiting pain for improvement in function and patient oriented goals. documented in this encounter Plan of Treatment Upcoming Encounters Date Type Department Care Team (Late st Contact Info) Description 04/01/2025 3:40 PM EST Office Visit Cardiology at [address] [place] [address] Star Flores MD [facility] [place] [address] documented as of this encounter Visit Diagnoses Diagnosis Hamstring strain, right, initial encounter documented in this encounter Care Teams Senior Back End Java Developer Relationship Specialty Start Date End Date Elizabeth Mistry APRN [facility] [place] [address] (work) PCP - General General Internal Medicine 08/19/1605/23 documented as of this encounter
--- OUTSIDE RECORDS SUMMARY | 2024-03-30 12:56 | XMS_ITS | Encounter Summary ---
Author Organization [facility] Address [facility] [place] [address] Care Team Providers Care Rubber Goods Assembler Name Role Phone Elizabeth Mistry APRN Primary Care Provider + Encounter Details Date Type Department Care Team (Latest Contact Info) Description 01/04/2018 2:27 PM EDT - 01/04/2018 5:26 PM EDT Hospital Encounter Gastroenterology at [facility] [place] [address] Javier Ndiaye MD [facility] [place] [address] Discharge Disposition: Home Social History Tobacco Use Types Packs/Day Years Used Date Smoking Tobacco: Former Cigarettes 0.5 6 0 12/16/2011 - 12/15/2017 Smokeless Tobacco: Never Tobacco Cessation:Counseling Given: Yes Comments:doing e-cigs Alcohol Use Standard Drinks/Week Comments Yes 0 (1 standard drink = 0.6 oz pur e alcohol) 5-8 beers per week Sex and Gender Information Value Date Recorded Sex Assigned at Not on file Gender Identity Not on file Sexual Orientation Not on file documented as of this encounter Last Filed Vital Signs Vital Sign Reading Time Taken Comments Blood Pressure 103/50 01/04/2018 4:30 PM EDT Pulse 49 01/04/2018 4:30 PM EDT Temperature 36.4 ??C (97.5 ??F) 01/04/2018 2:53 PM ED T Respiratory Rate 16 01/04/2018 4:40 PM EDT Oxygen Saturation 99% 01/04/2018 4:30 PM EDT Inhaled Oxygen Concentration - - Weight - - Height - - Body Mass Index - - documented in this encounter Discharge Instructions * Discharge Instructions* Ellyn Sotelo, RN - 01/04/2018 4:39 PM EDT Colonoscopy and polyp removal What to expect after the procedure You may feel a little more gassy or bloated than usual, this is normal. You should expect the return of normal bowel function in the next 2 to 3 days. Because some polyps were removed, you may see a little blood with the next few bowel movements, this should be a small amount ( less than a few tablespoons) and will resolve on it's own. ACTIVITY Because of the sedation that you received Your judgement and reaction time are effected ?? Go home and rest for the remainder for the day. You may resume your normal activities tomorrow ?? Change from one position to the next slowly because you may lose your balance unexpectedly. ?? Be careful on stairs, as you may be unsteady. ?? Avoid strenuous activity for 48 to 72 hrs FOR THE NEXT 24 HRS ?? DO NOT DRIVE OR OPERATE MACHINERY ?? DO NOT DRINK ALCOHOLIC BEVERAGES ?? DO NOT SIGN LEGAL DOCUMENTS ?? If you are a smoker: DO NOT SMOKE WHILE YOU ARE ALONE Diet ?? Start by eating small portions of foods that ordinarily will not upset your stomach, avoid gas producing foods for the next few days. ?? Be gentle with what you choose to start with ?? Drink plenty of fluids ( unless your doctor has told you not to). ?? A soft diet may be helpful for the next 3 days as this may help to keep the stools soft Medicines Avoid medicines that influence the way your blood clots for the next week. These would include anti-inflammatory medicine, such as ibuprofen( Advil, Motrin) and naproxen ( Aleve). If you need something for discomfort, Tylenol (Acetaminophen) is safe if used as directed. Your Doctor will tell you when to restart your prescribed blood thinners The IV site-- slight tenderness, or redness is normal, you can use warm compresses if you get concerned. If the tenderness +/or redness increases or foul drainage and a red streak occurs, please contact your PCP immediately. When should you call for help? Call 911 anytime you think you may need emergency care. For example If you pass out (loss of consciousness) If you pass maroon or bloody stools If you have severe belly pain Call your healthcare provider or seek immediate medical care if: Your stools are black or tar like Your stools have streaks of blood that is more pronounced with each BM You have belly pain, or your belly is swollen and firm You vomit You have a fever You are very dizzy Watch closely for changes in your health, and be sure to contact your doctor if you have any problems. Your Doctor will let you know when you will need your next colonoscopy. The results of your test and your risk for colorectal cancer will help your doctor decide how often you need to be checked. Tuesday-Tuesday Same Day Endo [phone] 7a-8p Otherwise contact [phone] and ask to speak to the electrical lineman ribbon hanking machine operator Follow up care is a trotter part of your treatment and safety. Be sure to make and go to all appointments, and call your doctor if you are having problems. Discharge instructions reviewed with patient who expresses understanding Colonoscopy and polyp removal What to expect after the procedure You may feel a little more gassy or bloated than usual, this is normal. You should expect the return of normal bowel function in the next 2 to 3 days. Because some polyps were removed, you may see a little blood with the next few bowel movements, this should be a small amount ( less than a few tablespoons) and will resolve on it's own. ACTIVITY Because of the sedation that you received Your judgement and reaction time are effected ?? Go home and rest for the remainder for the day. You may resume your normal activities tomorrow ?? Change from one position to the next slowly because you may lose your balance unexpectedly. ?? Be careful on stairs, as you may be unsteady. ?? Avoid strenuous activity for 48 to 72 hrs FOR THE NEXT 24 HRS ?? DO NOT DRIVE OR OPERATE MACHINERY ?? DO NOT DRINK ALCOHOLIC BEVERAGES ?? DO NOT SIGN LEGAL DOCUMENTS ?? If you are a smoker: DO NOT SMOKE WHILE YOU ARE ALONE Diet ?? Start by eating small portions of foods that ordinarily will not upset your stomach, avoid gas producing foods for the next few days. ?? Be gentle with what you choose to start with ?? Drink plenty of fluids ( unless your doctor has told you not to). ?? A soft diet may be helpful for the next 3 days as this may help to keep the stools soft Medicines Avoid medicines that influence the way your blood clots for the next week. These would include anti-inflammatory medicine, such as ibuprofen( Advil, Motrin) and naproxen ( Aleve). If you need something for discomfort, Tylenol (Acetaminophen) is safe if used as directed. Your Doctor will tell you when to restart your prescribed blood thinners The IV site-- slight tenderness, or redness is normal, you can use warm compresses if you get concerned. If the tenderness +/or redness increases or foul drainage and a red streak occurs, please contact your PCP immediately. When should you call for help? Call 911 anytime you think you may need emergency care. For example If you pass out (loss of consciousness) If you pass maroon or bloody stools If you have severe belly pain Call your healthcare provider or seek immediate medical care if: Your stools are black or tar like Your stools have streaks of blood that is more pronounced with each BM You have belly pain, or your belly is swollen and firm You vomit You have a fever You are very dizzy Watch closely for changes in your health, and be sure to contact your doctor if you have any problems. Your Doctor will let you know when you will need your next colonoscopy. The results of your test and your risk for colorectal cancer will help your doctor decide how often you need to be checked. Tuesday-Tuesday Same Day Endo [phone] 7a-8p Otherwise contact [phone] and ask to speak to the electrical lineman ribbon hanking machine operator Follow up care is a trotter part of your treatment and safety. Be sure to make and go to all appointments, and call your doctor if you are having problems. Discharge instructions reviewed with patient who expresses understanding documented in this encounter Medications at Time of Discharge Medication Sig Dispensed Refills Start Date End Date omeprazole (PRILOSEC) 40 mg Capsule, Delayed Release(E.C.) Take 1 capsule by mouth daily. 30 capsule 11 12/29/2017 02/14/2018 atorvastatin (LIPITOR) 10 mg Tablet Take 1 tablet by mouth daily. 90 tablet 3 12/29/2017 02/14/2018 documented as of this encounter Miscellaneous Notes * Op Note - Javier Ndiaye MD - 01/04/2018 4:29 PM EDT [facility] Patient Name: Marco A Park : [id number] MR#: [id number] Case Date: 01/04/2018 Surgeon: Surgeon(s) and Role: * Javier Ndiaye MD - Primary Preoperative diagnosis: Constipation, unspecified constipation type Change in stool habits Postoperative diagnosis: * No post-op diagnosis entered * Procedure(s) (LRB): COLONOSCOPY, DIAGNOSTIC (N/A) COLONOSCOPY, POLYPECTOMY, REMOVAL LESION BY SNARE (WRVU 4.67) (N/A) Please see Provation for full procedure note. Javier Ndiaye MD 01/04/2018 * Consult Note - Javier Ndiaye MD - 01/04/2018 3:22 PM EDT Gastroenterology and Hepatology Pre-Procedure History and Physical Exam Procedure: Colonoscopy: Indication: 32yo man with two years of worsening constipation and abdominal pain. No family hx CRC.Is using magnesium citrate and miralax prn. Has not increased fiber in diet. Patient Active Problem List Diagnosis Code ??? Unspecified symptoms and signs involving cognitive functions and awareness R41.9 ??? Depression F32.9 ??? 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 History of head injury Z87.828 EXAM: HEENT: Airway examined, oropharynx clear Mallampati Score: I (soft palate, uvula, fauces, tonsillar pillars visible) LUNGS: Clear to auscultation HEART: Regular rate and rhythm, normal S1, S2 ABDOMEN: Normal bowel sounds, soft, non tender, non distended, A/P Proceed with the planned endoscopic procedure. ASA 2 - Patient with mild systemic disease with no functional limitations Sedation Plan: moderate (conscious sedation) Risks and benefits of the procedure explained to the patient. Consent signed. documented in this encounter Plan of Treatment Upcoming Encounters Date Type Department Care Team (Late st Contact Info) Description 04/01/2025 3:40 PM EST Office Visit Cardiology at [address] [place] [address] Star Flores MD [facility] [place] [address] documented as of this encounter Procedures Procedure Name Priority Date/Time Associated Diagnosis Comments SPECIMEN TO PATHOLOGY Routine 01/04/2018 4:23 PM EDT SURGICAL PATHOLOGY REPORT Routine 01/04/2018 4:16 PM EDT COLONOSCOPY, POLYPECTOMY, REMOVAL LESION BY SNARE (WRVU 4.57) 01/04/2018 3:51 PM EDT Constipation, unspecified constipation type Change in stool habits COLONOSCOPY, DIAGNOSTIC (WRVU 3.26) 01/04/2018 3:51 PM EDT Constipation, unspecified constipation type Change in stool habits COLONOSCOPY Routine 01/04/2018 3:12 PM EDT documented in this encounter Results * Specimen to Pathology (01/04/2018 4:23 PM EDT) AP Specimen 01/04/2018 4:23 PM EDT 01/04/2018 5:20 PM EDT Narrative [facility] - 01/04/2018 5:20 PM EDT Specimen requisition ordered. ??Separate Pathology report to follow Resulting Agency Comment Spec In Lab Javier Ndiaye MD PATHOLOGY/CYTOLOGY O ANGIERAKANDY [facility] [place] [address] * Surgical Pathology Report (01/04/2018 4:16 PM EDT) Final Diagnosis [id number] ? Location: 4T; EA09; A The signing pathologist has (i) examined the relevant preparation(s) for the specimen(s) and (ii) rendered or confirmed the diagnosis(es). . ?Surgical Pathology DIAGNOSIS Ascending colon, ??polypectomy: - Fragments of sessile serrated polyp/adenoma. CR-PX Electronically signed by: ??Oli Butler MD Verified: ??01/10/2018 ?Pathologist Performed at: ??-[facility] [place], [place], [place] CLINICAL INFORMATION Specimen Submitted: A - Ascending 10 mm polyp Clinical History and Diagnosis: History of diarrhea and constipation SPECIMEN PROCESSING A - Labeled/Fixative : Ascending 10 mm polyp, formalin. Quantity/Size: Three, 0.3 cm to 0.9 cm. Tissue Description: Strips of parra-pink mucosal tissue. Sections/Process ing: Totally submitted. (T1) ??pps 01/10/2018 3:47 PM EDT [facility] GI Biopsy 01/04/2018 4:16 PM EDT 01/04/2018 4:16 PM EDT Javier Ndiaye MD PATHOLOGY/CYTOLOGY O ANGIERAKANDY [facility] [place] [address] * COLONOSCOPY (01/04/2018 3:12 PM EDT) COLONOSCOPY [facility] Endoscopy Procedure Date: 01/04/2018 3:12 PM ? Patient Name: Marco A Park ? Date of : 1985 ? Age: 32 ? Order #: [id number] ? Instrument Name: [id number] ? Procedure: ? Colonoscopy Indications: ? Generalized abdominal pain, ? Constipation Providers: ? Yamini Corona, MACI, ? Cory Hinojosa MD: ?Elizabeth W. Fidelia Medicines: ? Midazolam 4 mg IV, Fentanyl 250 ? micrograms IV Complications: ? No immediate complications. Procedure: ? Pre-Anesthesia Assessment: ? - Prior to the procedure, a History ? and Physical was performed, and ? patient medications, allergies and ? sensitivities were reviewed. The ? patient's tolerance of previous ? anesthesia was reviewed. ? - The risks and benefits of the ? procedure and the sedation options ? and risks were discussed with the ? patient. All questions were answered ? and informed consent was obtained. ? The procedure, indications, benefits, ? risks and alternatives were explained ? to the patient. Specifically ? discussed were potential ? complications including, but not ? limited to, bleeding, perforation, ? infection, missing a cancer, and ? adverse medication reactions. The ? patient was placed in the left ? lateral decubitus position, and a ? digital rectal exam was performed. ? The Colonoscope was inserted in the ? anus and under direct visualization, ? advanced to the terminal ileum, with ? identification of the appendiceal ? orifice and IC valve. Careful ? inspection was made as the ? colonoscope was withdrawn. The ? colonoscopy was performed with ease. ? The patient tolerated the procedure ? well. The quality of the bowel ? preparation was excellent. Scope ? withdrawal time was 13 minutes. ? Findings: ? The perianal and digital rectal examinations were ? normal. ? A 10 mm polyp was found in the ascending colon. The ? polyp was flat. The polyp was removed with a cold ? snare. Resection and retrieval were complete. ? The exam was otherwise without abnormality on direct ? and retroflexion views. ? The terminal ileum appeared normal. ? Moderate Sedation: ? I was present during the intraservice time as ? documented by the sedation RN. Impression: ?- One 10 mm polyp in the ascending ? colon, removed with a cold snare. ? Resected and retrieved. ? - The examination was otherwise ? normal on direct and retroflexion ? views. ? - The examined portion of the ileum ? was normal. Recommendation: ?- Await pathology results. ? - Repeat colonoscopy in 3 years for ? surveillance based on pathology ? results. ? - High fiber diet. ? - Add fiber supplement daily. ? - Use miralax as needed. ? Attending Participation: ? I personally performed the entire procedure. ? Javier J Zelda, 01/04/2018 4:29:05 PM Number of Addenda: 0 Note Initiated On: 01/04/2018 3:12 PM PROVATION 01/04/2018 3:12 PM EDT Elizabeth Mistry APRN GENERAL SURGICAL ORDERABLES PROVATION documented in this encounter Visit Diagnoses Not on filedocumented in this encounter Active and Recently Administered Medications Times are shown in EDT. PRN Medication Order 01/02/2018 01/03/2018 01/04/2018 fentaNYL 50 mcg/mL multi-dose injection (CANCELED) ONCE PRN, Starting on Tue01/04/18 at 1554, Until Tue01/04/18 at 1927, Intra-Operative (Intra-Procedure), Routine 1554 (Given - Provid er: Yamini Fowler RN)1556 (Given - Provider: Yamini Fowler, RN)1559 (Given - Provider: Yamini Fowler, RN)1603 (Given - Provider: Yamini Fowler RN)1607 (Given - Provider: Yamini Fowler RN) midazolam (PF) (VERSED) 1 mg/mL multi-dose injection (CANCELED) ONCE PRN, Starting on Tue01/04/18 at 1554, Until Tue01/04/18 at 1927, Intra-Operative (Intra-Procedure), Routine 1554 (Given - Provid er: Yamini M Fowler, RN)1557 (Given - Provider: Yamini Fowler, RN)1559 (Given - Provider: Yamini Fowler RN)1603 (Given - Provider: Yamini Fowler RN) documented in this encounter Care Teams Rubber Goods Assembler Relationship Specialty Start Date End Date Elizabeth Mistry, MIXER ATTENDANT [facility] GENERAL [place] [address] PCP - General General Internal Medicine 08/19/1605/23 documented as of this encounter
--- OUTSIDE RECORDS SUMMARY | 2024-03-30 12:56 | XMS_ITS | Encounter Summary ---
Author Organization [facility] Address [facility] [place] [address] Care Team Providers Care Youth Officer Name Role Phone Elizabeth Mistry APRN Primary Care Provider + Encounter Details Date Type Department Care Team (Late st Contact Info) Description 01/04/2018 3:30 PM EDT - 01/04/2018 4:30 PM EDT Surgery Gastroenterology at [facility] [place] [address] Javier Ndiaye MD [facility] [place] [address] COLONOSCOPY, DIAGNOSTIC (WRVU 3.26) Social History Tobacco Use Types Packs/Day Years [...] PM ED T Respiratory Rate 16 01/04/2018 4:30 PM EDT Oxygen Saturation 99% 01/04/2018 4:30 [...] to be checked. Tuesday-Tuesday Same Day Endo [phone] 7a-8p Otherwise contact [phone] and ask to speak to the larder cook construction executive Follow up care is a trotter part [...] to be checked. Tuesday-Tuesday Same Day Endo [phone] 7a-8p Otherwise contact [phone] and ask to speak to the larder cook construction executive Follow up care is a trotter part [...] Ndiaye MD - 01/04/2018 4:29 PM EDT [facility] [place] Patient Name: Marco A Park : [id number] MR#: [id number] Case Date: 01/04/2018 Surgeon: Surgeon(s) and Role: [...] Upcoming Encounters Date Type Department Care Team (Miguel Contact Info) Description 04/01/2025 3:40 PM EST Office Visit Cardiology at [address] [place] [address] Star Flores MD [facility] [place] [address] documented as of this encounter Procedures Procedure [...] PM EDT 01/04/2018 5:20 PM EDT Narrative [facility] - 01/04/2018 5:20 PM EDT Specimen requisition ordered. ??Separate Pathology report to follow Resulting Agency Comment Spec In Lab Javier Ndiaye MD PATHOLOGY/CYTOLOGY O RDERABLES [facility] [place] [address] * Surgical Pathology Report (01/04/2018 4:16 PM EDT) Final Diagnosis [id number] ? Location: 4T; EA09; A The signing pathologist has (i) examined the relevant preparation(s) for the specimen(s) and (ii) rendered or confirmed the diagnosis(es). . ?Surgical Pathology DIAGNOSIS Ascending colon, ??polypectomy: - Fragments of sessile serrated polyp/adenoma. CR-PX Electronically signed by: ??Oli Butler MD Verified: ??01/10/2018 ?Pathologist Performed at: ??-[facility] [place], [place], [place] CLINICAL INFORMATION Specimen Submitted: A - Ascending 10 mm polyp Clinical History and Diagnosis: History of diarrhea and constipation SPECIMEN PROCESSING A - Labeled/Fixative : Ascending 10 mm polyp, formalin. Quantity/Size: Three, 0.3 cm to 0.9 cm. Tissue Description: Strips of parra-pink mucosal tissue. Sections/Process ing: Totally submitted. (T1) ??pps 01/10/2018 3:47 PM EDT [facility] GI Biopsy 01/04/2018 4:16 PM EDT 01/04/2018 4:16 PM EDT Javier Ndiaye MD PATHOLOGY/CYTOLOGY O RDERABLES [facility] [place] [address] * COLONOSCOPY (01/04/2018 3:12 PM EDT) COLONOSCOPY [facility] Endoscopy Procedure Date: 01/04/2018 3:12 PM ? Patient Name: Marco A Park ? Date of : 1985 ? Age: 32 ? Order #: [id number] ? Instrument Name: [id number] ? Procedure: ? Colonoscopy Indications: ? Generalized abdominal pain, ? Constipation Providers: ? Yamini Corona, MACI, ? Cory Hinojosa MD: ?Elizabeth Mistry Medicines: ? Midazolam 4 mg IV, Fentanyl [...] personally performed the entire procedure. ? Javier Lyn Ndiaye, 01/04/2018 4:29:05 PM Number of Addenda: 0 Note Initiated On: 01/04/2018 3:12 PM PROVATION 01/04/2018 3:12 PM EDT Elizabeth Holland Fidelia FORGE SHOP MACHINE REPAIRER GENERAL SURGICAL ORDERABLES PROVATION documented in this encounter Visit Diagnoses Not on filedocumented in this encounter Administered Medications Inactive Administered Medications - up to 3 most recent administrations Medication Order MAR Action Action Date Dose Rate Site fentaNYL 50 mcg/mL multi-dose injection ONCE PRN, Starting on Tue01/04/18 at 1554, Until Tue01/04/18 at 1927, Intra-Operative (Intra-Procedure), Routine Given 01/04/2018 4:07 PM EDT 50 mcg Right Arm Given 01/04/2018 4:03 PM EDT 50 mcg Ri ght Arm Given 01/04/2018 3:59 PM EDT 50 mcg Ri ght Arm midazolam (PF) (VERSED) 1 mg/mL multi-dose injection ONCE PRN, Starting on Tue01/04/18 at 1554, Until Tue01/04/18 at 1927, Intra-Operative (Intra-Procedure), Routine Given 01/04/2018 4:03 PM EDT 1 mg Given 01/04/2018 3:59 PM EDT 1 mg Given 01/04/2018 3:57 PM EDT 1 mg documented in this encounter Active and Recently Administered Medications Times are shown in EDT. PRN Medication Order 01/02/2018 01/03/2018 01/04/2018 fentaNYL 50 mcg/mL multi-dose injection (CANCELED) ONCE PRN, Starting on Tue01/04/18 at 1554, Until Tue01/04/18 at 1927, Intra-Operative (Intra-Procedure), Routine 1554 (Given - Provid er: Yamini Fowler RN)1556 (Given - Provider: Yamini Fowler RN)1559 (Given - Provider: Yamini Fowler RN)1603 (Given - Provider: Yamini Fowler RN)1607 (Given - Provider: Yamini Fowler RN) midazolam (PF) (VERSED) 1 mg/mL multi-dose injection (CANCELED) ONCE PRN, Starting on Tue01/04/18 at 1554, Until Tue01/04/18 at 1927, Intra-Operative (Intra-Procedure), Routine 1554 (Given - Provid er: Yamini Fowler RN)1557 (Given - Provider: Yamini Fowler RN)1559 (Given - Provider: Yamini Fowler RN)1603 (Given - Provider: Yamini Fowler RN) documented in this encounter Care Teams Youth Officer Relationship Specialty Start Date End Date Elizabeth Mistry APRN [facility] GENERAL [place] [address] PCP - General General Internal Medicine 08/19/1605/23 documented as of this encounter
--- OUTSIDE RECORDS SUMMARY | 2024-03-30 12:56 | XMS_ITS | Encounter Summary ---
Author Organization [facility] Address [facility] [place] [address] Care Team Providers Care Pick And Shovel Worker Name Role Phone Elizabeth Mistry APRN Primary Care Provider + Encounter Details Date Type Department Care Team (Late st Contact Info) Description 02/21/2018 10:00 AM EDT - 02/21/2018 11:00 AM EDT [place] [id number] Lester Ramos MD [facility] [place] [address] EGD WITH BIOPSY (WRVU 2.39) Social History Tobacco Use Types Packs/Day Years [...] Sign Reading Time Taken Comments Blood Pressure 110/70 02/21/2018 11:00 AM EDT Pulse 64 02/21/2018 10:45 AM EDT Temperature 36.7 ??C (98.1 ??F) 02/21/2018 9:37 AM ED T Respiratory Rate 16 02/21/2018 10:55 AM EDT Oxygen Saturation 95% 02/21/2018 11:00 AM EDT Inhaled Oxygen Concentration - - [...] better as expected. Tuesday-Tuesday Same Day Endo [phone] 7a-8p Otherwise contact [phone] and ask to speak to the repertoire manager distribution center manager Follow-up care is a trotter part of [...] 3:40 PM EST Office Visit Cardiology at [address] [place] [address] Star Flores MD [facility] [place] [address] documented as of this encounter Procedures Procedure [...] Report (02/21/2018 10:48 AM EDT) Final Diagnosis [id number] ? Location: 4; [facility]; A The signing pathologist has (i) examined [...] Butler MD Verified: ??02/23/2018 ?Pathologist Performed at: ??-[facility] Dept. of Pathology, [place], [place] CLINICAL INFORMATION Specimen Submitted: A - [...] labeled C1. ??jason 02/23/2018 3:59 PM EDT [facility] GI Biopsy 02/21/2018 10:4 8 AM EDT 02/21/2018 10:48 AM EDT GI Biopsy 02/21/2018 10:4 8 AM EDT 02/21/2018 10:48 AM EDT GI Biopsy 02/21/2018 10:4 8 AM EDT 02/21/2018 10:48 AM EDT Lester Ramos MD PATHOLOGY/[place] [address] * Specimen to Pathology (02/21/2018 10:48 AM EDT) AP Specimen 02/21/2018 10:4 8 AM EDT 02/21/2018 2:12 PM EDT Narrative [facility] - 02/21/2018 2:13 PM EDT Specimen requisition ordered. ??Separate Pathology report to follow Resulting Agency Comment Spec In Lab Lester Ramos MD PATHOLOGY/CYTOLOGY [place] Performing Organization Address City/[facility]/[place] [address] * Specimen to Pathology (02/21/2018 10:48 AM EDT) AP Specimen 02/21/2018 10:4 8 AM EDT 02/21/2018 2:12 PM EDT Narrative [facility] - 02/21/2018 2:13 PM EDT Specimen requisition ordered. ??Separate Pathology report to follow Resulting Agency Comment Spec In Lab Lester Ramos MD PATHOLOGY/CYTOLOGY [place] Performing Organization Address City/[facility]/[place] [address] * Specimen to Pathology (02/21/2018 10:48 AM EDT) AP Specimen 02/21/2018 10:4 8 AM EDT 02/21/2018 2:12 PM EDT Narrative [facility] - 02/21/2018 2:13 PM EDT Specimen requisition ordered. ??Separate Pathology report to follow Resulting Agency Comment Spec In Lab Lester Ramos MD PATHOLOGY/CYTOLOGY [place] Performing Organization Address [facility]/[place] [address] * UPPER GI ENDOSCOPY (02/21/2018 10:01 AM EDT) UPPER GI ENDOSCOPY [facility] Endoscopy Procedure Date: 02/21/2018 10:01 AM ? Patient Name: Marco A Park ? Date of : 1985 ? Age: 32 ? Order #: [id number] ? Instrument Name: [id number] ? Procedure: ? Upper GI endoscopy Indications: ? Epigastric abdominal pain, Dyspepsia, ? Heartburn Providers: ? Lester Ramos MD, Julius Cyr ? Michele, RN, Karyn Castro, Cut Off Saw Grader Referring : ?Elizabeth Mistry Medicines: ? Midazolam [...] PROVATION 02/21/2018 10:0 1 AM EDT Elizabeth Holland Fidelia [employer]OTT[employer]ER GENERAL SURGICAL ORDERABLES PROVATION documented in this encounter Visit Diagnoses Not on filedocumented in this encounter Administered Medications Inactive Administered Medications - up to 3 most recent administrations Medication Order MAR Action Action Date Dose Rate Site fentaNYL 50 mcg/mL multi-dose injection ONCE PRN, Starting on Tue02/21/18 at 1028, Until Tue02/21/18 at 1210, Intra-Operative (Intra-Procedure), Routine Given 02/21/2018 10:43 AM EDT 25 mcg Right Arm Given 02/21/2018 10:41 AM EDT 25 mcg R ight Arm Given 02/21/2018 10:36 AM EDT 50 mcg R ight Arm lactated Ringers infusion 100 mL/hr, Intravenous, CONTINUOUS, Starting on e 02/21/18 at 1000, Until Tue02/21/18 at 1127, Endoscopy (Day of Procedure) New Bag 02/21/2018 9:52 AM EDT 100 mL/hr 100 mL/hr midazolam (PF) (VERSED) 1 mg/mL multi-dose injection ONCE PRN, Starting on e 02/21/18 at 1028, Until Tue02/21/18 at 1210, Intra-Operative (Intra-Procedure), Routine Given 02/21/2018 10:46 AM EDT 0.5 mg Right Arm Given 02/21/2018 10:43 AM EDT 0.5 mg R ight Arm Given 02/21/2018 10:41 AM EDT 0.5 mg R ight Arm documented in this encounter Active and Recently Administered Medications Times are shown in EDT. Continuous Medication Order 02/19/2018 02/20/2018 02/21/2018 lactated Ringers infusion (CANCELED) 100 mL/hr, Intravenous, CONTINUOUS, Starting on Tue02/21/18 at 1000, Until Tue02/21/18 at 1127, Endoscopy (Day of Procedure) 09 (New Bag - Prov ider: Molly Bennett [...] RN) documented in this encounter Care Teams Pick And Shovel Worker Relationship Specialty Start Date End Date Elizabeth Mistry, GENNY [facility] [place] [place] [address] PCP - General General Internal Medicine 08/19/1605/23 documented as of this encounter
--- OUTSIDE RECORDS SUMMARY | 2024-03-30 12:56 | XMS_ITS | Encounter Summary ---
Author Organization [facility] [place] [address] Care Team Providers Care Refueler Name Role Phone Elizabeth Mistry GENNY Primary Care Provider + Reason for Visit * Reason Onset Date Comments Triage 02/09/2018 Encounter Details Date Type Department Care Team (Late st Contact Info) Description 02/09/2018 Telephone Internal Medicine at [address] [address] Emely Ruiz Triage Social History Tobacco Use Types Packs/Day [...] Encounter - Marco A Richter RN - 02/09/2018 4:27 PM EDT Spoke with patient, having stuffed nose, sinus pressure, lacking energy, patient has been taking muccinex cold/flu, repeated advise for saline nasal spray and netti pot, patient is out of town currently near [facility], will go to local urgent care if symptoms get worse * Telephone Encounter - Marco A Richter, RN - 02/09/2018 4:13 PM EDT Returned phone call to patient, no answer, left message on identified voicemail, recommended nasal saline spray or netti pot for a nasal lavage if increase in mucus is more nasal, recommended hot shower if chest congestion * Telephone Encounter - Emely Ruiz - 02/09/2018 4:04 PM EDT Message: Pt calling stating he has been feeling ill all week. He states he has not been able to go to work. He states that he has had a lot of mucus and has felt very wiped out. Pt has an appointmentscheduled for a physical exam with Elizabeth Mistry APRN on 02/14/18 but is hoping a nurse could call him with some suggestions until he can come in. Pt states he lives far away. Please call pt back to discuss. Caller and relationship (if other than patient-full name): Pt Best time to call back: any Ok to leave a message: [yes] Ok to send my- message: [no] Offered Appointment: no MA/Nurse contacted via: Message: x Call: Pager: documented in this encounter Plan of Treatment Upcoming Encounters Date Type Department Care Team (Late st Contact Info) Description 04/01/2025 3:40 PM EST Office Visit Cardiology at [address] [address] Star Flores MD [facility] [place] [address] documented as of this encounter Visit Diagnoses Not on filedocumented in this encounter Care Teams Refueler Relationship Specialty Start Date End Date Elizabeth Mistry APRN [facility] [place] [address] PCP - General General Internal Medicine 08/19/1605/23 documented as of this encounter
--- OUTSIDE RECORDS SUMMARY | 2024-03-30 12:56 | XMS_ITS | Encounter Summary ---
Author Organization [facility] Address [facility] [place] [address] Care Team Providers Care Corporate Webmaster Name Role Phone Elizabeth Mistry APRN Primary Care Provider + Encounter Details Date Type Department Care Team (Latest Contact Info) Description 09/09/2016 12:38 PM EDT - 09/09/2016 11:59 PM EDT Hospital Encounter Laboratory [facility] [place] [phone] Abdominal pain, unspecified location; Change in stool habits Discharge Disposition: Home Social History Tobacco Use [...] on file documented as of this encounter Medications at Time of Discharge Medication Sig Dispensed Refills Start Date End Date UNABLE TO FIND Miralax 12/23/2016 omeprazole (PRILOSEC) 20 mg Capsule, Delayed Release(E.C.)Indication s:Upper abdominal pain Take 1 capsule by mouth daily. 30 capsule 11 08/13/2016 12/23/2016 documented as of this encounter Plan of Treatment Upcoming Encounters Date Type Department Care Team (Late st Contact Info) Description 04/01/2025 3:40 PM EST Office Visit Cardiology at [address] [address] Star Flores MD [facility] [place] [address] documented as of this encounter Procedures Procedure Name Priority Date/Time Associated Diagnosis Comments STOOL CULTURE SCREEN ([facility]) Routine 09/09/2016 10:15 AM EDT Abdominal pain, unspecified location Change in stool habits CAMPYLOBACTER ANTIGEN Routine 09/09/2016 10:15 AM EDT Abdominal pain, unspecified location Change in stool habits SHIGA TOXIN ASSAY Routine 09/09/2016 10: 15 AM EDT Abdominal pain, unspecified location Change in stool habits FECAL LACTOFERRIN Routine 09/09/2016 10: 15 AM EDT Abdominal pain, unspecified location Change in stool habits HELICOBACTER PYLORI ANTIGEN STOOL Routine 09/09/2016 10:15 AM EDT Abdominal pain, unspecified location Change in stool habits FECAL FAT QUALITATIVE Routine 09/09/2016 10:15 AM EDT Abdominal pain, unspecified location Change in stool habits GIARDIA ANTIGEN ([facility]D/[facility]) Routine 09/09/2016 10:15 AM EDT Abdominal pain, unspecified location Change in stool habits STOOL CULTURE Routine 09/09/2016 10:15 AM EDT Abdominal pain, unspecified location Change in stool habits documented in this encounter Results * Shiga Toxin Detection (09/09/2016 10:15 AM EDT) Shiga Toxin Assay EIA Negative for Shiga Toxin 1 EIA Negative for Shiga Toxin 2 [facility] Stool specimen (specimen) 09/09/2016 10:15 AM EDT 09/09/2016 1:03 PM EDT Narrative Resulting Agency Comment Spec In Lab Rosaura Garza MD MICROBIOLOGY - GENER AL ORDERABLES [facility] [place] [address] * Campylobacter Antigen (09/09/2016 10:15 AM EDT) Campylobacter Ag Immunoassay Negative for Campylobacter Antigen [facility] Stool specimen (specimen) 09/09/2016 10:15 AM EDT 09/09/2016 1:03 PM EDT Narrative Resulting Agency Comment Spec In Lab Rosaura Garza MD MICROBIOLOGY - GENER AL ORDERABLES Performing Organization Address City/[facility]/ZIP Co de Phone Number [facility] [place] [address] * Stool culture (09/09/2016 10:15 AM EDT) Stool Culture No enteric pathogens isolated [facility] Stool specimen (specimen) 09/09/2016 10:15 AM EDT 09/09/2016 1:03 PM EDT Narrative Resulting Agency Comment Spec In Lab Rosaura Garza MD MICROBIOLOGY - GENER AL ORDERABLES Performing Organization Address [facility]/ZIP Co de Phone Number [facility] [place] [address] * Giardia antigen (09/09/2016 10:15 AM EDT) Giardia Antigen Negative Negative [facility] Comment:Examination for othe r intestinal parasites requires foreign travel history. Stool specimen (specimen) 09/09/2016 10:15 AM EDT 09/09/2016 1:03 PM EDT Narrative Resulting Agency Comment Spec In Lab Rosaura Garza MD MICROBIOLOGY - GENER AL ORDERABLES Performing Organization Address City/[facility]/ZIP Co de Phone Number [facility] [place] [address] * Fecal Fat Qualitative (09/09/2016 10:15 AM EDT) Fecal Fat Qualitative <100 globules <100 globules /HPF [facility] Comment: With this procedure, the presence of <100 globules per HPF is considered normal. Stool specimen (specimen) 09/09/2016 10:15 AM EDT 09/09/2016 12:50 PM EDT Narrative Resulting Agency Comment Spec In Lab Rosaura Garza MD BODY FLUIDS AND STOO LS ORDERABLES Performing Organization Address [facility]/ZIP Co de Phone Number [facility] [place] [address] * Fecal Lactoferrin (09/09/2016 10:15 AM EDT) Fecal Lactoferrin Negative Negative [facility] Stool specimen (specimen) 09/09/2016 10:15 AM EDT 09/09/2016 1:11 PM EDT Narrative Resulting Agency Comment Spec In Lab Rosaura Garza MD MICROBIOLOGY - GENER AL ORDERABLES Performing Organization Address [facility] Co de Phone Number [facility] [place] [address] * Helicobacter pylori Antigen Stool (09/09/2016 10:15 AM EDT) H pylori Ag Negative Negative [facility] Comment:Test performed by adriana oliveira. H pylori Ag Comment See Comment [facility] Comment: Antimicrobials, proton pump inhibitors and bismuth preparations are known to suppress H pylori, and ingestion of these prior to H. pylori testing may cause false negative results. Stool specimen (specimen) 09/09/2016 10:15 AM EDT 09/09/2016 1:11 PM EDT Narrative Resulting Agency Comment Spec In Lab Rosaura Garza MD MICROBIOLOGY - GENER AL ORDERABLES Performing Organization Address [facility] Co de Phone Number [facility] [place] [address] documented in this encounter Visit Diagnoses Diagnosis Abdominal pain, unspecified location Change in stool habits Other symptoms involving digestive system documented in this encounter Care Teams Corporate Webmaster Relationship Specialty Start Date End Date Elizabeth Mistry, MANAGER ORGANIZATIONAL [facility] [place] [address] PCP - General General Internal Medicine 08/19/1605/23 documented as of this encounter
--- OUTSIDE RECORDS SUMMARY | 2024-03-30 12:56 | XMS_ITS | Encounter Summary ---
[place] [address] Care Team Providers Care Advanced Nursing Professor Name Role Phone Elizabeth Mistry APRN Primary Care Provider + Reason for Visit * Reason Onset Date Comments Other 02/20/2018 Encounter Details Date Type Department Care Team (Late st Contact Info) Description 02/20/2018 Telephone Internal Medicine at [address] [address] Judi Mendoza Other Social History Tobacco Use Types Packs/Day [...] encounter Miscellaneous Notes * Telephone Encounter - Elizabeth Mistry APRN - 02/20/2018 9:22 AM EDT Called and spoke with patient about symptoms and CK level. He was wondering if there were other lababnormalities. He reports that he is still feeling tired. Discussed that it may take longer for himto feel better. He will have endoscopy as planned tomorrow. * Telephone Encounter - Judi Mendoza - 02/20/2018 9:07 AM EDT Message: pt calling, he has an endoscopy tomorrow. He would like to speak with Danii jN before. Please ask her to call him back Caller and relationship (if other than patient-full name): self Best time to call back: any Ok to leave a message: [y] Ok to send my- message: [n] Offered Appointment: MA/Nurse contacted via: Message: y Call: n Pager: n documented in this encounter Plan of Treatment Upcoming Encounters Date Type Department Care Team (Late st Contact Info) Description 04/01/2025 3:40 PM EST Office Visit Cardiology at [address] [phone] [facility] [place] [address] documented as of this encounter Visit Diagnoses Not on filedocumented in this encounter Care Teams Advanced Nursing Professor Relationship Specialty Start Date End Date Elizabeth Mistry APRN [facility] [place] [address] PCP - General General Internal Medicine 08/19/1605/23 documented as of this encounter
--- OUTSIDE RECORDS SUMMARY | 2024-03-30 12:56 | XMS_ITS | Encounter Summary ---
[place] [address] Care Team Providers Care Platform Builder Name Role Phone Elizabeth Mistry APRN Primary Care Provider + Reason for Visit * Reason Onset Date Comments Triage 08/31/2016 Encounter Details Date Type Department Care Team (Late st Contact Info) Description 08/31/2016 Telephone Internal Medicine at [address] [address] Karine Mckeon Triage Social History Tobacco Use Types Packs/Day [...] encounter Miscellaneous Notes * Telephone Encounter - Sariah Oconnor RN - 08/31/2016 2:33 PM EDT TC to the patient: appointment made for tomorrow per Elizabeth Mistry. * Telephone Encounter - Sariah Oconnor RN - 08/31/2016 1:36 PM EDT Caller:Patient Learning Needs Assessment Reviewed: Yes Subjective Patient presents with: Triage Objective/Assessment Symptom onset:States that he cont. To have bilat. Lower abdominal pain. Dull pain. Taking Murelax daily and moving his bowels mostly daily but doesn't feel like it is complete. C/O also feeling bloated and pants are tight. Trying to drink more fluid at 5-6 glasses per day. Trying to do better with getting exercise. Location: Duration: Characteristics: Aggravating factors:Eating at times makes it worse. Relieving factors:relieved some with BM Timing: Severity:4-5/10 dull pain mostly constant. Pertinent Past Medical History: Plan Intervention/Plan/ Follow Up: Doesn't feel he can wait until the next appointment. * Telephone Encounter - Karine Conti - 08/31/2016 1:24 PM EDT Message: still having symptoms of abd pain, burping. He's not sure he can wait until 09/22. Wonderingif he needs to come back in or get a referral Caller and relationship (if other than patient-full name): self Best time to call back: any Ok to leave a message: [y] Ok to send my- message: [] Offered Appointment: Nurse contacted via: Message: x Call: Pager: documented in this encounter Plan of Treatment Upcoming Encounters Date Type Department Care Team (Late st Contact Info) Description 04/01/2025 3:40 PM EST Office Visit Cardiology at [address] [address] Star Flores MD [facility] [place] [address] documented as of this encounter Visit Diagnoses Not on filedocumented in this encounter Care Teams Platform Builder Relationship Specialty Start Date End Date Elizabeth Mistry APRN [facility] [place] [address] PCP - General General Internal Medicine 08/19/1605/23 documented as of this encounter
--- OUTSIDE RECORDS SUMMARY | 2024-03-30 12:56 | XMS_ITS | Encounter Summary ---
Author Organization [facility] [place] [address] Care Team Providers Care Chemist Pharmaceutical Name Role Phone Elizabeth Mistry APRN Primary Care Provider + Reason for Visit * Reason Onset Date Comments Referral 03/02/2018 Encounter Details Date Type Department Care Team (Late st Contact Info) Description 03/02/2018 Telephone Internal Medicine at [address] [address] Rebecca Chisholm Referral Social History Tobacco Use Types Packs/Day [...] encounter Miscellaneous Notes * Telephone Encounter - Macro A Richter RN - 03/03/2018 8:40 AM EDT Phoned patient, advised him to check with [facility] to see if they have a lipid specialist or pulverizer feeder there patient would want to see, if so to let the clinic know and we can send a referral for him, patient verbalized understanding * Telephone Encounter - Marco A Richter RN - 03/02/2018 1:34 PM EDT Phoned urgent care near patient's home to request results to be faxed from labs drawn there earlierthis month * Telephone Encounter - Rebecca Chisholm - 03/02/2018 1:20 PM EDT Patient is requesting a referral for what kind of services/treatment: Lipid Specialist Reason for this referral request: Pt asking for specialist closer to [facility] where he lives-current referral is for [facility] over [address] for pt Specific office or provider: Address/Phone/Fax: Has the patient been seen for this symptom: Who: When: Caller and Relationship (if other than patient): self Best time to call back: any Ok to leave a message: yes Ok to send my- message: no documented in this encounter Plan of Treatment Upcoming Encounters Date Type Department Care Team (Late st Contact Info) Description 04/01/2025 3:40 PM EST Office Visit Cardiology at [address] [place] [address] Star Flores MD [facility] [place] [address] documented as of this encounter Visit Diagnoses Not on filedocumented in this encounter Care Teams Chemist Pharmaceutical Relationship Specialty Start Date End Date Elizabeth Mistry APRN [facility] [place] [place] [address] PCP - General General Internal Medicine 08/19/1605/23 documented as of this encounter
--- OUTSIDE RECORDS SUMMARY | 2024-03-30 12:56 | XMS_ITS | Encounter Summary ---
[place] [address] Care Team Providers Care District Scout Executive Name Role Phone Elizabeth Mistry APRN Primary Care Provider + Reason for Visit * Reason Onset Date Comments Other 02/21/2018 Encounter Details Date Type Department Care Team (Late st Contact Info) Description 02/21/2018 Telephone Internal Medicine at [address] [address] Stacy Terrazas Other Social History [...] Encounter - Marco A Richter RN - 02/23/2018 8:16 AM EDT Lab orders faxed to [facility], * Telephone Encounter - Marco A Richter RN - 02/22/2018 1:52 PM EDT Patient phoned, call was dropped, patient started to request external referrals for CK and Lyme tests, call dropped before number to clinic could be received, will send myD-H message to request number, labs pended and routed to provider for signature * Telephone Encounter - Marco A Richter, RN - 02/22/2018 1:21 PM EDT Spoke with patient, still feels fatigued, and has body aches, advised to go to his local walk-in clinic, instructed to request they check his CK level d/t recent high results related to medications, and to draw for a lyme test, patient will have results sent to [facility] * Telephone Encounter - Rebecca Chisholm - 02/22/2018 12:09 PM EDT Pt called back. Feeling really badly. Fatigue, having a hard time living daily. Walking, driving iseven tiring. Had endoscopy 02/21. Feels like there is something very wrong. Tried to call nurse-no answer. Please call pt back. * Telephone Encounter - Judi Mendoza - 02/21/2018 2:48 PM EDT Pt called [facility], they said that he should be referred to a conveyor belt repairer, he is now confused and wouldlike to speak with marco a again. Please call back [phone] * Telephone Encounter - Marco A Richter, RN - 02/21/2018 2:30 PM EDT Phoned patient, advised him to reach out to [facility] and local [facility] to see if they had a lipid specialist ir cholesterol treatment center in house or know of one in the area, patient will relay back what he finds and a referral will then be sent out * Telephone Encounter - Stacy Terrazas 02/21/2018 1:03 PM EDT Message: pt is calling to see if there is a Lipid specialist that he can go to in [place]. Please give him a call to discuss Caller and relationship (if other than patient-full name): Marco A Best time to call back: any Ok to leave a message: [yes] Ok to send my- message: [] Offered Appointment: no MA/Nurse contacted via: Message: yes Call: no Pager: no documented in this encounter Plan of Treatment Upcoming Encounters Date Type Department Care Team (Late st Contact Info) Description 04/01/2025 3:40 PM EST Office Visit Cardiology at [address] [phone] Star Flores MD [facility] [place] [address] documented as of this encounter Visit Diagnoses Diagnosis Fatigue, unspecified type documented in this encounter Care Teams District Scout Executive Relationship Specialty Start Date End Date Elizabeth Mistry APRN [facility] [place] [address] PCP - General General Internal Medicine 08/19/1605/23 documented as of this encounter
--- OUTSIDE RECORDS SUMMARY | 2024-03-30 12:56 | XMS_ITS | Encounter Summary ---
[place] [address] Care Team Providers Care Flag Maker Name Role Phone Elizabeth Mistry APRN Primary Care Provider + Reason for Visit * Reason Comments Abdominal Pain 1 month follow up. Encounter Details Date Type Department Care Team (Late st Contact Info) Description 09/22/2016 9:20 AM EDT Office Visit Internal Medicine at [address] [address] Elizabeth Mistry APRN [facility] [place] [address] Hyperlipidemia, unspecified hyperlipidemia type; Abdominal pain, unspecified location; Cigarette smoker Social History Tobacco Use Types Packs/Day Years [...] Sign Reading Time Taken Comments Blood Pressure 135/98 09/22/2016 9:10 AM EDT Pulse 89 09/22/2016 9:10 AM EDT Temperature 36.8 ??C (98.3 ??F) 09/22/2016 9:10 AM ED T Respiratory Rate 16 09/22/2016 9:10 AM EDT Oxygen Saturation 100% 09/22/2016 9:10 AM EDT Inhaled Oxygen Concentration - - Weight 79.7 kg (175 lb 9.6 oz) 09/22/2016 9:10 A M EDT Height - - Body Mass Index 25.71 09/01/2016 1:08 PM EDT documented in this encounter Patient Instructions * Patient Instructions* Elizabeth Mistry, [employer] DUSTER - 09/22/2016 10:00 AM EDT Images from the original note were not included. [facility] Learning About High Cholesterol What is high cholesterol? Cholesterol is a type of fat in your blood. It is needed for many body functions, such as making new cells. Cholesterol is made by your body. It also comes from food you eat. If you have too much cholesterol, it starts to build up in your arteries. This is called hardening of the arteries, or atherosclerosis. High cholesterol raises your risk of a heart attack and stroke. There are different types of cholesterol. LDL is the bad cholesterol. High LDL can raise your risk for heart disease, heart attack, and stroke. HDL is the good cholesterol. High HDL is linked with a lower risk for heart disease, heart attack, and stroke. Your cholesterol levels help your doctor find out your risk for having a heart attack or stroke. How can you prevent high cholesterol? A heart-healthy lifestyle can help you prevent high cholesterol. This lifestyle helps lower your risk for a heart attack and stroke. ?? Eat heart-healthy foods. ?? Eat fruits, vegetables, whole grains (like oatmeal), dried beans and peas, nuts and seeds, soy products (like tofu), and fat-free or low-fat dairy products. ?? Replace butter, margarine, and hydrogenated or partially hydrogenated oils with olive and canolaoils. (Canola oil margarine without trans fat is fine.) ?? Replace red meat with fish, poultry, and soy protein (like tofu). ?? Limit processed and packaged foods like chips, crackers, and cookies. ?? Be active. Exercise can improve your cholesterol level. Get at least 30 minutes of exercise on most days of the week. Walking is a good choice. You also may want to do other activities, such as running, swimming, cycling, or playing tennis or team sports. ?? Stay at a healthy weight. Lose weight if you need to. ?? Don't smoke. If you need help quitting, talk to your doctor about stop- smoking programs and medicines. These can increase your chances of quitting for good. How is high cholesterol treated? The goal of treatment is to reduce your chances of having a heart attack or stroke. The goal is notto lower your cholesterol numbers only. ?? You may make lifestyle changes, such as eating healthy foods, not smoking, losing weight, and being more active. ?? You may have to take medicine. Follow-up care is a trotter part of your treatment and safety. Be sure to make and go to all appointments, and call your doctor if you are having problems. It's also a good idea to know your test resultsand keep a list of the medicines you take. Where can you learn more? Visit our Te[employer] information library at [email or web address] You can also view health information on [employer], your personal patient account. Log in or sign up today. Enter Q621 in the search box to learn more about Learning About High Cholesterol. ?? [id number] Janalakshmi. Care instructions adapted under license by [facility]. This care instruction is for use with your licensed healthcare professional. If you have questions about a medical condition or this instruction, always ask your healthcare professional. [employer] disclaims any warranty or liability for your use of this information. Content Version: 11.0.685451; Current as of: June 18, 2015 [facility] Heart-Healthy Diet: Care Instructions Your Care Instructions A heart-healthy diet has lots of vegetables, fruits, nuts, beans, and whole grains, and is low in salt. It limits foods that are high in saturated fat, such as meats, cheeses, and fried foods. It maybe hard to change your diet, but even small changes can lower your risk of heart attack and heart disease. Follow-up care is a trotter part of your treatment and safety. Be sure to make and go to all appointments, and call your doctor if you are having problems. It's also a good idea to know your test resultsand keep a list of the medicines you take. How can you care for yourself at home? Watch your portions ?? Learn what a serving is. A serving and a portion are not always the same thing. Make sure that you are not eating larger portions than are recommended. For example, a serving of pasta is ?? cup. A serving size of meat is 2 to 3 ounces. A 3-ounce serving is about the size of a deck of cards. Measure serving sizes until you are good at eyeballing them. Keep in mind that restaurants often serve portions that are 2 or 3 times the size of one serving. ?? To keep your energy level up and keep you from feeling hungry, eat often but in smaller portions. ?? Eat only the number of calories you need to stay at a healthy weight. If you need to lose weight, eat fewer calories than your body riddle (through exercise and other physical activity). Eat more fruits and vegetables ?? Eat a variety of fruit and vegetables every day. Dark green, deep orange, red, or yellow fruits and vegetables are especially good for you. Examples include spinach, carrots, peaches, and berries. ?? Keep carrots, celery, and other veggies handy for snacks. Buy fruit that is in season and store it where you can see it so that you will be tempted to eat it. ?? Cook dishes that have a lot of veggies in them, such as stir-fries and soups. Limit saturated and trans fat ?? Read food labels, and try to avoid saturated and trans fats. They increase your risk of heart disease. Trans fat is found in many processed foods such as cookies and crackers. ?? Use olive or canola oil when you cook. Try cholesterol-lowering spreads, such as Benecol or TakeControl. ?? Bake, broil, grill, or steam foods instead of frying them. ?? Choose lean meats instead of high-fat meats such as hot dogs and sausages. Cut off all visible fat when you prepare meat. ?? Eat fish, skinless poultry, and meat alternatives such as soy products instead of high-fat meats. Soy products, such as tofu, may be especially good for your heart. ?? Choose low-fat or fat-free milk and dairy products. Eat fish ?? Eat at least two servings of fish a week. Certain fish, such as salmon and tuna, contain omega-3fatty acids, which may help reduce your risk of heart attack. Eat foods high in fiber ?? Eat a variety of grain products every day. Include whole-grain foods that have lots of fiber andnutrients. Examples of whole-grain foods include oats, whole wheat bread, and brown rice. ?? Buy whole-grain breads and cereals, instead of white bread or pastries. Limit salt and sodium ?? Limit how much salt and sodium you eat to help lower your blood pressure. ?? Taste food before you salt it. Add only a little salt when you think you need it. With time, your taste buds will adjust to less salt. ?? Eat fewer snack items, fast foods, and other high-salt, processed foods. Check food labels for the amount of sodium in packaged foods. ?? Choose low-sodium versions of canned goods (such as soups, vegetables, and beans). Limit sugar ?? Limit drinks and foods with added sugar. These include candy, desserts, and soda pop. Limit alcohol ?? Limit alcohol to no more than 2 drinks a day for men and 1 drink a day for women. Too much alcohol can cause health problems. When should you call for help? Watch closely for changes in your health, and be sure to contact your doctor if: ?? You would like help planning heart-healthy meals. Where can you learn more? Visit our health information library at [email or web address] You can also view health information on [employer], your personal patient account. Log in or sign up today. Enter V137 in the search box to learn more about Heart-Healthy Diet: Care Instructions. ?? [id number] Janalakshmi. Care instructions adapted under license by [facility]. This care instruction is for use with your licensed healthcare professional. If you have questions about a medical condition or this instruction, always ask your healthcare professional. [employer] disclaims any warranty or liability for your use of this information. Content Version: 11.0.087089; Current as of: June 18, 2015 documented in this encounter Progress Notes * Elizabeth Mistry APRN - 09/22/2016 9:20 AM EDT PCP: Elizabeth Mistry APRN Chief Complaint Patient presents with ??? Abdominal Pain 1 month follow up. SUBJECTIVE: Marco A Park is a 31 y.o. male who presents for abdominal pain. He reports that the abdominal pain has not really bothered him for the last couple of weeks. He reports that he did not change his diet significantly. He did add some more vegetables and salads to his diet. He is trying to eat salad4-5 times per week. Review of Systems Constitutional: Negative for chills and fever. Gastrointestinal: Negative for abdominal pain. No Known Allergies Current Outpatient Prescriptions Medication [...] History of head injury Z87.828 OBJECTIVE: Vitals: 09/22/16 0910 BP: (!) 135/98 Pulse: 89 Resp: 16 Temp: 36.8 ??C (98.3 ??F) TempSrc: Oral SpO2: 100% Weight: 79.7 kg (175 lb 9.6 oz) PHYSICAL EXAM: Physical Exam Constitutional: He is oriented to person, place, and time. He appears well- developed and well-nourished. HENT: Head: Normocephalic and atraumatic. Eyes: Conjunctivae are normal. No scleral icterus. Abdominal: Soft. Bowel sounds are normal. There is no tenderness. There is no guarding. Neurological: He is alert and oriented to person, place, and time. Skin: Skin is warm and dry. Psychiatric: He has a normal mood and affect. His behavior is normal. Judgment and thought content normal. Vitals reviewed. ASSESSMENT & PLAN: Marco A was seen today for abdominal pain. Diagnoses and all orders for this visit: Hyperlipidemia, unspecified hyperlipidemia type - reviewed recent labs and that his HDL is low at 39 - he has strong family history, LDL is over 200 and HDL less than 40 and he is a smoker. He is highrisk for [facility] in the future. Discussed lifestyle changes and starting a medication. I explained that even if he made significant lifestyle changes he would likely need cholesterol lowering medication in the next few years. He would really like to make lifestyle changes and recheck levels in 3 months.If still elevated and smoking will recommend that he start on cholesterol lowering medication. He understands the plan and is in agreement. Abdominal pain, unspecified location - improved, no further work up at this time. Cigarette smoker - encouraged to quit. He has patches at home but has not been motivated to quit. Discussed the importance of picking a quit date and removing cigarettes from his home. He will let us know if it is not working or he would like to try something else. Greater than 25 minutes of this 30 minute was spent counseling/coordination of care, review of treatment, plan of care and follow up of the above diagnoses. documented in this encounter Plan of Treatment Upcoming Encounters Date Type Department Care Team (Late st Contact Info) Description 04/01/2025 3:40 PM EST Office Visit Cardiology at [address] [phone] Star Flores MD [facility] [place] [address] documented as of this encounter Visit Diagnoses Diagnosis Hyperlipidemia, unspecified hyperlipidemia type Abdominal pain, unspecified location Cigarette smoker Tobacco use disorder documented in this encounter Care Teams Flag Maker Relationship Specialty Start Date End Date Elizabeth Mistry APRN [facility] [place] [address] PCP - General General Internal Medicine 08/19/1605/23 documented as of this encounter
--- OUTSIDE RECORDS SUMMARY | 2024-03-30 12:56 | XMS_ITS | Encounter Summary ---
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 Name Role Phone Elizabeth Mistry APRN Primary Care Provider + Reason for Referral * Consultation (Routine) - Closed Specialty Diagnoses / Procedures Referred By Samuel t Referred To Contact Gastroenterology Diagnoses Constipation, unspecified constipation type Change in stool habits Elizabeth Mistry APRN [facility] [address] [place] [place] [address] [facility] [place] [address] Referral ID Status Reason Start Date Expiration Date V isits Requested Visits Authorized [id number] Closed Test Only 12/29/2017 12/29/2018 1 1 Reason for Visit * Reason Comments Other stomach issues, some constipation , seen at [facility] in [facility] yesterday Fatigue Encounter Details Date Type Department Care Team (Late st Contact Info) Description 12/29/2017 1:20 PM EDT Office Visit Internal Medicine at [address] [phone] Elizabeth Mistry APRN [facility] [address] [place] [address] Constipation, unspecified constipation type; Change in stool habits Social History Tobacco Use Types Packs/Day Years [...] Sign Reading Time Taken Comments Blood Pressure 133/84 12/29/2017 1:22 PM EDT Pulse 77 12/29/2017 1:22 PM EDT Temperature 36.9 ??C (98.5 ??F) 12/29/2017 1:22 PM ED T Respiratory Rate - - Oxygen Saturation 100% 12/29/2017 1:22 PM EDT Inhaled Oxygen Concentration - - Weight 71.8 kg (158 lb 6.4 oz) 12/29/2017 1:22 P M EDT Height 175.8 cm (5' 9.21) 12/29/2017 1:22 PM ED T reported Body Mass Index 23.25 12/29/2017 1:22 PM EDT documented in this encounter Patient Instructions * Patient Instructions* Elizabeth Mistry, GENNY - 12/29/2017 1:48 PM EDT Images from the original note were not included. Constipation: Care Instructions Your Care Instructions Constipation means that you have a hard time passing stools (bowel movements). People pass stools from 3 times a day to once every 3 days. What is normal for you may be different. Constipation may occur with pain in the rectum and cramping. The pain may get worse when you try to pass stools. Sometimes there are small amounts of bright red blood on toilet paper or the surface of stools. This is because of enlarged veins near the rectum (hemorrhoids). A few changes in your diet and lifestyle may help you avoid ongoing constipation. Your doctor may also prescribe medicine to help loosen your stool. Some medicines can cause constipation. These include pain medicines and antidepressants. Tell your doctor about all the medicines you take. Your doctor may want to make a medicine change to ease yoursymptoms. Follow-up care is a trotter part of your treatment and safety. Be sure to make and go to all appointments, and call your doctor if you are having problems. It's also a good idea to know your test resultsand keep a list of the medicines you take. How can you care for yourself at home? ?? Drink plenty of fluids, enough so that your urine is light yellow or clear like water. If you have kidney, heart, or liver disease and have to limit fluids, talk with your doctor before you increase the amount of fluids you drink. ?? Include high-fiber foods in your diet each day. These include fruits, vegetables, beans, and whole grains. ?? Get at least 30 minutes of exercise on most days of the week. Walking is a good choice. You alsomay want to do other activities, such as running, swimming, cycling, or playing tennis or team sports. ?? Take a fiber supplement, such as Citrucel or Metamucil, every day. Read and follow all instructions on the label. ?? Schedule time each day for a bowel movement. A daily routine may help. Take your time having your bowel movement. ?? Support your feet with a small step stool when you sit on the toilet. This helps flex your hips and places your pelvis in a squatting position. ?? Your doctor may recommend an [id number] laxative to relieve your constipation. Examples are Milk of Magnesia and MiraLax. Read and follow all instructions on the label. Do not use laxatives on a long-term basis. When should you call for help? Call your doctor now or seek immediate medical care if: ? You have new or worse belly pain. ? You have new or worse nausea or vomiting. ? You have blood in your stools. ??Watch closely for changes in your health, and be sure to contact your doctor if: ? Your constipation is getting worse. ? You do not get better as expected. Where can you learn more? Visit our health information library at http://Zipfit/MediSafe Projectinfo. You can also view health information on [employer], your personal patient account. Log in or sign uptoday. Enter P343 in the search box to learn more about Constipation: Care Instructions. Current as of: April 11, 2017 Content Version: 11.7 ?? 6793-1804 [employer]. Care instructions adapted under license by [facility]. If you have questions about a medical condition or this instruction, always ask your healthcare professional. [employer], [facility] disclaims any warranty or liability for your use of this information. Irritable Bowel Syndrome: Care Instructions Your Care Instructions Irritable bowel syndrome, or IBS, is a problem with the intestines that causes belly pain, bloating, gas, constipation, and diarrhea. The cause of IBS is not well known. IBS can last for many years, but it does not get worse over time or lead to serious disease. Most people can control their symptoms by changing their diet and reducing stress. Follow-up care is a trotter part of your treatment and safety. Be sure to make and go to all appointments, and call your doctor if you are having problems. It's also a good idea to know your test resultsand keep a list of the medicines you take. How can you care for yourself at home? ?? For constipation: ? Include fruits, vegetables, beans, and whole grains in your diet each day. These foods are high in fiber. ? Drink plenty of fluids, enough so that your urine is light yellow or clear like water. If you have kidney, heart, or liver disease and have to limit fluids, talk with your doctor before you increase the amount of fluids you drink. ? Get some exercise every day. Build up slowly to 30 to 60 minutes a day on 5 or more days of the week. ? Take a fiber supplement, such as Citrucel or Metamucil, every day if needed. Read and follow all instructions on the label. ? Schedule time each day for a bowel movement. Having a daily routine may help. Take your time and do not strain when having a bowel movement. ?? If you often have diarrhea, limit foods and drinks that make it worse. These are different for each person but may include caffeine (found in coffee, tea, chocolate, and cola drinks), alcohol, fatty foods, gas-producing foods (such as beans, cabbage, and broccoli), some dairy products, and spicyfoods. Do not eat candy or gum that contains sorbitol. ?? Keep a daily diary of what you eat and what symptoms you have. This may help find foods that cause you problems. ?? Eat slowly. Try to make mealtime relaxing. ?? Find ways to reduce stress. ?? Get at least 30 minutes of exercise on most days of the week. Exercise can help reduce tension and prevent constipation. Walking is a good choice. You also may want to do other activities, such asrunning, swimming, cycling, or playing tennis or team sports. When should you call for help? Call your doctor now or seek immediate medical care if: ? Your pain is different than usual or occurs with fever. ? You lose weight without trying, or you lose your appetite and you do not know why. ? Your symptoms often wake you from sleep. ? Your stools are black and tarlike or have streaks of blood. ??Watch closely for changes in your health, and be sure to contact your doctor if: ? Your IBS symptoms get worse or begin to disrupt your day-to-day life. ? You become more tired than usual. ? Your home treatment stops working. Where can you learn more? Visit our [employer] information library at http://Zipfit/GupShupo. You can also view health information on [employer], your personal patient account. Log in or sign uptoday. Enter Y447 in the search box to learn more about Irritable Bowel Syndrome: Care Instructions. Current as of: October 01, 2016 Content Version: 11.7 ?? [id number] [employer]. Care instructions adapted under license by [facility]. If you have questions about a medical condition or this instruction, always ask your healthcare professional. [employer] disclaims any warranty or liability for your use of this information. Diet for Irritable Bowel Syndrome: Care Instructions Your Care Instructions Irritable bowel syndrome, or IBS, is a problem with the intestines. IBS can cause belly pain, bloating, gas, constipation, and diarrhea. Most people can control their symptoms by changing their diet and easing stress. No specific foods cause everyone with IBS to have symptoms. Doctors don't offer a specific diet to manage symptoms. But many people find that they feel better when they stop eating certain foods. A high-fiber diet may help if you have constipation. Follow-up care is a trotter part of your treatment and safety. Be sure to make and go to all appointments, and call your doctor if you are having problems. It's also a good idea to know your test resultsand keep a list of the medicines you take. How can you care for yourself at home? To reduce constipation ?? Include fruits, vegetables, beans, and whole grains in your diet each day. These foods are high in fiber. Slowly increase the amount of fiber you eat. This helps you avoid a lot of gas. ?? Drink plenty of fluids, enough so that your urine is light yellow or clear like water. If you have kidney, heart, or liver disease and have to limit fluids, talk with your doctor before you increase the amount of fluids you drink. ?? Get some exercise every day. Build up slowly to 30 to 60 minutes a day on 5 or more days of the week. ?? Take a fiber supplement, such as Citrucel or Metamucil, every day if needed. Read and follow allinstructions on the label. ?? Schedule time each day for a bowel movement. Having a daily routine may help. Take your time anddo not strain when having a bowel movement. ?? Check with your doctor before you increase the amount of fiber in your diet. For some people whohave IBS, eating more fiber may make some symptoms worse. This includes bloating. To reduce diarrhea You may try giving up foods or drinks one at a time to see whether symptoms improve. Limit or avoidthe following: ?? Alcohol ?? Caffeine, which is found in coffee, tea, cola drinks, and chocolate ?? Nicotine, from smoking or chewing tobacco ?? Gas-producing foods, such as beans, broccoli, cabbage, and apples ?? Dairy products that contain lactose (milk sugar), such as ice cream, milk, cheese, and sour cream ?? Foods and drinks high in sugar, especially fruit juice, soda, candy, and other packaged sweets (such as cookies) ?? Foods high in fat, including calzada, sausage, butter, oils, and anything deep-fried ?? Sorbitol and xylitol, artificial sweeteners found in some sugarless candies and chewing gum Keep track of foods ?? Some people with IBS use a daily food diary to keep track of what they eat and whether they haveany symptoms after eating certain foods. The diary also can be a good way to record what is going on in your life. ?? Stress plays a role in IBS. So if you are aware that certain stresses bring on symptoms, you cantry to reduce those stresses. Keep mealtimes pleasant ?? Try to maintain a pleasant environment when you eat. This may reduce stress that can make symptoms likely to occur. ?? Give yourself plenty of time to eat, rather than eating on the go. Chew your food slowly. Try not to swallow air, which can cause bloating. Where can you learn more? Visit our health information library at http://Zipfit/MediSafe Projectinfo. You can also view health information on [employer], your personal patient account. Log in or sign uptoday. Enter I783 in the search box to learn more about Diet for Irritable Bowel Syndrome: Care Instructions. Current as of: October 01, 2016 Content Version: 11.7 ?? [id number] [employer]. Care instructions adapted under license by [facility]. If you have questions about a medical condition or this instruction, always ask your healthcare professional. [employer] disclaims any warranty or liability for your use of this information. documented in this encounter Progress Notes * Elizabeth Mistry APRN - 12/29/2017 1:20 PM EDT PCP: Elizabeth Mistry APRN Chief Complaint Patient presents with ??? Other stomach issues, some constipation , seen at [facility] in [facility] yesterday ??? Fatigue SUBJECTIVE: Marco A Park is a 32 y.o. male who presents for stomach pain and constipation. He was given miralax and gatorade. He did have a large bowel movement, but still feels bloated and heartburn. He feels very fatigued as well. He has had some night sweats and difficulty sleeping, but does not have AC in his home. - no recent changes in his diet. - he does not eat a lot of veggies, some fruits on occasion He eats a lot of carbs. - he has lost a lot of weight. - he has had desire to eat. - he has had a lot of gas, and occasional loose stools, but not a full bowel movement. - he has lost about 13 lbs, but he is more active than he was last year. - he is quitting cigarettes, he has been using e cigarettes, and has been 2 weeks with out a cigarette. - he feels worse with sitting and better with movement. He has had a lot of gas as well. In the morning before he gets going it is worse. - he has treated it similar to the constipation that he had last year. He has taken about a bottle of mag citrate and taken miralax. He reports that he still felt that there was a lot of stools. - he had similar symptoms in July that resolved with treatment, it is just not getting better thistime. Wt Readings from Last 3 Encounters: 12/29/17 71.8 kg (158 lb 6.4 oz) 03/17/17 74.4 kg (164 lb) 12/23/16 77.6 kg (171 lb) Review of Systems Constitutional: Positive for fatigue. Negative for chills and fever. Gastrointestinal: Positive for abdominal distention, abdominal pain, constipation and nausea. Negative for blood in stool and vomiting. No Known Allergies Current Outpatient Prescriptions Medication Sig Dispense Refill ??? atorvastatin (LIPITOR) 10 mg Tablet Take 1 tablet by mouth daily. (Patient not taking: Reportedon 12/29/2017) 90 tablet 3 No current facility-administered medications for this visit. Patient Active Problem List Diagnosis Code ??? Unspecified symptoms and signs involving cognitive functions and awareness R41.9 ??? Depression F32.9 ??? 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 History of head injury Z87.828 OBJECTIVE: Vitals: 12/29/17 1322 BP: 133/84 BP Location (NBP): Left arm Patient Position: Sitting BP Cuff Sizes: Adult (25-34 cm) Pulse: 77 Temp: 36.9 ??C (98.5 ??F) TempSrc: Oral SpO2: 100% Weight: 71.8 kg (158 lb 6.4 oz) Height: 175.8 cm (5' 9.21) PHYSICAL EXAM: Physical Exam Constitutional: He appears well-developed and well-nourished. HENT: Head: Normocephalic and atraumatic. Mouth/Throat: Oropharynx is clear and moist. Eyes: Conjunctivae are normal. Pulmonary/Chest: Effort normal. Abdominal: Soft. Bowel sounds are normal. He exhibits no distension and no mass. There is tenderness (diffuse tenderness, epigastric and LLQ). There is no rebound and no guarding. Skin: Skin is warm and dry. No rash noted. Psychiatric: He has a normal mood and affect. His behavior is normal. Judgment and thought content normal. Vitals reviewed. ASSESSMENT & PLAN: Marco A was seen today for other and fatigue. Diagnoses and all orders for this visit: Constipation, unspecified constipation type - Referral to Gastroenterology Change in stool habits - Referral to Gastroenterology - omeprazole (PRILOSEC) 40 mg Capsule, Delayed Release(E.C.); Take 1 capsule by mouth daily. Hyperlipidemia - atorvastatin (LIPITOR) 10 mg Tablet; Take 1 tablet by mouth daily. m documented in this encounter Plan of Treatment Upcoming Encounters Date Type Department Care Team (Late st Contact Info) Description 04/01/2025 3:40 PM EST Office Visit Cardiology at [address] [phone] Star Flores MD [facility] [place] [address] Scheduled Referrals Name Type Priority Associated Diagnoses Order Schedule Referral to Gastroenterology Outpatient Referral Routine Constipation, unspecified constipation type Change in stool habits Ordered: 12/29/2017 documented as of this encounter Visit Diagnoses Diagnosis Constipation, unspecified constipation type Change in stool habits Other symptoms involving digestive system documented in this encounter Care Teams Home Appliance Washing Machine Mechanic Relationship Specialty Start Date End Date Elizabeth Mistry APRN [facility] [address] PCP - General General Internal Medicine 08/19/1605/23 documented as of this encounter
--- OUTSIDE RECORDS SUMMARY | 2024-03-30 12:56 | XMS_ITS | Encounter Summary ---
Author Organization [facility] Address [facility] [address] Care Team Providers Care Lead Security Officer Name Role Phone Elizabeth Mistry APRN Primary Care Provider + Reason for Visit * Reason Onset Date Comments Other 01/09/2018 Encounter Details Date Type Department Care Team (Late st Contact Info) Description 01/09/2018 Telephone Internal Medicine at [address] [address] Judi Mendoza Other Social History [...] Encounter - Marco A Richter RN - 01/10/2018 9:51 AM EDT Phoned patient, no answer, left message on identified voicemail, stated labs were ordered and patient could call to set up an appointment in [place] for the blood draw or he could go to as a walk-in * Telephone Encounter - Judi Mendoza - 01/09/2018 11:12 AM EDT Message: pt would like to know if he needs his liver enzymes needs to be tested prior to his physical. Please call back. Caller and relationship (if other than patient-full [...] PM EST Office Visit Cardiology at [address] [phone] Star Flores MD [facility] [place] [address] documented as of this encounter Results * (ABNORMAL) CMP w/fasting Glucose (02/14/2018 9:14 AM EDT) [facility] Glucose Fasting 113(H) 65 - 99 mg/dL [...] of Diabetes Mellitus, Position Statement from the [place] [employer]. ??Diabetes Care, Volume 33, Supplement [...] of body mass or the acutely ill. [email or web address] eGFR 92 >=60 mL/min/1. 73 m?? [facility] Comment: The eGFR was calculated using the CKD-EPI equation. As with all creatinine based estimates of kidney function, eGFR values calculated with the CKD-EPI equation are not accurate in patients with acute kidney failure, extremes of body mass or the acutely ill. [email or web address] Blood specimen (specimen) 02/14/2018 9:14 AM EDT 02/14/2018 12:06 PM EDT Narrative Resulting Agency Comment Spec In Lab Elizabeth Mistry APRN CHEMISTRY ORDERA BLES [facility] [place] [address] documented in this encounter Visit Diagnoses Diagnosis Familial hypercholesterolemia Pure hypercholesterolemia documented in this encounter Care Teams Lead Security Officer Relationship Specialty Start Date End Date Elizabeth Mistry, GENNY [facility] [place] [address] PCP - General General Internal Medicine 08/19/1605/23 documented as of this encounter
--- OUTSIDE RECORDS SUMMARY | 2024-03-30 12:56 | XMS_ITS | Encounter Summary ---
Author Organization [facility] [place] [address] Care Team Providers Care Medical Staff Director Name Role Phone Elizabeth Mistry APRN Primary Care Provider + Reason for Referral * Physical Therapy (Routine) - Closed Specialty Diagnoses / Procedures Referred By Samuel cisneros Referred To Contact Physical Therapy Diagnoses Hamstring strain, right, initial encounter Elizabeth Mistry APRN [facility] [place] [address] [facility] [address] [place] [address] Referral ID Status Reason Start Date Expiration Date V isits Requested Visits Authorized [id number] Closed Evaluate and Treat 12/23/2016 12/23/2017 1 1 Reason for Visit * Reason Comments Hyperlipidemia 3 month followup Other hamstring on right l eg is really bothering him, 2 monthes ago, he was playing football thinks he may have hurt it than Encounter Details Date Type Department Care Team (Late st Contact Info) Description 12/23/2016 2:00 PM EDT Office Visit Internal Medicine at [address] [address] Elizabeth Mistry APRN [facility] [place] [address] Hamstring strain, right, initial encounter; Hyperlipidemia, unspecified hyperlipidemia type; Cigarette smoker Social History Tobacco Use Types [...] Sign Reading Time Taken Comments Blood Pressure 128/83 12/23/2016 2:02 PM EDT Pulse 78 12/23/2016 2:02 PM EDT Temperature 36.9 ??C (98.4 ??F) 12/23/2016 2:02 PM ED T Respiratory Rate - - Oxygen Saturation 100% 12/23/2016 2:02 PM EDT Inhaled Oxygen Concentration - - Weight 77.6 kg (171 lb) 12/23/2016 2:02 PM EDT Height 176 cm (5' 9.29) 12/23/2016 2:02 PM EDT reported Body Mass Index 25.04 12/23/2016 2:02 PM EDT documented in this encounter Patient Instructions * Patient Instructions* Elizabeth Mistry APRN - 12/23/2016 2:31 PM EDT Images from the original note were not included. Tobacco Treatment: Bupropion SR / Zyban instructions: Bupropion SR/Zyban is a non-nicotine pill to help tobacco users quit. Take 150 mg once a day for the first 3 days then increase to 150 mg twice a day. There must be at least 8 hours between the two doses. Start this medication 1-2 weeks before quit date. Limit alcohol intake. Duration of therapy is7-12 weeks but may be extended for up to 6 months. The most common side effects with this medication are difficulty sleeping and dry mouth. If you have trouble with sleep you might try taking the second dose earlier in the day/evening. Several studies have shown that Bupropion SR in combination with a nicotine patch can further increase success in quitting tobacco. References: Treating Tobacco Use and Dependence, Clinical Practice Guideline 2008 Update, U.S. Department of Health and Human Services, September 2007 U.S. Food and Drug Administration Recommendations, revised directions for use of Nicotine Replacement Therapy , August 22, 2012: https://www.federalregister.gov/articles//2013-06640/modifications-to- fdoffvvi-ln-uvpypirn-oegfdbxmlzc-iumknpv-llvmmymx-gcx-qysg-iel-rewbaij-kvbqn-yqi Zach Hamstring Strain: Rehab Exercises Your Care Instructions Here are some examples of typical rehabilitation exercises for your condition. Start each exercise slowly. Ease off the exercise if you start to have pain. Your doctor or physical therapist will tell you when you can start these exercises and which ones will work best for you. How to do the exercises Hamstring set (heel dig) 1. Sit with your affected leg bent. Your good leg should be straight and supported on the floor. 2. Tighten the muscles on the back of your bent leg (hamstring) by pressing your heel into the floor. 3. Hold for about 6 seconds, and then rest for up to 10 seconds. 4. Repeat 8 to 12 times. Hamstring curl 1. Lie on your stomach with your knees straight. Place a pillow under your stomach. If your kneecapis uncomfortable, roll up a washcloth and put it under your leg just above your kneecap. 2. Lift the foot of your affected leg by bending your knee so that you bring your foot up toward your buttock. If this motion hurts, try it without bending your knee quite as far. This may help you avoid any painful motion. 3. Slowly move your leg up and down. 4. Repeat 8 to 12 times. When you can do this exercise with ease and no pain, add some resistance. To do this: ?? Tie the ends of an exercise band together to form a loop. Attach one end of the loop to a secureobject or shut a door on it to hold it in place. (Or you can have someone hold one end of the loop to provide resistance.) ?? Loop the other end of the exercise band around the lower part of your affected leg. ?? Repeat steps 1 through 4, slowly pulling back on the exercise band with your leg. Hip extension 1. Stand facing a wall with your hands on the wall at about chest level. 2. Keeping the knee of your affected leg straight, kick that leg straight back behind you. 3. Relax, and lower your leg back to the starting position. 4. Repeat 8 to 12 times. When you can do this exercise with ease and no pain, add some resistance. To do this: ?? Tie the ends of an exercise band together to form a loop. Attach one end of the loop to a secureobject or shut a door on it to hold it in place. (Or you can have someone hold one end of the loop to provide resistance.) ?? Loop the other end of the exercise band around the lower part of your affected leg. ?? Repeat steps 1 through 4, slowly pulling back on the exercise band with your leg. Hamstring wall stretch 1. Lie on your back in a doorway, with your good leg through the open door. 2. Slide your affected leg up the wall to straighten your knee. You should feel a gentle stretch down the back of your leg. ?? Do not arch your back. ?? Do not bend either knee. ?? Keep one heel touching the floor and the other heel touching the wall. Do not point your toes. 3. Hold the stretch for at least 1 minute to begin. Then try to lengthen the time you hold the stretch to as long as 6 minutes. 4. Repeat 2 to 4 times. If you do not have a place to do this exercise in a doorway, there is another way to do it: 1. Lie on your back, and bend the knee of your affected leg. 2. Loop a towel under the ball and toes of that foot, and hold the ends of the towel in your hands. 3. Straighten your knee, and slowly pull back on the towel. You should feel a gentle stretch down the back of your leg. 4. Hold the stretch for 15 to 30 seconds. Or even better, hold the stretch for 1 minute if you can. 5. Repeat 2 to 4 times. Calf stretch 1. Stand facing a wall with your hands on the wall at about eye level. Put your affected leg about a step behind your other leg. 2. Keeping your back leg straight and your back heel on the floor, bend your front knee and gently bring your hip and chest toward the wall until you feel a stretch in the calf of your back leg. 3. Hold the stretch for 15 to 30 seconds. 4. Repeat 2 to 4 times. 5. Repeat steps 1 through 4, but this time keep your back knee bent. Single-leg balance 1. Stand on a flat surface with your arms stretched out to your sides like you are making the letter T. Then lift your good leg off the floor, bending it at the knee. If you are not steady on your feet, use one hand to hold on to a chair, counter, or wall. 2. Standing on your affected leg, keep that knee straight. Try to balance on that leg for up to 30 seconds. Then rest for up to 10 seconds. 3. Repeat 6 to 8 times. 4. When you can balance on your affected leg for 30 seconds with your eyes open, try to balance on it with your eyes closed. When you can do this exercise with your eyes closed for 30 seconds and with ease and no pain, try standing on a pillow or piece of foam, and repeat steps 1 through 4. Follow-up care is a trotter part of your treatment and safety. Be sure to make and go to all appointments, and call your doctor if you are having problems. It's also a good idea to know your test resultsand keep a list of the medicines you take. Where can you learn more? Visit our health information library at [email or web address]. You can also view health information on 3225 films, your personal patient account. Log in or sign uptoday. Enter Z526 in the search box to learn more about Hamstring Strain: Rehab Exercises. Current as of: August 10, 2016 Content Version: 11.3 ?? [id number] [employer]. Care instructions adapted under license by [facility]. If you have questions about a medical condition or this instruction, always ask your healthcare professional. [employer] disclaims any warranty or liability for your use of this information. documented in this encounter Progress Notes * Elizabeth Mistry APRN - 12/23/2016 2:00 PM EDT PCP: Elizabeth Mistry APRN Chief Complaint Patient presents with ??? Hyperlipidemia 3 month followup ??? Other hamstring on right leg is really bothering him, 2 monthes ago, he was playing football thinks he may have hurt it than SUBJECTIVE: Marco A Park is a 31 y.o. male who presents for follow up on your cholesterol. He reports that he is trying to eat better. Right hamstring pain- notices it when he is driving. Has been ongoing for a couple of months. He reports that he was playing football. He has noticed that he still cannot hike, but has found that even golfing and walking on hills will bother him. He has tried working out in the pool without much help. Review of Systems Constitutional: Negative for chills and fever. Respiratory: Negative for cough and shortness of breath. Cardiovascular: Negative for chest pain and palpitations. Musculoskeletal: Positive for gait problem and myalgias (right hamstring). Psychiatric/Behavioral: Positive for dysphoric mood. The patient is nervous/anxious. No Known Allergies No current outpatient prescriptions on file. No current facility-administered medications for this visit. Patient Active Problem List Diagnosis Code ??? Unspecified symptoms and signs involving cognitive functions and awareness R41.9 ??? Depression F32.9 ??? 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 History of head injury Z87.828 OBJECTIVE: Vitals: 12/23/16 1402 BP: 128/83 BP Location (NBP): Left arm Patient Position: Sitting BP Cuff Sizes: Adult (25-34 cm) Pulse: 78 Temp: 36.9 ??C (98.4 ??F) TempSrc: Oral SpO2: 100% Weight: 77.6 kg (171 lb) Height: 176 cm (5' 9.29) PHYSICAL EXAM: Physical Exam Constitutional: He is oriented to person, place, and time. He appears well- developed and well-nourished. HENT: Head: Normocephalic and atraumatic. Eyes: Conjunctivae are normal. No scleral icterus. Musculoskeletal: Right upper leg: He exhibits tenderness. He exhibits no bony tenderness, no swelling, no edema and no laceration. Right lower leg: He exhibits no bony tenderness, no swelling, no edema and no deformity. Neurological: He is alert and oriented to person, place, and time. Skin: Skin is warm and dry. Psychiatric: He has a normal mood and affect. His behavior is normal. Judgment and thought content normal. Vitals reviewed. ASSESSMENT & PLAN: Marco A was seen today for hyperlipidemia and other. Diagnoses and all orders for this visit: Hamstring strain, right, initial encounter - Referral to Physical Therapy - given stretches to try at home as well. Hyperlipidemia, unspecified hyperlipidemia type - discussed labs and increased risk with family history and LDL over 200. Will start statin. F/u for labs 3 months - atorvastatin (LIPITOR) 10 mg Tablet; Take 1 tablet by mouth daily. Cigarette smoker - interested in quitting will start on wellbutrin to see if will help. - buPROPion (WELLBUTRIN SR OR ZYBAN) 150 mg Tablet Sustained Release 12 hr; Once daily for 3 days then twice/day. Indications: Smoking Cessation documented in this encounter Plan of Treatment Upcoming Encounters Date Type Department Care Team (Late st Contact Info) Description 04/01/2025 3:40 PM EST Office Visit Cardiology at [address] [phone] Star Flores MD [facility] [place] [address] Scheduled Referrals Name Type Priority Associated Diagnoses Orde r Schedule Referral to Physical Therapy Outpatient Referral Routine Hamstring strain, right, initial encounter Ordered: 12/23/2016 documented as of this encounter Visit Diagnoses Diagnosis Hamstring strain, right, initial encounter Hyperlipidemia, unspecified hyperlipidemia type Cigarette smoker Tobacco use disorder documented in this encounter Care Teams Medical Staff Director Relationship Specialty Start Date End Date Elizabeth Mistry APRN [facility] [place] [address] PCP - General General Internal Medicine 08/19/1605/23 documented as of this encounter
--- OUTSIDE RECORDS SUMMARY | 2024-03-30 12:56 | XMS_ITS | Encounter Summary ---
Author Organization [facility] Address [facility] [place] [address] Care Team Providers Care Inspector [employer] Name Role Phone Elizabeth Mistry APRN Primary Care Provider + Reason for Visit * Physical Therapy (Routine) - Closed Specialty Diagnoses / Procedures Referred By Samuel cisneros Referred To Contact Physical Therapy Diagnoses Hamstring strain, right, initial encounter Elizabeth Mistry, GENNY [facility] [place] [address] [facility] [address] [place] [address] Referral ID Status Reason Start Date Expiration Date V isits Requested Visits Authorized [id number] Closed Evaluate and Treat 12/23/2016 12/23/2017 1 1 Encounter Details Date Type Department Care Team (Late st Contact Info) Description 12/29/2016 1:45 PM EDT Office Visit Physical Therapy at [facility] [address] [place] [phone] Marcus Reese, PT Hamstring strain, right, initial [...] Progress Notes * Marcus Reese, PT - 12/29/2016 1:45 PM EDT PHYSICAL THERAPY INITIAL EXAMINATION Date of Exam/First treatment: 12/29/2016 Referring Physician: Elizabeth Mistry Diagnosis: 1. Hamstring strain, right, initial encounter CURRENT HISTORY: Marco A Park is a 31 y.o. male referred to physical therapy for treatment of right hamstring strain. Pt reports two months ago he was throwing a football around with some friends and felt a pop in thehamstring when running. This was a jog not a sprint. This has improved some but has not improved tothe point where he can return to his normal activity. Walking up hill and stairs has been painful. Sitting makes this worse especially when sitting on his wallet. Some pain behind the knee when pressing on the gas pedal. He reports a history of a hamstring tear in college that he believes was his right. This happened with resistance training with kicking motion (axe kicks). Took 7-8 months to recover but did recover fully. No pain in the leg prior to this injury. Home treatment has included: some stretching when possible - causes pain. Pain: Located and described as: distal and medial to the thigh presenting as a dull ache pain currently. at best: 0/10; at worst: 6/10 Radiating symptoms: sometimes below the knee - never back pain; denies numbness and tingling; aggravating factors: uphill walking easing factors: remaining still Functional Limitations: walking uphill and hiking, stairs, driving Patient Goals: return to hiking CLINICAL FINDINGS: Postural Assessment: standing symmetrically with mild pain Lumbar ROM (% of range): 100 Flexion - tension felt posteriorly in the RT LE, 100 Extension, Sidebending RT - 100 LT - 100, Rotation RT - 100 LT - 100 Functional Squat Technique (or sit to stand): through functional range with RT hamstring pain Balance (SLS): ?? R - neg instability. ?? L - neg instability. SL Squat Test: ?? R - positive for concordant pain ?? L - neg for concordant pain and limitation in stability Gait Assessment: increased lateral sway Hip range of motion and strength: RT PROM LT PROM RT MMT LT MMT Hip Flexion >120 - hamstring pain at end range WNL 5/5 5/5 Hip ER @ 90 Flxn WNL WNL 09/24 09/24 Hip IR @ 90 Flxn WNL WNL /09 24/ Hip IR - Prone WNL WNL Hip Extension AROM: WNL AROM: WNL Hip Adduction WNL WNL 4+/5* side-lying 5/5 seated without pain /5 Hip Abduction 09/24 5/5 Knee Flexion WNL WNL 4+/5* pain in prone 5/5 Knee Extension WNL WNL / 5/ SLR 45* - thigh through posterior knee 70 End feels: E-empty, SP-springy, A-approximation F-firm, C-capsular * Denotes reproduction of concordant sign Special Tests: FADIR not performed PAMELA not performed Scour not performed Muscle Length Testing: Cisco: normal Tarah: normal Hamstring 90-90: tightness with pain Palpation: tenderness defined over the distal hamstring prior to popliteal fossa extending to the adductors Outcome Measure: The Lower Extremity Functional Scale (LEFS) 12/29/2016 1. Any of your usual work, housework or school activities A little bit of difficulty 2. Your usual hobbies, recreational or sporting activities. Quite a bit of difficulty 3. Getting into or out of the bath No difficulty 4. Walking between rooms A little bit of difficulty 5. Putting on your shoes or socks Moderate difficulty 6. Squatting A little bit of difficulty 7. Lifting an object, like a bag of groceries from the floor No difficulty 8. Performing light activities around your home A little bit of difficulty 9. Performing heavy activities around your home Moderate difficulty 10. Getting into or out of a car Quite a bit of difficulty 11. Walking 2 blocks A little bit of difficulty 12. Walking a mile Quite a bit of difficulty 13. Going up or down 10 stairs (about 1 flight of stairs) Quite a bit of difficulty 14. Standing for 1 hour Moderate difficulty 15. Sitting for 1 hour Moderate difficulty 16. Running on even ground Quite a bit of difficulty 17. Running on uneven ground Quite a bit of difficulty 18. Making sharp turns while running fast Extreme difficulty or unable to perform activity 19. Hopping Moderate difficulty 20. Rolling over in bed A little bit of difficulty LEFS Score (Range 0-80) 42 LEFS % Functional Mobility 52.5 (Lower the score, greater the disability) CLINICAL EVALUATION AND DIAGNOSIS: Pt is a 31 y.o. male presenting with signs and symptoms consistent with acute on chronic hamstring strain. DD of an adductor strain without pain with stretching of the ADD group. Presenting with an evolving clinical presentation secondary to significant time to heal without improvement and some neurogenic symptoms. Patients pertinent co morbidities/personal factors affecting plan of care include previous history of significant hamstring tear. Pts impairments include those listed above with limited hamstring/SLR length and impaired tolerance to isometrics hamstring contraction. Pts functional limitations include walking uphill and hiking, stairs, driving. Pt scored a 53% on the LEFS indicating a decline in function secondary to hip pain. Clinical decision making of moderate complexity using standardized patient assessment instrument and measurable assessment of functional outcome. Expectwith skilled physical therapy interventions patient will be able to return to prior level of function. GOALS: Therapy Short Term Goals (3 weeks): 1. Pt will demonstrate indep with home exercise program to improve outcome and increase pts abilityto self treat exacerbations. 2. Pt will decrease VAS pain rating to 3/10 to show MCID and to progress function Therapy Ground Support Equipment Mechanic Goals (6 weeks): 1. Pt will increase [...] improvement in function and patient oriented goals. INITIAL TREATMENT INCLUDED: Examination and instruction in a home exercise program (refer to scan doc in chart review for copy of exercises), Patient demonstrated the HEP (see scan docs) in clinic with correct form and understanding of the exercises. Reviewed the importance of not pushing through pain during patients HEP and stopping when fatigue/discomfort was felt. HEP includes: ?? See scan docs ?? Defer hamstring stretching through pain ?? Supine active knee extension stretch through tolerated range ?? Prone knee flexion ?? Supine bridge walk-outs to tolerance ?? Seated hamstring isometrics PLAN: Frequency and duration: 1 x per week x 6 weeks Treatment: Manual Techniques, Stretching, Therapeutic Exercise, Patient/Family Education, Body Mechanics and Home Exercise Program Total Treatment time: 45 minutes: Total Timed Code Treatment: 0 minutes The plan has been discussed with the patient and Marco A Park has agreed with the planned treatment. Marcus Reese PT, DPT, CSCS documented in this encounter Plan of Treatment Upcoming Encounters Date Type Department Care Team (Late st Contact Info) Description 04/01/2025 3:40 PM EST Office Visit Cardiology at [address] [phone] Star Flores MD [facility] [place] [address] Scheduled Referrals Name Type Priority Associated Diagnoses Orde r Schedule Referral to Physical Therapy Outpatient Referral Routine Hamstring strain, right, initial encounter Ordered: 12/23/2016 documented as of this encounter Visit Diagnoses Diagnosis Hamstring strain, right, initial encounter documented in this encounter Care Teams Inspector [employer] Relationship Specialty Start Date End Date Elizabeth Mistry APRN [facility] [place] [address] [place] [address] PCP - General General Internal Medicine 08/19/1605/23 documented as of this encounter
--- OUTSIDE RECORDS SUMMARY | 2024-03-30 12:56 | XMS_ITS | Encounter Summary ---
Author Organization [facility] [place] [address] Care Team Providers Care Manager Desktop Name Role Phone FideliaElizabeth chu GENNY Primary Care Provider + Encounter Details Date Type Department Care Team (Late st Contact Info) Description 12/28/2017 Telephone Internal Medicine at [address] [address] Karie Richter RN Social History Tobacco Use Types Packs/Day [...] Encounter - Marco A Richter RN - 12/28/2017 10:54 AM EDT Caller: patient Learning Needs Assessment Reviewed: No Subjective Constipation, abdominal pain, gas/bloating Objective/Assessment Symptom onset: one week ago Location: abdominal Duration: constant Characteristics: patient has not had a BM in one week, feels bloated, belching a lot, having abdominal pain, hemorrhoids, took mag-citrate at home with no effect Aggravating factors: sitting down Relieving factors: activity Severity: /10 Pertinent Past Medical History: Had an intestinal blockage around 1 1/2 years ago, feels similar Plan Intervention/Plan/ Follow Up: Patient is out of town, advised to be seen today in local urgent care or ED to be assessed, patientin agreement with plan documented in this encounter Plan of Treatment Upcoming Encounters Date Type Department Care Team (Late st Contact Info) Description 04/01/2025 3:40 PM EST Office Visit Cardiology at [address] [phone] [facility] [place] [address] documented as of this encounter Visit Diagnoses Not on filedocumented in this encounter Care Teams Manager Desktop Relationship Specialty Start Date End Date Elizabeth Mistry, SHIP LAB[employer]ER [facility] [place] [address] PCP - General General Internal Medicine 08/19/1605/23 documented as of this encounter
--- OUTSIDE RECORDS SUMMARY | 2024-03-30 12:56 | XMS_ITS | Encounter Summary ---
Author Organization [facility] [place] [address] Care Team Providers Care Product Controller Name Role Phone Elizabeth Mistry APRN Primary Care Provider + Reason for Visit * Reason Comments Anxiety Encounter Details Date Type Department Care Team (Late st Contact Info) Description 08/24/2018 11:00 AM EDT Office Visit Internal Medicine at [address] [address] Elizabeth Mistry APRN [facility] [place] [address] Hyperlipidemia, unspecified hyperlipidemia type; Adjustment disorder with anxious mood Social History Tobacco Use Types Packs/Day Years [...] Sign Reading Time Taken Comments Blood Pressure 138/86 08/24/2018 11:10 AM EDT Pulse 95 08/24/2018 11:10 AM EDT Temperature - - Respiratory Rate - - Oxygen Saturation 99% 08/24/2018 11: 10 AM EDT Inhaled Oxygen Concentration - - Weight 71.5 kg (157 lb 9.6 oz) 08/24/2018 11:10 AM EDT with shoes on Height 175.3 cm (5' 9) 08/24/2018 11:1 0 AM EDT reported Body Mass Index 23.27 08/24/2018 11:10 AM EDT documented in this encounter Progress Notes * Elizabeth Mistry APRN - 08/24/2018 11:00 AM EDT PCP: Elizabeth Mistry APRN Chief Complaint Patient presents with ??? Anxiety SUBJECTIVE: Marco A Park is a 33 y.o. male who presents for feeling of anxiety and depression. He reports that he lost his job yesterday, and he feels that his co- workers were against him. He had to move out of his apartment and back in with his parents. Review of Systems Constitutional: Negative for chills and fever. Psychiatric/Behavioral: Positive for decreased concentration, dysphoric mood and sleep disturbance.Negative for self-injury and suicidal ideas. The patient is nervous/anxious. Allergies [...] History of head injury Z87.828 OBJECTIVE: Vitals: 08/24/18 1110 BP: 138/86 BP Location (NB): Left arm Patient Position: Sitting BP Cuff Sizes: Adult (25-34 cm) Pulse: 95 SpO2: 99% Weight: 71.5 kg (157 lb 9.6 oz) Height: 175.3 cm (5' 9) PHYSICAL EXAM: Physical Exam Constitutional: He is oriented to person, place, and time. He appears well- developed and well-nourished. HENT: Head: Normocephalic and atraumatic. Eyes: Conjunctivae are normal. No scleral icterus. Neurological: He is alert and oriented to person, place, and time. Skin: Skin is warm and dry. Psychiatric: Judgment and thought content normal. His mood appears anxious. His speech is rapid and/or pressured. He is agitated. Cognition and memory are normal. Vitals reviewed. ASSESSMENT & PLAN: Marco A was seen today for anxiety. Diagnoses and all orders for this visit: Hyperlipidemia, unspecified hyperlipidemia type - CK; Future - Comprehensive metabolic panel (non-fasting); Future - Comprehensive metabolic panel (non-fasting) - CK Adjustment disorder with anxious mood - he has ideas of future goals but is worried about parents approval. Had long discussion about this and will plan for f/u with parents early next week. - LORazepam (ATIVAN) 0.5 mg Tablet; Take 1 tablet by mouth 2 times daily as needed for Anxiety. - FLUoxetine (PROZAC) 10 mg Tablet; Take 1 tablet by mouth daily. Greater than 25 minutes of this 30 minute was spent counseling/coordination of care, review of treatment, plan of care and follow up of the above diagnoses. documented in this encounter Plan of Treatment Upcoming Encounters Date Type Department Care Team (Late st Contact Info) Description 04/01/2025 3:40 PM EST Office Visit Cardiology at [address] [place] [address] Star lFores MD [facility] [place] [address] documented as of this encounter Procedures Procedure Name Priority Date/Time Associated Diagnosis Comments CK Routine 08/24/2018 11:45 AM EDT Hyperlipidemia, unspecified hyperlipidemia type COMPREHENSIVE METABOLIC PANEL Routine 08/24/2018 11:45 AM EDT Hyperlipidemia, unspecified hyperlipidemia type documented in this encounter Results * (ABNORMAL) Comprehensive metabolic panel (non-fasting) (08/24/2018 11:45 AM EDT) Glucose 98 65 - 199 mg/dL [facility] Comment:Diabetes: >=200 mg/d L plus symptoms Blood Urea Nitrogen 18 10 - 20 mg/dL [facility] Creatinine 1.14 0.80 - 1.50 mg/dL [facility] Sodium 142 135 - 145 mmol/L [facility] Potassium 4.7 3.5 - 5.0 mmol/L [facility] Comment: Please note: ??Patients with WBC >100,000 may have falsely elevated Potassium levels. ??For accurate Potassium quantification in these patients send serum separator tube (gold top) for subsequent determinations. ??Contact the Clinical Chemistry Laboratory if there are any questions. Chloride 97(L) 98 - 107 mmol/L [facility] Carbon Dioxide 25 22 - 31 mmol/L [facility] Anion Gap 20(H) 5 - 15 mmol/L [facility] Calcium 10.1 8.5 - 10.5 mg/dL [facility] Protein, Total 8.3(H) 6.1 - 8.0 gm/dL [facility] Albumin 5.1 3.2 - 5.2 gm/dL [facility] Aspartate Aminotransferase 29 0 - 39 unit/L [facility] Alanine Aminotransferase 25 0 - 55 unit/L [facility] Alkaline Phosphatase 60 40 - 120 unit/L [facility] Bilirubin, Total 0.8 0.2 - 1.3 mg/dL [facility] Est Glomerular Filtration Rate 83 >=60 mL/min/1. 73 m?? [facility] Comment: The eGFR was calculated using the CKD-EPI equation. As with all creatinine based estimates of kidney function, eGFR values calculated with the CKD-EPI equation are not accurate in patients with acute kidney failure, extremes of body mass or the acutely ill. http://[employer]/[facility] eGFR 96 >=60 mL/min/1. 73 m?? [facility] Comment: The eGFR was calculated using the CKD-EPI equation. As with all creatinine based estimates of kidney function, eGFR values calculated with the CKD-EPI equation are not accurate in patients with acute kidney failure, extremes of body mass or the acutely ill. http://[employer]/[facility] Blood specimen (specimen) 08/24/2018 11:45 AM EDT 08/24/2018 6:35 PM EDT Narrative Resulting Agency Comment Spec In Lab Elizabeth Mistry APRN CHEMISTRY ORDERA BLES Performing Organization Address City/[facility] Co de Phone Number [facility] [place] [address] * (ABNORMAL) CK (08/24/2018 11:45 AM EDT) Creatine Kinase 692(H) 0 - 200 unit/L [facility] Blood specimen (specimen) 08/24/2018 11:45 AM EDT 08/24/2018 6:35 PM EDT Narrative Resulting Agency Comment Spec In Lab Elizabeth Mistry APRN CHEMISTRY ORDERA BLES Performing Organization Address [facility] Co de Phone Number [facility] [address] documented in this encounter Visit Diagnoses Diagnosis Hyperlipidemia, unspecified hyperlipidemia type Adjustment disorder with anxious mood Adjustment disorder with anxiety documented in this encounter Care Teams Product Controller Relationship Specialty Start Date End Date Elizabeth Mistry SHARE HOLDER [facility] [place] [address] PCP - General General Internal Medicine 08/19/1605/23 documented as of this encounter
--- OUTSIDE RECORDS SUMMARY | 2024-03-30 12:56 | XMS_ITS | Encounter Summary ---
Author Organization [facility] [place] [address] Care Team Providers Care Medical Billing Coder Name Role Phone Elizabeth Mistry APRN Primary Care Provider + Encounter Details Date Type Department Care Team (Late st Contact Info) Description 08/25/2018 Telephone Internal Medicine at [address] [phone] Jenny Loomis CCMA Social History Tobacco Use Types Packs/Day Years [...] encounter Miscellaneous Notes * Telephone Encounter - Jenny Loomis CCMA - 08/25/2018 8:31 AM EDT Spoke to pt. Relayed attached message per Marcelo Mistry. Pt verbalized understanding and will not takehis dose of Crestor tomorrow as he has already taken it today. * Telephone Encounter - Jenny Loomis CCMA - 08/25/2018 8:30 AM EDT ----- Message from Elizabeth Mistry APRN sent at 08/25/2018 7:49 AM EDT ----- Please call Marco A and tell him that his CK is up again and that I want him to stop his crestor. I will discuss it more with him next week when I see him, but I want him to stop it now. Thanks, Nidhi ----- Message ----- From: Jeancarlos, Lab In [facility] Sent: 08/24/2018 7:05 PM To: Elizabeth Mistry APRN documented in this encounter Plan of Treatment Upcoming Encounters Date Type Department Care Team (Late st Contact Info) Description 04/01/2025 3:40 PM EST Office Visit Cardiology at [address] [phone] Star Flores MD [facility] [place] [address] documented as of this encounter Visit Diagnoses Not on filedocumented in this encounter Care Teams Medical Billing Coder Relationship Specialty Start Date End Date Elizabeth Mistry APRN [facility] [place] [address] PCP - General General Internal Medicine 08/19/1605/23 documented as of this encounter
--- OUTSIDE RECORDS SUMMARY | 2024-03-30 12:56 | XMS_ITS | Encounter Summary ---
Author Organization [facility] [place] [address] Care Team Providers Care Microphone Operator Name Role Phone Elizabeth Mistry APRN Primary Care Provider + Encounter Details Date Type Department Care Team (Late st Contact Info) Description 02/21/2018 12:15 PM EDT Laboratory Appointment Lab [address] [place] [phone] Elevated CK Social History Tobacco Use Types Packs/Day Years [...] PM EST Office Visit Cardiology at [address] [place] [address] Star Flores MD [facility] [place] [address] documented as of this encounter Procedures Procedure Name Priority Date/Time Associated Diagnosis Comments CK Routine 02/21/2018 12:26 PM EDT Elevated CK documented in this encounter Results * CK (02/21/2018 12:26 PM EDT) Creatine Kinase 141 0 - 200 unit/L [facility] Blood specimen (specimen) 02/21/2018 12:26 PM EDT 02/21/2018 12:35 PM EDT Narrative Resulting Agency Comment Spec In Lab Elizabeth Mistry APRN CHEMISTRY ORDERA BLES [facility] [place] [address] documented in this encounter Visit Diagnoses Diagnosis Elevated CK Other nonspecific abnormal serum enzyme levels documented in this encounter Care Teams Microphone Operator Relationship Specialty Start Date End Date Elizabeth Mistry APRN [facility] [place] [address] PCP - General General Internal Medicine 08/19/1605/23 documented as of this encounter
--- OUTSIDE RECORDS SUMMARY | 2024-03-30 12:56 | XMS_ITS | Encounter Summary ---
Author Organization [facility] [place] [address] Care Team Providers Care Project Structural Engineer Name Role Phone Elizabeth Mistry APRN Primary Care Provider + Reason for Visit * Reason Onset Date Comments Prior Authorization 07/25/2018 Zetia Encounter Details Date Type Department Care Team (Late st Contact Info) Description 07/25/2018 Telephone Cardiology at [address] [phone] Stefany Eckert behaviour support teacher (Zetia) Social History Tobacco Use Types Packs/Day Years [...] Telephone Encounter - Stefany Eckert RN - 07/25/2018 4:07 PM EST Call placed to [facility] to see if pt needs a PA or a quantity change. Jyotsna from BS PA dept reports that the pt needed to fill the statin first, then his insurance was able to cover the 90 day supply of Zetia 10 mg daily as long as he continues to take the Zetia forthe next 120 days, it will be covered. Pt has already gotten the medication filled at his local [facility] in [place], [place]. documented in this encounter Plan of Treatment Upcoming Encounters Date Type Department Care Team (Late st Contact Info) Description 04/01/2025 3:40 PM EST Office Visit Cardiology at [address] [place] [address] Star Flores MD [facility] [place] [address] documented as of this encounter Visit Diagnoses Not on filedocumented in this encounter Care Teams Project Structural Engineer Relationship Specialty Start Date End Date Elizabeth Mistry APRN [facility] [place] [address] PCP - General General Internal Medicine 08/19/1605/23 documented as of this encounter
--- OUTSIDE RECORDS SUMMARY | 2024-03-30 12:56 | XMS_ITS | Encounter Summary ---
Author Organization [facility] [place] [address] Care Team Providers Care Flexible Machining System Machinist Name Role Phone Elizabeth Mistry APRN Primary Care Provider + Encounter Details Date Type Department Care Team (Latest Contact Info) Description 09/01/2018 8:55 AM EDT Laboratory Appointment Lab [address] [place] [phone] Hypercholesterolemia Social History Tobacco Use Types Packs/Day Years [...] PM EST Office Visit Cardiology at [address] [phone] Star Flores MD [facility] [place] [address] documented as of this encounter Procedures Procedure Name Priority Date/Time Associated Diagnosis Comments LIPOPROTEIN A Routine 09/01/2018 8:51 AM EDT Hypercholesterolemi a GLUCOSE, FASTING Routine 09/01/2018 8:51 AM EDT Hypercholesterolemi a LIPID PANEL (REFLEX DIRECT LDL) Routine 09/01/2018 8:51 AM EDT Hypercholesterolemi a documented in this encounter Results * Lipid Panel (09/01/2018 8:51 AM EDT) Cholesterol, Total 223 mg/dL Georgette COSTELLO [facility] Comment: Lower Risk: <200 mg/dL Average Risk: 200-239 mg/dL Higher Risk: >ed=096 mg/dL Triglyceride 149 mg/dL [facility] Comment: Average Risk/Lower Risk: <150 mg/dL Borderline High Risk: 150-199 mg/dL High Risk: 200-499 mg/dL Very High Risk: >ke=157 mg/dL HDL Cholesterol 46 mg/dL [facility] Comment: Males: ?? Higher Risk: <40 mg/dL Females: ?? HIgher Risk: <50 mg/dL LDL Cholesterol 147 mg/dL [facility] Comment: Lowest Risk: <100 mg/dL Lower Risk: 100-129 mg/dL Borderline High Risk: 130-159 mg/dL High Risk: 160-189 mg/dL Very High Risk: >qp=217 mg/dL Cholesterol/HDL Ratio 4.8 ratio [facility] Lipid Interpretation See Note [facility] Comment: Lipid management should be guided by a patient? s ASCVD risk, goals and preferences. ACC/AHA Guidelines recommend high intensity statin if clinical ASCVD or LDL greater than or equal to 190 mg/dL. http://NacuiiurUnite Us.com/RGB-NRC-Jsdffcivx Adults aged 40-75 with LDL 70-189 mg/dL should have their 10 year ASCVD risk estimated with the ACC/AHA ASCVD risk copper plate printer http://tools.acc.org/ENSMM-Ouhe-Vbnttopbd/ Statin should be discussed if risk greater [...] Purdy MD CHEMISTRY ORDERABLES Performing Organization Address [facility] de Phone Number [facility] [place] [address] * (ABNORMAL) Glucose, fasting (09/01/2018 8:51 AM EDT) Glucose Fasting 104(H) 65 - 99 mg/dL [facility] Comment: ?Fasting* Glucose Interpretive [...] of Diabetes Mellitus, Position Statement from the [place] [employer] Association. ??Diabetes Care, Volume 33, Supplement 1, May 2009 Blood specimen (specimen) 09/01/2018 8:51 AM EDT 09/01/2018 9:07 AM EDT Narrative Resulting Agency Comment Spec In Lab Kimberley Purdy MD CHEMISTRY ORDERABLES Performing Organization Address [facility] Co de Phone Number [facility] [place] [address] * Lipoprotein A (09/01/2018 8:51 AM EDT) Lipoprotein (a) <6 <=30 mg/dL MAR Y [facility] Comment: Test Performed by: [facility] - [address] [address] Blood specimen (specimen) 09/01/2018 8:51 AM EDT 09/01/2018 2:38 PM EDT Narrative Resulting Agency Comment Spec In Lab Kimberley Purdy MD LAB SEND OUT ORDERAB LES [facility] [place] [address] documented in this encounter Visit Diagnoses Diagnosis Hypercholesterolemia Pure hypercholesterolemia documented in this encounter Care Teams Flexible Machining System Machinist Relationship Specialty Start Date End Date Elizabeth Mistry, COAL HANDLER [facility] [place] [address] [place] [address] PCP - General General Internal Medicine 08/19/1605/23 documented as of this encounter
--- OUTSIDE RECORDS SUMMARY | 2024-03-30 12:56 | XMS_ITS | Encounter Summary ---
Author Organization [facility] Address [facility] [place] [address] Care Team Providers Care Rail Crew Member Name Role Phone FideliaElizabeth chu APRN Primary Care Provider + Encounter Details Date Type Department Care Team (Late st Contact Info) Description 01/11/2017 11:30 AM EDT Office Visit Physical Therapy at [facility] [address] [place] [address] Marcus Reese, PT Hamstring strain, right, initial [...] Progress Notes * Marcus Reese, PT - 01/11/2017 11:30 AM EDT Physical Therapy Progress Note Total treatment time: 35 minutes Total timed code treatment: 30 minutes Follow up visit for patient with 1. Hamstring strain, right, initial encounter S: Patient reports that he has continued to perform his HEP with some slight discomfort. He continues to notice soreness in his hamstring without recurrent strain. Pt rates today's pain symptoms as 2-5/10. Sitting continues to be the most painful >30 mins with an ache. Pain in the hamstring downto the back of the knee. O: Bike x 5 mins Therex: Strength/Endurance/ROM (20091) 30 min ?? Supine active knee extension stretch 2 x 20 - HEP ?? SLR stretch 3 x 30s ?? Bridges on lebanese ball x10 - HEP ?? Progressed to partial curls x10 - HEP ?? Standing SL lift to stool x10 - HEP A: Continues with tightness and pain with both SLR and hamstring stretching. Improving tolerance tohamstring contractions. Pain with mid range contractions. P: Frequency and duration: 1 x per [...] show MCID and to progress function Therapy [facility] Goals (6 weeks): 1. Pt will increase [...] 3:40 PM EST Office Visit Cardiology at [address] [phone] Star Flores MD [facility] [place] [address] documented as of this encounter Visit Diagnoses Diagnosis Hamstring strain, right, initial encounter documented in this encounter Care Teams Rail Crew Member Relationship Specialty Start Date End Date Elizabeth Mistry APRN [facility] [place] [address] [place] [address] PCP - General General Internal Medicine 08/19/1605/23 documented as of this encounter
--- OUTSIDE RECORDS SUMMARY | 2024-03-30 12:56 | XMS_ITS | Encounter Summary ---
Author Organization [facility] [place] [address] Care Team Providers Care Log Yard Derrick Operator Name Role Phone Elizabeth Mistry APRN Primary Care Provider + Reason for Visit * Reason Comments Other followup on lipid sp ecialitst yesterday Other would like to have S TD testing, just ended a relationship, no symptoms Encounter Details Date Type Department Care Team (Late st Contact Info) Description 06/28/2018 10:30 AM EST Office Visit Internal Medicine at [address] [address] Elizabeth Mistry, [facility] [place] [address] Hyperlipidemia, unspecified hyperlipidemia type; Routine screening for STI (sexually transmitted infection) Social History Tobacco Use Types Packs/Day Years [...] Sign Reading Time Taken Comments Blood Pressure 133/78 06/28/2018 10:41 AM EST Pulse 83 06/28/2018 10:41 AM EST Temperature - - Respiratory Rate - - Oxygen Saturation 99% 06/28/2018 10:41 AM EST Inhaled Oxygen Concentration - - Weight 73.8 kg (162 lb 9.6 oz) 06/28/2018 10:41 AM EST boots on Height 175.3 cm (5' 9) 06/28/2018 10:41 AM EST reported Body Mass Index 24.01 06/28/2018 10:41 AM EST documented in this encounter Progress Notes * Elizabeth Mistry APRN - 06/28/2018 10:30 AM EST PCP: Elizabeth Mistry APRN Chief Complaint Patient presents with ??? Other followup on lipid specialitst yesterday ??? Other would like to have STD testing, just ended a relationship, no symptoms SUBJECTIVE: Marco A Park is a 32 y.o. male who presents for follow up on his hyperlipidemia and for STI screening. Hyperlipidemia- He reports that he had elevated CK and myalgias on the statin medications. Symptomsresolved after stopping the medications. His father also has been history of intolerance to statinsand a history of [place] in his 50s. His father is on a PCSK9. I had placed a [place] [facility] [place] but he was told that he would have to go to [facility] or a place in [facility]. He was seen[place], [place] for his lipids. He was having some muscle pain in his left arm and he reports that they repeated labs and did an EKG while he was there. He reports that he had labs done to check genetics to find out if he can start pcsk9. He is hoping to be seen by someone in this area. STI- he reports that he recently ended a relationship. He would like to be screened for STIs. Review of Systems Constitutional: Negative for activity change, fatigue and fever. Respiratory: Negative for cough, chest tightness and shortness of breath. Cardiovascular: Negative for chest pain, palpitations and leg swelling. Neurological: Negative for dizziness, light-headedness and headaches. Allergies Allergen Reactions ??? Lipitor [Atorvastatin] Elevated CK Current Outpatient Medications Medication Sig [...] History of head injury Z87.828 OBJECTIVE: Vitals: 06/28/18 1041 BP: 133/78 BP Location (NBP): Left arm Patient Position: Sitting BP Cuff Sizes: Adult (25-34 cm) Pulse: 83 SpO2: 99% Weight: 73.8 kg (162 lb 9.6 oz) Height: 175.3 cm (5' 9) PHYSICAL EXAM: Physical Exam Constitutional: He is oriented to person, place, and time. He appears well- developed and well-nourished. No distress. HENT: Head: Normocephalic and atraumatic. Eyes: Conjunctivae are normal. No scleral icterus. Cardiovascular: Normal rate, regular rhythm and normal heart sounds. No murmur heard. Pulmonary/Chest: Effort normal and breath sounds normal. He has no wheezes. He has no rales. He exhibits no tenderness. Neurological: He is alert and oriented to person, place, and time. Skin: Skin is warm and dry. Psychiatric: He has a normal mood and affect. His behavior is normal. Judgment and thought content normal. Vitals reviewed. ASSESSMENT & PLAN: Marco A was seen today for other and other. Diagnoses and all orders for this visit: Hyperlipidemia, unspecified hyperlipidemia type - will contact cardiology to see if they are willing to follow the patient. Routine screening for STI (sexually transmitted infection) - HIV Screen, 4th Generation; Future - GC/Chlamydia (Leb/CGP) Urine - GC/Chlam - HIV Screen, 4th Generation documented in this encounter Plan of Treatment Upcoming Encounters Date Type Department Care Team (Late st Contact Info) Description 04/01/2025 3:40 PM EST Office Visit Cardiology at [address] [place] [phone] Star Flores MD [facility] [place] [address] documented as of this encounter Procedures Procedure Name Priority Date/Time Associated Diagnosis Comments HIV SCREEN, 4TH GENERATION ([facility]/CGP/APD/[facility]H) Routine 06/28/2018 11:20 AM EST Routine screening for STI (sexually transmitted infection) GC/CHLAMYDIA Routine 06/28/2018 11:13 AM EST Routine screening for STI (sexually transmitted infection) GC/CHLAM Routine 06/28/2018 11:13 AM EST Routine screening for STI (sexually transmitted infection) documented in this encounter Results * HIV Screen, 4th Generation (06/28/2018 11:20 AM EST) HIV Ab/Ag Screen Negative Negative [facility] Comment: This 4th Generation [...] APRN CHEMISTRY ORDERA BLES Performing Organization Address City/[facility] Co de Phone Number [facility] [place] [address] * GC/Chlam (06/28/2018 11:13 AM EST) Pathologist [facility] GC Gene Amp Negative Negative [facility] Comment: The only FDA approved specimen types for this assay are cervical, vaginal, urethral and urine. Non-FDA approved sources are eye, throat and rectal and have been internally validated. GC Source Urine [facility] Chlamydia Gene Amp Negative Negative [facility] Comment: The only FDA approved specimen types for this assay are cervical, vaginal, urethral and urine. Non-FDA approved sources are eye, throat and rectal and have been internally validated. Chlm Source Urine [facility] Urine specimen (specimen) 06/28/2018 11:13 AM EST 06/28/2018 7:41 PM EST Narrative Resulting Agency Comment Spec In Lab Elizabeth Mistry APRN MICROBIOLOGY - G ENERAL ORDERABLES YA [facility] [place] [address] documented in this encounter Visit Diagnoses Diagnosis Hyperlipidemia, unspecified hyperlipidemia type Routine screening for STI (sexually transmitted infection) Screening examination for venereal disease documented in this encounter Care Teams Log Yard Derrick Operator Relationship Specialty Start Date End Date Elizabeth Mistry APRN [facility] [place] [address] [place] [address] PCP - General General Internal Medicine 08/19/1605/23 documented as of this encounter
--- OUTSIDE RECORDS SUMMARY | 2024-03-30 12:56 | XMS_ITS | Encounter Summary ---
Author Organization [facility] Address [facility] [place] [address] Care Team Providers Care Elementary Reading Tutor Name Role Phone Elizabeth Mistry APRN Primary Care Provider + Reason for Referral * Consultation (Routine) - Closed Specialty Diagnoses / Procedures Referred By Contsacha t Referred To Contact Diagnoses Hyperlipidemia, unspecified hyperlipidemia type Elizabeth Mistry APRN [facility] [place] [address] [address] Referral ID Status Reason Start Date Expiration Date V isits Requested Visits Authorized [id number] Closed Consult, Test & Treat 02/16/2018 08/15/2018 1 1 Encounter Details Date Type Department Care Team (Late st Contact Info) Description 02/16/2018 Telephone Internal Medicine at [address] [address] Elizabeth Mistry APRN [facility] [place] [address] Social History Tobacco Use Types Packs/Day Years [...] Telephone Encounter - Elizabeth Mistry APRN - 02/16/2018 10:33 AM EDT Called patient and he has stopped the lipitor in the last couple of days. I told him to stay off ofit. We will recheck a CK level next week when he has his EGD. documented in this encounter Plan of Treatment Upcoming Encounters Date Type Department Care Team (Late st Contact Info) Description 04/01/2025 3:40 PM EST Office Visit Cardiology at [address] [phone] Star Flores MD [facility] [place] [address] Scheduled Referrals Name Type Priority Associated Diagnoses Orde r Schedule Referral to [facility] Outpatient Referral Routine Hyperlipidemia, unspecified hyperlipidemia type Ordered: 02/16/2018 documented as of this encounter Results * CK (02/21/2018 12:26 PM EDT) Creatine Kinase 141 0 - 200 unit/L [facility] Blood specimen (specimen) 02/21/2018 12:26 PM EDT 02/21/2018 12:35 PM EDT Narrative Resulting Agency Comment Spec In Lab Elizabeth Mistry APRN CHEMISTRY ORDERA BLES [facility] [place] [address] documented in this encounter Visit Diagnoses Diagnosis Elevated CK Other nonspecific abnormal serum enzyme levels Hyperlipidemia, unspecified hyperlipidemia type documented in this encounter Care Teams Elementary Reading Tutor Relationship Specialty Start Date End Date Elizabeth Mistry APRN [facility] [place] [address] PCP - General General Internal Medicine 08/19/1605/23 documented as of this encounter
--- OUTSIDE RECORDS SUMMARY | 2024-03-30 12:57 | XMS_ITS | Encounter Summary ---
[place] [address] Care Team Providers Care Machine Maintenance Repairer Name Role Phone Giuseppe Chen Primary Care Provider + [phone] Encounter Details Date Type Department Care Team (Latest Contact Info) Description 08/18/2016 Unscheduled Encounter Internal Medicine at [address] [address] Elizabeth Mistry APRN [facility] [place] [address] Lower abdominal pain Social History Tobacco Use Types Packs/Day Years Used Date Smoking Tobacco: Former Cigarettes 0.5 6 0 07/30/2010 - 07/30/2016 Alcohol Use Standard Drinks/Week Comments Yes 0 [...] Sign Reading Time Taken Comments Blood Pressure 140/91 08/18/2016 10:18 AM EDT Pulse 101 08/18/2016 10:18 AM EDT Temperature 34.8 ??C (94.6 ??F) 08/18/2016 10:18 AM E DT Respiratory Rate - - Oxygen Saturation 100% 08/18/2016 10:18 AM EDT Inhaled Oxygen Concentration - - Weight - - Height - - Body Mass Index - - documented in this encounter Progress Notes * Elizabeth Mistry APRN - 08/18/2016 9:44 AM EDT PCP: RIYA Leblanc No chief complaint on file. SUBJECTIVE: Marco A Park is a 31 y.o. male who presents for abdominal pain. He reports that the abdominal pain got worse yesterday. He reports that it has been having belching episodes for about 3 months. He states that after his ultrasound today he was driving home and he developed severe abdominal pain inthe left lower quadrant. He describes as 9/10. He reports that right now it is 6/10. He reports cold sweats yesterday Review of Systems Constitutional: Positive for chills and diaphoresis. Gastrointestinal: Positive for abdominal pain and diarrhea (loose stools). Negative for blood in stool, constipation, nausea and vomiting. Genitourinary: Positive for testicular pain (pressure sensation, right more than left). No Known Allergies Current Outpatient Prescriptions Medication Sig Dispense Refill ??? omeprazole (PRILOSEC) 20 mg Capsule, Delayed Release(E.C.) Take 1 capsule by mouth daily. 30 capsule 11 ??? dicyclomine (BENTYL) 10 mg Capsule Take 2 capsules by mouth 4 times daily. 112 capsule 0 No current facility-administered medications for this visit. Patient Active Problem List Diagnosis Code ??? Unspecified symptoms and signs involving cognitive functions and awareness R41.9 ??? Depression F32.9 ??? 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 History of head injury Z87.828 OBJECTIVE: There were no vitals filed for this visit. PHYSICAL EXAM: Physical Exam Constitutional: He is oriented to person, place, and time. He appears distressed. Writhing in pain, shaking, diaphoretic and crying from abdominal pain Pulmonary/Chest: Tachypnea (with crying and pain) noted. Abdominal: He exhibits no distension. There is tenderness (LLQ worse than RLQ). There is no CVA tenderness. Neurological: He is alert and oriented to person, place, and time. Skin: He is diaphoretic. There is pallor. ASSESSMENT & PLAN: Diagnoses and all orders for this visit: Lower abdominal pain - acute abdominal pain that is worse now. ED called and ambulance is on its way. Alexsandra notified is mother. - concern for diverticulitis, need to rule out appendicitis as well because some right side pain aswell - considered kidney stone as well, but he does not have CVA tenderness. documented in this encounter Plan of Treatment Upcoming Encounters Date Type Department Care Team (Late st Contact Info) Description 04/01/2025 3:40 PM EST Office Visit Cardiology at [address] [place] [address] Star Flores MD [facility] [place] [address] documented as of this encounter Visit Diagnoses Diagnosis Lower abdominal pain Abdominal pain, other specified site documented in this encounter Care Teams Machine Maintenance Repairer Relationship Specialty Start Date End Date Giuseppe Chen PA [facility] [place] [address] PCP - General General Internal Medicine 08/13/1607/22 documented as of this encounter
--- OUTSIDE RECORDS SUMMARY | 2024-03-30 12:57 | XMS_ITS | Encounter Summary ---
Author Organization [facility] Address [facility] [place] [address] Care Team Providers Care Ultrasound Manager Name Role Phone Giuseppe Chen Primary Care Provider + [phone] Encounter Details Date Type Department Care Team (Latest Contact Info) Description 08/15/2016 3:09 PM EDT - 08/15/2016 11:59 PM EDT Hospital [place] [phone] Upper abdominal pain Discharge Disposition: Home Social History Tobacco Use [...] Refills Start Date End Date omeprazole (PRILOSEC) 20 mg Capsule, Delayed Release(E.C.)Indicatio ns:Upper abdominal pain Take 1 capsule by mouth daily. 30 capsule 11 08/13/2016 12/23/2016 dicyclomine (BENTYL) 10 mg CapsuleIndications:Upp er abdominal pain,Burping Take 2 capsules by mouth 4 times daily. 112 capsule 08/13/2016 08/23/2016 documented as of this encounter Plan of Treatment Upcoming Encounters Date Type Department Care Team (Late st Contact Info) Description 04/01/2025 3:40 PM EST Office Visit Cardiology at [address] [place] [phone] Star Flores MD [facility] [place] [address] documented as of this encounter Procedures Procedure Name Priority Date/Time Associated Diagnosis Comments FECAL OCCULT BLOOD, IMMUNOASSAY Routine 08/15/2016 12:00 PM EDT Upper abdominal pain documented in this encounter Results * Fecal Occult Blood, Immunoassay (08/15/2016 12:00 PM EDT) Fecal Occult Blood, Immunoassay Negative Negative [facility] Stool specimen (specimen) 08/15/2016 12:00 PM EDT 08/18/2016 3:38 PM EDT Narrative Resulting Agency Comment Spec In Lab Aaliyah Mercer MD BODY FLUIDS AND ST OOLS ORDERABLES Performing Organization Address City/State/[facility] Co de Phone Number [facility] [place] [address] documented in this encounter Visit Diagnoses Diagnosis Upper abdominal pain Abdominal pain, other specified site documented in this encounter Care Teams Ultrasound Manager Relationship Specialty Start Date End Date Giuseppe Chen PA [facility] General Internal Medicine [place], [place] [phone] PCP - General General Internal Medicine 08/13/16 3/02/06 documented as of this encounter
--- OUTSIDE RECORDS SUMMARY | 2024-03-30 12:57 | XMS_ITS | Encounter Summary ---
Author Organization [facility] Address [facility] [place] [address] Care Team Providers Care Gynaecological Oncologist Name Role Phone Giuseppe Chen Primary Care Provider + [phone] Reason for Visit * Reason Comments Other patient states he is having continual burping thinks that coffee could be a trigger, patient states he used to be able to sleep through the night without having to get up to urinate but now is getting up frequently, patient states he is having a sensation that he feels his head is not attatched, pressure in left testicle for two weeks, patient states he has felt progressively worse over the last couple weeks Encounter Details Date Type Department Care Team (Late st Contact Info) Description 08/13/2016 4:50 PM EDT Office Visit Internal Medicine at [facility] [place] [address] Abby Reese [place] [address] Upper abdominal pain; Burping Social History Tobacco Use Types Packs/Day Years [...] Sign Reading Time Taken Comments Blood Pressure 151/83 08/13/2016 4:58 PM EDT Pulse 96 08/13/2016 4:58 PM EDT Temperature 36.4 ??C (97.6 ??F) 08/13/2016 4:58 PM ED T Respiratory Rate 16 08/13/2016 4:58 PM EDT Oxygen Saturation 99% 08/13/2016 4:58 PM EDT Inhaled Oxygen Concentration - - Weight - - Height - - Body Mass Index - - documented in this encounter Patient Instructions * Patient Instructions* Abby Reese PA - 08/13/2016 4:50 PM EDT Images from the original note were not included. Burping: discontinuation of such habits as gum chewing, smoking, drinking carbonated beverages, andgulping food and liquids * Can try using Bentyl 4 times daily for discomfort & bloating * Try Omeprazole (Prilosec) daily for at least 4 weeks * Ultrasound ordered to look at your gallbladder * Fit kit- take home & get a sample of stool & return to the lab to test for blood in stool * Try to see if any foods listed may be causing symptoms If you require follow up or have any questions or concerns after your Urgent Access clinic visit, please review the following: Follow-up/Concerns Contact Established Primary Care Call your current Primary Care team [address] clinic: [phone] [facility]: [phone] [facility] clinic: [phone] New to Primary Care with scheduled appointment Call your new Primary Care team [address] clinic: [phone] [place] clinic: [phone] [facility] clinic: [phone] Outside Primary Care Provider Call your outside primary care team No Primary Care Provider You may return to Urgent Access clinic and we will also help you establishwith Primary Care so that you may receive the best possible care. To establish primary care in General Internal Medicine clinic [place] [facility] please call [phone]. If you are experiencing any concerning or worsening symptoms, please seek emergency care in an Emergency Department. documented in this encounter Progress Notes * Abby Reese PA - 08/13/2016 4:50 PM EDT [facility] Subjective: Patient ID: Lary Sultana is a 31 y.o. male with history of multiple concussions, sleep disturbance & depression presenting for ongoing abdominal pain & burping HPI: Overall he has felt the worst for a consecutive time. A lot of stomach issues. Continual belching. Has been having a feeling where his head is not connected to his body. Some blurriness of vision.Feels like the words on a page are moving. Slight pressure in his right testicle. Overall he just feels awful. He used to always sleep through the night & not have to void, but is now getting up 1-2 x per night. This is new in the past 2 months along with stomach issues. On may 10 he went to emergency room with stomach issues & chest pain. They did a cardiac rule out. stomach issues- sometimes feels bloated, sometimes not. Pain is in upper abdomen. Pain varies. Often times it is when he is sitting in the car. While he was sitting at work he felt nauseous today. - He went to ER may 10 with some of the same symptoms & believes he was having some of these symptoms a little before that. - the burping can be continuous for a couple hours when it starts. Burping is everyday lately. - Appetite is variable. Today he did not eat. - notes that his niece is gluten intolerant. - Both mom & sister have had gallbladder problems & cholecystectomies - He has been taking a lot of Pepto Bismol & has subsequently noticed a change in his stool. Hehas not found much relief with this. States his stools were not dark prior to taking Pepto. - His stools used to float, but are not anymore. - belching coincides with the pain. - aggravating: smoking when he was, maybe coffee, sitting seems worse than standing. No specific foods - Currently he has some pain, but burping stopped about 10 minutes ago. - No recent diet changes. - States that seltzer water helps his symptoms. He has not seen a PCP in a long time. Has an apt coming up to establish with PCP here at . PMH/surgical: mental health, previous concussions, insomnia & cognitive issues Meds: None, occasional ibuprofen Allergies: None Family history: see above Social: tobacco: has been trying to quite, has not smoked in about 2 weeks. ETOH: socially Drugs: occasional marijuana Review of Systems Constitutional: Positive for appetite change. Negative for chills and fever. Gastrointestinal: Positive for abdominal distention, abdominal pain, diarrhea (looser than normal) and nausea (intermittent). Negative for blood in stool, constipation and vomiting. Psychiatric/Behavioral: Positive for sleep disturbance. Objective: Vitals: 08/13/16 1658 BP: 151/83 BP Location (NBP): Right arm Patient Position: Sitting BP Cuff Sizes: Adult (25-34 cm) Pulse: 96 Resp: 16 Temp: 36.4 ??C (97.6 ??F) TempSrc: Oral SpO2: 99% Patient reported measures: Pain: Physical Health: Fall: No flowsheet data found. Wt Readings from Last 3 Encounters: No data found for Wt Physical Exam Constitutional: He is oriented to person, place, and time. He appears well- developed and well-nourished. No distress. Eyes: Conjunctivae are normal. Cardiovascular: Normal rate, regular rhythm and normal heart sounds. Pulmonary/Chest: Effort normal. No respiratory distress. He has no wheezes. He has no rales. Abdominal: Normal appearance and bowel sounds are normal. There is generalized tenderness. There ispositive Jon's sign. There is no rigidity, no rebound, no guarding and no tenderness at McBurney's point. Neurological: He is alert and oriented to person, place, and time. Skin: Skin is warm and dry. Psychiatric: He has a normal mood and affect. His behavior is normal. Judgment and thought content normal. Vitals reviewed. GAD7 Questionnaires Data: last 4 values of anxiety scores RICA-7 Questionnaire Score Only 08/13/2016 RICA-7 Score (Clinic) 7 Recent Results (from the past 24 hour(s)) Amylase Result Value Ref Range Amylase 89 28 - 100 unit/L Lipase Result Value Ref Range Lipase 32 0 - 60 unit/L Hepatic Function Panel Result Value Ref Range Total Protein 8.7 (H) 6.1 - 8.0 gm/dL Albumin 5.2 3.2 - 5.2 gm/dL AST 19 0 - 39 unit/L ALT 28 0 - 55 unit/L Alk Phos 61 40 - 120 unit/L Total Bilirubin 0.5 0.2 - 1.3 mg/dL Bili, Direct 0.1 0.0 - 0.3 mg/dL Hemogram Result Value Ref Range WBC 9.4 4.0 - 9.5 x10(3)/mcL RBC 5.65 (H) 4.58 - 5.54 x10(6)/mcL Hemoglobin 16.6 (H) 13.7 - 16.5 gm/dL Hematocrit 47.3 40.5 - 48.5 % MCV 83.7 82.9 - 93.1 fL MCH 29.4 27.5 - 32.1 pg MCHC 35.1 32.0 - 35.7 gm/dL Platelets 231 145 - 357 x10(3)/mcL RDWSD 38.2 36.0 - 45.0 fL RDWCV 12.5 11.4 - 13.8 % MPV 9.6 7.6 - 12.9 fL nRBC % Auto 0.0 % nRBC Abs Auto 0.000 0.000 - 0.000 x10(3)/mcL Differential, Automated Result Value Ref Range Neutrophils % 82.0 % Neutr Abs (ANC) 7.68 (H) 1.70 - 6.10 x10(3)/mcL Lymphocytes % 10.4 % Lymphocytes Abs 1.0 0.9 - 3.2 x10(3)/mcL Monocytes % 6.8 % Monocyte Abs 0.6 0.3 - 0.9 x10(3)/mcL Eosinophils % 0.3 % Eosinophils Abs 0.0 0.0 - 0.4 x10(3)/mcL Basophils % 0.3 % Basophils Abs 0.0 0.0 - 0.1 x10(3)/mcL Immature Gran % 0.20 % [place] Gran Abs 0.02 0.00 - 0.04 x10(3)/mcL Gold Tube HOLD Result Value Ref Range Gold Hold Sample in lab. Assessment and Plan: Lary Sultana is a 31 y.o. male with history of multiple concussions, sleep disturbance & depression presenting for ongoing abdominal pain & burping Lary was seen today for other. Diagnoses and all orders for this visit: Upper abdominal pain - DDX of Lary's symptoms includes: GERD, IBS, gallbladder disease, PUD, pancreatic, hepatic & anxiety. However, lab work seems to r/o pancreatic & hepatic causes. I have ordered an US to look into possibility of biliary colic or gallstones especially given family history. Also ordered FIT testing to r/o PUD bleed. I have prescribed Bentyl to see if he finds any relief of his bloating & Omeprazole to trial for at least 4 weeks to see if this improves his symptoms. Also provided him with a FODMAP food list to try & see if he finds any foods that trigger symptoms. Patient agreedwith this plan. - CBC (with Diff) - Amylase - Lipase - Hepatic Function Panel - Hemogram - Differential, Automated - omeprazole (PRILOSEC) 20 mg Capsule, Delayed Release(E.C.); Take 1 capsule by mouth daily. - US Abdomen Limited; Future - Fecal Occult Blood, Immunoassay; Future - dicyclomine (BENTYL) 10 mg Capsule; Take 2 capsules by mouth 4 times daily. Burping - dicyclomine (BENTYL) 10 mg Capsule; Take 2 capsules by mouth 4 times daily. - An After Visit Summary was printed and given to the patient. - I included teaching information about diagnosis in the AVS. documented in this encounter Plan of Treatment Upcoming Encounters Date Type Department Care Team (Late st Contact Info) Description 04/01/2025 3:40 PM EST Office Visit Cardiology at [address] [place] [id number] Star Flores MD [facility] [place] [address] documented as of this encounter Procedures Procedure Name Priority Date/Time Associated Diagnosis Comments HEMOGRAM STAT 08/13/2016 6:00 PM EDT Upper abdominal pain DIFFERENTIAL, AUTOMATED STAT 08/13/2016 6:00 PM EDT Upper abdominal pain GOLD TUBE HOLD STAT 08/13/2016 6:00 PM EDT CBC (WITH DIFF) STAT 08/13/2016 6:00 PM EDT Upper abdominal pain LIPASE STAT 08/13/2016 6:00 PM EDT Upper abdominal pain AMYLASE STAT 08/13/2016 6:00 PM EDT Upper abdominal pain HEPATIC FUNCTION PANEL STAT 08/13/2016 6:00 PM EDT Upper abdominal pain documented in this encounter Results * US Abdomen Limited (08/18/2016 9:02 AM EDT) Anatomical Region Laterality Modality Abdomen Ultrasound 08/18/2016 9:01 AM EDT Impressions 08/18/2016 10:06 AM EDT ??Ultrasound Dictation: Normal right upper quadrant ultrasound. Specifically the gallbladder is normal. ? Lester Espana MD Electronically Signed Final Report ?? 08/18/2016 10:06 am Narrative 08/18/2016 10:06 AM EDT Abdominal ?(Signed Final 08/18/2016 10:06 am) PATIENT INFO: ID #: ? [id number] ?: [birth year] (31 yrs) Name: ? LARY SULTANA ?Visit Date: 08/18/2016 09:01 am PERFORMED BY: Performed By: ? Scooby LONG, ??Tanika Attending: ?Jovi HERNANDEZ, Lester Cantrell. Referred By: ?AALIYAH MERCER MD Location: ? [facility] SERVICE(S) PROVIDED: ??UABDLIM - Abdominal Limited Survey Single ? [id number] ??Organ or Quadrant - [id number] INDICATIONS: ??upper abdominal pain x several months; ??positive murphys sign on exam COMPARISON: No prior studies for comparison. ------ LIVER: ------ Right Lobe Length: ?? 15.5 ?? cm Echogenicity/Echotexture: ?? Normal GALLBLADDER: Cholelithiasis: ?No stones visualized Wall Thickness: ?2. mm Focal Tenderness: ?Negative sonographic Jon's sign BILIARY TRACT: Intrahepatic Ducts: ?? Normal Extrahepatic Ducts: ?? Normal Common Duct Size: ? 4.0 ? mm --------- PANCREAS: --------- Head: ? Normal Tail: ? Poorly visualized due to overlying bowel Body: ? Normal RIGHT KIDNEY: Size (cm) ?L: ??10.8 Cortical Thickness: ?Normal Cortical Echogenicity: ?? Normal Hydronephrosis: ?No sonographic evidence ------ AORTA: ------ Measurements (cm): Proximal ? AP: ?? 1.7 Mid ?AP: ?? 1.5 ---- IVC: ---- Normal in caliber where visualized. FLUID COLLECTIONS: No ascites in the imaged upper abdomen. Procedure Note Lester Espana MD - 08/18/2016 Abdominal (Signed Final 08/18/2016 10:06 am) PATIENT INFO: ID #: [id number] : [birth year] (31 yrs) Name: LARY SULTANA Visit Date: 08/18/2016 09:01 am PERFORMED BY: Performed By: Tanika Almodovar RDMS Attending: Lester Espana MD Referred By: AALIYAH MERCER MD Location: [facility] SERVICE(S) PROVIDED: UABDLIM - Abdominal Limited Survey Single [id number] Organ or Quadrant - [id number] INDICATIONS: upper abdominal pain x several months; positive murphys sign on exam COMPARISON: No prior studies for comparison. ------ LIVER: ------ Right Lobe Length: 15.5 cm Echogenicity/Echotexture: Normal GALLBLADDER: Cholelithiasis: No stones visualized Wall Thickness: 2. mm Focal Tenderness: Negative sonographic Jon's sign BILIARY TRACT: Intrahepatic Ducts: Normal Extrahepatic Ducts: Normal Common Duct Size: 4.0 mm --------- PANCREAS: --------- Head: Normal Tail: Poorly visualized due to overlying bowel Body: Normal RIGHT KIDNEY: Size (cm) L: 10.8 Cortical Thickness: Normal Cortical Echogenicity: Normal Hydronephrosis: No sonographic evidence ------ AORTA: ------ Measurements (cm): Proximal AP: 1.7 Mid AP: 1.5 ---- IVC: ---- Normal in caliber where visualized. FLUID COLLECTIONS: No ascites in the imaged upper abdomen. IMPRESSION Ultrasound Dictation: Normal right upper quadrant ultrasound. Specifically the gallbladder is normal. Lester Espana MD Electronically Signed Final Report 08/18/2016 10:06 am Aaliyah Mercer MD [facility] US GEN ORDERAB LES * Fecal Occult Blood, Immunoassay (08/15/2016 12:00 PM EDT) Fecal Occult Blood, Immunoassay Negative Negative [facility] Stool specimen (specimen) 08/15/2016 12:00 PM EDT 08/18/2016 3:38 PM EDT Narrative Resulting Agency Comment Spec In Lab Aaliyah Mercer MD BODY FLUIDS AND ST OOLS ORDERABLES [facility] [place] [place] [address] * Gold Tube HOLD (08/13/2016 6:00 PM EDT) Gold Hold Sample in lab. [facility] Blood specimen (specimen) Venous Draw / Unknown 08/13/2016 6:00 PM EDT 08/13/2016 6:17 PM EDT Aaliyah Mercer MD CHEMISTRY ORDERABL ES [facility] [place] [address] * (ABNORMAL) Differential, Automated (08/13/2016 6:00 PM EDT) Neutrophil % 82.0 % [facility] Neutrophil Absolute 7.68(H) 1.70 - 6.10 x10(3)/ L [facility] Lymph % 10.4 % [facility] Lymphocytes Abs 1.0 0.9 - 3.2 x10(3)/ L [facility] Monocyte % 6.8 % [facility] Monocyte Abs 0.6 0.3 - 0.9 x10(3)/[facility] Eos % 0.3 % [facility] Eosinophils Abs 0.0 0.0 - 0.4 x10(3)/[facility] Basophil % 0.3 % [facility] Baso Absolute 0.0 0.0 - 0.1 x10(3)/ L [facility] Immature Gran % 0.20 % [facility] Comment: Immature granulocytes(IG's)percentage and absolute count will include metamyelocytes, myelocytes, and promyelocytes. Blood smears from CBCs yielding IG's will be scanned manually for concordance. If this scan disagrees with the automated IG or if promyelocytes are noted, a manual differential will be performed. Immature Gran Absolute 0.02 0.00 - 0.04 x10(3)/ L [facility] Blood specimen (specimen) 08/13/2016 6:00 PM EDT 08/13/2016 6:17 PM EDT Narrative Resulting Agency Comment Spec In Lab Aaliyah Mercer MD HEMATOLOGY ORDERAB LES [facility] [place] [address] * (ABNORMAL) Hemogram (08/13/2016 6:00 PM EDT) [facility] White Blood Cell 9.4 4.0 - 9.5 x10(3)/[facility] Red Blood Cell 5.65(H) 4.58 - 5.54 x10(6)/[facility] Hemoglobin 16.6(H) 13.7 - 16.5 gm/dL [facility] Hematocrit 47.3 40.5 - 48.5 % [facility] Mean Cell Volume 83.7 82.9 - 93.1 [facility] Mean Cell Hemoglobin 29.4 27.5 - 32.1 pg [facility] Mean Cell Hemoglobin Concentration 35.1 32.0 - 35.7 gm/dL [facility] Platelet 231 145 - 357 x10(3)/[facility] RDW Standard Deviation 38.2 36.0 - 45.0 [facility] RDW coefficient of variation 12.5 11.4 - 13.8 % [facility] Mean Platelet Volume 9.6 7.6 - 12.9 [facility] NRBC% auto 0.0 % [facility] NRBC Absolute 0.000 0.000 - 0.000 x10(3)/[facility] Blood specimen (specimen) 08/13/2016 6:00 PM EDT 08/13/2016 6:17 PM EDT Narrative Resulting Agency Comment Spec In Lab Aaliyah Mercer MD HEMATOLOGY ORDERAB LES [facility] [place] [address] * (ABNORMAL) Hepatic Function Panel (08/13/2016 6:00 PM EDT) [facility] Protein, Total 8.7(H) 6.1 - 8.0 gm/dL [facility] Albumin 5.2 3.2 - 5.2 gm/dL [facility] Aspartate Aminotransferase 19 0 - 39 unit/L [facility] Alanine Aminotransferase 28 0 - 55 unit/L [facility] Alkaline Phosphatase 61 40 - 120 unit/L [facility] Bilirubin, Total 0.5 0.2 - 1.3 mg/dL [facility] Bilirubin, Direct 0.1 0.0 - 0.3 mg/dL [facility] Blood specimen (specimen) 08/13/2016 6:00 PM EDT 08/13/2016 6:17 PM EDT Narrative Resulting Agency Comment Spec In Lab Aaliyah Mercer MD CHEMISTRY ORDERABL ES Performing Organization Address [facility] Phone Number [facility] [place] [address] * Lipase (08/13/2016 6:00 PM EDT) Lipase 32 0 - 60 unit/L [facility] Blood specimen (specimen) 08/13/2016 6:00 PM EDT 08/13/2016 6:17 PM EDT Narrative Resulting Agency Comment Spec In Lab Aaliyah Mercer MD CHEMISTRY ORDERABL ES Performing Organization Address [facility] de Phone Number [facility] [place] [address] * Amylase (08/13/2016 6:00 PM EDT) Amylase 89 28 - 100 unit/L [facility] Blood specimen (specimen) 08/13/2016 6:00 PM EDT 08/13/2016 6:17 PM EDT Narrative Resulting Agency Comment Spec In Lab Aaliyah Mercer MD CHEMISTRY ORDERABL ES Performing Organization Address [facility]/State/ZIP Co de Phone Number [facility] [place] [address] documented in this encounter Visit Diagnoses Diagnosis Upper abdominal pain Abdominal pain, other specified site Burping Flatulence, eructation, and gas pain Upper abdominal pain Abdominal pain, other specified site documented in this encounter Care Teams Gynaecological Oncologist Relationship Specialty Start Date End Date Giuseppe Chen PA [facility] [place] [address] PCP - General General Internal Medicine 08/13/16 3/02/06 documented as of this encounter
--- OUTSIDE RECORDS SUMMARY | 2024-03-30 12:57 | XMS_ITS | Encounter Summary ---
Author Organization Formerly [facility], [facility] [place] [address] Care Team Providers Care Soil Engineer Name Role Phone Giuseppe Chen Primary Care Provider + [phone] Reason for Visit * Reason Comments Abdominal Pain Encounter Details Date Type Department Care Team (Late st Contact Info) Description 08/18/2016 10:27 AM EDT - 08/18/2016 8:57 PM EDT [place] [address] Evelyn Dash MD [facility] [place] [address] Kumar Wilkerson MD [facility] [place] [address] Lower abdominal pain; Left lower quadrant pain Discharge Disposition: Home Social History Tobacco [...] Sign Reading Time Taken Comments Blood Pressure 142/124 08/18/2016 7:00 PM EDT Pulse 98 08/18/2016 7:00 PM EDT Temperature 36.8 ??C (98.2 ??F) 08/18/2016 10:31 AM E DT Respiratory Rate 27 08/18/2016 7:00 PM EDT Oxygen Saturation 100% 08/18/2016 6:45 PM EDT Inhaled Oxygen Concentration - - Weight 74.8 kg (165 lb) 08/18/2016 10:33 AM EDT Height 175.3 cm (5' 9) 08/18/2016 10:33 AM EDT Body Mass Index 24.37 08/18/2016 10:33 AM EDT documented in this encounter Discharge Instructions * Discharge Instructions* Kumar Wilkerson MD - 08/18/2016 8:47 PM EDT The source of your abdominal complaints and pain appears related to significant stool in the lower intestines. The enema you received will continue to have effect over the next 48 hours. Start the medications prescribed tomorrow as written. Call tomorrow to coordinate a follow-up appointment on Tuesday or Tuesday with your primary care physician. Return if needed for worsening symptoms or new problems documented in this encounter Medications at Time of Discharge Medication Sig Dispensed Refills Start Date End Date polyethylene glycol (MIRALAX) 17 gram Powder in Packet Take 17 g by mouth 2 times daily for 7 days. 14 each 08/18/2016 08/25/2016 magnesium citrate Solution Take 150 mLs by mouth every 12 hours. 295 mL 08/18/2016 09/01/2016 omeprazole (PRILOSEC) 20 mg Capsule, Delayed Release(E.C.)Indicatio ns:Upper abdominal pain Take 1 capsule by mouth daily. 30 capsule 11 08/13/2016 12/23/2016 dicyclomine (BENTYL) 10 mg CapsuleIndications:Upp er abdominal pain,Burping Take 2 capsules by mouth 4 times daily. 112 capsule 08/13/2016 08/23/2016 documented as of this encounter ED Notes * Jamaal Ca NRP - 08/18/2016 6:48 PM EDT Soap suds enema given * Kumar Wilkerson MD - 08/18/2016 6:14 PM EDT Patient Name: Marco A Park Patient Age: 31 y.o. Birthdate: 1985 Admit date: 08/18/2016 Attending Physician: Kumar Wilkerson MD ED Course Patient signed out to me by Dr. Dash awaiting abdominal CT result. Abdominal CT read as: Bowel: Nondilated, no wall thickening. Abundant formed stool in the sigmoid colon. No diverticuli seen. The appendix is normal and is opacified by enteric contrast. IMPRESSION 1. No free air or intestinal obstruction. 2. No findings of diverticulitis. I reexamined him and his abdomen continues to be soft with only mild tenderness in the left lower quadrant. I think approaching his constipation as a source is an appropriate step at this point. As aresult, we'll give him a soapsuds enema here, recommend mag citrate tomorrow, initiate MiraLAX, given precautions for which to return, and recommended follow-up with his PCP on Tuesday or this coming Tuesday Kumar Wilkerson MD 08/18/161815 * Jamaal Ca NRP - 08/18/2016 5:04 PM EDT Patient back from CT * Jamaal Ca NRP - 08/18/2016 5:01 PM EDT Patient c/o some double vision now. MD notified. * Jamaal Ca NRP - 08/18/2016 4:53 PM EDT Patient to CT * Jamaal Ca NRP - 08/18/2016 3:56 PM EDT Patient in the room still having some pain and feeling gassy as well which is irritating. * Ruperto Anaya MD - 08/18/2016 10:56 AM EDT ED Resident Note Marco A Park is an 31 y.o. male who presents to the ED with: Chief Complaint Patient presents with ??? Abdominal Pain I saw this patient 08/18/2016 at 1045. History is from Pt. HPI Marco A Park is a 31 y.o. male smoker who presents to the Emergency Department with lower abdominal pain. Pt has had mild epigastric pain and frequent burping over the past several months; but driving home today after RUQ US (normal), developed stabbing 10/10 suprapubic pain radiating to L hipand lower back. Associated w testicular pressure x 1 wk and some loose stools. No fevers, N/V, dysuria, hematuria, bloody stools. Does report dark stools but has been taking PeptoBismol. No recent int'l travel or street food. Review of Systems: Review of Systems Constitutional: Negative for fever. HENT: Negative for nosebleeds. Eyes: Negative for visual disturbance. Respiratory: Negative for cough. Cardiovascular: Negative for chest pain. Gastrointestinal: Positive for abdominal pain and diarrhea. Negative for blood in stool and vomiting. Genitourinary: Negative for dysuria and hematuria. Musculoskeletal: Negative for joint swelling. Skin: Negative for rash. Neurological: Negative for syncope. Physical Exam: Patient Vitals for the past 24 hrs: BP Temp Temp src Pulse Resp SpO2 Height Weight 08/18/16 1245 129/80 - - 90 17 99 % - - 08/18/16 1230 127/72 - - 79 16 99 % - - 08/18/16 1215 131/82 - - 75 9 99 % - - 08/18/16 1200 124/82 - - 69 18 - - - 08/18/16 1145 117/81 - - 75 16 98 % - - 08/18/16 1130 121/89 - - 80 13 100 % - - 08/18/16 1115 126/90 - - 83 19 97 % - - 08/18/16 1100 (!) 130/91 - - 83 16 99 % - - 08/18/16 1045 131/83 - - 75 20 98 % - - 08/18/16 1033 (!) 133/91 - - 77 14 100 % 175.3 cm (5' 9) 74.8 kg (165 lb) 08/18/16 1031 (!) 133/91 36.8 ??C (98.2 ??F) Oral 79 17 100 % - - GEN: Well-appearing, well-nourished, no acute distress. HEENT: No scleral icterus. Oropharynx clear, pink, and moist. PULM: No resp distress. Lungs ctab. No wheezes or rhonchi. CV: Normal rate. S1/S2. No murmurs. Distal pulses intact bilat. ABD: Soft, nondistended, ttp LLQ > RLQ. Bowel sounds present. No pulsatile abd mass. No McB pt tenderness. No rebound. No Rosvings. : No testicular swelling or ttp. No inguinal hernia appreciated. MSK: Full active ROM. NEURO: AAOx3. PERRL, EOMI. No gross CN deficits. Light touch intact face & body. Moves extremities equally. Regular gait. PSYCH: Normal mood and thought pattern. SKIN: No rashes. ED Course: - Patient seen under the supervision of Dr. Dash. - Medications, allergies and past medical history reviewed. Recent Results (from the past 24 hour(s)) Hepatic Function Panel Result Value Ref Range Total Protein 8.0 6.1 - 8.0 gm/dL Albumin 4.9 3.2 - 5.2 gm/dL AST 22 0 - 39 unit/L ALT 25 0 - 55 unit/L Alk Phos 59 40 - 120 unit/L Total Bilirubin 0.5 0.2 - 1.3 mg/dL Bili, Direct 0.1 0.0 - 0.3 mg/dL Basic Metabolic Panel (non-fasting) Result Value Ref Range Glucose Lvl 89 65 - 199 mg/dL BUN 13 10 - 20 mg/dL Creatinine 1.18 0.80 - 1.50 mg/dL Sodium 139 135 - 145 mmol/L Potassium 3.9 3.5 - 5.0 mmol/L Chloride 100 98 - 107 mmol/L CO2 22 22 - 31 mmol/L Anion Gap 17 (H) 5 - 15 mmol/L Calcium 10.1 8.5 - 10.5 mg/dL Estimated GFR >60 >=60 Lipase Result Value Ref Range Lipase 33 0 - 60 unit/L Hemogram Result Value Ref Range WBC 6.8 4.0 - 9.5 x10(3)/mcL RBC 5.57 (H) 4.58 - 5.54 x10(6)/mcL Hemoglobin 16.3 13.7 - 16.5 gm/dL Hematocrit 46.0 40.5 - 48.5 % MCV 82.6 (L) 82.9 - 93.1 fL MCH 29.3 27.5 - 32.1 pg MCHC 35.4 32.0 - 35.7 gm/dL Platelets 257 145 - 357 x10(3)/mcL RDWSD 37.2 36.0 - 45.0 fL RDWCV 12.3 11.4 - 13.8 % MPV 9.7 7.6 - 12.9 fL nRBC % Auto 0.0 % nRBC Abs Auto 0.000 0.000 - 0.000 x10(3)/mcL Differential, Automated Result Value Ref Range Neutrophils % 61.7 % Neutr Abs (ANC) 4.18 1.70 - 6.10 x10(3)/mcL Lymphocytes % 26.0 % Lymphocytes Abs 1.8 0.9 - 3.2 x10(3)/mcL Monocytes % 9.9 % Monocyte Abs 0.7 0.3 - 0.9 x10(3)/mcL Eosinophils % 1.8 % Eosinophils Abs 0.1 0.0 - 0.4 x10(3)/mcL Basophils % 0.3 % Basophils Abs 0.0 0.0 - 0.1 x10(3)/mcL Immature Gran % 0.30 % [place] Gran Abs 0.02 0.00 - 0.04 x10(3)/mcL Blue Tube HOLD Result Value Ref Range Blue Hold Sample in lab. ED Course Assessment and Plan: Assessment: 31 y.o. male with abdominal pain Unclear etiology at present. Pt has had several months of epigastric pain and burping consistent with dyspepsia, but today's pain was lower quadrants and more severe. Normal RUQ US this morning, and no lab evidence of hepatobiliary or pancreatic dysfunction. Given the change in pain quality and associated stool change, will obtain CT to eval for diverticulitis or other acute pathology. Plan if CTnegative is to d/c to home with GI f/u. NOTE: This pt was signed out to Dr. Zoila Dash at 1200, who will f/u CT results and dispo accordingly. Plan: - CT abd and pelvis w contrast - Anticipate DC to home - Follow up with GI - Return precautions Ruperto Anaya MD Resident 08/18/16 1256 Associated attestation - Evelyn Dash MD - 08/19/2016 12:46 PM EDT ED ATTENDING ATTESTATION NOTE The patient was seen in conjunction with Dr. Anaya, the resident physician. I have independentlyperformed the trotter portions of the history and physical exam. I have reviewed the nursing notes, vital signs, and all diagnostic studies personally including labs, imaging studies and EKGs. I have discussed the details of the case with the resident and agree with the assessment and plan as describedin the resident note above unless noted otherwise below. Brief Summary: 31 YOM presents with lower abdominal pain that has been ongoing intermittently for several months. Pt saw PCP and had RUQ US today which was normal. Complains of worsening pain on the way home so came to the ED. General: Well appearing, NAD Heent: NCAT, mmm Neck: no meningismus CV: RRR, no m/r/g, Pum: CTAB, no w/r/r Abd: Soft, TTP in LLQ without guarding or rebound. Skin: warm and dry Neuro: GCS 15, MCDONOUGH x 4 Psych: normal affect, normal eye contact Please see resident physician exam for further details While in ED, pt had labs sent which were normal. (CBC, CMP, UA). CT: pending Final Assessment: 31 YOM with few months of abdominal pain, now localizing to LLQ. CT ordered to evaluate for diverticulitis or other intraabominal process. Signed out to Dr. Wilkerson pending CT. Pt otherwise well appearing in the ED. Given this and the chronicity of the pain, if CT negative, anticipate DC to home. documented in this encounter Plan of Treatment Upcoming Encounters Date Type Department Care Team (Late st Contact Info) Description 04/01/2025 3:40 PM EST Office Visit Cardiology at [address] [place] [address] Star Flores MD [facility] [place] [address] documented as of this encounter Procedures Procedure Name Priority Date/Time Associated Diagnosis Comments CT ABDOMEN AND PELVIS W CONTRAST STAT 08/18/2016 4:59 PM EDT URINE HOLD STAT 08/18/2016 1:19 PM EDT URINALYSIS WITH REFLEX CULTURE STAT 08/18/2016 1:19 PM EDT HEMOGRAM STAT 08/18/2016 11:00 AM EDT DIFFERENTIAL, AUTOMATED STAT 08/18/2016 11:00 AM EDT BLUE TUBE HOLD STAT 08/18/2016 11:00 AM EDT CBC (WITH DIFF) STAT 08/18/2016 11:00 AM EDT LIPASE STAT 08/18/2016 11:00 AM EDT HEPATIC FUNCTION PANEL STAT 08/18/2016 11:00 AM EDT BASIC METABOLIC PANEL STAT 08/18/2016 11:00 AM EDT documented in this encounter Results * CT Abdomen & Pelvis w Contrast (08/18/2016 4:59 PM EDT) Anatomical Region Laterality Modality Abdomen, Pelvis Computed Tomogra phy Addenda Addendum by Darlene Nayak MD on 08/18/2016 5:39 PM EDT ADDENDUM #1 Please add the following in the body of report: Kidneys: Normal. Incidentally noted is a retroaortic LEFT renal vein, a normal variation. ORIGINAL REPORT EXAMINATION: ??CT ABDOMEN AND PELVIS W CONTRAST CLINICAL HISTORY: ??3 mo hx worsening dyspepsia symptoms, now with 1 day of bilat lower quadrant pain L > R and loose stools. ??Concern for diverticulitis. TECHNIQUE: Helical CT of the abdomen and pelvis was performed following the intravenous administration of contrast. 110 cc of Omnipaque 350 was given. Oral contrast was administered. COMPARISON: ??None FINDINGS: Lower chest: Normal. Liver: 18 cm in craniocaudal measurement and attenuation without lesions. Bile ducts: Nondilated. Gallbladder: No calcified gallstones. Normal caliber wall. Pancreas: Normal attenuation without ductal dilatation. Spleen: Normal. Adrenals: Normal. Kidneys: Normal. ? Vasculature: No aneurysm. Lymph Nodes: No enlarged lymph nodes. Bowel: Nondilated, no wall thickening. Abundant formed stool in the sigmoid colon. No diverticuli seen. The appendix is normal and is opacified by enteric contrast. ?? Peritoneum and mesentery: No ascites, free air, or loculated fluid collection. No mesenteric inflammation. Abdominal wall: Normal. Urinary Bladder: Normal. Reproductive organs: Normal appearance of prostate gland. Osseous structures: No osteoblastic or osteolytic lesion. No fracture. IMPRESSION: 1. ??No free air or intestinal obstruction. 2. ??No findings of diverticulitis. Impressions 08/18/2016 5:27 PM EDT 1. ??No free air or intestinal obstruction. 2. ??No findings of diverticulitis. Narrative 08/18/2016 5:27 PM EDT EXAMINATION: ??CT ABDOMEN AND PELVIS W CONTRAST CLINICAL HISTORY: ??3 mo hx worsening dyspepsia symptoms, now with 1 day of bilat lower quadrant pain L > R and loose stools. ??Concern for diverticulitis. TECHNIQUE: Helical CT of the abdomen and pelvis was performed following the intravenous administration of contrast. 110 cc of Omnipaque 350 was given. Oral contrast was administered. COMPARISON: ??None FINDINGS: Lower chest: Normal. Liver: 18 cm in craniocaudal measurement and attenuation without lesions. Bile ducts: Nondilated. Gallbladder: No calcified gallstones. Normal caliber wall. Pancreas: Normal attenuation without ductal dilatation. Spleen: Normal. Adrenals: Normal. Kidneys: Normal. ? Vasculature: No aneurysm. Lymph Nodes: No enlarged lymph nodes. Bowel: Nondilated, no wall thickening. Abundant formed stool in the sigmoid colon. No diverticuli seen. The appendix is normal and is opacified by enteric contrast. ?? Peritoneum and mesentery: No ascites, free air, or loculated fluid collection. No mesenteric inflammation. Abdominal wall: Normal. Urinary Bladder: Normal. Reproductive organs: Normal appearance of prostate gland. Osseous structures: No osteoblastic or osteolytic lesion. No fracture. Procedure Note Darlene Nayak MD - 08/18/2016 EXAMINATION: CT ABDOMEN AND PELVIS W CONTRAST CLINICAL HISTORY: 3 mo hx worsening dyspepsia symptoms, now with 1 day ofbilat lower quadrant pain L > R and loose stools. Concern for diverticulitis. TECHNIQUE: Helical CT of the abdomen and pelvis was performed followingthe intravenous administration of contrast. 110 cc of Omnipaque 350 was given.Oral contrast was administered. COMPARISON: None FINDINGS: Lower chest: Normal. Liver: 18 cm in craniocaudal measurement and attenuation withoutlesions. Bile ducts: Nondilated. Gallbladder: No calcified gallstones. Normal caliber wall. Pancreas: Normal attenuation without ductal dilatation. Spleen: Normal. Adrenals: Normal. Kidneys: Normal. Vasculature: No aneurysm. Lymph Nodes: No enlarged lymph nodes. Bowel: Nondilated, no wall thickening. Abundant formed stool in thesigmoid colon. No diverticuli seen. The appendix is normal and is opacified byenteric contrast. Peritoneum and mesentery: No ascites, free air, or loculated fluidcollection. No mesenteric inflammation. Abdominal wall: Normal. Urinary Bladder: Normal. Reproductive organs: Normal appearance of prostate gland. Osseous structures: No osteoblastic or osteolytic lesion. No fracture. IMPRESSION 1. No free air or intestinal obstruction. 2. No findings of diverticulitis. Evelyn Dash MD IMG CT ORDERABLES * Urine Hold (08/18/2016 1:19 PM EDT) Hold, Urine Sample in lab. [facility] Urine specimen (specimen) Urine / Unknown 08/18/2016 1:19 PM EDT 08/18/2016 1:37 PM EDT Evelyn Dash MD URINE ORDERABLES [facility] [place] [address] * (ABNORMAL) Urinalysis with reflex Culture (08/18/2016 1:19 PM EDT) Glucose, Urine Dipstick Negative Negative mg/dL [facility] Protein, Urine Dipstick 100(A) Negative mg/dL [facility] Bilirubin, Urine Dipstick Negative Negative mg/dL [facility] Comment: Clinical correlation required for positive Urine Bilirubin results as false positive may occur with some drugs and drug related products. If a false positive is suspected a serum total bilirubin should be considered if clinically indicated. Urobilinogen, Urine Dipstick Normal Normal mg/dL [facility] pH, Urn (dipstick) 8.0 5.0 - 8.0 [facility] Blood, Urine Dipstick Negative Negative mg/dL [facility] Ketone, Urine Dipstick Negative Negative mg/dL [facility] Nitrite, Urine Dipstick Negative Negative [facility] Leukocytes, Urine Dipstick Negative Negative [facility] Appearance, Urine Dipstick Turbid(A) Clear [facility] Specific Anton Urine Automated 1.024 1.002 - 1.030 [facility] Color, Urine Dipstick Yellow Yellow [facility] RBC, Urine Not Present 0 - 3 /HPF [facility] WBC, Urine Not Present 0 - 3 /HPF [facility] Bacteria, Urine Occasional(A ) None /HPF [facility] Reflex to Culture No [facility] Urine specimen (specimen) 08/18/2016 1:19 PM EDT 08/18/2016 1:36 PM EDT Narrative Resulting Agency Comment Spec In Lab Evelyn Dash MD URINE ORDERABLES Performing Organization Address City/[facility]/ZIP Co de Phone Number [facility] [place] [address] * Blue Tube HOLD (08/18/2016 11:00 AM EDT) Blue Hold Sample in lab. [facility] Blood specimen (specimen) Venous Draw / Unknown 08/18/2016 11:00 AM EDT 08/18/2016 11:28 AM EDT Evelyn Dash MD HEMATOLOGY ORDERABLE S Performing Organization Address City/[facility]/ZIP Co de Phone Number [facility] [place] [address] * Differential, Automated (08/18/2016 11:00 AM EDT) Neutrophil % 61.7 % [facility] Neutrophil Absolute 4.18 1.70 - 6.10 x10(3)/[facility] Lymph % 26.0 % [facility] Lymphocytes Abs 1.8 0.9 - 3.2 x10(3)/[facility] Monocyte % 9.9 % [facility] Monocyte Abs 0.7 0.3 - 0.9 x10(3)/[facility] Eos % 1.8 % [facility] Eosinophils Abs 0.1 0.0 - 0.4 x10(3)/[facility] Basophil % 0.3 % [facility] Baso Absolute 0.0 0.0 - 0.1 x10(3)/[facility] Immature Gran % 0.30 % [facility] Comment: Immature granulocytes(IG's)percentage and absolute count will include metamyelocytes, myelocytes, and promyelocytes. Blood smears from CBCs yielding IG's will be scanned manually for concordance. If this scan disagrees with the automated IG or if promyelocytes are noted, a manual differential will be performed. Immature Gran Absolute 0.02 0.00 - 0.04 x10(3)/[facility] Blood specimen (specimen) 08/18/2016 11:00 AM EDT 08/18/2016 11:26 AM EDT Narrative Resulting Agency Comment Spec In Lab Evelyn Dash MD HEMATOLOGY ORDERABLE S [facility] [place] [address] * (ABNORMAL) Hemogram (08/18/2016 11:00 AM EDT) White Blood Cell 6.8 4.0 - 9.5 x10(3)/[facility] Red Blood Cell 5.57(H) 4.58 - 5.54 x10(6)/ L [facility] Hemoglobin 16.3 13.7 - 16.5 gm/dL [facility] Hematocrit 46.0 40.5 - 48.5 % [facility] Mean Cell Volume 82.6(L) 82.9 - 93.1 fL [facility] Mean Cell Hemoglobin 29.3 27.5 - 32.1 pg [facility] Mean Cell Hemoglobin Concentration 35.4 32.0 - 35.7 gm/dL [facility] Platelet 257 145 - 357 x10(3)/mc L [facility] RDW Standard Deviation 37.2 36.0 - 45.0 [facility] RDW coefficient of variation 12.3 11.4 - 13.8 % [facility] Mean Platelet Volume 9.7 7.6 - 12.9 fL [facility] NRBC% auto 0.0 % [facility] NRBC Absolute 0.000 0.000 - 0.000 x10(3)/mc L [facility] Blood specimen (specimen) 08/18/2016 11:00 AM EDT 08/18/2016 11:26 AM EDT Narrative Resulting Agency Comment Spec In Lab Evelyn Dash MD HEMATOLOGY ORDERABLE S Performing Organization Address [facility]/ZIP Co de Phone Number [facility] [place] [address] * Lipase (08/18/2016 11:00 AM EDT) Lipase 33 0 - 60 unit/L [facility] Blood specimen (specimen) 08/18/2016 11:00 AM EDT 08/18/2016 11:26 AM EDT Narrative Resulting Agency Comment Spec In Lab Evelyn Dash MD CHEMISTRY ORDERABLES Performing Organization Address [facility] Co de Phone Number [facility] [place] [address] * (ABNORMAL) Basic Metabolic Panel (non-fasting) (08/18/2016 11:00 AM EDT) Glucose 89 65 - 199 mg/dL [facility] Comment:Diabetes: >=200 mg/d L plus symptoms Blood Urea Nitrogen 13 10 - 20 mg/dL [facility] Creatinine 1.18 0.80 - 1.50 mg/dL [facility] Comment: Please note that the pediatric reference intervals supplied above were not validated at [facility]. Results from pediatric patients should be interpreted in conjunction to the patient's age, height and muscle mass. Sodium 139 135 - 145 mmol/L [facility] Potassium 3.9 3.5 - 5.0 mmol/L [facility] Comment: Please note: ??Patients with WBC >100,000 may have falsely elevated Potassium levels. ??For accurate Potassium quantification in these patients send serum separator tube (gold top) for subsequent determinations. ??Contact the Clinical Chemistry Laboratory if there are any questions. Chloride 100 98 - 107 mmol/L [facility] Carbon Dioxide 22 22 - 31 mmol/L [facility] Anion Gap 17(H) 5 - 15 mmol/L [facility] Calcium 10.1 8.5 - 10.5 mg/dL [facility] Est Glomerular Filtration Rate >60 >=60 [facility] Comment: This estimated GFR (eGFR) value [...] the following links into your internet browser. [email or web address] Blood specimen (specimen) 08/18/2016 11:00 AM EDT 08/18/2016 11:26 AM EDT Narrative Resulting Agency Comment Spec In Lab Evelyn Dash MD CHEMISTRY ORDERABLES [facility] [place] [address] * Hepatic Function Panel (08/18/2016 11:00 AM EDT) Protein, Total 8.0 6.1 - 8.0 gm/dL [facility] Albumin 4.9 3.2 - 5.2 gm/dL [facility] Aspartate Aminotransferase 22 0 - 39 unit/L [facility] Alanine Aminotransferase 25 0 - 55 unit/L [facility] Alkaline Phosphatase 59 40 - 120 unit/L [facility] Bilirubin, Total 0.5 0.2 - 1.3 mg/dL [facility] Bilirubin, Direct 0.1 0.0 - 0.3 mg/dL [facility] Blood specimen (specimen) 08/18/2016 11:00 AM EDT 08/18/2016 11:26 AM EDT Narrative Resulting Agency Comment Spec In Lab Evelyn Dash MD CHEMISTRY ORDERABLES [facility] [place] [address] documented in this encounter Visit Diagnoses Diagnosis Lower abdominal pain Abdominal pain, other specified site Left lower quadrant pain Abdominal pain, left lower quadrant documented in this encounter Administered Medications Inactive Administered Medications - up to 3 most recent administrations Medication Order MAR Action Action Date Dose Rate Site acetaminophen (TYLENOL) tablet 1,000 mg 1,000 mg, Oral, ONCE, 1 dose, On Tue08/18/16 at 1113, Maximum dose of acetaminophen is 4000 mg from all sources in 24 hours., STAT Given 08/18/2016 11:53 AM EDT 1,000 mg ibuprofen (ADVIL;MOTRIN) tablet 800 mg 800 mg, Oral, ONCE, 1 dose, On Tue08/18/16 at 1113, Administer orally with milk or food to minimize GI irritation , STAT Given 08/18/2016 11:53 AM EDT 800 mg iohexol (OMNIPAQUE) 350 mg/mL solution 30,100 mg 30,100 mg (86 mL), Intravenous, ONCE PRN, 1 dose, Starting on Tue08/18/16 at 1655, Until Tue08/18/16 at 1656, Per Protocol, Warning Vesicant/Irritant Medication , Routine Given 08/18/2016 4:56 PM EDT 30,100 mg iohexol (OMNIPAQUE) radiology oral prep (50 mL of oral contrast) 240 mL, Oral, ONCE, 1 dose, On Tue08/18/16 at 1400, 8 ounce cup = 240 mL of contrast 2 hours before scan as tolerated. The patient should not eat food or drink any other liquids during the entire period in which they are drinking the contrast. Mix 1 bottle (50 mL) of Omnipaque 350 with 1 liter (1,000 mL) non-carbonated beverage (preferably water). Close cover and shake vigorously and then refrigerate, if desired. Dispose of any excess preparation in a sink. Properly dispose of container., Routine Given 08/18/2016 2:00 PM EDT 240 mLs iohexol (OMNIPAQUE) radiology oral prep (50 mL of oral contrast) 240 mL, Oral, ONCE, 1 dose, On Tue08/18/16 at 1500, 8 ounce cup = 240 mL of contrast 1 hour before scan as tolerated. The patient should not eat food or drink any other liquids during the entire period in which they are drinking the contrast. Mix 1 bottle (50 mL) of Omnipaque 350 with 1 liter (1,000 mL) non-carbonated beverage (preferably water). Close cover and shake vigorously and then refrigerate, if desired. Dispose of any excess preparation in a sink. Properly dispose of container., Routine Given 08/18/2016 3:00 PM EDT 240 mLs iohexol (OMNIPAQUE) radiology oral prep (50 mL of oral contrast) 240 mL, Oral, ONCE, 1 dose, On Tue08/18/16 at 1530, 8 ounce cup = 240 mL of contrast 30 minutes before scan as tolerated. The patient should not eat food or drink any other liquids during the entire period in which they are drinking the contrast. Mix 1 bottle (50 mL) of Omnipaque 350 with 1 liter (1,000 mL) non-carbonated beverage (preferably water). Close cover and shake vigorously and then refrigerate, if desired. Dispose of any excess preparation in a sink. Properly dispose of container., Routine Given 08/18/2016 3:30 PM EDT 240 mLs iohexol (OMNIPAQUE) radiology oral prep (50 mL of oral contrast) 240 mL, Oral, ONCE, 1 dose, On Tue08/18/16 at 1545, 8 ounce cup = 240 mL of contrast 15 minutes before scan as tolerated. The patient should not eat food or drink any other liquids during the entire period in which they are drinking the contrast. Mix 1 bottle (50 mL) of Omnipaque 350 with 1 liter (1,000 mL) non-carbonated beverage (preferably water). Close cover and shake vigorously and then refrigerate, if desired. Dispose of any excess preparation in a sink. Properly dispose of container., Routine Given 08/18/2016 3:45 PM EDT 240 mLs sodium chloride 0.9% 1,000 mL IV bolus at 4,000 mL/hr, Intravenous, ONCE, 1 dose, On Tue08/18/16 at 1113 Given 08/18/2016 11:56 AM EDT 4000 mL/hr documented in this encounter Active and Recently Administered Medications Times are shown in EDT. Scheduled Medication Order 08/16/2016 08/17/2016 08/18/2016 acetaminophen (TYLENOL) tablet 1,000 mg (COMPLETED) 1,000 mg, Oral, ONCE, 1 dose, On Tue08/18/16 at 1113, Maximum dose of acetaminophen is 4000 mg from all sources in 24 hours., STAT 1153 (Given - Provid er: Jamaal Ca NRP) ibuprofen (ADVIL;MOTRIN) tablet 800 mg (COMPLETED) 800 mg, Oral, ONCE, 1 dose, On Tue08/18/16 at 1113, Administer orally with milk or food to minimize GI irritation , STAT 1153 (Given - Provid er: Jamaal Ca NRP) iohexol (OMNIPAQUE) radiology oral prep (50 mL of oral contrast) (COMPLETED)(Linked Group 1) 240 mL, Oral, ONCE, 1 dose, On Tue08/18/16 at 1400, 8 ounce cup = 240 mL of contrast 2 hours before scan as tolerated. The patient should not eat food or drink any other liquids during the entire period in which they are drinking the contrast. Mix 1 bottle (50 mL) of Omnipaque 350 with 1 liter (1,000 mL) non-carbonated beverage (preferably water). Close cover and shake vigorously and then refrigerate, if desired. Dispose of any excess preparation in a sink. Properly dispose of container., Routine 1400 (Given - Provid er: Jamaal Ca NRP) iohexol (OMNIPAQUE) radiology oral prep (50 mL of oral contrast) (COMPLETED)(Linked Group 1) 240 mL, Oral, ONCE, 1 dose, On Tue08/18/16 at 1500, 8 ounce cup = 240 mL of contrast 1 hour before scan as tolerated. The patient should not eat food or drink any other liquids during the entire period in which they are drinking the contrast. Mix 1 bottle (50 mL) of Omnipaque 350 with 1 liter (1,000 mL) non-carbonated beverage (preferably water). Close cover and shake vigorously and then refrigerate, if desired. Dispose of any excess preparation in a sink. Properly dispose of container., Routine 1500 (Given - Provid er: Jamaal Ca NRP) iohexol (OMNIPAQUE) radiology oral prep (50 mL of oral contrast) (COMPLETED)(Linked Group 1) 240 mL, Oral, ONCE, 1 dose, On Tue08/18/16 at 1530, 8 ounce cup = 240 mL of contrast 30 minutes before scan as tolerated. The patient should not eat food or drink any other liquids during the entire period in which they are drinking the contrast. Mix 1 bottle (50 mL) of Omnipaque 350 with 1 liter (1,000 mL) non-carbonated beverage (preferably water). Close cover and shake vigorously and then refrigerate, if desired. Dispose of any excess preparation in a sink. Properly dispose of container., Routine 1530 (Given - Provid er: Jamaal Ca NRP) iohexol (OMNIPAQUE) radiology oral prep (50 mL of oral contrast) (COMPLETED)(Linked Group 1) 240 mL, Oral, ONCE, 1 dose, On Tue08/18/16 at 1545, 8 ounce cup = 240 mL of contrast 15 minutes before scan as tolerated. The patient should not eat food or drink any other liquids during the entire period in which they are drinking the contrast. Mix 1 bottle (50 mL) of Omnipaque 350 with 1 liter (1,000 mL) non-carbonated beverage (preferably water). Close cover and shake vigorously and then refrigerate, if desired. Dispose of any excess preparation in a sink. Properly dispose of container., Routine 1545 (Given - Provid er: Jamaal Ca NRP) sodium chloride 0.9% 1,000 mL IV bolus (COMPLETED) at 4,000 mL/hr, Intravenous, ONCE, 1 dose, On Tue08/18/16 at 1113 1156 (Given - Provid er: Jamaal Ca NRP)1248 (IV Stop - Provider: Jamaal Ca NRP) PRN Medication Order 08/16/2016 08/17/2016 08/18/2016 iohexol (OMNIPAQUE) 350 mg/mL solution 30,100 mg (COMPLETED) 30,100 mg (86 mL), Intravenous, ONCE PRN, 1 dose, Starting on Tue08/18/16 at 1655, Until Tue08/18/16 at 1656, Per Protocol, Warning Vesicant/Irritant Medication , Routine 1656 (Given - Provid er: Julius Downing) Linked Groups Order Group 1: iohexol (OMNIPAQUE) radiology oral prep (50 mL of oral contrast) (COMPLETED)Jump to med 240 mL, Oral, ONCE, 1 dose, On Tue08/18/16 at 1400, 8 ounce cup = 240 mL of contrast 2 hours before scan as tolerated. The patient should not eat food or drink any other liquids during the entire period in which they are drinking the contrast. Mix 1 bottle (50 mL) of Omnipaque 350 with 1 liter (1,000 mL) non-carbonated beverage (preferably water). Close cover and shake vigorously and then refrigerate, if desired. Dispose of any excess preparation in a sink. Properly dispose of container., Routine Followed by iohexol (OMNIPAQUE) radiology oral prep (50 mL of oral contrast) (COMPLETED)Jump to med 240 mL, Oral, ONCE, 1 dose, On Tue08/18/16 at 1500, 8 ounce cup = 240 mL of contrast 1 hour before scan as tolerated. The patient should not eat food or drink any other liquids during the entire period in which they are drinking the contrast. Mix 1 bottle (50 mL) of Omnipaque 350 with 1 liter (1,000 mL) non-carbonated beverage (preferably water). Close cover and shake vigorously and then refrigerate, if desired. Dispose of any excess preparation in a sink. Properly dispose of container., Routine Followed by iohexol (OMNIPAQUE) radiology oral prep (50 mL of oral contrast) (COMPLETED)Jump to med 240 mL, Oral, ONCE, 1 dose, On Tue08/18/16 at 1530, 8 ounce cup = 240 mL of contrast 30 minutes before scan as tolerated. The patient should not eat food or drink any other liquids during the entire period in which they are drinking the contrast. Mix 1 bottle (50 mL) of Omnipaque 350 with 1 liter (1,000 mL) non-carbonated beverage (preferably water). Close cover and shake vigorously and then refrigerate, if desired. Dispose of any excess preparation in a sink. Properly dispose of container., Routine Followed by iohexol (OMNIPAQUE) radiology oral prep (50 mL of oral contrast) (COMPLETED)Jump to med 240 mL, Oral, ONCE, 1 dose, On Tue08/18/16 at 1545, 8 ounce cup = 240 mL of contrast 15 minutes before scan as tolerated. The patient should not eat food or drink any other liquids during the entire period in which they are drinking the contrast. Mix 1 bottle (50 mL) of Omnipaque 350 with 1 liter (1,000 mL) non-carbonated beverage (preferably water). Close cover and shake vigorously and then refrigerate, if desired. Dispose of any excess preparation in a sink. Properly dispose of container., Routine documented in this encounter Care Teams Soil Engineer Relationship Specialty Start Date End Date Giuseppe Chen PA [facility] [place] [address] PCP - General General Internal Medicine 08/13/1607/22 documented as of this encounter
--- OUTSIDE RECORDS SUMMARY | 2024-03-30 12:57 | XMS_ITS | Encounter Summary ---
Author Organization [facility] Address [facility] [place] [address] Care Team Providers Care Customer Account Coordinator Name Role Phone Elizabeth Mistry APRN Primary Care Provider + Encounter Details Date Type Department Care Team (Late st Contact Info) Description 08/17/2016 Telephone Internal Medicine at [facility] [place] [address] Harriett Valenzuela RN Social History Tobacco Use Types Packs/Day [...] encounter Miscellaneous Notes * Telephone Encounter - Harriett Claire RN - 08/17/2016 2:53 PM EDT Pt called back to day to say his abdominal pain is not getting any better. Pt has not yet been scheduled for the US that was ordered on Tuesday [facility]. TC to US and spoke with Pat there whostates she will call pt and schedule for tomorrow as she has an opening. Advised Pat that pt's mobile number is preferred number to call. documented in this encounter Plan of Treatment Upcoming Encounters Date Type Department Care Team (Late st Contact Info) Description 04/01/2025 3:40 PM EST Office Visit Cardiology at [address] [place] [phone] Star Flores MD [facility] [address] documented as of this encounter Visit Diagnoses Not on filedocumented in this encounter Care Teams Customer Account Coordinator Relationship Specialty Start Date End Date Elizabeth Mistry, [facility] [place] [place] [address] PCP - General General Internal Medicine 08/19/1605/23 documented as of this encounter
--- OUTSIDE RECORDS SUMMARY | 2024-03-30 12:57 | XMS_ITS | Encounter Summary ---
Author Organization [facility] Address [facility] [place] [address] Care Team Providers Care Marketing Content Manager Name Role Phone Giuseppe Chen Primary Care Provider + [phone] Encounter Details Date Type Department Care Team (Latest Contact Info) Description 08/18/2016 8:40 AM EDT - 08/18/2016 10:26 AM EDT Hospital Encounter [place] [phone] Aaliyah Hinds MD [facility] [address] [place] [address] Upper abdominal pain Discharge Disposition: Home Social [...] 3:40 PM EST Office Visit Cardiology at [address] [place] [address] Star Flores MD [facility] [place]ARDIOLOGY [place] [address] documented as of this encounter Procedures Procedure Name Priority Date/Time Associated Diagnosis Comments US ABDOMEN LIMITED Routine 08/18/2016 9: 02 AM EDT Upper abdominal pain documented in this [...] 10:06 am) PATIENT INFO: ID #: ? [id number] ?: ??[birth year] (31 yrs) Name: ? LARY SULTANA ?Visit Date: 08/18/2016 09:01 am PERFORMED BY: Performed By: ? Scooby LONG, ??Tanika Attending: ?Jovi HERNANDEZ, Lester K. Referred By: ?AALIYAH HINDS MD Location: ? [place] SERVICE(S) PROVIDED: ??UABDLIM - Abdominal Limited Survey Single ? [id number] ??Organ or Quadrant - [id number] INDICATIONS: ??upper abdominal pain x several months; [...] 08/18/2016 10:06 am) PATIENT INFO: ID #: [id number] : [birth year] (31 yrs) Name: LARY SULTANA Visit Date: 08/18/2016 09:01 am PERFORMED BY: Performed By: Tanika Almodovar RDMS Attending: Lester Espana MD Referred By: AALIYAH HINDS MD Location: [place] SERVICE(S) PROVIDED: UABDLIM - Abdominal Limited Survey Single [id number] Organ or Quadrant - [id number] INDICATIONS: upper abdominal pain x several months; [...] Signed Final Report 08/18/2016 10:06 am Aaliyah Hinds MD IMG US GEN ORDERAB LES documented in this encounter Visit Diagnoses Diagnosis Upper abdominal pain Abdominal pain, other specified site documented in this encounter Care Teams Marketing Content Manager Relationship Specialty Start Date End Date Giuseppe Chen PA [facility] [place] [address] PCP - General General Internal Medicine 08/13/1607/22 documented as of this encounter
== END 2024-03-30 12:47 | disposition home or self-care (01) ==
LOC: LBN 12:46
PROVIDERS: Visit Provider Nurse Practitioner Family
DX: J02.9 Acute pharyngitis, unspecified (principal)
CPT/HCPCS: 87070

== ENCOUNTER 2024-04-13 11:26 | Outpatient (CLI) | payer BC, SELFPAY ==
[2024-04-13 11:59] LABS: Calculated LDL 194 mg/dL (<100); Cholesterol 267 mg/dL (<200); HDL Cholesterol 49 mg/dL (40-60); Triglyceride 123 mg/dL (<150)
== END 2024-04-13 11:27 | disposition home or self-care (01) ==
LOC: LBO 11:26
PROVIDERS: Visit Provider Internal Medicine Cardiovascular Disease
DX: E78.01 Familial hypercholesterolemia (principal)
CPT/HCPCS: 36415; 80061

== ENCOUNTER 2024-12-19 16:10 | Outpatient (REF) | payer BC, SELFPAY ==
[2024-12-19 20:22] LABS: Abs Immature Grans 0.01 10^3/uL (0.0-0.06); HCT 46.1 % (40.0-50.0); HGB 16.2 g/dL (13.5-17.5); Immature Grans % 0.1 %; MCH 30.0 pg (27.0-33.0); MCHC 35.1 % (32.0-36.0); MCV 85 fL (80-95); MPV 10.0 fL (8.0-11.0); Platelet Count 252 10^3/uL (130-400); RBC 5.40 10^6/uL (4.36-5.78); RDW 12.3 % (11.8-14.1); RDW-SD 38.3 fL; WBC 7.74 10^3/uL (4.4-10.8)
[2024-12-19 20:33] LABS: ALT 45 U/L (16-63); AST 21 U/L (15-37); Albumin 4.7 g/dL (3.4-5.0); Alkaline Phosphatase 57 U/L (46-116); Anion Gap 9.5 mmol/L (3-11); BUN 17 mg/dL (7-18); Bilirubin, Total 0.5 mg/dL (0.2-1.0); CO2 27.5 mmol/L (21.0-32.0); Calcium 9.6 mg/dL (8.5-10.1); Chloride 104 mmol/L (98-107); Estimated GFR 86.49 (mL/min/1.73m2); Glucose 84 mg/dL (74-106); Potassium 4.1 mmol/L (3.5-5.1); Sodium 141 mmol/L (136-145); Total Protein 7.8 g/dL (6.4-8.2)
[2024-12-21 10:48] LABS: Lyme Ab w Rflx to Lyme Confirm Negative (Negative)
[2024-12-23 21:18] LABS: B. miyamotoi PCR Negative (Negative); Babesia divergens/MO-1 Negative (Negative); Ehrlichia muris eauclairensis Negative (Negative)
== END 2024-12-19 16:11 | disposition home or self-care (01) ==
LOC: NCHCN 16:10
PROVIDERS: PCP Family Medicine; Visit Provider Nurse Practitioner Family
DX: R10.32 Left lower quadrant pain (principal)
CPT/HCPCS: 80053; 87798; 85025; 86618

== ENCOUNTER 2024-12-19 17:15 | Emergency (ER) | payer BC, SELFPAY ==
[2024-12-19 17:18] VITALS: BP 137/91; PULSE 104; RESP 20; TEMP 36.5; O2SAT 98
[2024-12-19 17:22] VITALS: BP 137/91; PULSE 104; RESP 20; TEMP 36.5; O2SAT 98
[2024-12-19 17:40] LABS: Glucose Negative (Negative)
--- NOTE | 2024-12-19 18:00 | DI.CT_ITS ---
Exam(s) CT ABDOMEN PELVIS W EXAM: CT ABDOMEN PELVIS W CLINICAL HISTORY: RLQ pain, N/V/D. TECHNIQUE: Imaging Protocol: Axial computed tomography images with coronal and sagittal reformatted images were created and reviewed CONTRAST MATERIAL: Intravenous: Omnipaque-350 75cc Oral: None COMPARISON: No exams were available for comparison FINDINGS: VISUALIZED LUNG BASES: There are increased subpleural markings in the dependent aspects of both lung bases. There are no pleural effusions.. No pericardial effusion. Heart size normal. ABDOMEN: There is no ascites. LIVER: There are no focal hepatic lesions evident. No dilated intrahepatic ducts. GALLBLADDER/BILIARY: No obvious gallbladder pathology. CBD is not dilated. PANCREAS: No evidence of pancreatic mass nor dilatation of the pancreatic duct. SPLEEN: Spleen is not enlarged. No obvious intrasplenic lesions. Splenic and portal veins are patent. ADRENALS: There are no significant adrenal masses. KIDNEYS:No cysts evident. No solid renal masses. No calculi nor hydronephrosis.. ABDOMINAL AORTA: Abdominal aorta is not enlarged. The left renal vein is retroaortic. It is patent. LYMPH NODES:There is no retroperitoneal nor paraaortic adenopathy. ABDOMINAL WALL: No evidence of significant anterior abdominal wall nor inguinal hernia. GI: There is no evidence of bowel obstruction, free air, nor abscess. The cecum is located in the right-side of the abdomen above the pelvis and not in the right iliac fossa. There is some dense material layered in the cecum which is most probably from ingested medication by the patient. PELVIS: GI: No evidence of appendicitis.There is no significant sigmoid diverticular disease. LYMPH NODES: There is no intrapelvic nor inguinal adenopathy. REPRODUCTIVE: Prostate size is normal. Seminal vesicles unremarkable. URINARY BLADDER: There is relatively uniform thickening of the urinary bladder wall. Either related to cystitis or the fact that the bladder is under distended at time of image acquisition. There are no obvious masses nor calculi in the urinary bladder lumen. OSSEOUS: No fractures and no significant osseous lesions. IMPRESSION: 1. No evidence of acute appendicitis. The cecum is actually located in the right-side of the abdomen above the pelvis level. 2. No obvious acute gallbladder pathology. 3. There is uniform thickening of the urinary bladder wall which is either related to cystitis or under distension. Correlate with urinalysis. Report called by myself to ER provider 12/19/2024 at 7:10 p.m. RADIATION DOSE DELIVERED: 419.79mGy.cm Total DLP DATA REPOSITORY: All CT scans at this facility are submitted to the National Radiology Data Registry (NRDR) Dose Index Registry (DIR) with the [employer] (ACR). RADIATION OPTIMIZATION: All CT scans at this facility use at least one of these dose optimization techniques: automated exposure control; mA and/or kV adjustment per patient size (includes targeted exams where dose is matched to clinical indication); or iterative reconstruction.
[2024-12-19] MEDS: Omnipaque 350 MG/ML 100 ML BTL 75 ML IJ (18:05)
[2024-12-19] MEDS: Normal Saline - Diluent 50 ML VIAL IJ (18:05)
[2024-12-19 18:08] LABS: Abs Immature Grans 0.03 10^3/uL (0.0-0.06); HCT 45.3 % (40.0-50.0); HGB 15.8 g/dL (13.5-17.5); Immature Grans % 0.4 %; MCH 29.8 pg (27.0-33.0); MCHC 34.9 % (32.0-36.0); MCV 86 fL (80-95); MPV 9.6 fL (8.0-11.0); Platelet Count 239 10^3/uL (130-400); RBC 5.30 10^6/uL (4.36-5.78); RDW 12.3 % (11.8-14.1); RDW-SD 38.5 fL; WBC 7.71 10^3/uL (4.4-10.8)
[2024-12-19 18:27] LABS: ALT 43 U/L (16-63); AST 18 U/L (15-37); Albumin 4.4 g/dL (3.4-5.0); Alkaline Phosphatase 55 U/L (46-116); Anion Gap 7.4 mmol/L (3-11); BUN 16 mg/dL (7-18); Bilirubin, Total 0.5 mg/dL (0.2-1.0); CO2 30.6 mmol/L (21.0-32.0); Calcium 9.2 mg/dL (8.5-10.1); Chloride 104 mmol/L (98-107); Estimated GFR 70.78 (mL/min/1.73m2); Glucose 85 mg/dL (74-106); Lipase 40 U/L (<78); Magnesium 2.8 mg/dL (1.8-2.4); Potassium 3.7 mmol/L (3.5-5.1); Sodium 142 mmol/L (136-145); Total Protein 7.8 g/dL (6.4-8.2)
[2024-12-19] MEDS: Ondansetron 4 MG/2 ML VIAL IVP (18:27)
[2024-12-19 18:28] LABS: Troponin I < 4 ng/L (<or=76)
--- NOTE | 2024-12-19 18:44 | ED.GENADUL_ITS ---
Discharge Plan Disposition Patient Disposition: Home Condition: Stable Discharge Details Clinical Impression: Gastroenteritis Primary Care Provider: Mayo Leija ED Provider: Nevin Aranda Home Meds and New Rx's Prescriptions: No Action Repatha SureClick 140 mg/mL pen injector 140 mg subcut Q2W Discharge Instructions Instructions: Viral gastroenteritis in adults Additional Instructions: You were seen in the emergency department today for evaluation of nausea vomiting and diarrhea. In our department had a full physical examination performed, had laboratory studies that were reassuring and had a CT scan that did not show any abnormalities that would explain her symptoms. I am concerned for a viral gastroenteritis, have provided you with some medications for nausea to help you maintain your hydration and nutrition. Many people find that following the brat diet (bananas, rice, apples, toast) can help with diarrhea. Please use therapeutic dosing of Tylenol (acetaminophen) & Advil (ibuprofen) in an alternating fashion as follows: Take 1000mg of Tylenol every 6 hours without missing doses- that is 4 times per day. [facility] in between the Tylenol doses, take 600mg of Advil also on a 6 hour schedule, that is also 4 times per day. With this strategy, you will be taking something for fever/pain as often as every 3 hours. The daily maximum dosing of Tylenol is 4000mg, and the daily maximum dosing of Advil is 2400mg. Please note that some common cold medications & prescription pain medications may contain acetaminophen and you need to read OTC drug labels and factor that in to maximum daily doses. Please follow-up with your primary care provider in the next few days to discuss this visit and any symptoms that change, worsen, or persist. Thank you for allowing us to be part of your care. Discharge Data Discharge Date/Time-TO BE ENTERED AT DEPARTURE: 12/19/24 20:05 HPI General Mode of arrival: ambulatory . Date/Time Provider Initiated Documentation: 12/19/24 17:25 . Limitations to Documentation: no limitations . Information obtained by: patient and old records reviewed . HPI Narrative: This is a 39-year-old male patient presenting for evaluation of abdominal pain with nausea, vomiting, and diarrhea. The patient was seen at his health clinic, and at that time had some tenderness to palpation of the right lower quadrant. He was recommended to get a CT scan but cannot get the prior Auth until Nathan and was instructed to come to the emergency department for evaluation. He re ports that his pain has been 4 out of 10, he has been having some sciatica on that side as well without reported sensory loss, weakness, or trauma. No urinary pathology but the patient has had watery diarrhea with no blood in the stool. No history of abdominal surgery, states that he has been able to tolerate some oral intake and maintain his hydration. Related Data Home Medications ?Medication ?Instructions ?Recorded ?Confirmed evolocumab 140 mg/mL subcutaneous 140 mg subcut Q2W 12/19/24 pen injector (Repatha SureClick) Allergies Allergy/AdvReac Type Severity Reaction Status Date / Time [id number] Reductase Allergy Severe Other (See Verified 12/19/24 17:17 Inhibitor Comment) General Stated Complaint: Abd Prob LUPIS: 3 Exam Narrative Exam Narrative: Gen: Awake and alert, in no apparent distress HEENT: Non-icteric sclera Neck: Supple Lungs: No apparent respiratory distress, normal respiratory effort. CV: Appears well perfused, heart with mild tachycardia, regular rhythm Abdomen: Non-distended, soft, tender to palpation in a generalized distribution without rigidity, rebound, or guarding MSK: Moves 4 extremities without apparent limitation in ROM Skin: Visualized skin without rashes, cyanosis. Neuro: Normal Gait, no obvious focal deficits or facial asymmetry. Speaks in full, clear sentences. Psych: Appropriate for situation. Course Vital Signs Vital signs: Vital Signs Temperature 36.5 C 12/19/24 17:18 Pulse 104 H 12/19/24 17:18 Respiratory Rate 20 12/19/24 17:18 Blood Pressure 137/91 H 12/19/24 17:18 Pulse Oximetry 98 12/19/24 17:18 Temperature 36.5 C 12/19/24 17:22 Temperature Source Oral 12/19/24 17:22 Pulse 104 H 12/19/24 17:22 Respiratory Rate 20 12/19/24 17:22 Blood Pressure 137/91 H 12/19/24 17:22 Blood Pressure Position Sitting 12/19/24 17:22 Pulse Oximetry 98 12/19/24 17:22 Oxygen Delivery Method Room Air 12/19/24 17:22 Oxygen Flow Rate 0 12/19/24 17:22 Pain Level 5 12/19/24 17:22 Lab/Test Results Lab/Test Results: Laboratory Tests Range/Units 12/19/24 12/19/24 17:21 17:40 WBC (4.4-10.8) 10^3/uL 7.71 RBC (4.36-5.78) 10^6/uL 5.30 Hgb (13.5-17.5) g/dL 15.8 Hct (40.0-50.0) % 45.3 MCV (80-95) fL 86 MCH (27.0-33.0) pg 29.8 MCHC (32.0-36.0) % 34.9 RDW (11.8-14.1) % 12.3 Plt Count (130-400) 10^3/uL 239 MPV (8.0-11.0) fL 9.6 Immature Gran % % 0.4 Neutrophils % % 63.6 Lymphocytes % % 24.6 Monocytes % % 9.3 Eosinophils % % 1.7 Basophils % % 0.4 Nucleated RBC % (0.0-0.3) % 0.0 Absolute Neutrophils (1.2-6.7) 10^3/uL 4.90 Absolute Lymphocytes (1.2-3.4) 10^3/uL 1.90 Absolute Monocytes (0.1-0.8) 10^3/uL 0.72 Absolute Eosinophils (0.0-0.7) 10^3/uL 0.13 Absolute Basophils (0.0-0.2) 10^3/uL 0.03 Sodium (136-145) mmol/L 142 Potassium (3.5-5.1) mmol/L 3.7 Chloride (98-107) mmol/L 104 Carbon Dioxide (21.0-32.0) mmol/L 30.6 Anion Gap (3-11) mmol/L 7.4 BUN (7-18) mg/dL 16 Creatinine (0.70-1.30) mg/dL 1.3 Est GFR (CKD-EPI 2020) (mL/min/1.73m2) 70.78 Glucose (74-106) mg/dL 85 Calcium (8.5-10.1) mg/dL 9.2 Magnesium (1.8-2.4) mg/dL 2.8 H Total Bilirubin (0.2-1.0) mg/dL 0.5 AST (15-37) U/L 18 ALT (16-63) U/L 43 Alkaline Phosphatase (46-116) U/L 55 Troponin I (<or=76) ng/L < 4 Total Protein (6.4-8.2) g/dL 7.8 Albumin (3.4-5.0) g/dL 4.4 Lipase (<78) U/L 40 Urine Color (Yellow) Yellow Urine Clarity (Clear) Clear Urine pH (5-8) 5.5 Ur Specific [place] (1.005-1.025) 1.025 Urine Protein (Neg-Trace) mg/dL Negative Urine Ketones (Negative) mg/dL Negative Urine Blood (Negative) Negative Urine Nitrite (Negative) Negative Urine Bilirubin (Negative) Negative Urine Urobilinogen (Up to 0.2) mg/dL 0.2 Ur Leukocyte Esterase (Negative) Negative Urine Glucose (Negative) mg/dL Negative Medical Decision Making This is a 39-year-old male patient presenting for evaluation of nausea vomiting and diarrhea as well as abdominal pain. My differential includes, but is not limited to, gastritis/PUD, gastroenteritis, pancreatitis, cholecystitis and gallbladder pathology, hepatitis, appendicitis, diverticulitis, small bowel obstruction. Considered urinary pathology including UTI, nephrolithiasis. Considered mesenteric ischemia, aortic pathology, though this is less concerning based on the patient's history and physical exam. No testicular symptoms reported to suggest torsion. We will obtain laboratory studies to include CBC, CMP, magnesium, lipase, and troponin. I will obtain a urinalysis, as well as a CT scan of the abdomen and pelvis. The patient is not requiring anything for pain at this time but did receive Zofran for management of his nausea. -I independently interpreted the laboratory studies, which show no significant leukocytosis, anemia, or thrombocytopenia. The chemistry panel is without evidence of electrolyte abnormality, kidney dysfunction, or liver injury. Troponin negative, lipase low, urinalysis noninfectious. CT scan reviewed by myself, showing no significant abnormalities to explain the patient's symptoms. He had an incidental note of a right upper quadrant location of his cecum and was informed of this finding so that he can appropria tely present to care with acute pain in that area. Bladder wall thickening noted on radiology report likely due to underdistention given the normal urinary tract studies and lack of dysuria. My history and exam is most concerning for gastroenteritis and I counseled the patient on conservative management. At this time, the patient has had a full medical evaluation and is safe for discharge to home. They are hemodynamically stable, ambulatory, and tolerating PO. They are understanding of the follow-up plan and return precautions. They left our facility without incident. Nevin Aranda MD [facility] All Active Problems (Updated 12/19/24 @ 19:55 by Nevin Aranda MD) Gastroenteritis (Acute) Sore throat (Acute) Social History Smoking/Tobacco Use Status: Never Smoking risk assessment performed?: Yes Alcohol Intake: never Drug use: Occasionally Substance use type: marijuana Do you feel safe at home: Yes Do you feel safe in your relationship?: Yes
[2024-12-19 19:06] LABS: Troponin I 4 ng/L (<or=76)
[2024-12-19] MEDS: Ondansetron O.D.T. 4 MG TABEF, 3 TABS/BTL PO (20:00)
[2024-12-19 20:18] VITALS: BP 125/85; TEMP 37; O2SAT 98
== END 2024-12-19 20:05 | disposition home or self-care (01) ==
PROVIDERS: Emergency Provider Emergency Medicine; PCP Family Medicine
DX: K52.9 Noninfective gastroenteritis and colitis, unspecified (principal); R10.31 Right lower quadrant pain; R11.2 Nausea with vomiting, unspecified
CPT/HCPCS: 99283; 99285; 96374; 36415; 80053; 83690; 74177; 81003; 83735; 84484; 85025; J2405; J3490